=== PATIENT | female | born 1985 | race Caucasian/White ===

== ENCOUNTER 2020-08-05 14:07 | Inpatient (IN) | payer MEDICARE, MEDICAID, SELFPAY ==
[2020-08-25 02:02] VITALS: BMI 31.2
[2020-08-26 07:00] VITALS: BMI 31.8
[2020-08-26 08:00] VITALS: BP 111/52; PULSE 77
[2020-08-26] MEDS: Thiamine HCL 100 MG TABLET PO (10:19)
[2020-08-26] MEDS: haloperidoL 5 MG TABLET PO ×3 (10:19→20:26)
[2020-08-26] MEDS: Folic Acid 1 MG TABLET PO (10:19)
[2020-08-26] MEDS: Benztropine Mesylate 1 MG TABLET PO ×3 (10:20→20:26)
[2020-08-26] MEDS: Topiramate 25 MG TABLET 75 MG PO (10:20)
[2020-08-26 10:21] VITALS: BP 111/52; PULSE 77
[2020-08-26] MEDS: OXcarbazepine 150 MG TABLET 750 MG PO (10:21)
[2020-08-26] MEDS: Propranolol HCL 10 MG TABLET PO ×2 (10:21→20:37)
--- NOTE | 2020-08-26 16:07 | P.PNPSI_ITS ---
Assessment & Plan Assessment & Plan (1) Agitation: Status: Acute Code(s): R45.1 - Restlessness and agitation Assessment and Plan: Continue current medications Responding to Haldol Re-direction (2) Developmental delay, profound: Status: Chronic Code(s): R62.50 - Unspecified lack of expected normal physiological development in childhood Greater than 50% of the session was spent on counseling and/or coordination of care Subjective Subjective Date of Service: 08/26/20 Reason For Visit: Mood Disorder Unspecified Subjective Notes: Conditional Voluntary Interim History: Teresita has been more calm and in behavioral control. She has been accepting her medications and she has been eating better. She has been attending to her ADLs. She continues to be withdrawn and to talk to herself a lot. Legal is working with Tamiko Ding to invoke HCP and the staff is working with the mother in terms of options for Teresita. will invite the mother to come an visit. Medication Compliance: Yes Side effects from medications: No Attending Groups: No Mental Status Exam Mental Status Exam Patient Appearance: Disheveled Patient Orientation: Person and Place Level of Consciousness: Awake Patient Behavior: Guarded, Posturing, Self Manipulative, Hypersexual, Invasion - Personal Space, Pacing and Poor Eye Contact Affect Description: Withdrawn, Anxious and Blunted Ability to Follow Directions: Poor Speech Pattern: Whisper, Rambling, Mumbled (Child like) and Poor Articulation Hallucinations: Auditory Delusions: Paranoid Ideation and Grandiose Thought Process: Racing Thought Content: Incoherent Depressive Symptoms: Increased Anxiety, Insomnia, Increased Irritability and Difficulty Concentrating Abnormal Motor Activity Signs and Symptoms: Aggression and Restlessness Judgement: Poor Diagnostics Vital Signs (24Hr): Vital Signs - 24 hr 08/26/20 08:00 08/26/20 10:21 Pulse Rate 77 77 Blood Pressure 111/52 L 111/52 L Body Mass Index 31.8 Labs Results: 08/24/20 15:20 08/24/20 15:20 Labs: Laboratory Results - last 48 hr 08/24/20 08/24/20 08/24/20 15:20 15:20 15:20 WBC RBC Hgb Hct MCV MCH MCHC RDW Coeff of Bertin Plt Count MPV Immature Gran % (Auto) Neut % (Auto) Lymph % (Auto) [place] % (Auto) Eos % (Auto) Baso % (Auto) Abs Immat Gran (auto) Absolute Lymphs (auto) Absolute Monos (auto) Absolute Eos (auto) Absolute Basos (auto) Absolute Nucleated RBC Nucleated RBC % (auto) Absolute Neutrophils ESR Sodium 143 Potassium 4.0 Chloride 110 H Bicarbonate 25 Anion Gap 12 BUN 23 H Creatinine 0.69 Estimated Creat Clear 102.1 Est GFR (Non-Af Amer) > 60 Random Glucose TNP Fasting Glucose 115 H Calcium 9.2 Total Bilirubin 0.4 AST 19 D ALT 62 H Alkaline Phosphatase 80 D Ammonia 39 Creatine Kinase 69 D Total Protein 6.7 Albumin 4.1 08/24/20 08/24/20 15:20 15:20 WBC 9.1 RBC 4.35 Hgb 12.1 Hct 37.7 MCV 86.7 MCH 27.8 MCHC 32.1 RDW Coeff of Bertin 14.2 Plt Count 313 MPV 10.3 Immature Gran % (Auto) 0.2 Neut % (Auto) 60.9 Lymph % (Auto) 34.1 [place] % (Auto) 3.8 Eos % (Auto) 0.3 Baso % (Auto) 0.7 Abs Immat Gran (auto) 0.02 Absolute Lymphs (auto) 3.1 Absolute Monos (auto) 0.4 Absolute Eos (auto) 0.0 Absolute Basos (auto) 0.1 Absolute Nucleated RBC 0.000 Nucleated RBC % (auto) 0.0 Absolute Neutrophils 5.6 ESR 22 H Sodium Potassium Chloride Bicarbonate Anion Gap BUN Creatinine Estimated Creat Clear Est GFR (Non-Af Amer) Random Glucose Fasting Glucose Calcium Total Bilirubin AST ALT Alkaline Phosphatase Ammonia Creatine Kinase Total Protein Albumin Medications Medications Ambulatory Orders Medication Instructions Recorded aripiprazole 30 mg PO DAILY 08/25/20 clonazepam 0.5 mg PO BID PRN 08/25/20 folic acid 1 mg PO DAILY 08/25/20 gabapentin 300 mg PO BEDTIME 08/25/20 norethindrone (contraceptive) 0.35 mg PO DAILY 08/25/20 [[facility]] propranolol 10 mg PO BID 08/25/20 thiamine mononitrate (vit B1) 100 mg PO DAILY 08/25/20 topiramate 75 mg PO BEDTIME 08/25/20 trazodone 25 - 50 mg PO BEDTIME 08/25/20 Allergies Allergies Allergy/AdvReac Type Severity Reaction Status Date / Time cariprazine [From [facility]] Allergy Unknown UNK Unverified 08/12/20 19:39 divalproex sodium Allergy Unknown UNK Unverified 08/12/20 19:39 [From [facility]] escitalopram [From L[facility]AP[facility]] Allergy Unknown UNK Unverified 08/12/20 19:39 lithium [LITHIUM] Allergy Unknown UNK Unverified 08/12/20 19:39 metformin [METFORMIN] Allergy Unknown UNK Unverified 08/12/20 19:39 oxcarbazepine Allergy Unknown UNK Unverified 08/12/20 19:39 [From TRILEPTAL]
[2020-08-26 18:00] VITALS: BP 96/60; PULSE 82; TEMP 36.2
[2020-08-26 20:37] VITALS: BP 111/52; PULSE 77
[2020-08-27 06:00] VITALS: BP 106/79; PULSE 79; TEMP 35.9; O2SAT 99
[2020-08-27 09:04] VITALS: PULSE 98
[2020-08-27] MEDS: Folic Acid 1 MG TABLET PO (09:04)
[2020-08-27] MEDS: Topiramate 25 MG TABLET 75 MG PO (09:04)
[2020-08-27] MEDS: Thiamine HCL 100 MG TABLET PO (09:04)
[2020-08-27] MEDS: Propranolol HCL 10 MG TABLET PO ×2 (09:04→22:24)
[2020-08-27] MEDS: OXcarbazepine 150 MG TABLET 750 MG PO (09:04)
[2020-08-27] MEDS: haloperidoL 5 MG TABLET PO ×3 (09:06→22:25)
[2020-08-27] MEDS: Benztropine Mesylate 1 MG TABLET PO ×3 (09:06→22:25)
[2020-08-27 18:00] VITALS: BP 115/70; PULSE 87; TEMP 36.8
--- NOTE | 2020-08-27 18:41 | HO.PSYCHPN ---
Assessment & Plan Assessment & Plan (1) Agitation: Status: Acute Code(s): R45.1 - Restlessness and agitation Assessment and Plan: Teresita does seem to be responding to current medication regime and is less agitated as a result (2) Developmental delay, profound: Status: Chronic Code(s): R62.50 - Unspecified lack of expected normal physiological development in childhood Assessment and Plan: HCP to be affirmed. SW working with mother and DDS regarding placement options Greater than 50% of the session was spent on counseling and/or coordination of care Patient educated on: diagnosis and medication risk/benefits Informed Consent: does not understand Reason for contiued inpatient stay Substantial Risk for: harm to self, harm to others and rapid decompensation Subjective Subjective Date of Service: 08/27/20 Reason For Visit: Mood Disorder Unspecified Subjective Notes: Conditional Voluntary Interim History: Teresita has been much more cooperative and calm. She was able to visit with her mother and seemed pleased to see her. She took all of her medication, showered and was pleasant to staff. She remains delusional about having a fiancee. Medication Compliance: Yes Side effects from medications: No Attending Groups: Intermittent Review of Systems Acute medical concerns: No Medical Review of Systems: unchanged Mental Status Exam Mental Status Exam Patient Appearance: Disheveled Patient Orientation: Person Level of Consciousness: Awake Patient Behavior: Dependent, Posturing, Self Manipulative, Hypersexual, Invasion - Personal Space, Avoidant and Distractible Mood Description: Cheerful and Labile Affect Description: Labile Patient Cognition Impaired: No Ability to Follow Directions: Fair Speech Pattern: Slurred, Impoverished and Delayed Hallucinations: Auditory Delusions: Present (Believes she is ) Thought Process: Distracted and Slowed Thinking Thought Content: positive for [place] and positive for [place] of Content Abnormal Motor Activity Signs and Symptoms: Psychomotor Retardation and Tic Judgement: Poor Diagnostics Vital Signs (24Hr): Vital Signs - 24 hr 08/26/20 20:37 08/27/20 06:00 08/27/20 09:04 Temperature 96.7 F L Pulse Rate 77 79 98 Blood Pressure 111/52 L 106/79 Pulse Oximetry 99 Body Mass Index 31.8 Labs Results: 08/24/20 15:20 08/24/20 15:20 Labs: Laboratory Results - last 48 hr 08/24/20 08/24/20 08/24/20 15:20 15:20 15:20 WBC RBC Hgb Hct MCV MCH MCHC RDW Coeff of Bertin Plt Count MPV Immature Gran % (Auto) Neut % (Auto) Lymph % (Auto) [place] % (Auto) Eos % (Auto) Baso % (Auto) Abs Immat Gran (auto) Absolute Lymphs (auto) Absolute Monos (auto) Absolute Eos (auto) Absolute Basos (auto) Absolute Nucleated RBC Nucleated RBC % (auto) Absolute Neutrophils ESR Sodium 143 Potassium 4.0 Chloride 110 H Bicarbonate 25 Anion Gap 12 BUN 23 H Creatinine 0.69 Estimated Creat Clear 102.1 Est GFR (Non-Af Amer) > 60 Random Glucose TNP Fasting Glucose 115 H Calcium 9.2 Total Bilirubin 0.4 AST 19 D ALT 62 H Alkaline Phosphatase 80 D Ammonia 39 Creatine Kinase 69 D Total Protein 6.7 Albumin 4.1 08/24/20 08/24/20 15:20 15:20 WBC 9.1 RBC 4.35 Hgb 12.1 Hct 37.7 MCV 86.7 MCH 27.8 MCHC 32.1 RDW Coeff of Bertin 14.2 Plt Count 313 MPV 10.3 Immature Gran % (Auto) 0.2 Neut % (Auto) 60.9 Lymph % (Auto) 34.1 [place] % (Auto) 3.8 Eos % (Auto) 0.3 Baso % (Auto) 0.7 Abs Immat Gran (auto) 0.02 Absolute Lymphs (auto) 3.1 Absolute Monos (auto) 0.4 Absolute Eos (auto) 0.0 Absolute Basos (auto) 0.1 Absolute Nucleated RBC 0.000 Nucleated RBC % (auto) 0.0 Absolute Neutrophils 5.6 ESR 22 H Sodium Potassium Chloride Bicarbonate Anion Gap BUN Creatinine Estimated Creat Clear Est GFR (Non-Af Amer) Random Glucose Fasting Glucose Calcium Total Bilirubin AST ALT Alkaline Phosphatase Ammonia Creatine Kinase Total Protein Albumin Medications Medications Current Medications Generic Name Dose Route Start Last Admin Trade Name Freq PRN Reason Stop Dose Admin Acetaminophen 650 mg 08/26/20 00:01 Acetaminophen 325 Mg Tablet PO Q6H PRN HEADACHE/PAIN.MILD (SCALE 1-3) Al Hydroxide/Mg Hydroxide 30 ml 08/26/20 00:01 Magnesium Hydrox/Alum Hydrox 30 Ml Oral.Susp PO Q6H PRN HEARTBURN/NAUSEA Benztropine Mesylate 1 mg 08/26/20 08:30 08/27/20 12:52 Benztropine Mesylate 1 Mg Tablet PO 1 mg TID@0830,1330,2100 HERIBERTO Administration Benztropine Mesylate 1 mg 08/26/20 00:01 Benztropine Mesylate 1 Mg Tablet PO Q4H PRN Extrapyramidal Effects Clonazepam 0.25 mg 08/26/20 21:00 Clonazepam 0.5 Mg Tablet PO BEDTIME MRX1 PRN Sleep Clonazepam 0.5 mg 08/26/20 00:01 Clonazepam 0.5 Mg Tablet PO BID PRN anxiety/restlessness Folic Acid 1 mg 08/26/20 09:00 08/27/20 09:04 Folic Acid 1 Mg Tablet PO 1 mg DAILY HERIBERTO Administration Haloperidol 5 mg 08/26/20 08:30 08/27/20 12:52 Haloperidol 5 Mg Tablet PO 5 mg TID@0830,1330,2100 HERIBERTO Administration Haloperidol 5 mg 08/26/20 00:01 Haloperidol 5 Mg Tablet PO Q4H PRN anxiety/restlessness Hydroxyzine HCl 25 mg 08/26/20 21:00 Hydroxyzine Hcl 25 Mg Tablet PO BEDTIME MRX1 PRN NIGHT TIME ANXIETY Loperamide HCl 2 mg 08/26/20 00:01 Loperamide Hcl 2 Mg Capsule PO Q2H PRN Diarrhea Magnesium Hydroxide 30 ml 08/26/20 00:01 Milk Of Magnesia 30 Ml Oral.Susp PO Q24H PRN Constipation Oxcarbazepine 750 mg 08/26/20 09:00 08/27/20 09:04 Oxcarbazepine 150 Mg Tablet PO 750 mg DAILY HERIBERTO Administration Propranolol HCl 10 mg 08/26/20 08:30 08/27/20 09:04 Propranolol Hcl 10 Mg Tablet PO 10 mg BID@0830,2100 HERIBERTO Administration Thiamine HCl 100 mg 08/26/20 09:00 08/27/20 09:04 Thiamine Hcl 100 Mg Tablet PO 100 mg DAILY HERIBERTO Administration Topiramate 75 mg 08/26/20 09:00 08/27/20 09:04 Topiramate 25 Mg Tablet PO 75 mg DAILY HERIBERTO Administration Trazodone HCl 25 mg 08/26/20 21:00 Trazodone Hcl 25 Mg Halftab PO BEDTIME MRX1 PRN Insomnia Allergies Allergies Allergy/AdvReac Type Severity Reaction Status Date / Time cariprazine [From [facility]] Allergy Unknown UNK Unverified 08/12/20 19:39 divalproex sodium Allergy Unknown UNK Unverified 08/12/20 19:39 [From [facility]] escitalopram [From LEXAPRO] Allergy Unknown UNK Unverified 08/12/20 19:39 lithium [LITHIUM] Allergy Unknown UNK Unverified 08/12/20 19:39 metformin [METFORMIN] Allergy Unknown UNK Unverified 08/12/20 19:39 oxcarbazepine Allergy Unknown UNK Unverified 08/12/20 19:39 [From TRILEPTAL]
[2020-08-27 22:24] VITALS: BP 115/70; PULSE 87
[2020-08-28 06:00] VITALS: BP 130/82; PULSE 88; RESP 18
[2020-08-28] MEDS: Topiramate 25 MG TABLET 75 MG PO (10:01)
[2020-08-28] MEDS: OXcarbazepine 150 MG TABLET 750 MG PO (10:02)
[2020-08-28] MEDS: Propranolol HCL 10 MG TABLET PO ×2 (10:02→19:54)
[2020-08-28] MEDS: Thiamine HCL 100 MG TABLET PO (10:02)
[2020-08-28] MEDS: Folic Acid 1 MG TABLET PO (10:02)
[2020-08-28] MEDS: haloperidoL 5 MG TABLET PO ×3 (10:04→19:55)
[2020-08-28] MEDS: Benztropine Mesylate 1 MG TABLET PO ×3 (10:04→19:55)
--- NOTE | 2020-08-28 12:09 | HO.PSYCHPN ---
Assessment & Plan Assessment & Plan (1) Developmental delay, profound: Status: Chronic Code(s): R62.50 - Unspecified lack of expected normal physiological development in childhood Assessment and Plan: limited cognitive ability (2) Mood swings: Status: Acute Code(s): R45.86 - Emotional lability Assessment and Plan: struggles with mood swing appropriate behaviors /aggression seems better today Greater than 50% of the session was spent on counseling and/or coordination of care Guardian/Caregiver educated on: medical condition Informed Consent: further education needed Reason for contiued inpatient stay Substantial Risk for: harm to self, harm to others and inability to function Subjective Subjective Date of Service: 08/28/20 Reason For Visit: Mood Disorder Unspecified Subjective Notes: Conditional Voluntary (5 min checks) Interim History: appropriate today on unit when nurse brought meds pt dropped her clothes mom called mutliple times today concerned about her- different voice she hadn't heard before mom reassured by counselor that she is doing well today possible voice is due to her doing a bit better Medication Compliance: Yes Side effects from medications: No Attending Groups: No Review of Systems Acute medical concerns: No Medical Review of Systems: unchanged Mental Status Exam Mental Status Exam Narrative: leaning over, dressed, some eye contact- Patient Appearance: Bizarre (odd bending over) Patient Orientation: Person and Place Level of Consciousness: Awake and Alert Patient Behavior: Hyperactive, Restless, Wandering, Invasion - Personal Space and Distractible Mood Description: Cheerful Patient Cognition Impaired: Yes Ability to Follow Directions: Fair Speech Pattern: Garbled, Rambling and Poor Articulation Hallucinations: Auditory Thought Process: Illogical Thought Content: positive for [place] and positive for Disorganized Depressive Symptoms: Diff. Making Decisions Abnormal Motor Activity Signs and Symptoms: Hyperactivity and Restlessness Judgement: Poor Diagnostics Vital Signs (24Hr): Vital Signs - 24 hr 08/27/20 18:00 08/27/20 22:24 Temperature 98.2 F Pulse Rate 87 87 Blood Pressure 115/70 115/70 Body Mass Index 31.8 Labs Results: 08/24/20 15:20 08/24/20 15:20 Medications Medications Current Medications Generic Name Dose Route Start Last Admin Trade Name Freq PRN Reason Stop Dose Admin Acetaminophen 650 mg 08/26/20 00:01 Acetaminophen 325 Mg Tablet PO Q6H PRN HEADACHE/PAIN.MILD (SCALE 1-3) Al Hydroxide/Mg Hydroxide 30 ml 08/26/20 00:01 Magnesium Hydrox/Alum Hydrox 30 Ml Oral.Susp PO Q6H PRN HEARTBURN/NAUSEA Benztropine Mesylate 1 mg 08/26/20 08:30 08/28/20 10:04 Benztropine Mesylate 1 Mg Tablet PO 1 mg TID@0830,1330,2100 HERIBERTO Administration Benztropine Mesylate 1 mg 08/26/20 00:01 Benztropine Mesylate 1 Mg Tablet PO Q4H PRN Extrapyramidal Effects Clonazepam 0.25 mg 08/26/20 21:00 Clonazepam 0.5 Mg Tablet PO BEDTIME MRX1 PRN Sleep Clonazepam 0.5 mg 08/26/20 00:01 Clonazepam 0.5 Mg Tablet PO BID PRN anxiety/restlessness Folic Acid 1 mg 08/26/20 09:00 08/28/20 10:02 Folic Acid 1 Mg Tablet PO 1 mg DAILY HERIBERTO Administration Haloperidol 5 mg 08/26/20 08:30 08/28/20 10:04 Haloperidol 5 Mg Tablet PO 5 mg TID@0830,1330,2100 HERIBERTO Administration Haloperidol 5 mg 08/26/20 00:01 Haloperidol 5 Mg Tablet PO Q4H PRN anxiety/restlessness Hydroxyzine HCl 25 mg 08/26/20 21:00 Hydroxyzine Hcl 25 Mg Tablet PO BEDTIME MRX1 PRN NIGHT TIME ANXIETY Loperamide HCl 2 mg 08/26/20 00:01 Loperamide Hcl 2 Mg Capsule PO Q2H PRN Diarrhea Magnesium Hydroxide 30 ml 08/26/20 00:01 Milk Of Magnesia 30 Ml Oral.Susp PO Q24H PRN Constipation Oxcarbazepine 750 mg 08/26/20 09:00 08/28/20 10:02 Oxcarbazepine 150 Mg Tablet PO 750 mg DAILY HERIBERTO Administration Propranolol HCl 10 mg 08/26/20 08:30 08/28/20 10:02 Propranolol Hcl 10 Mg Tablet PO 10 mg BID@0830,2100 HERIBERTO Administration Thiamine HCl 100 mg 08/26/20 09:00 08/28/20 10:02 Thiamine Hcl 100 Mg Tablet PO 100 mg DAILY HERIBERTO Administration Topiramate 75 mg 08/26/20 09:00 08/28/20 10:01 Topiramate 25 Mg Tablet PO 75 mg DAILY HERIBERTO Administration Trazodone HCl 25 mg 08/26/20 21:00 Trazodone Hcl 25 Mg Halftab PO BEDTIME MRX1 PRN Insomnia Allergies Allergies Allergy/AdvReac Type Severity Reaction Status Date / Time cariprazine [From [facility]] Allergy Unknown UNK Unverified 08/12/20 19:39 divalproex sodium Allergy Unknown UNK Unverified 08/12/20 19:39 [From [facility]] escitalopram [From [facility]AP[facility]] Allergy Unknown UNK Unverified 08/12/20 19:39 lithium [LITHIUM] Allergy Unknown UNK Unverified 08/12/20 19:39 metformin [METFORMIN] Allergy Unknown UNK Unverified 08/12/20 19:39 oxcarbazepine Allergy Unknown UNK Unverified 08/12/20 19:39 [From TRILEPTAL]
[2020-08-28 18:00] VITALS: BP 110/55; PULSE 89; TEMP 36.4
[2020-08-28 19:54] VITALS: BP 126/58; PULSE 80
[2020-08-29 06:00] VITALS: BP 131/59; PULSE 70; RESP 18; TEMP 36.2; O2SAT 100
[2020-08-29] MEDS: Topiramate 25 MG TABLET 75 MG PO (09:01)
[2020-08-29] MEDS: Thiamine HCL 100 MG TABLET PO (09:01)
[2020-08-29] MEDS: haloperidoL 5 MG TABLET PO ×3 (09:01→20:11)
[2020-08-29] MEDS: Propranolol HCL 10 MG TABLET PO ×2 (09:01→20:10)
[2020-08-29] MEDS: OXcarbazepine 150 MG TABLET 750 MG PO (09:01)
[2020-08-29] MEDS: Benztropine Mesylate 1 MG TABLET PO ×3 (09:02→20:10)
[2020-08-29] MEDS: Folic Acid 1 MG TABLET PO (09:02)
--- NOTE | 2020-08-29 12:30 | P.PNPSI_ITS ---
Assessment & Plan Assessment & Plan (1) Mood swings: Status: Acute Code(s): R45.86 - Emotional lability Assessment and Plan: seems in better control - (2) Developmental delay, profound: Status: Chronic Code(s): R62.50 - Unspecified lack of expected normal physiological development in childhood Greater than 50% of the session was spent on counseling and/or coordination of care Subjective Subjective Date of Service: 08/29/20 Reason For Visit: Mood Disorder Unspecified Subjective Notes: Conditional Voluntary Interim History: I am ok Medication Compliance: Yes Side effects from medications: No Attending Groups: No Review of Systems Acute medical concerns: No Medical Review of Systems: unchanged Mental Status Exam Mental Status Exam Narrative: leaning over, dressed, some eye contact- Patient Appearance: Bizarre (odd bending over) Patient Orientation: Person and Place Level of Consciousness: Awake and Alert Patient Behavior: Hyperactive, Restless, Wandering, Invasion - Personal Space and Distractible Mood Description: Cheerful Patient Cognition Impaired: Yes Ability to Follow Directions: Fair Speech Pattern: Garbled, Rambling and Poor Articulation Hallucinations: Auditory Thought Process: Illogical Thought Content: positive for [place] and positive for Disorganized Depressive Symptoms: Diff. Making Decisions Abnormal Motor Activity Signs and Symptoms: Hyperactivity and Restlessness Judgement: Poor Diagnostics Vital Signs (24Hr): Vital Signs - 24 hr 08/28/20 18:00 08/28/20 19:54 08/29/20 06:00 Temperature 97.5 F 97.1 F Pulse Rate 89 80 70 Respiratory Rate 18 Blood Pressure 110/55 L 126/58 L 131/59 L Pulse Oximetry 100 Body Mass Index 31.8 Labs Results: 08/24/20 15:20 08/24/20 15:20 Medications Medications Current Medications Generic Name Dose Route Start Last Admin Trade Name Freq PRN Reason Stop Dose Admin Acetaminophen 650 mg 08/26/20 00:01 Acetaminophen 325 Mg Tablet PO Q6H PRN HEADACHE/PAIN.MILD (SCALE 1-3) Al Hydroxide/Mg Hydroxide 30 ml 08/26/20 00:01 Magnesium Hydrox/Alum Hydrox 30 Ml Oral.Susp PO Q6H PRN HEARTBURN/NAUSEA Benztropine Mesylate 1 mg 08/26/20 08:30 08/29/20 09:02 Benztropine Mesylate 1 Mg Tablet PO 1 mg TID@0830,1330,2100 [facility] Administration Benztropine Mesylate 1 mg 08/26/20 00:01 Benztropine Mesylate 1 Mg Tablet PO Q4H PRN Extrapyramidal Effects Clonazepam 0.25 mg 08/26/20 21:00 Clonazepam 0.5 Mg Tablet PO BEDTIME MRX1 PRN Sleep Clonazepam 0.5 mg 08/26/20 00:01 Clonazepam 0.5 Mg Tablet PO BID PRN anxiety/restlessness Folic Acid 1 mg 08/26/20 09:00 08/29/20 09:02 Folic Acid 1 Mg Tablet PO 1 mg DAILY HERIBERTO Administration Haloperidol 5 mg 08/26/20 08:30 08/29/20 09:01 Haloperidol 5 Mg Tablet PO 5 mg TID@0830,1330,2100 HERIBERTO Administration Haloperidol 5 mg 08/26/20 00:01 Haloperidol 5 Mg Tablet PO Q4H PRN anxiety/restlessness Hydroxyzine HCl 25 mg 08/26/20 21:00 Hydroxyzine Hcl 25 Mg Tablet PO BEDTIME MRX1 PRN NIGHT TIME ANXIETY Loperamide HCl 2 mg 08/26/20 00:01 Loperamide Hcl 2 Mg Capsule PO Q2H PRN Diarrhea Magnesium Hydroxide 30 ml 08/26/20 00:01 Milk Of Magnesia 30 Ml Oral.Susp PO Q24H PRN Constipation Oxcarbazepine 750 mg 08/26/20 09:00 08/29/20 09:01 Oxcarbazepine 150 Mg Tablet PO 750 mg DAILY HERIBERTO Administration Propranolol HCl 10 mg 08/26/20 08:30 08/29/20 09:01 Propranolol Hcl 10 Mg Tablet PO 10 mg BID@0830,2100 HERIBERTO Administration Thiamine HCl 100 mg 08/26/20 09:00 08/29/20 09:01 Thiamine Hcl 100 Mg Tablet PO 100 mg DAILY HERIBERTO Administration Topiramate 75 mg 08/26/20 09:00 08/29/20 09:01 Topiramate 25 Mg Tablet PO 75 mg DAILY HERIBERTO Administration Trazodone HCl 25 mg 08/26/20 21:00 Trazodone Hcl 25 Mg Halftab PO BEDTIME MRX1 PRN Insomnia Allergies Allergies Allergy/AdvReac Type Severity Reaction Status Date / Time cariprazine [From [facility]] Allergy Unknown UNK Unverified 08/12/20 19:39 divalproex sodium Allergy Unknown UNK Unverified 08/12/20 19:39 [From [facility]] escitalopram [From LEXAPRO] Allergy Unknown UNK Unverified 08/12/20 19:39 lithium [LITHIUM] Allergy Unknown UNK Unverified 08/12/20 19:39 metformin [METFORMIN] Allergy Unknown UNK Unverified 08/12/20 19:39 oxcarbazepine Allergy Unknown UNK Unverified 08/12/20 19:39 [From TRILEPTAL]
[2020-08-29 20:10] VITALS: BP 113/67; PULSE 71
[2020-08-29 20:14] VITALS: BP 113/67; PULSE 71; TEMP 37.1
[2020-08-30] MEDS: OXcarbazepine 150 MG TABLET 750 MG PO (08:50)
[2020-08-30] MEDS: Thiamine HCL 100 MG TABLET PO (08:50)
[2020-08-30] MEDS: Topiramate 25 MG TABLET 75 MG PO (08:50)
[2020-08-30] MEDS: Folic Acid 1 MG TABLET PO (08:50)
[2020-08-30 08:51] VITALS: PULSE 71
[2020-08-30] MEDS: Propranolol HCL 10 MG TABLET PO (08:51)
[2020-08-30] MEDS: haloperidoL 5 MG TABLET PO ×2 (08:51→13:35)
[2020-08-30] MEDS: Benztropine Mesylate 1 MG TABLET PO ×2 (08:51→13:35)
--- NOTE | 2020-08-30 09:18 | HO.PSYCHPN ---
Assessment & Plan Assessment & Plan (1) Developmental delay, profound: Status: Chronic Code(s): R62.50 - Unspecified lack of expected normal physiological development in childhood Assessment and Plan: Continue medication without change (2) Mood swings: Status: Acute Code(s): R45.86 - Emotional lability Assessment and Plan: CT meds Assess effect Skills (3) Agitation: Status: Acute Code(s): R45.1 - Restlessness and agitation Assessment and Plan: As above Greater than 50% of the session was spent on counseling and/or coordination of care Subjective Subjective Date of Service: 08/30/20 Reason For Visit: Mood Disorder Unspecified Subjective Notes: Conditional Voluntary Interim History: Teresita spent most of the day in her room. She has been in improved behavioral control, and has been attending to her ADLs. She has been taking her medication. She has had no agitation. Medication Compliance: Yes Side effects from medications: No Attending Groups: No Review of Systems Acute medical concerns: No Medical Review of Systems: unchanged Mental Status Exam Mental Status Exam Patient Appearance: Disheveled Patient Orientation: Person Level of Consciousness: Alert Patient Behavior: Posturing, Self Manipulative, Hypersexual and Impulsive Mood Description: Apathetic Affect Description: Apathetic Patient Cognition Impaired: No Ability to Follow Directions: Poor Speech Pattern: Perseverating, Normal for Patient and Poor Articulation Memory Description: Normal for Patient Hallucinations: None Delusions: Paranoid Ideation Thought Process: Distracted Thought Content: positive for Suicidal Ideation (No) and positive for Homicidal Ideation (No) Judgement: Poor Diagnostics Vital Signs (24Hr): Vital Signs - 24 hr 08/29/20 20:10 08/29/20 20:14 08/30/20 08:51 Temperature 98.8 F Pulse Rate 71 71 71 Blood Pressure 113/67 113/67 Body Mass Index 31.8 Labs Results: 08/24/20 15:20 08/24/20 15:20 Medications Medications Current Medications Generic Name Dose Route Start Last Admin Trade Name Freq PRN Reason Stop Dose Admin Acetaminophen 650 mg 08/26/20 00:01 Acetaminophen 325 Mg Tablet PO Q6H PRN HEADACHE/PAIN.MILD (SCALE 1-3) Al Hydroxide/Mg Hydroxide 30 ml 08/26/20 00:01 Magnesium Hydrox/Alum Hydrox 30 Ml Oral.Susp PO Q6H PRN HEARTBURN/NAUSEA Benztropine Mesylate 1 mg 08/26/20 08:30 08/30/20 08:51 Benztropine Mesylate 1 Mg Tablet PO 1 mg TID@0830,1330,2100 HERIBERTO Administration Benztropine Mesylate 1 mg 08/26/20 00:01 Benztropine Mesylate 1 Mg Tablet PO Q4H PRN Extrapyramidal Effects Clonazepam 0.25 mg 08/26/20 21:00 Clonazepam 0.5 Mg Tablet PO BEDTIME MRX1 PRN Sleep Clonazepam 0.5 mg 08/26/20 00:01 Clonazepam 0.5 Mg Tablet PO BID PRN anxiety/restlessness Folic Acid 1 mg 08/26/20 09:00 08/30/20 08:50 Folic Acid 1 Mg Tablet PO 1 mg DAILY HERIBERTO Administration Haloperidol 5 mg 08/26/20 08:30 08/30/20 08:51 Haloperidol 5 Mg Tablet PO 5 mg TID@0830,1330,2100 HERIBERTO Administration Haloperidol 5 mg 08/26/20 00:01 Haloperidol 5 Mg Tablet PO Q4H PRN anxiety/restlessness Hydroxyzine HCl 25 mg 08/26/20 21:00 Hydroxyzine Hcl 25 Mg Tablet PO BEDTIME MRX1 PRN NIGHT TIME ANXIETY Loperamide HCl 2 mg 08/26/20 00:01 Loperamide Hcl 2 Mg Capsule PO Q2H PRN Diarrhea Magnesium Hydroxide 30 ml 08/26/20 00:01 Milk Of Magnesia 30 Ml Oral.Susp PO Q24H PRN Constipation Oxcarbazepine 750 mg 08/26/20 09:00 08/30/20 08:50 Oxcarbazepine 150 Mg Tablet PO 750 mg DAILY HERIBERTO Administration Propranolol HCl 10 mg 08/26/20 08:30 08/30/20 08:51 Propranolol Hcl 10 Mg Tablet PO 10 mg BID@0830,2100 HERIBERTO Administration Thiamine HCl 100 mg 08/26/20 09:00 08/30/20 08:50 Thiamine Hcl 100 Mg Tablet PO 100 mg DAILY HERIBERTO Administration Topiramate 75 mg 08/26/20 09:00 08/30/20 08:50 Topiramate 25 Mg Tablet PO 75 mg DAILY HERIBERTO Administration Trazodone HCl 25 mg 08/26/20 21:00 Trazodone Hcl 25 Mg Halftab PO BEDTIME MRX1 PRN Insomnia Allergies Allergies Allergy/AdvReac Type Severity Reaction Status Date / Time cariprazine [From VRAYLAR] Allergy Unknown UNK Unverified 08/12/20 19:39 divalproex sodium Allergy Unknown UNK Unverified 08/12/20 19:39 [From DEPAKOTE] escitalopram [From LEXAPRO] Allergy Unknown UNK Unverified 08/12/20 19:39 lithium [LITHIUM] Allergy Unknown UNK Unverified 08/12/20 19:39 metformin [METFORMIN] Allergy Unknown UNK Unverified 08/12/20 19:39 oxcarbazepine Allergy Unknown UNK Unverified 08/12/20 19:39 [From TRILEPTAL]
[2020-08-30 09:57] VITALS: PULSE 71; RESP 16; TEMP 36; O2SAT 98
[2020-08-30] MEDS: Haloperidol Lactate 5 MG/ML VIAL IM (20:55)
[2020-08-30] MEDS: Benztropine Mesylate 2 MG/2 ML VIAL 1 MG IM (20:57)
[2020-08-30 21:05] VITALS: BP 118/59; PULSE 76; TEMP 36.6
--- NOTE | 2020-08-30 21:05 | PM.EVENT ---
Event Note Event Note: Patient was evaluated after chemical restrains for agitation were ordered by psych (haldol and ativan). Patient at the bedside, awake, alert, cooperative reporting no complaints. Will continue to monitor.
[2020-08-30 21:25] VITALS: BP 106/56; PULSE 73
[2020-08-30] MEDS: LORazepam 2 MG/ML VIAL IM (21:55)
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
--- NOTE | 2020-08-31 09:31 | P.PNPSI_ITS ---
Assessment & Plan Assessment & Plan (1) Developmental delay, profound: Status: Chronic Code(s): R62.50 - Unspecified lack of expected normal physiological development in childhood Assessment and Plan: Liase with DDS regarding housing and supports (2) Agitation: Status: Acute Code(s): R45.1 - Restlessness and agitation Assessment and Plan: Increase trileptal CT haldol Greater than 50% of the session was spent on counseling and/or coordination of care Subjective Subjective Date of Service: 08/31/20 Reason For Visit: Mood Disorder Unspecified Subjective Notes: Conditional Voluntary Interim History: Teresita has been calmer today. She is eating and attending to her ADLs. She was agitated and required restraints yesterday evening. She had im medications and there is no ill effect. Will increase trileptal today. SW is woking on getting consent for the team to speak with DDS regarding housing options. Medication Compliance: Yes Side effects from medications: No Attending Groups: No Review of Systems Acute medical concerns: No Medical Review of Systems: unchanged Mental Status Exam Mental Status Exam Patient Appearance: Disheveled Patient Orientation: Person Level of Consciousness: Drowsy Patient Behavior: Avoidant, Distractible and Uncooperative Mood Description: Cheerful Affect Description: Cheerful Patient Cognition Impaired: No Ability to Follow Directions: Fair Speech Pattern: Perseverating Delusions: Paranoid Ideation and Present Thought Content: positive for Suicidal Ideation (No) and positive for Homicidal Ideation (No) Abnormal Motor Activity Signs and Symptoms: Aggression Judgement: Poor Diagnostics Vital Signs (24Hr): Vital Signs - 24 hr 08/30/20 09:57 08/30/20 21:05 08/30/20 21:25 Temperature 96.8 F 97.8 F Pulse Rate 71 76 73 Respiratory Rate 16 Blood Pressure 118/59 L 106/56 L Pulse Oximetry 98 Body Mass Index 31.8 Labs Results: 08/24/20 15:20 08/24/20 15:20 Medications Medications Current Medications Generic Name Dose Route Start Last Admin Trade Name Freq PRN Reason Stop Dose Admin Acetaminophen 650 mg 08/26/20 00:01 Acetaminophen 325 Mg Tablet PO Q6H PRN HEADACHE/PAIN.MILD (SCALE 1-3) Al Hydroxide/Mg Hydroxide 30 ml 08/26/20 00:01 Magnesium Hydrox/Alum Hydrox 30 Ml Oral.Susp PO Q6H PRN HEARTBURN/NAUSEA Benztropine Mesylate 1 mg 08/26/20 08:30 08/31/20 00:50 Benztropine Mesylate 1 Mg Tablet PO Not Given TID@0830,1330,2100 [facility] Benztropine Mesylate 1 mg 08/26/20 00:01 Benztropine Mesylate 1 Mg Tablet PO Q4H PRN Extrapyramidal Effects Clonazepam 0.25 mg 08/26/20 21:00 Clonazepam 0.5 Mg Tablet PO BEDTIME MRX1 PRN Sleep Folic Acid 1 mg 08/26/20 09:00 08/30/20 08:50 Folic Acid 1 Mg Tablet PO 1 mg DAILY HERIBERTO Administration Haloperidol 5 mg 08/26/20 08:30 08/31/20 00:50 Haloperidol 5 Mg Tablet PO Not Given TID@0830,1330,2100 [facility] Haloperidol 5 mg 08/26/20 00:01 Haloperidol 5 Mg Tablet PO Q4H PRN anxiety/restlessness Hydroxyzine HCl 25 mg 08/26/20 21:00 Hydroxyzine Hcl 25 Mg Tablet PO BEDTIME MRX1 PRN NIGHT TIME ANXIETY Loperamide HCl 2 mg 08/26/20 00:01 Loperamide Hcl 2 Mg Capsule PO Q2H PRN Diarrhea Magnesium Hydroxide 30 ml 08/26/20 00:01 Milk Of Magnesia 30 Ml Oral.Susp PO Q24H PRN Constipation Oxcarbazepine 750 mg 08/26/20 09:00 08/30/20 08:50 Oxcarbazepine 150 Mg Tablet PO 750 mg DAILY HERIBERTO Administration Propranolol HCl 10 mg 08/26/20 08:30 08/31/20 00:50 Propranolol Hcl 10 Mg Tablet PO Not Given BID@0830,2100 [facility] Thiamine HCl 100 mg 08/26/20 09:00 08/30/20 08:50 Thiamine Hcl 100 Mg Tablet PO 100 mg DAILY HERIBERTO Administration Topiramate 75 mg 08/26/20 09:00 08/30/20 08:50 Topiramate 25 Mg Tablet PO 75 mg DAILY HERIBERTO Administration Trazodone HCl 25 mg 08/26/20 21:00 Trazodone Hcl 25 Mg Halftab PO BEDTIME MRX1 PRN Insomnia Allergies Allergies Allergy/AdvReac Type Severity Reaction Status Date / Time cariprazine [From [facility]] Allergy Unknown UNK Unverified 08/12/20 19:39 divalproex sodium Allergy Unknown UNK Unverified 08/12/20 19:39 [From DEPAKOTE] escitalopram [From LEXAPRO] Allergy Unknown UNK Unverified 08/12/20 19:39 lithium [LITHIUM] Allergy Unknown UNK Unverified 08/12/20 19:39 metformin [METFORMIN] Allergy Unknown UNK Unverified 08/12/20 19:39 oxcarbazepine Allergy Unknown UNK Unverified 08/12/20 19:39 [From TRILEPTAL]
[2020-08-31] MEDS: OXcarbazepine 150 MG TABLET 750 MG PO (09:38)
[2020-08-31] MEDS: Topiramate 25 MG TABLET 75 MG PO (09:39)
[2020-08-31] MEDS: Folic Acid 1 MG TABLET PO (09:40)
[2020-08-31] MEDS: Thiamine HCL 100 MG TABLET PO (09:40)
[2020-08-31] MEDS: haloperidoL 5 MG TABLET PO ×3 (09:45→22:01)
[2020-08-31] MEDS: Benztropine Mesylate 1 MG TABLET PO ×3 (09:45→22:00)
[2020-08-31 09:46] VITALS: BP 126/67; PULSE 94
[2020-08-31] MEDS: Propranolol HCL 10 MG TABLET PO ×2 (09:46→22:00)
[2020-08-31 09:51] VITALS: BP 126/67; PULSE 94; RESP 20; TEMP 36.4
[2020-08-31 18:00] VITALS: BP 109/55; PULSE 94; TEMP 36.7
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
[2020-08-31 22:00] VITALS: BP 109/55; PULSE 94
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
[2020-09-01 06:00] VITALS: BP 126/58; PULSE 79; RESP 16; TEMP 36.4; O2SAT 96
[2020-09-01] MEDS: Topiramate 25 MG TABLET 75 MG PO (08:45)
[2020-09-01] MEDS: Thiamine HCL 100 MG TABLET PO (08:49)
[2020-09-01] MEDS: OXcarbazepine 300 MG TABLET 900 MG PO (08:50)
[2020-09-01] MEDS: Folic Acid 1 MG TABLET PO (08:50)
[2020-09-01 08:54] VITALS: BP 126/58; PULSE 79
[2020-09-01] MEDS: Propranolol HCL 10 MG TABLET PO ×2 (08:54→20:42)
--- NOTE | 2020-09-01 09:14 | HO.PSYCHPN ---
Assessment & Plan Assessment & Plan (1) Agitation: Status: Acute Code(s): R45.1 - Restlessness and agitation Assessment and Plan: CT medication as they are Monitor response and side effects (2) Lack of housing: Status: Acute Code(s): Z59.0 - Homelessness Assessment and Plan: SW is working with DDS Greater than 50% of the session was spent on counseling and/or coordination of care Subjective Subjective Date of Service: 08/31/20 Reason For Visit: Mood Disorder Unspecified Subjective Notes: Conditional Voluntary Interim History: Teresita has been calmer today. She is eating and attending to her ADLs. There have been no further episodes of behavioral dyscontrol. She has tolerated her changes in medications. RAFAEL is woking on getting consent for the team to speak with DDS regarding housing options. Medication Compliance: Yes Side effects from medications: No Attending Groups: No Review of Systems Acute medical concerns: No Medical Review of Systems: unchanged Mental Status Exam Mental Status Exam Patient Appearance: Disheveled Patient Orientation: Person Level of Consciousness: Drowsy Patient Behavior: Avoidant, Distractible and Uncooperative Mood Description: Cheerful Affect Description: Cheerful Patient Cognition Impaired: No Ability to Follow Directions: Fair Speech Pattern: Perseverating Delusions: Paranoid Ideation and Present Thought Content: positive for Suicidal Ideation (No) and positive for Homicidal Ideation (No) Abnormal Motor Activity Signs and Symptoms: Aggression Judgement: Poor Diagnostics Vital Signs (24Hr): Vital Signs - 24 hr 08/31/20 09:46 08/31/20 09:51 08/31/20 18:00 Temperature 97.5 F 98.0 F Pulse Rate 94 94 94 Respiratory Rate 20 Blood Pressure 126/67 126/67 109/55 L Pulse Oximetry 08/31/20 22:00 09/01/20 06:00 09/01/20 08:54 Temperature 97.5 F Pulse Rate 94 79 79 Respiratory Rate 16 Blood Pressure 109/55 L 126/58 L 126/58 L Pulse Oximetry 96 Body Mass Index 31.8 Labs Results: 08/24/20 15:20 08/24/20 15:20 Medications Medications Current Medications Generic Name Dose Route Start Last Admin Trade Name Freq PRN Reason Stop Dose Admin Acetaminophen 650 mg 08/26/20 00:01 Acetaminophen 325 Mg Tablet PO Q6H PRN HEADACHE/PAIN.MILD (SCALE 1-3) Al Hydroxide/Mg Hydroxide 30 ml 08/26/20 00:01 Magnesium Hydrox/Alum Hydrox 30 Ml Oral.Susp PO Q6H PRN HEARTBURN/NAUSEA Benztropine Mesylate 1 mg 08/26/20 08:30 08/31/20 22:00 Benztropine Mesylate 1 Mg Tablet PO 1 mg TID@0830,1330,2100 HERIBERTO Administration Benztropine Mesylate 1 mg 08/26/20 00:01 Benztropine Mesylate 1 Mg Tablet PO Q4H PRN Extrapyramidal Effects Clonazepam 0.25 mg 08/26/20 21:00 Clonazepam 0.5 Mg Tablet PO BEDTIME MRX1 PRN Sleep Folic Acid 1 mg 08/26/20 09:00 09/01/20 08:50 Folic Acid 1 Mg Tablet PO 1 mg DAILY HERIBERTO Administration Haloperidol 5 mg 08/26/20 08:30 08/31/20 22:01 Haloperidol 5 Mg Tablet PO 5 mg TID@0830,1330,2100 HERIBERTO Administration Haloperidol 5 mg 08/26/20 00:01 Haloperidol 5 Mg Tablet PO Q4H PRN anxiety/restlessness Hydroxyzine HCl 25 mg 08/26/20 21:00 Hydroxyzine Hcl 25 Mg Tablet PO BEDTIME MRX1 PRN NIGHT TIME ANXIETY Loperamide HCl 2 mg 08/26/20 00:01 Loperamide Hcl 2 Mg Capsule PO Q2H PRN Diarrhea Magnesium Hydroxide 30 ml 08/26/20 00:01 Milk Of Magnesia 30 Ml Oral.Susp PO Q24H PRN Constipation Oxcarbazepine 900 mg 09/01/20 09:00 09/01/20 08:50 Oxcarbazepine 300 Mg Tablet PO 900 mg DAILY HERIBERTO Administration Propranolol HCl 10 mg 08/26/20 08:30 09/01/20 08:54 Propranolol Hcl 10 Mg Tablet PO 10 mg BID@0830,2100 HERIBERTO Administration Thiamine HCl 100 mg 08/26/20 09:00 09/01/20 08:49 Thiamine Hcl 100 Mg Tablet PO 100 mg DAILY HERIBERTO Administration Topiramate 75 mg 08/26/20 09:00 09/01/20 08:45 Topiramate 25 Mg Tablet PO 75 mg DAILY HERIBERTO Administration Trazodone HCl 25 mg 08/26/20 21:00 Trazodone Hcl 25 Mg Halftab PO BEDTIME MRX1 PRN Insomnia Allergies Allergies Allergy/AdvReac Type Severity Reaction Status Date / Time cariprazine [From V[facility]] Allergy Unknown UNK Unverified 08/12/20 19:39 divalproex sodium Allergy Unknown UNK Unverified 08/12/20 19:39 [From DEPAKOTE] escitalopram [From LEXAPRO] Allergy Unknown UNK Unverified 08/12/20 19:39 lithium [LITHIUM] Allergy Unknown UNK Unverified 08/12/20 19:39 metformin [METFORMIN] Allergy Unknown UNK Unverified 08/12/20 19:39 oxcarbazepine Allergy Unknown UNK Unverified 08/12/20 19:39 [From TRILEPTAL]
[2020-09-01] MEDS: haloperidoL 5 MG TABLET PO ×3 (09:44→20:41)
[2020-09-01] MEDS: Benztropine Mesylate 1 MG TABLET PO ×3 (09:44→20:43)
[2020-09-01] MEDS: Acetaminophen 325 MG TABLET 650 MG PO (12:45)
[2020-09-01] MEDS: Ibuprofen 600 MG TABLET PO (17:45)
[2020-09-01 20:15] VITALS: BP 99/53; PULSE 97; TEMP 37.2
[2020-09-01 20:42] VITALS: BP 99/53; PULSE 97
[2020-09-02 07:00] VITALS: BMI 33.0
--- NOTE | 2020-09-02 09:12 | HO.PSYCHPN ---
Subjective Subjective Date of Service: 09/02/20 Reason For Visit: Mood Disorder Unspecified Subjective Notes: Conditional Voluntary Interim History: Teresita has remained in behavioral control. She is pleasant. She does get agitated and volatile when she is not being given what she wants. Medication Compliance: Yes Side effects from medications: No Attending Groups: No Review of Systems Acute medical concerns: No Medical Review of Systems: unchanged Mental Status Exam Mental Status Exam Patient Appearance: Disheveled Patient Orientation: Person Level of Consciousness: Awake and Appropriate Patient Behavior: Avoidant, Distractible and Uncooperative Mood Description: Cheerful Affect Description: Cheerful Patient Cognition Impaired: No Ability to Follow Directions: Fair Speech Pattern: Perseverating, Impoverished and Mumbled Delusions: Paranoid Ideation and Present (Of her fiancee coming to visit) Thought Content: negative for Suicidal Ideation and negative for Homicidal Ideation Abnormal Motor Activity Signs and Symptoms: Aggression Judgement: Poor Diagnostics Vital Signs (24Hr): Vital Signs - 24 hr 09/01/20 20:15 09/01/20 20:42 Temperature 98.9 F Pulse Rate 97 97 Blood Pressure 99/53 L 99/53 L Body Mass Index 31.8 Labs Results: 08/24/20 15:20 08/24/20 15:20 Medications Medications Current Medications Generic Name Dose Route Start Last Admin Trade Name Corinne PRN Reason Stop Dose Admin Acetaminophen 650 mg 08/26/20 00:01 09/01/20 12:45 Acetaminophen 325 Mg Tablet PO 650 mg Q6H PRN Administration HEADACHE/PAIN.MILD (SCALE 1-3) Al Hydroxide/Mg Hydroxide 30 ml 08/26/20 00:01 Magnesium Hydrox/Alum Hydrox 30 Ml Oral.Susp PO Q6H PRN HEARTBURN/NAUSEA Benztropine Mesylate 1 mg 08/26/20 08:30 09/01/20 20:43 Benztropine Mesylate 1 Mg Tablet PO 1 mg TID@0830,1330,2100 HERIBERTO Administration Benztropine Mesylate 1 mg 08/26/20 00:01 Benztropine Mesylate 1 Mg Tablet PO Q4H PRN Extrapyramidal Effects Clonazepam 0.25 mg 08/26/20 21:00 Clonazepam 0.5 Mg Tablet PO BEDTIME MRX1 PRN Sleep Folic Acid 1 mg 08/26/20 09:00 09/01/20 08:50 Folic Acid 1 Mg Tablet PO 1 mg DAILY HERIBERTO Administration Haloperidol 5 mg 08/26/20 08:30 09/01/20 20:41 Haloperidol 5 Mg Tablet PO 5 mg TID@0830,1330,2100 HERIBERTO Administration Haloperidol 5 mg 08/26/20 00:01 Haloperidol 5 Mg Tablet PO Q4H PRN anxiety/restlessness Hydroxyzine HCl 25 mg 08/26/20 21:00 Hydroxyzine Hcl 25 Mg Tablet PO BEDTIME MRX1 PRN NIGHT TIME ANXIETY Ibuprofen 600 mg 09/01/20 16:46 09/01/20 17:45 Ibuprofen 600 Mg Tablet PO 600 mg Q6H PRN Administration Pain, Moderate (Pain Scale 4-6 Loperamide HCl 2 mg 08/26/20 00:01 Loperamide Hcl 2 Mg Capsule PO Q2H PRN Diarrhea Magnesium Hydroxide 30 ml 08/26/20 00:01 Milk Of Magnesia 30 Ml Oral.Susp PO Q24H PRN Constipation Oxcarbazepine 900 mg 09/01/20 09:00 09/01/20 08:50 Oxcarbazepine 300 Mg Tablet PO 900 mg DAILY HERIBERTO Administration Propranolol HCl 10 mg 08/26/20 08:30 09/01/20 20:42 Propranolol Hcl 10 Mg Tablet PO 10 mg BID@0830,2100 HERIBERTO Administration Thiamine HCl 100 mg 08/26/20 09:00 09/01/20 08:49 Thiamine Hcl 100 Mg Tablet PO 100 mg DAILY HERIBERTO Administration Topiramate 75 mg 08/26/20 09:00 09/01/20 08:45 Topiramate 25 Mg Tablet PO 75 mg DAILY HERIBERTO Administration Trazodone HCl 25 mg 08/26/20 21:00 Trazodone Hcl 25 Mg Halftab PO BEDTIME MRX1 PRN Insomnia Allergies Allergies Allergy/AdvReac Type Severity Reaction Status Date / Time cariprazine [From VRAYLAR] Allergy Unknown UNK Unverified 08/12/20 19:39 divalproex sodium Allergy Unknown UNK Unverified 08/12/20 19:39 [From DEPAKOTE] escitalopram [From LEXAPRO] Allergy Unknown UNK Unverified 08/12/20 19:39 lithium [LITHIUM] Allergy Unknown UNK Unverified 08/12/20 19:39 metformin [METFORMIN] Allergy Unknown UNK Unverified 08/12/20 19:39 oxcarbazepine Allergy Unknown UNK Unverified 08/12/20 19:39 [From TRILEPTAL] Assessment & Plan Assessment & Plan (1) Developmental delay, profound: Status: Chronic Code(s): R62.50 - Unspecified lack of expected normal physiological development in childhood (2) Lack of housing: Status: Acute Code(s): Z59.0 - Homelessness Assessment and Plan: SW working with DDS (3) Mood swings: Status: Acute Code(s): R45.86 - Emotional lability Assessment and Plan: CT medications without change Greater than 50% of the session was spent on counseling and/or coordination of care Patient educated on: diagnosis Informed Consent: does not understand Reason for contiued inpatient stay Substantial Risk for: rapid decompensation and med/psych decompensation
[2020-09-02] MEDS: Folic Acid 1 MG TABLET PO (09:22)
[2020-09-02] MEDS: Topiramate 25 MG TABLET 75 MG PO (09:23)
[2020-09-02] MEDS: OXcarbazepine 300 MG TABLET 900 MG PO (09:24)
[2020-09-02 11:11] VITALS: BP 129/71; PULSE 71
[2020-09-02] MEDS: Propranolol HCL 10 MG TABLET PO ×2 (11:11→21:13)
[2020-09-02] MEDS: Benztropine Mesylate 1 MG TABLET PO ×3 (11:15→21:13)
[2020-09-02] MEDS: haloperidoL 5 MG TABLET PO ×3 (11:15→21:13)
[2020-09-02] MEDS: Thiamine HCL 100 MG TABLET PO (11:15)
[2020-09-02 21:00] VITALS: BP 101/59; PULSE 99; TEMP 36.9
[2020-09-02 21:13] VITALS: BP 101/59; PULSE 99
[2020-09-03] MEDS: Ibuprofen 600 MG TABLET PO (00:59)
[2020-09-03] MEDS: Topiramate 25 MG TABLET 75 MG PO (09:50)
[2020-09-03] MEDS: Thiamine HCL 100 MG TABLET PO (09:52)
[2020-09-03] MEDS: OXcarbazepine 300 MG TABLET 900 MG PO (09:52)
[2020-09-03 09:53] VITALS: BP 108/70; PULSE 80
[2020-09-03] MEDS: Folic Acid 1 MG TABLET PO (09:53)
[2020-09-03] MEDS: Propranolol HCL 10 MG TABLET PO (09:53)
[2020-09-03] MEDS: Benztropine Mesylate 1 MG TABLET PO ×2 (09:57→21:34)
[2020-09-03] MEDS: haloperidoL 5 MG TABLET PO (10:28)
--- NOTE | 2020-09-03 10:29 | P.PNPSI_ITS ---
Subjective Subjective Date of Service: 09/03/20 Reason For Visit: Mood Disorder Unspecified Subjective Notes: Conditional Voluntary Interim History: Teresita has remained in behavioral control. She is pleasant. She does get agitated and volatile when she is not being given what she wants. DDS is aware that she is in need of a detention. She is needing assistance with her ADLs. Medication Compliance: Yes Side effects from medications: No Attending Groups: No Review of Systems Acute medical concerns: No Medical Review of Systems: unchanged Mental Status Exam Mental Status Exam Patient Appearance: Disheveled Patient Orientation: Person Level of Consciousness: Awake and Appropriate Patient Behavior: Avoidant, Distractible and Uncooperative Mood Description: Cheerful Affect Description: Cheerful Patient Cognition Impaired: No Ability to Follow Directions: Fair Speech Pattern: Perseverating, Impoverished and Mumbled Delusions: Paranoid Ideation and Present (Of her fiancee coming to visit) Thought Content: negative for Suicidal Ideation and negative for Homicidal Ideation Abnormal Motor Activity Signs and Symptoms: Aggression Judgement: Poor Diagnostics Vital Signs (24Hr): Vital Signs - 24 hr 09/02/20 11:11 09/02/20 21:00 09/02/20 21:13 Temperature 98.4 F Pulse Rate 71 99 99 Blood Pressure 129/71 101/59 L 101/59 L 09/03/20 09:53 Temperature Pulse Rate 80 Blood Pressure 108/70 Body Mass Index 33.0 Labs Results: 08/24/20 15:20 08/24/20 15:20 Medications Medications Current Medications Generic Name Dose Route Start Last Admin Trade Name Freq PRN Reason Stop Dose Admin Acetaminophen 650 mg 08/26/20 00:01 09/01/20 12:45 Acetaminophen 325 Mg Tablet PO 650 mg Q6H PRN Administration HEADACHE/PAIN.MILD (SCALE 1-3) Al Hydroxide/Mg Hydroxide 30 ml 08/26/20 00:01 Magnesium Hydrox/Alum Hydrox 30 Ml Oral.Susp PO Q6H PRN HEARTBURN/NAUSEA Benztropine Mesylate 1 mg 08/26/20 08:30 09/03/20 09:57 Benztropine Mesylate 1 Mg Tablet PO 1 mg TID@0830,1330,2100 HERIBERTO Administration Benztropine Mesylate 1 mg 08/26/20 00:01 Benztropine Mesylate 1 Mg Tablet PO Q4H PRN Extrapyramidal Effects Clonazepam 0.25 mg 08/26/20 21:00 Clonazepam 0.5 Mg Tablet PO BEDTIME MRX1 PRN Sleep Folic Acid 1 mg 08/26/20 09:00 09/03/20 09:53 Folic Acid 1 Mg Tablet PO 1 mg DAILY HERIBERTO Administration Haloperidol 5 mg 08/26/20 08:30 09/03/20 10:28 Haloperidol 5 Mg Tablet PO 5 mg TID@0830,1330,2100 HERIBERTO Administration Haloperidol 5 mg 08/26/20 00:01 Haloperidol 5 Mg Tablet PO Q4H PRN anxiety/restlessness Hydroxyzine HCl 25 mg 08/26/20 21:00 Hydroxyzine Hcl 25 Mg Tablet PO BEDTIME MRX1 PRN NIGHT TIME ANXIETY Ibuprofen 600 mg 09/01/20 16:46 09/03/20 00:59 Ibuprofen 600 Mg Tablet PO 600 mg Q6H PRN Administration Pain, Moderate (Pain Scale 4-6 Loperamide HCl 2 mg 08/26/20 00:01 Loperamide Hcl 2 Mg Capsule PO Q2H PRN Diarrhea Magnesium Hydroxide 30 ml 08/26/20 00:01 Milk Of Magnesia 30 Ml Oral.Susp PO Q24H PRN Constipation Oxcarbazepine 900 mg 09/01/20 09:00 09/03/20 09:52 Oxcarbazepine 300 Mg Tablet PO 900 mg DAILY HERIBERTO Administration Propranolol HCl 10 mg 08/26/20 08:30 09/03/20 09:53 Propranolol Hcl 10 Mg Tablet PO 10 mg BID@0830,2100 HERIBERTO Administration Thiamine HCl 100 mg 08/26/20 09:00 09/03/20 09:52 Thiamine Hcl 100 Mg Tablet PO 100 mg DAILY HERIBERTO Administration Topiramate 75 mg 08/26/20 09:00 09/03/20 09:50 Topiramate 25 Mg Tablet PO 75 mg DAILY HERIBERTO Administration Trazodone HCl 25 mg 08/26/20 21:00 Trazodone Hcl 25 Mg Halftab PO BEDTIME MRX1 PRN Insomnia Allergies Allergies Allergy/AdvReac Type Severity Reaction Status Date / Time cariprazine [From VRAYLAR] Allergy Unknown UNK Unverified 08/12/20 19:39 divalproex sodium Allergy Unknown UNK Unverified 08/12/20 19:39 [From DEPAKOTE] escitalopram [From LEXAPRO] Allergy Unknown UNK Unverified 08/12/20 19:39 lithium [LITHIUM] Allergy Unknown UNK Unverified 08/12/20 19:39 metformin [METFORMIN] Allergy Unknown UNK Unverified 08/12/20 19:39 oxcarbazepine Allergy Unknown UNK Unverified 08/12/20 19:39 [From TRILEPTAL] Assessment & Plan Assessment & Plan (1) Lack of housing: Status: Acute Code(s): Z59.0 - Homelessness Assessment and Plan: SW is working with DDS (2) Developmental delay, profound: Status: Chronic Code(s): R62.50 - Unspecified lack of expected normal physiological development in childhood Assessment and Plan: No change to medication Liase with community services Greater than 50% of the session was spent on counseling and/or coordination of care
[2020-09-04 08:15] LABS: MANUAL DIFF FLAG NO
[2020-09-04 08:19] LABS: Basophils Absolute Auto 0.1 X10*3/uL (0.0-0.2); Eosinophils Absolute Auto 0.1 X10*3/uL (0.0-0.4); Eosinophils Percent Auto 1.5 % (0-4); Hematocrit 38.9 % (37-47); Hemoglobin 12.7 g/dl (12.0-16.0); Imm Gran Abs Auto 0.02 X10*3/uL (0.00-0.03); Imm Gran Pct Auto 0.2 % (0.0-0.4); Lymphocytes Absolute Auto 3.5 X10*3/uL (1.2-4.9); Lymphocytes Percent Auto 42.3 % (20-40); Mean Corpuscular HGB Conc 32.6 g/dl (31.0-35.0); Mean Corpuscular Hemoglobin 28.3 pg (27.0-33.0); Mean Corpuscular Volume 86.8 fL (80-98); Mean Platelet Volume 10.1 fL (9.4-12.3); Monocytes Absolute Auto 0.4 X10*3/uL (0.1-1.2); Monocytes Percent Auto 5.2 % (2-11); Neutrophils Absolute Auto 4.1 X10*3/uL (2.0-8.3); Neutrophils Percent Auto 49.8 % (45-73); Platelet Count 311 X10*3/uL (160-400); Red Blood Count 4.48 X10*6/uL (4.20-5.50); Red Cell Distribution Width 14.7 % (11.0-16.0); White Blood Count 8.3 X10*3/uL (4.8-10.8)
[2020-09-04] MEDS: Topiramate 25 MG TABLET 75 MG PO (09:42)
[2020-09-04] MEDS: OXcarbazepine 300 MG TABLET 900 MG PO (09:42)
[2020-09-04] MEDS: Benztropine Mesylate 1 MG TABLET PO ×3 (09:42→21:40)
[2020-09-04] MEDS: haloperidoL 5 MG TABLET PO ×3 (09:42→21:39)
[2020-09-04] MEDS: Thiamine HCL 100 MG TABLET PO (09:42)
[2020-09-04 09:49] VITALS: BP 87/59; PULSE 84
[2020-09-04] MEDS: Folic Acid 1 MG TABLET PO (09:49)
[2020-09-04 11:45] LABS: Anion Gap 11 (12-20); Carbon Dioxide 25 mmol/L (22-29); Chloride 108 mmol/L (96-108); Sodium 139 mmol/L (135-145)
[2020-09-04 18:00] VITALS: BP 90/65; PULSE 88; TEMP 36.8; O2SAT 95
--- NOTE | 2020-09-04 18:21 | HO.PSYCHPN ---
Subjective Subjective Date of Service: 09/03/20 Reason For Visit: Mood Disorder Unspecified Subjective Notes: Conditional Voluntary Interim History: Teresita has remained in behavioral control. She is pleasant. She does get agitated and volatile when she is not being given what she wants. She showered today and was interacting with her peers DDS is aware that she is in need of a halfway. She is needing assistance with her ADLs. Medication Compliance: Yes Side effects from medications: No Attending Groups: No Review of Systems Acute medical concerns: No Medical Review of Systems: unchanged Review of Systems Review of Systems Yes all other systems are reviewed and are negative Mental Status Exam Mental Status Exam Patient Appearance: Disheveled Patient Orientation: Person Level of Consciousness: Awake and Appropriate Patient Behavior: Avoidant, Distractible and Uncooperative Mood Description: Cheerful Affect Description: Cheerful Patient Cognition Impaired: No Ability to Follow Directions: Fair Speech Pattern: Perseverating, Impoverished and Mumbled Delusions: Paranoid Ideation and Present (Of her fiancee coming to visit) Thought Content: negative for Suicidal Ideation and negative for Homicidal Ideation Abnormal Motor Activity Signs and Symptoms: Aggression Judgement: Poor Diagnostics Vital Signs (24Hr): Vital Signs - 24 hr 09/04/20 09:49 Pulse Rate 84 Blood Pressure 87/59 L Body Mass Index 33.0 Labs Results: 09/04/20 08:01 09/04/20 08:01 Labs: Laboratory Results - last 48 hr 09/04/20 09/04/20 09/04/20 08:01 08:01 08:01 WBC 8.3 RBC 4.48 Hgb 12.7 Hct 38.9 MCV 86.8 MCH 28.3 MCHC 32.6 RDW 14.7 Plt Count 311 MPV 10.1 Immature Gran % (Auto) 0.2 Neut % (Auto) 49.8 Lymph % (Auto) 42.3 H [place] % (Auto) 5.2 Eos % (Auto) 1.5 Baso % (Auto) 1.0 Lymph # (Auto) 3.5 [place] # (Auto) 0.4 Eos # (Auto) 0.1 Baso # (Auto) 0.1 Abs Immat Gran (auto) 0.02 Absolute Neuts (auto) 4.1 Absolute Nucleated RBC 0.000 Nucleated RBC % (auto) 0.0 Sodium Cancelled 139 Potassium Cancelled 5.0 Chloride Cancelled 108 Carbon Dioxide Cancelled 25 Anion Gap Cancelled 11 L BUN Cancelled Creatinine Cancelled Estim Creat Clear Calc Cancelled Estimated GFR Cancelled Random Glucose Cancelled Uric Acid Cancelled Calcium Cancelled Phosphorus Cancelled Total Bilirubin Cancelled GGT Cancelled AST Cancelled ALT Cancelled Alkaline Phosphatase Cancelled Lactate Dehydrogenase Cancelled Total Protein Cancelled Albumin Cancelled Triglycerides Cancelled Cholesterol Cancelled Medications Medications Current Medications Generic Name Dose Route Start Last Admin Trade Name Freq PRN Reason Stop Dose Admin Acetaminophen 650 mg 08/26/20 00:01 09/01/20 12:45 Acetaminophen 325 Mg Tablet PO 650 mg Q6H PRN Administration HEADACHE/PAIN.MILD (SCALE 1-3) Al Hydroxide/Mg Hydroxide 30 ml 08/26/20 00:01 Magnesium Hydrox/Alum Hydrox 30 Ml Oral.Susp PO Q6H PRN HEARTBURN/NAUSEA Benztropine Mesylate 1 mg 08/26/20 08:30 09/04/20 13:59 Benztropine Mesylate 1 Mg Tablet PO 1 mg TID@0830,1330,2100 HERIBERTO Administration Benztropine Mesylate 1 mg 08/26/20 00:01 Benztropine Mesylate 1 Mg Tablet PO Q4H PRN Extrapyramidal Effects Clonazepam 0.25 mg 08/26/20 21:00 Clonazepam 0.5 Mg Tablet PO BEDTIME MRX1 PRN Sleep Folic Acid 1 mg 08/26/20 09:00 09/04/20 09:49 Folic Acid 1 Mg Tablet PO 1 mg DAILY HERIBERTO Administration Haloperidol 5 mg 08/26/20 08:30 09/04/20 13:59 Haloperidol 5 Mg Tablet PO 5 mg TID@0830,1330,2100 HERIBERTO Administration Haloperidol 5 mg 08/26/20 00:01 Haloperidol 5 Mg Tablet PO Q4H PRN anxiety/restlessness Hydroxyzine HCl 25 mg 08/26/20 21:00 Hydroxyzine Hcl 25 Mg Tablet PO BEDTIME MRX1 PRN NIGHT TIME ANXIETY Ibuprofen 600 mg 09/01/20 16:46 09/03/20 00:59 Ibuprofen 600 Mg Tablet PO 600 mg Q6H PRN Administration Pain, Moderate (Pain Scale 4-6 Loperamide HCl 2 mg 08/26/20 00:01 Loperamide Hcl 2 Mg Capsule PO Q2H PRN Diarrhea Magnesium Hydroxide 30 ml 08/26/20 00:01 Milk Of Magnesia 30 Ml Oral.Susp PO Q24H PRN Constipation Oxcarbazepine 900 mg 09/01/20 09:00 09/04/20 09:42 Oxcarbazepine 300 Mg Tablet PO 900 mg DAILY HERIBERTO Administration Propranolol HCl 10 mg 08/26/20 08:30 09/04/20 09:49 Propranolol Hcl 10 Mg Tablet PO Not Given BID@0830,2100 HERIBERTO Thiamine HCl 100 mg 08/26/20 09:00 09/04/20 09:42 Thiamine Hcl 100 Mg Tablet PO 100 mg DAILY HERIBERTO Administration Topiramate 75 mg 08/26/20 09:00 09/04/20 09:42 Topiramate 25 Mg Tablet PO 75 mg DAILY HERIBERTO Administration Trazodone HCl 25 mg 08/26/20 21:00 Trazodone Hcl 25 Mg Halftab PO BEDTIME MRX1 PRN Insomnia Allergies Allergies Allergy/AdvReac Type Severity Reaction Status Date / Time cariprazine [From VRAYLAR] Allergy Unknown UNK Unverified 08/12/20 19:39 divalproex sodium Allergy Unknown UNK Unverified 08/12/20 19:39 [From DEPAKOTE] escitalopram [From LEXAPRO] Allergy Unknown UNK Unverified 08/12/20 19:39 lithium [LITHIUM] Allergy Unknown UNK Unverified 08/12/20 19:39 metformin [METFORMIN] Allergy Unknown UNK Unverified 08/12/20 19:39 oxcarbazepine Allergy Unknown UNK Unverified 08/12/20 19:39 [From TRILEPTAL] Assessment & Plan Assessment & Plan (1) Lack of housing: Status: Acute Code(s): Z59.0 - Homelessness Assessment and Plan: Liase with DDS (2) Developmental delay, profound: Status: Chronic Code(s): R62.50 - Unspecified lack of expected normal physiological development in childhood Assessment and Plan: No medication changes Greater than 50% of the session was spent on counseling and/or coordination of care Patient educated on: diagnosis and medication risk/benefits Informed Consent: does not understand Reason for contiued inpatient stay Substantial Risk for: rapid decompensation
[2020-09-04 21:39] VITALS: BP 142/70; PULSE 89
[2020-09-04] MEDS: Propranolol HCL 10 MG TABLET PO (21:39)
--- NOTE | 2020-09-04 21:44 | PC.NURSE ---
patient is actively engaged/talking with self.
[2020-09-05] MEDS: OXcarbazepine 300 MG TABLET 900 MG PO (09:26)
[2020-09-05] MEDS: Topiramate 25 MG TABLET 75 MG PO (09:26)
[2020-09-05] MEDS: Benztropine Mesylate 1 MG TABLET PO ×3 (09:27→22:24)
[2020-09-05] MEDS: haloperidoL 5 MG TABLET PO ×3 (09:28→22:24)
[2020-09-05] MEDS: Thiamine HCL 100 MG TABLET PO (09:28)
[2020-09-05] MEDS: Folic Acid 1 MG TABLET PO (09:28)
[2020-09-05 09:34] VITALS: BP 122/59; PULSE 84
[2020-09-05] MEDS: Propranolol HCL 10 MG TABLET PO ×2 (09:34→22:25)
--- NOTE | 2020-09-05 18:29 | P.PNPSI_ITS ---
Subjective Subjective Date of Service: 09/03/20 Reason For Visit: Mood Disorder Unspecified Subjective Notes: Conditional Voluntary Interim History: Teresita has remained in behavioral control. She is pleasant. She showered today and was interacting with her peers. She is managing her menses DDS is aware that she is in need of a long-term. She is needing assistance with her ADLs. Medication Compliance: Yes Side effects from medications: No Attending Groups: No Review of Systems Acute medical concerns: No Medical Review of Systems: unchanged Review of Systems Review of Systems Yes all other systems are reviewed and are negative Mental Status Exam Mental Status Exam Patient Appearance: Disheveled Patient Orientation: Person Level of Consciousness: Awake and Appropriate Patient Behavior: Avoidant and Distractible Mood Description: Cheerful Affect Description: Cheerful Patient Cognition Impaired: No Ability to Follow Directions: Fair Speech Pattern: Perseverating, Impoverished and Mumbled Delusions: Paranoid Ideation and Present (Of her fiancee coming to visit) Thought Content: negative for Suicidal Ideation and negative for Homicidal Ideation Abnormal Motor Activity Signs and Symptoms: Aggression Judgement: Poor Diagnostics Vital Signs (24Hr): Vital Signs - 24 hr 09/04/20 21:39 09/05/20 09:34 Pulse Rate 89 84 Blood Pressure 142/70 H 122/59 L Body Mass Index 33.0 Labs Results: 09/04/20 08:01 09/04/20 08:01 Labs: Laboratory Results - last 48 hr 09/04/20 09/04/20 09/04/20 08:01 08:01 08:01 WBC 8.3 RBC 4.48 Hgb 12.7 Hct 38.9 MCV 86.8 MCH 28.3 MCHC 32.6 RDW 14.7 Plt Count 311 MPV 10.1 Immature Gran % (Auto) 0.2 Neut % (Auto) 49.8 Lymph % (Auto) 42.[address] [place] % (Auto) 5.2 Eos % (Auto) 1.5 Baso % (Auto) 1.0 Lymph # (Auto) 3.5 [place] # (Auto) 0.4 Eos # (Auto) 0.1 Baso # (Auto) 0.1 Abs Immat Gran (auto) 0.02 Absolute Neuts (auto) 4.1 Absolute Nucleated RBC 0.000 Nucleated RBC % (auto) 0.0 Sodium Cancelled 139 Potassium Cancelled 5.0 Chloride Cancelled 108 Carbon Dioxide Cancelled 25 Anion Gap Cancelled 11 L BUN Cancelled Creatinine Cancelled Estim Creat Clear Calc Cancelled Estimated GFR Cancelled Random Glucose Cancelled Uric Acid Cancelled Calcium Cancelled Phosphorus Cancelled Total Bilirubin Cancelled GGT Cancelled AST Cancelled ALT Cancelled Alkaline Phosphatase Cancelled Lactate Dehydrogenase Cancelled Total Protein Cancelled Albumin Cancelled Triglycerides Cancelled Cholesterol Cancelled Medications Medications Current Medications Generic Name Dose Route Start Last Admin Trade Name Freq PRN Reason Stop Dose Admin Acetaminophen 650 mg 08/26/20 00:01 09/01/20 12:45 Acetaminophen 325 Mg Tablet PO 650 mg Q6H PRN Administration HEADACHE/PAIN.MILD (SCALE 1-3) Al Hydroxide/Mg Hydroxide 30 ml 08/26/20 00:01 Magnesium Hydrox/Alum Hydrox 30 Ml Oral.Susp PO Q6H PRN HEARTBURN/NAUSEA Benztropine Mesylate 1 mg 08/26/20 08:30 09/05/20 13:51 Benztropine Mesylate 1 Mg Tablet PO 1 mg TID@0830,1330,2100 HERIBERTO Administration Benztropine Mesylate 1 mg 08/26/20 00:01 Benztropine Mesylate 1 Mg Tablet PO Q4H PRN Extrapyramidal Effects Folic Acid 1 mg 08/26/20 09:00 09/05/20 09:28 Folic Acid 1 Mg Tablet PO 1 mg DAILY HERIBERTO Administration Haloperidol 5 mg 08/26/20 08:30 09/05/20 13:51 Haloperidol 5 Mg Tablet PO 5 mg TID@0830,1330,2100 HERIBERTO Administration Haloperidol 5 mg 08/26/20 00:01 Haloperidol 5 Mg Tablet PO Q4H PRN anxiety/restlessness Hydroxyzine HCl 25 mg 08/26/20 21:00 Hydroxyzine Hcl 25 Mg Tablet PO BEDTIME MRX1 PRN NIGHT TIME ANXIETY Ibuprofen 600 mg 09/01/20 16:46 09/03/20 00:59 Ibuprofen 600 Mg Tablet PO 600 mg Q6H PRN Administration Pain, Moderate (Pain Scale 4-6 Loperamide HCl 2 mg 08/26/20 00:01 Loperamide Hcl 2 Mg Capsule PO Q2H PRN Diarrhea Magnesium Hydroxide 30 ml 08/26/20 00:01 Milk Of Magnesia 30 Ml Oral.Susp PO Q24H PRN Constipation Oxcarbazepine 900 mg 09/01/20 09:00 09/05/20 09:26 Oxcarbazepine 300 Mg Tablet PO 900 mg DAILY HERIBERTO Administration Propranolol HCl 10 mg 08/26/20 08:30 09/05/20 09:34 Propranolol Hcl 10 Mg Tablet PO 10 mg BID@0830,2100 HERIBERTO Administration Thiamine HCl 100 mg 08/26/20 09:00 09/05/20 09:28 Thiamine Hcl 100 Mg Tablet PO 100 mg DAILY HERIBERTO Administration Topiramate 75 mg 08/26/20 09:00 09/05/20 09:26 Topiramate 25 Mg Tablet PO 75 mg DAILY HERIBERTO Administration Trazodone HCl 25 mg 08/26/20 21:00 Trazodone Hcl 25 Mg Halftab PO BEDTIME MRX1 PRN Insomnia Allergies Allergies Allergy/AdvReac Type Severity Reaction Status Date / Time cariprazine [From VRAYLAR] Allergy Unknown UNK Unverified 08/12/20 19:39 divalproex sodium Allergy Unknown UNK Unverified 08/12/20 19:39 [From DEPAKOTE] escitalopram [From LEXAPRO] Allergy Unknown UNK Unverified 08/12/20 19:39 lithium [LITHIUM] Allergy Unknown UNK Unverified 08/12/20 19:39 metformin [METFORMIN] Allergy Unknown UNK Unverified 08/12/20 19:39 oxcarbazepine Allergy Unknown UNK Unverified 08/12/20 19:39 [From TRILEPTAL] Assessment & Plan Assessment & Plan (1) Developmental delay, profound: Status: Chronic Code(s): R62.50 - Unspecified lack of expected normal physiological development in childhood Assessment and Plan: CT current medications (2) Lack of housing: Status: Acute Code(s): Z59.0 - Homelessness Assessment and Plan: Liase with DDS Greater than 50% of the session was spent on counseling and/or coordination of care
[2020-09-05 22:25] VITALS: BP 122/60; PULSE 85
[2020-09-05 22:43] VITALS: BP 122/60; PULSE 85; TEMP 37; O2SAT 94
[2020-09-06] MEDS: Folic Acid 1 MG TABLET PO (09:42)
[2020-09-06] MEDS: OXcarbazepine 300 MG TABLET 900 MG PO (09:42)
[2020-09-06] MEDS: haloperidoL 5 MG TABLET PO ×3 (09:43→21:34)
[2020-09-06] MEDS: Benztropine Mesylate 1 MG TABLET PO ×3 (09:43→21:34)
[2020-09-06] MEDS: Thiamine HCL 100 MG TABLET PO (09:43)
[2020-09-06] MEDS: Topiramate 25 MG TABLET 75 MG PO (09:43)
[2020-09-06 09:49] VITALS: BP 95/60; PULSE 66
[2020-09-06 21:30] VITALS: BP 112/71; PULSE 61; TEMP 36.9
[2020-09-06 21:33] VITALS: BP 112/71; PULSE 65
[2020-09-06] MEDS: Propranolol HCL 10 MG TABLET PO (21:33)
--- NOTE | 2020-09-06 21:46 | P.PNPSI_ITS ---
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 She is needing assistance with her ADLs. Mental Status Exam Mental Status Exam Narrative: leaning over, dressed, some eye contact- Patient Appearance: Disheveled Patient Orientation: Person Level of Consciousness: Lethargic and Inappropriate Patient Behavior: Avoidant and Distractible Mood Description: Withdrawn and Labile Affect Description: Cheerful Patient Cognition Impaired: No Ability to Follow Directions: Fair Speech Pattern: Perseverating, Impoverished and Mumbled Memory Description: Normal for Patient Diagnostics Vital Signs (24Hr): Vital Signs - 24 hr 09/05/20 22:25 09/05/20 22:43 09/06/20 09:49 Temperature 98.6 F Pulse Rate 85 85 66 Blood Pressure 122/60 122/60 95/60 Pulse Oximetry 94 09/06/20 21:33 Temperature Pulse Rate 65 Blood Pressure 112/71 Pulse Oximetry Body Mass Index 33.0 Labs Results: 09/04/20 08:01 09/04/20 08:01 Medications Medications Current Medications Generic Name Dose Route Start Last Admin Trade Name Freq PRN Reason Stop Dose Admin Acetaminophen 650 mg 08/26/20 00:01 09/01/20 12:45 Acetaminophen 325 Mg Tablet PO 650 mg Q6H PRN Administration HEADACHE/PAIN.MILD (SCALE 1-3) Al Hydroxide/Mg Hydroxide 30 ml 08/26/20 00:01 Magnesium Hydrox/Alum Hydrox 30 Ml Oral.Susp PO Q6H PRN HEARTBURN/NAUSEA Benztropine Mesylate 1 mg 08/26/20 08:30 09/06/20 21:34 Benztropine Mesylate 1 Mg Tablet PO 1 mg TID@0830,1330,2100 HERIBERTO Administration Benztropine Mesylate 1 mg 08/26/20 00:01 Benztropine Mesylate 1 Mg Tablet PO Q4H PRN Extrapyramidal Effects Folic Acid 1 mg 08/26/20 09:00 09/06/20 09:42 Folic Acid 1 Mg Tablet PO 1 mg DAILY HERIBERTO Administration Haloperidol 5 mg 08/26/20 08:30 09/06/20 21:34 Haloperidol 5 Mg Tablet PO 5 mg TID@0830,1330,2100 HERIBERTO Administration Haloperidol 5 mg 08/26/20 00:01 Haloperidol 5 Mg Tablet PO Q4H PRN anxiety/restlessness Hydroxyzine HCl 25 mg 08/26/20 21:00 Hydroxyzine Hcl 25 Mg Tablet PO BEDTIME MRX1 PRN NIGHT TIME ANXIETY Ibuprofen 600 mg 09/01/20 16:46 09/03/20 00:59 Ibuprofen 600 Mg Tablet PO 600 mg Q6H PRN Administration Pain, Moderate (Pain Scale 4-6 Loperamide HCl 2 mg 08/26/20 00:01 Loperamide Hcl 2 Mg Capsule PO Q2H PRN Diarrhea Magnesium Hydroxide 30 ml 08/26/20 00:01 Milk Of Magnesia 30 Ml Oral.Susp PO Q24H PRN Constipation Oxcarbazepine 900 mg 09/01/20 09:00 09/06/20 09:42 Oxcarbazepine 300 Mg Tablet PO 900 mg DAILY HERIBERTO Administration Propranolol HCl 10 mg 08/26/20 08:30 09/06/20 21:33 Propranolol Hcl 10 Mg Tablet PO 10 mg BID@0830,2100 HERIBERTO Administration Thiamine HCl 100 mg 08/26/20 09:00 09/06/20 09:43 Thiamine Hcl 100 Mg Tablet PO 100 mg DAILY HERIBERTO Administration Topiramate 75 mg 08/26/20 09:00 09/06/20 09:43 Topiramate 25 Mg Tablet PO 75 mg DAILY HERIBERTO Administration Trazodone HCl 25 mg 08/26/20 21:00 Trazodone Hcl 25 Mg Halftab PO BEDTIME MRX1 PRN Insomnia Allergies Allergies Allergy/AdvReac Type Severity Reaction Status Date / Time cariprazine [From VRAYLAR] Allergy Unknown UNK Unverified 08/12/20 19:39 divalproex sodium Allergy Unknown UNK Unverified 08/12/20 19:39 [From DEPAKOTE] escitalopram [From LEXAPRO] Allergy Unknown UNK Unverified 08/12/20 19:39 lithium [LITHIUM] Allergy Unknown UNK Unverified 08/12/20 19:39 metformin [METFORMIN] Allergy Unknown UNK Unverified 08/12/20 19:39 oxcarbazepine Allergy Unknown UNK Unverified 08/12/20 19:39 [From TRILEPTAL] Assessment & Plan Assessment & Plan (1) Developmental delay, profound: Status: Chronic Code(s): R62.50 - Unspecified lack of expected normal physiological development in childhood Assessment and Plan: CT current medications and behavioral care plan (2) Lack of housing: Status: Acute Code(s): Z59.0 - Homelessness Assessment and Plan: Liase with DDS Greater than 50% of the session was spent on counseling and/or coordination of care
[2020-09-07 06:00] VITALS: RESP 16; TEMP 36.9; O2SAT 98
--- NOTE | 2020-09-07 09:22 | HO.PSYCHPN ---
Subjective Subjective Date of Service: 09/07/20 Reason For Visit: Mood Disorder Unspecified Subjective Notes: Conditional Voluntary Interim History: Teresita was sleeping for much of the day. She continues to allow staff to help her with ADLs and with keeping her room in order. She has been taking medication. There has been no behavioral dyscontrol. Medication Compliance: Yes Side effects from medications: No Attending Groups: No Mental Status Exam Mental Status Exam Narrative: leaning over, dressed, some eye contact- Patient Appearance: Disheveled Patient Orientation: Person Level of Consciousness: Lethargic and Inappropriate Patient Behavior: Self Manipulative, Hypersexual, Avoidant and Distractible Mood Description: Withdrawn and Labile Affect Description: Cheerful Patient Cognition Impaired: No Ability to Follow Directions: Fair Speech Pattern: Perseverating, Impoverished and Mumbled Hallucinations: None Delusions: Paranoid Ideation and Present Thought Process: Rumination and Slowed Thinking Thought Content: positive for Circumstantial and positive for Loose Associations Abnormal Motor Activity Signs and Symptoms: Restlessness Diagnostics Vital Signs (24Hr): Vital Signs - 24 hr 09/06/20 09:49 09/06/20 21:30 09/06/20 21:33 Temperature 98.4 F Pulse Rate 66 61 65 Blood Pressure 95/60 112/71 112/71 Body Mass Index 33.0 Labs Results: 09/04/20 08:01 09/04/20 08:01 Medications Medications Current Medications Generic Name Dose Route Start Last Admin Trade Name Pkq PRN Reason Stop Dose Admin Acetaminophen 650 mg 08/26/20 00:01 09/01/20 12:45 Acetaminophen 325 Mg Tablet PO 650 mg Q6H PRN Administration HEADACHE/PAIN.MILD (SCALE 1-3) Al Hydroxide/Mg Hydroxide 30 ml 08/26/20 00:01 Magnesium Hydrox/Alum Hydrox 30 Ml Oral.Susp PO Q6H PRN HEARTBURN/NAUSEA Benztropine Mesylate 1 mg 08/26/20 08:30 09/06/20 21:34 Benztropine Mesylate 1 Mg Tablet PO 1 mg TID@0830,1330,2100 HERIBERTO Administration Benztropine Mesylate 1 mg 08/26/20 00:01 Benztropine Mesylate 1 Mg Tablet PO Q4H PRN Extrapyramidal Effects Folic Acid 1 mg 08/26/20 09:00 09/06/20 09:42 Folic Acid 1 Mg Tablet PO 1 mg DAILY HERIBERTO Administration Haloperidol 5 mg 08/26/20 08:30 09/06/20 21:34 Haloperidol 5 Mg Tablet PO 5 mg TID@0830,1330,2100 HERIBEROT Administration Haloperidol 5 mg 08/26/20 00:01 Haloperidol 5 Mg Tablet PO Q4H PRN anxiety/restlessness Hydroxyzine HCl 25 mg 08/26/20 21:00 Hydroxyzine Hcl 25 Mg Tablet PO BEDTIME MRX1 PRN NIGHT TIME ANXIETY Ibuprofen 600 mg 09/01/20 16:46 09/03/20 00:59 Ibuprofen 600 Mg Tablet PO 600 mg Q6H PRN Administration Pain, Moderate (Pain Scale 4-6 Loperamide HCl 2 mg 08/26/20 00:01 Loperamide Hcl 2 Mg Capsule PO Q2H PRN Diarrhea Magnesium Hydroxide 30 ml 08/26/20 00:01 Milk Of Magnesia 30 Ml Oral.Susp PO Q24H PRN Constipation Oxcarbazepine 900 mg 09/01/20 09:00 09/06/20 09:42 Oxcarbazepine 300 Mg Tablet PO 900 mg DAILY HERIBERTO Administration Propranolol HCl 10 mg 08/26/20 08:30 09/06/20 21:33 Propranolol Hcl 10 Mg Tablet PO 10 mg BID@0830,2100 HERIBERTO Administration Thiamine HCl 100 mg 08/26/20 09:00 09/06/20 09:43 Thiamine Hcl 100 Mg Tablet PO 100 mg DAILY HERIBERTO Administration Topiramate 75 mg 08/26/20 09:00 09/06/20 09:43 Topiramate 25 Mg Tablet PO 75 mg DAILY HERIBERTO Administration Trazodone HCl 25 mg 08/26/20 21:00 Trazodone Hcl 25 Mg Halftab PO BEDTIME MRX1 PRN Insomnia Allergies Allergies Allergy/AdvReac Type Severity Reaction Status Date / Time cariprazine [From VRAYLAR] Allergy Unknown UNK Unverified 08/12/20 19:39 divalproex sodium Allergy Unknown UNK Unverified 08/12/20 19:39 [From DEPAKOTE] escitalopram [From LEXAPRO] Allergy Unknown UNK Unverified 08/12/20 19:39 lithium [LITHIUM] Allergy Unknown UNK Unverified 08/12/20 19:39 metformin [METFORMIN] Allergy Unknown UNK Unverified 08/12/20 19:39 oxcarbazepine Allergy Unknown UNK Unverified 08/12/20 19:39 [From TRILEPTAL] Assessment & Plan Assessment & Plan (1) Developmental delay, profound: Status: Chronic Code(s): R62.50 - Unspecified lack of expected normal physiological development in childhood (2) Lack of housing: Status: Acute Code(s): Z59.0 - Homelessness Assessment and Plan: Continue medications without change. CT to liaise with DDS regarding placement options Greater than 50% of the session was spent on counseling and/or coordination of care
[2020-09-07] MEDS: Thiamine HCL 100 MG TABLET PO (09:41)
[2020-09-07] MEDS: OXcarbazepine 300 MG TABLET 900 MG PO (09:41)
[2020-09-07] MEDS: Benztropine Mesylate 1 MG TABLET PO ×3 (09:41→21:38)
[2020-09-07] MEDS: Topiramate 25 MG TABLET 75 MG PO (09:41)
[2020-09-07 09:42] VITALS: BP 110/63; PULSE 97
[2020-09-07] MEDS: haloperidoL 5 MG TABLET PO ×3 (09:42→21:38)
[2020-09-07] MEDS: Folic Acid 1 MG TABLET PO (09:42)
[2020-09-07] MEDS: Propranolol HCL 10 MG TABLET PO ×2 (09:42→21:38)
[2020-09-07 21:30] VITALS: BP 107/66; PULSE 64; TEMP 36.9
[2020-09-07 21:38] VITALS: BP 107/66; PULSE 64
[2020-09-08 06:00] VITALS: RESP 16; TEMP 36.3; O2SAT 98
[2020-09-08] MEDS: Topiramate 25 MG TABLET 75 MG PO (08:57)
[2020-09-08 08:58] VITALS: BP 105/61; PULSE 83
[2020-09-08] MEDS: Folic Acid 1 MG TABLET PO (08:58)
[2020-09-08] MEDS: haloperidoL 5 MG TABLET PO ×3 (08:58→21:33)
[2020-09-08] MEDS: Benztropine Mesylate 1 MG TABLET PO ×3 (08:58→21:31)
[2020-09-08] MEDS: Propranolol HCL 10 MG TABLET PO ×2 (08:58→21:32)
[2020-09-08] MEDS: Thiamine HCL 100 MG TABLET PO (08:58)
[2020-09-08] MEDS: OXcarbazepine 300 MG TABLET 900 MG PO (08:58)
--- NOTE | 2020-09-08 09:21 | P.PNPSI_ITS ---
Subjective Subjective Date of Service: 09/08/20 Reason For Visit: Mood Disorder Unspecified Subjective Notes: Conditional Voluntary Interim History: Teresita was sleeping for much of the day. She continues to allow staff to help her with ADLs and with keeping her room in order. She is in her room masturbating much of the time. She has been taking medication. There has been no behavioral dyscontrol. SW continues to work with DDS regarding placement Medication Compliance: Yes Side effects from medications: No Attending Groups: No Review of Systems Acute medical concerns: No Medical Review of Systems: unchanged Mental Status Exam Mental Status Exam Narrative: leaning over, dressed, some eye contact- Patient Appearance: Disheveled Patient Orientation: Person Level of Consciousness: Lethargic and Inappropriate Patient Behavior: Self Manipulative, Hypersexual, Avoidant and Distractible Mood Description: Withdrawn and Labile Affect Description: Cheerful Patient Cognition Impaired: No Ability to Follow Directions: Fair Speech Pattern: Perseverating, Impoverished and Mumbled Hallucinations: None Delusions: Paranoid Ideation and Present Thought Process: Rumination and Slowed Thinking Thought Content: positive for Circumstantial and positive for Loose Associations Abnormal Motor Activity Signs and Symptoms: Restlessness Diagnostics Vital Signs (24Hr): Vital Signs - 24 hr 09/07/20 09:42 09/07/20 21:30 09/07/20 21:38 Temperature 98.5 F Pulse Rate 97 64 64 Respiratory Rate Blood Pressure 110/63 107/66 107/66 Pulse Oximetry 09/08/20 06:00 09/08/20 08:58 Temperature 97.4 F Pulse Rate 83 Respiratory Rate 16 Blood Pressure 105/61 Pulse Oximetry 98 Body Mass Index 33.0 Labs Results: 09/04/20 08:01 09/04/20 08:01 Medications Medications Current Medications Generic Name Dose Route Start Last Admin Trade Name Freq PRN Reason Stop Dose Admin Acetaminophen 650 mg 08/26/20 00:01 09/01/20 12:45 Acetaminophen 325 Mg Tablet PO 650 mg Q6H PRN Administration HEADACHE/PAIN.MILD (SCALE 1-3) Al Hydroxide/Mg Hydroxide 30 ml 08/26/20 00:01 Magnesium Hydrox/Alum Hydrox 30 Ml Oral.Susp PO Q6H PRN HEARTBURN/NAUSEA Benztropine Mesylate 1 mg 08/26/20 08:30 09/08/20 08:58 Benztropine Mesylate 1 Mg Tablet PO 1 mg TID@0830,1330,2100 HERIBERTO Administration Benztropine Mesylate 1 mg 08/26/20 00:01 Benztropine Mesylate 1 Mg Tablet PO Q4H PRN Extrapyramidal Effects Folic Acid 1 mg 08/26/20 09:00 09/08/20 08:58 Folic Acid 1 Mg Tablet PO 1 mg DAILY HERIBERTO Administration Haloperidol 5 mg 08/26/20 08:30 09/08/20 08:58 Haloperidol 5 Mg Tablet PO 5 mg TID@0830,1330,2100 HERIBERTO Administration Haloperidol 5 mg 08/26/20 00:01 Haloperidol 5 Mg Tablet PO Q4H PRN anxiety/restlessness Hydroxyzine HCl 25 mg 08/26/20 21:00 Hydroxyzine Hcl 25 Mg Tablet PO BEDTIME MRX1 PRN NIGHT TIME ANXIETY Ibuprofen 600 mg 09/01/20 16:46 09/03/20 00:59 Ibuprofen 600 Mg Tablet PO 600 mg Q6H PRN Administration Pain, Moderate (Pain Scale 4-6 Loperamide HCl 2 mg 08/26/20 00:01 Loperamide Hcl 2 Mg Capsule PO Q2H PRN Diarrhea Magnesium Hydroxide 30 ml 08/26/20 00:01 Milk Of Magnesia 30 Ml Oral.Susp PO Q24H PRN Constipation Oxcarbazepine 900 mg 09/01/20 09:00 09/08/20 08:58 Oxcarbazepine 300 Mg Tablet PO 900 mg DAILY HERIBERTO Administration Propranolol HCl 10 mg 08/26/20 08:30 09/08/20 08:58 Propranolol Hcl 10 Mg Tablet PO 10 mg BID@0830,2100 HERIBERTO Administration Thiamine HCl 100 mg 08/26/20 09:00 09/08/20 08:58 Thiamine Hcl 100 Mg Tablet PO 100 mg DAILY HERIBERTO Administration Topiramate 75 mg 08/26/20 09:00 09/08/20 08:57 Topiramate 25 Mg Tablet PO 75 mg DAILY HERIBERTO Administration Trazodone HCl 25 mg 08/26/20 21:00 Trazodone Hcl 25 Mg Halftab PO BEDTIME MRX1 PRN Insomnia Allergies Allergies Allergy/AdvReac Type Severity Reaction Status Date / Time cariprazine [From [facility]] Allergy Unknown UNK Unverified 08/12/20 19:39 divalproex sodium Allergy Unknown UNK Unverified 08/12/20 19:39 [From [facility]] escitalopram [From L[facility]AP[facility]] Allergy Unknown UNK Unverified 08/12/20 19:39 lithium [LITHIUM] Allergy Unknown UNK Unverified 08/12/20 19:39 metformin [METFORMIN] Allergy Unknown UNK Unverified 08/12/20 19:39 oxcarbazepine Allergy Unknown UNK Unverified 08/12/20 19:39 [From TRILEPTAL] Assessment & Plan Assessment & Plan (1) Developmental delay, profound: Status: Chronic Code(s): R62.50 - Unspecified lack of expected normal physiological development in childhood (2) Lack of housing: Status: Acute Code(s): Z59.0 - Homelessness Assessment and Plan: CT medications withut change Liase with DDS regarging placement Greater than 50% of the session was spent on counseling and/or coordination of care Patient educated on: diagnosis and medication risk/benefits Informed Consent: does not understand Reason for contiued inpatient stay Substantial Risk for: med/psych decompensation
[2020-09-08 21:32] VITALS: BP 105/60; PULSE 75
[2020-09-09 06:00] VITALS: TEMP 36.2
[2020-09-09 07:00] VITALS: BMI 32.7
[2020-09-09] MEDS: Topiramate 25 MG TABLET 75 MG PO (08:50)
[2020-09-09 08:51] VITALS: BP 110/65; PULSE 79
[2020-09-09] MEDS: OXcarbazepine 300 MG TABLET 900 MG PO (08:51)
[2020-09-09] MEDS: Benztropine Mesylate 1 MG TABLET PO ×3 (08:51→21:33)
[2020-09-09] MEDS: Thiamine HCL 100 MG TABLET PO (08:51)
[2020-09-09] MEDS: Propranolol HCL 10 MG TABLET PO ×2 (08:51→21:33)
[2020-09-09] MEDS: haloperidoL 5 MG TABLET PO ×3 (08:51→21:33)
[2020-09-09] MEDS: Folic Acid 1 MG TABLET PO (08:51)
--- NOTE | 2020-09-09 09:16 | HO.PSYCHPN ---
Subjective Subjective Date of Service: 09/09/20 Reason For Visit: Mood Disorder Unspecified Subjective Notes: Conditional Voluntary Interim History: Teresita has been much more engaged and out and about on the unit. She continues to allow staff to help her with ADLs and with keeping her room in order. She has been taking medication. There has been no behavioral dyscontrol. SW continues to work with DDS regarding placement Medication Compliance: Yes Side effects from medications: No Attending Groups: No Review of Systems Acute medical concerns: No Medical Review of Systems: unchanged Mental Status Exam Mental Status Exam Narrative: leaning over, dressed, some eye contact- Patient Appearance: Disheveled Patient Orientation: Person Level of Consciousness: Lethargic and Inappropriate Patient Behavior: Self Manipulative, Hypersexual, Avoidant and Distractible Mood Description: Withdrawn and Labile Affect Description: Cheerful Patient Cognition Impaired: No Ability to Follow Directions: Fair Speech Pattern: Perseverating, Impoverished and Mumbled Hallucinations: None Delusions: Paranoid Ideation and Present Thought Process: Rumination and Slowed Thinking Thought Content: positive for Circumstantial, positive for Loose Associations, negative for Suicidal Ideation and negative for Homicidal Ideation Abnormal Motor Activity Signs and Symptoms: Restlessness Diagnostics Vital Signs (24Hr): Vital Signs - 24 hr 09/08/20 21:32 09/09/20 06:00 09/09/20 08:51 Temperature 97.2 F Pulse Rate 75 79 Blood Pressure 105/60 110/65 Body Mass Index 32.7 Labs Results: 09/04/20 08:01 09/04/20 08:01 Medications Medications Current Medications Generic Name Dose Route Start Last Admin Trade Name Corinne PRN Reason Stop Dose Admin Acetaminophen 650 mg 08/26/20 00:01 09/01/20 12:45 Acetaminophen 325 Mg Tablet PO 650 mg Q6H PRN Administration HEADACHE/PAIN.MILD (SCALE 1-3) Al Hydroxide/Mg Hydroxide 30 ml 08/26/20 00:01 Magnesium Hydrox/Alum Hydrox 30 Ml Oral.Susp PO Q6H PRN HEARTBURN/NAUSEA Benztropine Mesylate 1 mg 08/26/20 08:30 09/09/20 08:51 Benztropine Mesylate 1 Mg Tablet PO 1 mg TID@0830,1330,2100 HERIBERTO Administration Benztropine Mesylate 1 mg 08/26/20 00:01 Benztropine Mesylate 1 Mg Tablet PO Q4H PRN Extrapyramidal Effects Folic Acid 1 mg 08/26/20 09:00 09/09/20 08:51 Folic Acid 1 Mg Tablet PO 1 mg DAILY HERIBERTO Administration Haloperidol 5 mg 08/26/20 08:30 09/09/20 08:51 Haloperidol 5 Mg Tablet PO 5 mg TID@0830,1330,2100 HERIBERTO Administration Haloperidol 5 mg 08/26/20 00:01 Haloperidol 5 Mg Tablet PO Q4H PRN anxiety/restlessness Hydroxyzine HCl 25 mg 08/26/20 21:00 Hydroxyzine Hcl 25 Mg Tablet PO BEDTIME MRX1 PRN NIGHT TIME ANXIETY Ibuprofen 600 mg 09/01/20 16:46 09/03/20 00:59 Ibuprofen 600 Mg Tablet PO 600 mg Q6H PRN Administration Pain, Moderate (Pain Scale 4-6 Loperamide HCl 2 mg 08/26/20 00:01 Loperamide Hcl 2 Mg Capsule PO Q2H PRN Diarrhea Magnesium Hydroxide 30 ml 08/26/20 00:01 Milk Of Magnesia 30 Ml Oral.Susp PO Q24H PRN Constipation Oxcarbazepine 900 mg 09/01/20 09:00 09/09/20 08:51 Oxcarbazepine 300 Mg Tablet PO 900 mg DAILY HERIBERTO Administration Propranolol HCl 10 mg 08/26/20 08:30 09/09/20 08:51 Propranolol Hcl 10 Mg Tablet PO 10 mg BID@0830,2100 HERIBERTO Administration Thiamine HCl 100 mg 08/26/20 09:00 09/09/20 08:51 Thiamine Hcl 100 Mg Tablet PO 100 mg DAILY HERIBERTO Administration Topiramate 75 mg 08/26/20 09:00 09/09/20 08:50 Topiramate 25 Mg Tablet PO 75 mg DAILY HERIBERTO Administration Trazodone HCl 25 mg 08/26/20 21:00 Trazodone Hcl 25 Mg Halftab PO BEDTIME MRX1 PRN Insomnia Allergies Allergies Allergy/AdvReac Type Severity Reaction Status Date / Time cariprazine [From [facility]] Allergy Unknown UNK Unverified 08/12/20 19:39 divalproex sodium Allergy Unknown UNK Unverified 08/12/20 19:39 [From [facility]] escitalopram [From LEXAPRO] Allergy Unknown UNK Unverified 08/12/20 19:39 lithium [LITHIUM] Allergy Unknown UNK Unverified 08/12/20 19:39 metformin [METFORMIN] Allergy Unknown UNK Unverified 08/12/20 19:39 oxcarbazepine Allergy Unknown UNK Unverified 08/12/20 19:39 [From [facility]] Assessment & Plan Assessment & Plan (1) Developmental delay, profound: Status: Chronic Code(s): R62.50 - Unspecified lack of expected normal physiological development in childhood (2) Lack of housing: Status: Acute Code(s): Z59.0 - Homelessness Assessment and Plan: CT medication without change. Labs WNL SW to work with DDS Greater than 50% of the session was spent on counseling and/or coordination of care Patient educated on: diagnosis and medication risk/benefits Informed Consent: does not understand Reason for contiued inpatient stay Substantial Risk for: rapid decompensation
[2020-09-09 21:25] VITALS: BP 110/73; PULSE 62; TEMP 36.8
[2020-09-09 21:33] VITALS: BP 110/73; PULSE 62
[2020-09-10 06:00] VITALS: RESP 16; TEMP 36.7; O2SAT 98
[2020-09-10] MEDS: haloperidoL 5 MG TABLET PO ×3 (08:40→20:49)
[2020-09-10] MEDS: Thiamine HCL 100 MG TABLET PO (08:40)
[2020-09-10] MEDS: Folic Acid 1 MG TABLET PO (08:40)
[2020-09-10] MEDS: Topiramate 25 MG TABLET 75 MG PO (08:40)
[2020-09-10] MEDS: Benztropine Mesylate 1 MG TABLET PO ×3 (08:42→20:50)
[2020-09-10 08:43] VITALS: BP 127/75; PULSE 93
[2020-09-10] MEDS: Propranolol HCL 10 MG TABLET PO ×2 (08:43→20:49)
[2020-09-10] MEDS: OXcarbazepine 300 MG TABLET 900 MG PO (09:12)
--- NOTE | 2020-09-10 09:15 | P.PNPSI_ITS ---
Subjective Subjective Date of Service: 09/10/20 Reason For Visit: Mood Disorder Unspecified Subjective Notes: Conditional Voluntary Interim History: Teresita has been much more engaged and out and about on the unit. She continues to allow staff to help her with ADLs and with keeping her room in order. OT will work with her to see if she can expand her activities. She has been taking medication. There has been no behavioral dyscontrol. SW continues to work with DDS regarding placement Medication Compliance: Yes Side effects from medications: No Attending Groups: No Review of Systems Acute medical concerns: No Medical Review of Systems: unchanged Mental Status Exam Mental Status Exam Narrative: leaning over, dressed, some eye contact- Patient Appearance: Disheveled Patient Orientation: Person Level of Consciousness: Lethargic and Inappropriate Patient Behavior: Self Manipulative, Hypersexual, Avoidant and Distractible Mood Description: Withdrawn and Labile Affect Description: Cheerful Patient Cognition Impaired: No Ability to Follow Directions: Fair Speech Pattern: Perseverating, Impoverished and Mumbled Hallucinations: None Delusions: Paranoid Ideation and Present Thought Process: Rumination and Slowed Thinking Thought Content: positive for Circumstantial, positive for Loose Associations, negative for Suicidal Ideation and negative for Homicidal Ideation Abnormal Motor Activity Signs and Symptoms: Restlessness Judgement: Poor Diagnostics Vital Signs (24Hr): Vital Signs - 24 hr 09/09/20 21:25 09/09/20 21:33 09/10/20 08:43 Temperature 98.2 F Pulse Rate 62 62 93 Blood Pressure 110/73 110/73 127/75 Body Mass Index 32.7 Labs Results: 09/04/20 08:01 09/04/20 08:01 Medications Medications Current Medications Generic Name Dose Route Start Last Admin Trade Name Freq PRN Reason Stop Dose Admin Acetaminophen 650 mg 08/26/20 00:01 09/01/20 12:45 Acetaminophen 325 Mg Tablet PO 650 mg Q6H PRN Administration HEADACHE/PAIN.MILD (SCALE 1-3) Al Hydroxide/Mg Hydroxide 30 ml 08/26/20 00:01 Magnesium Hydrox/Alum Hydrox 30 Ml Oral.Susp PO Q6H PRN HEARTBURN/NAUSEA Benztropine Mesylate 1 mg 08/26/20 08:30 09/10/20 08:42 Benztropine Mesylate 1 Mg Tablet PO 1 mg TID@0830,1330,2100 HERIBERTO Administration Benztropine Mesylate 1 mg 08/26/20 00:01 Benztropine Mesylate 1 Mg Tablet PO Q4H PRN Extrapyramidal Effects Folic Acid 1 mg 08/26/20 09:00 09/10/20 08:40 Folic Acid 1 Mg Tablet PO 1 mg DAILY HERIBERTO Administration Haloperidol 5 mg 08/26/20 08:30 09/10/20 08:40 Haloperidol 5 Mg Tablet PO 5 mg TID@0830,1330,2100 HERIBERTO Administration Haloperidol 5 mg 08/26/20 00:01 Haloperidol 5 Mg Tablet PO Q4H PRN anxiety/restlessness Hydroxyzine HCl 25 mg 08/26/20 21:00 Hydroxyzine Hcl 25 Mg Tablet PO BEDTIME MRX1 PRN NIGHT TIME ANXIETY Ibuprofen 600 mg 09/01/20 16:46 09/03/20 00:59 Ibuprofen 600 Mg Tablet PO 600 mg Q6H PRN Administration Pain, Moderate (Pain Scale 4-6 Loperamide HCl 2 mg 08/26/20 00:01 Loperamide Hcl 2 Mg Capsule PO Q2H PRN Diarrhea Magnesium Hydroxide 30 ml 08/26/20 00:01 Milk Of Magnesia 30 Ml Oral.Susp PO Q24H PRN Constipation Oxcarbazepine 900 mg 09/01/20 09:00 09/10/20 09:12 Oxcarbazepine 300 Mg Tablet PO 900 mg DAILY HERIBERTO Administration Propranolol HCl 10 mg 08/26/20 08:30 09/10/20 08:43 Propranolol Hcl 10 Mg Tablet PO 10 mg BID@0830,2100 HERIBERTO Administration Thiamine HCl 100 mg 08/26/20 09:00 09/10/20 08:40 Thiamine Hcl 100 Mg Tablet PO 100 mg DAILY HERIBERTO Administration Topiramate 75 mg 08/26/20 09:00 09/10/20 08:40 Topiramate 25 Mg Tablet PO 75 mg DAILY HERIBERTO Administration Trazodone HCl 25 mg 08/26/20 21:00 Trazodone Hcl 25 Mg Halftab PO BEDTIME MRX1 PRN Insomnia Allergies Allergies Allergy/AdvReac Type Severity Reaction Status Date / Time cariprazine [From [facility]] Allergy Unknown UNK Verified 09/09/20 21:32 divalproex sodium Allergy Unknown UNK Verified 09/09/20 21:32 [From [facility]] escitalopram [From LEXAPRO] Allergy Unknown UNK Verified 09/09/20 21:32 lithium [LITHIUM] Allergy Unknown UNK Verified 09/09/20 21:32 metformin [METFORMIN] Allergy Unknown UNK Verified 09/09/20 21:32 Assessment & Plan Assessment & Plan (1) Developmental delay, profound: Status: Chronic Code(s): R62.50 - Unspecified lack of expected normal physiological development in childhood (2) Lack of housing: Status: Acute Code(s): Z59.0 - Homelessness Assessment and Plan: CT medication unchanged. Liase with DDS Greater than 50% of the session was spent on counseling and/or coordination of c are Patient educated on: diagnosis and medication risk/benefits Informed Consent: further education needed Reason for contiued inpatient stay Substantial Risk for: rapid decompensation
[2020-09-10 20:45] VITALS: BP 109/59; PULSE 78; TEMP 36.4
[2020-09-10 20:49] VITALS: BP 109/59; PULSE 78
[2020-09-11 06:40] VITALS: BP 99/58; PULSE 82; RESP 18; TEMP 35.9
[2020-09-11 08:43] VITALS: BP 99/58; PULSE 82
[2020-09-11] MEDS: Propranolol HCL 10 MG TABLET PO ×2 (08:43→21:14)
[2020-09-11] MEDS: Topiramate 25 MG TABLET 75 MG PO (08:44)
[2020-09-11] MEDS: haloperidoL 5 MG TABLET PO ×3 (08:44→21:14)
[2020-09-11] MEDS: OXcarbazepine 300 MG TABLET 900 MG PO (08:44)
[2020-09-11] MEDS: Folic Acid 1 MG TABLET PO (08:44)
[2020-09-11] MEDS: Benztropine Mesylate 1 MG TABLET PO ×3 (08:44→21:15)
[2020-09-11] MEDS: Thiamine HCL 100 MG TABLET PO (08:44)
[2020-09-11 21:14] VITALS: BP 130/66; PULSE 66
[2020-09-11 21:22] VITALS: BP 130/66; PULSE 66; TEMP 36.8
--- NOTE | 2020-09-11 23:13 | P.PNPSI_ITS ---
Subjective Subjective Reason For Visit: Mood Disorder Unspecified Interim History: She has been taking medication. There has been no behavioral dyscontrol. SW continues to work with DDS regarding placement above continues to be true patient in behavioral control mostly isolative Mental Status Exam Mental Status Exam Narrative: leaning over, dressed, some eye contact- Patient Appearance: Disheveled Patient Orientation: Person Level of Consciousness: Lethargic and Inappropriate Patient Behavior: Self Manipulative, Hypersexual, Avoidant and Distractible Mood Description: Withdrawn and Labile Affect Description: Cheerful Patient Cognition Impaired: No Ability to Follow Directions: Fair Speech Pattern: Perseverating, Impoverished and Mumbled Memory Description: Normal for Patient Thought Content: positive for [place] and positive for Poverty of Content Judgement: Poor Diagnostics Vital Signs (24Hr): Vital Signs - 24 hr 09/11/20 06:40 09/11/20 08:43 09/11/20 21:14 Temperature 96.6 F L Pulse Rate 82 82 66 Respiratory Rate 18 Blood Pressure 99/58 L 99/58 L 130/66 09/11/20 21:22 Temperature 98.3 F Pulse Rate 66 Respiratory Rate Blood Pressure 130/66 Body Mass Index 32.7 Labs Results: 09/04/20 08:01 09/04/20 08:01 Medications Medications Current Medications Generic Name Dose Route Start Last Admin Trade Name Corinne PRN Reason Stop Dose Admin Acetaminophen 650 mg 08/26/20 00:01 09/01/20 12:45 Acetaminophen 325 Mg Tablet PO 650 mg Q6H PRN Administration HEADACHE/PAIN.MILD (SCALE 1-3) Al Hydroxide/Mg Hydroxide 30 ml 08/26/20 00:01 Magnesium Hydrox/Alum Hydrox 30 Ml Oral.Susp PO Q6H PRN HEARTBURN/NAUSEA Benztropine Mesylate 1 mg 08/26/20 08:30 09/11/20 21:15 Benztropine Mesylate 1 Mg Tablet PO 1 mg TID@0830,1330,2100 HERIBERTO Administration Benztropine Mesylate 1 mg 08/26/20 00:01 Benztropine Mesylate 1 Mg Tablet PO Q4H PRN Extrapyramidal Effects Folic Acid 1 mg 08/26/20 09:00 09/11/20 08:44 Folic Acid 1 Mg Tablet PO 1 mg DAILY HERIBERTO Administration Haloperidol 5 mg 08/26/20 08:30 09/11/20 21:14 Haloperidol 5 Mg Tablet PO 5 mg TID@0830,1330,2100 HERIBERTO Administration Haloperidol 5 mg 08/26/20 00:01 Haloperidol 5 Mg Tablet PO Q4H PRN anxiety/restlessness Hydroxyzine HCl 25 mg 08/26/20 21:00 Hydroxyzine Hcl 25 Mg Tablet PO BEDTIME MRX1 PRN NIGHT TIME ANXIETY Ibuprofen 600 mg 09/01/20 16:46 09/03/20 00:59 Ibuprofen 600 Mg Tablet PO 600 mg Q6H PRN Administration Pain, Moderate (Pain Scale 4-6 Loperamide HCl 2 mg 08/26/20 00:01 Loperamide Hcl 2 Mg Capsule PO Q2H PRN Diarrhea Magnesium Hydroxide 30 ml 08/26/20 00:01 Milk Of Magnesia 30 Ml Oral.Susp PO Q24H PRN Constipation Oxcarbazepine 900 mg 09/01/20 09:00 09/11/20 08:44 Oxcarbazepine 300 Mg Tablet PO 900 mg DAILY HERIBERTO Administration Propranolol HCl 10 mg 08/26/20 08:30 09/11/20 21:14 Propranolol Hcl 10 Mg Tablet PO 10 mg BID@0830,2100 HERIBERTO Administration Thiamine HCl 100 mg 08/26/20 09:00 09/11/20 08:44 Thiamine Hcl 100 Mg Tablet PO 100 mg DAILY HERIBERTO Administration Topiramate 75 mg 08/26/20 09:00 09/11/20 08:44 Topiramate 25 Mg Tablet PO 75 mg DAILY HERIBERTO Administration Trazodone HCl 25 mg 08/26/20 21:00 Trazodone Hcl 25 Mg Halftab PO BEDTIME MRX1 PRN Insomnia Allergies Allergies Allergy/AdvReac Type Severity Reaction Status Date / Time cariprazine [From [facility]] Allergy Unknown UNK Verified 09/09/20 21:32 divalproex sodium Allergy Unknown UNK Verified 09/09/20 21:32 [From [facility]] escitalopram [From LEXAPRO] Allergy Unknown UNK Verified 09/09/20 21:32 lithium [LITHIUM] Allergy Unknown UNK Verified 09/09/20 21:32 metformin [METFORMIN] Allergy Unknown UNK Verified 09/09/20 21:32 Assessment & Plan Assessment & Plan (1) Developmental delay, profound: Status: Chronic Code(s): R62.50 - Unspecified lack of expected normal physiological development in childhood (2) Lack of housing: Status: Acute Code(s): Z59.0 - Homelessness Assessment and Plan: CT medication unchanged. Liase with DDS for placement Greater than 50% of the session was spent on counseling and/or coordination of care
[2020-09-12 06:25] VITALS: BP 102/58; PULSE 80; RESP 20; TEMP 36.6
[2020-09-12] MEDS: Thiamine HCL 100 MG TABLET PO (09:15)
[2020-09-12] MEDS: Folic Acid 1 MG TABLET PO (09:15)
[2020-09-12] MEDS: OXcarbazepine 300 MG TABLET 900 MG PO (09:16)
[2020-09-12 09:17] VITALS: BP 102/58; PULSE 80
[2020-09-12] MEDS: haloperidoL 5 MG TABLET PO ×3 (09:17→21:44)
[2020-09-12] MEDS: Propranolol HCL 10 MG TABLET PO ×2 (09:17→21:42)
[2020-09-12] MEDS: Benztropine Mesylate 1 MG TABLET PO ×3 (09:17→21:44)
[2020-09-12] MEDS: Topiramate 25 MG TABLET 75 MG PO (09:17)
[2020-09-12 20:30] VITALS: BP 100/65; PULSE 69; TEMP 36.9
[2020-09-12 21:42] VITALS: BP 100/65; PULSE 69
--- NOTE | 2020-09-12 23:11 | HO.PSYCHPN ---
Subjective Subjective Reason For Visit: Mood Disorder Unspecified Interim History: Teresita has been more engaged and spends more time out of her room.Periods of mild agitation generally cooperative Mental Status Exam Mental Status Exam Narrative: leaning over, dressed, some eye contact- Patient Appearance: Disheveled Patient Orientation: Person Level of Consciousness: Lethargic and Inappropriate Patient Behavior: Self Manipulative, Hypersexual, Avoidant and Distractible Mood Description: Withdrawn and Labile Affect Description: Cheerful Patient Cognition Impaired: No Ability to Follow Directions: Fair Speech Pattern: Perseverating, Impoverished and Mumbled Memory Description: Normal for Patient Diagnostics Vital Signs (24Hr): Vital Signs - 24 hr 09/12/20 06:25 09/12/20 09:17 09/12/20 21:42 Temperature 97.8 F Pulse Rate 80 80 69 Respiratory Rate 20 Blood Pressure 102/58 L 102/58 L 100/65 Body Mass Index 32.7 Labs Results: 09/04/20 08:01 09/04/20 08:01 Medications Medications Current Medications Generic Name Dose Route Start Last Admin Trade Name Pkq PRN Reason Stop Dose Admin Acetaminophen 650 mg 08/26/20 00:01 09/01/20 12:45 Acetaminophen 325 Mg Tablet PO 650 mg Q6H PRN Administration HEADACHE/PAIN.MILD (SCALE 1-3) Al Hydroxide/Mg Hydroxide 30 ml 08/26/20 00:01 Magnesium Hydrox/Alum Hydrox 30 Ml Oral.Susp PO Q6H PRN HEARTBURN/NAUSEA Benztropine Mesylate 1 mg 08/26/20 08:30 09/12/20 21:44 Benztropine Mesylate 1 Mg Tablet PO 1 mg TID@0830,1330,2100 HERIBERTO Administration Benztropine Mesylate 1 mg 08/26/20 00:01 Benztropine Mesylate 1 Mg Tablet PO Q4H PRN Extrapyramidal Effects Folic Acid 1 mg 08/26/20 09:00 09/12/20 09:15 Folic Acid 1 Mg Tablet PO 1 mg DAILY HERIBERTO Administration Haloperidol 5 mg 08/26/20 08:30 09/12/20 21:44 Haloperidol 5 Mg Tablet PO 5 mg TID@0830,1330,2100 HERIBERTO Administration Haloperidol 5 mg 08/26/20 00:01 Haloperidol 5 Mg Tablet PO Q4H PRN anxiety/restlessness Hydroxyzine HCl 25 mg 08/26/20 21:00 Hydroxyzine Hcl 25 Mg Tablet PO BEDTIME MRX1 PRN NIGHT TIME ANXIETY Ibuprofen 600 mg 09/01/20 16:46 09/03/20 00:59 Ibuprofen 600 Mg Tablet PO 600 mg Q6H PRN Administration Pain, Moderate (Pain Scale 4-6 Loperamide HCl 2 mg 08/26/20 00:01 Loperamide Hcl 2 Mg Capsule PO Q2H PRN Diarrhea Magnesium Hydroxide 30 ml 08/26/20 00:01 Milk Of Magnesia 30 Ml Oral.Susp PO Q24H PRN Constipation Oxcarbazepine 900 mg 09/01/20 09:00 09/12/20 09:16 Oxcarbazepine 300 Mg Tablet PO 900 mg DAILY HERIBERTO Administration Propranolol HCl 10 mg 08/26/20 08:30 09/12/20 21:42 Propranolol Hcl 10 Mg Tablet PO 10 mg BID@0830,2100 HERIBERTO Administration Thiamine HCl 100 mg 08/26/20 09:00 09/12/20 09:15 Thiamine Hcl 100 Mg Tablet PO 100 mg DAILY HERIBERTO Administration Topiramate 75 mg 08/26/20 09:00 09/12/20 09:17 Topiramate 25 Mg Tablet PO 75 mg DAILY HERIBERTO Administration Trazodone HCl 25 mg 08/26/20 21:00 Trazodone Hcl 25 Mg Halftab PO BEDTIME MRX1 PRN Insomnia Allergies Allergies Allergy/AdvReac Type Severity Reaction Status Date / Time cariprazine [From [facility]] Allergy Unknown UNK Verified 09/09/20 21:32 divalproex sodium Allergy Unknown UNK Verified 09/09/20 21:32 [From [facility]] escitalopram [From LEXAPRO] Allergy Unknown UNK Verified 09/09/20 21:32 lithium [LITHIUM] Allergy Unknown UNK Verified 09/09/20 21:32 metformin [METFORMIN] Allergy Unknown UNK Verified 09/09/20 21:32 Assessment & Plan Assessment & Plan (1) Developmental delay, profound: Status: Chronic Code(s): R62.50 - Unspecified lack of expected normal physiological development in childhood (2) Lack of housing: Status: Acute Code(s): Z59.0 - Homelessness Assessment and Plan: CT current medications Liase with DDS ct inpt tx plan Greater than 50% of the session was spent on counseling and/or coordination of care
[2020-09-13] MEDS: OXcarbazepine 300 MG TABLET 900 MG PO (09:20)
[2020-09-13] MEDS: Topiramate 25 MG TABLET 75 MG PO (09:21)
[2020-09-13] MEDS: Folic Acid 1 MG TABLET PO (09:22)
[2020-09-13] MEDS: Benztropine Mesylate 1 MG TABLET PO ×2 (09:22→21:52)
[2020-09-13] MEDS: Thiamine HCL 100 MG TABLET PO (09:22)
[2020-09-13 09:23] VITALS: BP 113/72; PULSE 92
[2020-09-13] MEDS: haloperidoL 5 MG TABLET PO ×2 (09:23→21:52)
[2020-09-13] MEDS: Propranolol HCL 10 MG TABLET PO ×2 (09:23→21:52)
--- NOTE | 2020-09-13 09:24 | P.PNPSI_ITS ---
Subjective Subjective Date of Service: 09/13/20 Reason For Visit: Mood Disorder Unspecified Subjective Notes: Conditional Voluntary Interim History: Teresita has been more engaged and spends more time out of her room. She has been taking medication. There has been no behavioral dyscontrol. SW continues to work with DDS regarding placement Medication Compliance: Yes Side effects from medications: No Attending Groups: No Review of Systems Acute medical concerns: No Medical Review of Systems: unchanged Mental Status Exam Mental Status Exam Narrative: leaning over, dressed, some eye contact- Patient Appearance: Disheveled Patient Orientation: Person Level of Consciousness: Lethargic and Inappropriate Patient Behavior: Self Manipulative, Hypersexual, Avoidant and Distractible Mood Description: Withdrawn and Labile Affect Description: Cheerful Patient Cognition Impaired: No Ability to Follow Directions: Fair Speech Pattern: Perseverating, Impoverished and Mumbled Memory Description: Normal for Patient Delusions: Present (Of boyfriend/fiance) Thought Process: Disoriented and Slowed Thinking Thought Content: positive for [place], positive for Poverty of Content, negative for Suicidal Ideation and negative for Homicidal Ideation Judgement: Poor Diagnostics Vital Signs (24Hr): Vital Signs - 24 hr 09/12/20 20:30 09/12/20 21:42 Temperature 98.4 F Pulse Rate 69 69 Blood Pressure 100/65 100/65 Body Mass Index 32.7 Labs Results: 09/04/20 08:01 09/04/20 08:01 Medications Medications Current Medications Generic Name Dose Route Start Last Admin Trade Name Pkq PRN Reason Stop Dose Admin Acetaminophen 650 mg 08/26/20 00:01 09/01/20 12:45 Acetaminophen 325 Mg Tablet PO 650 mg Q6H PRN Administration HEADACHE/PAIN.MILD (SCALE 1-3) Al Hydroxide/Mg Hydroxide 30 ml 08/26/20 00:01 Magnesium Hydrox/Alum Hydrox 30 Ml Oral.Susp PO Q6H PRN HEARTBURN/NAUSEA Benztropine Mesylate 1 mg 08/26/20 08:30 09/12/20 21:44 Benztropine Mesylate 1 Mg Tablet PO 1 mg TID@0830,1330,2100 HERIBERTO Administration Benztropine Mesylate 1 mg 08/26/20 00:01 Benztropine Mesylate 1 Mg Tablet PO Q4H PRN Extrapyramidal Effects Folic Acid 1 mg 08/26/20 09:00 09/12/20 09:15 Folic Acid 1 Mg Tablet PO 1 mg DAILY HERIBERTO Administration Haloperidol 5 mg 08/26/20 08:30 09/12/20 21:44 Haloperidol 5 Mg Tablet PO 5 mg TID@0830,1330,2100 HERIBERTO Administration Haloperidol 5 mg 08/26/20 00:01 Haloperidol 5 Mg Tablet PO Q4H PRN anxiety/restlessness Hydroxyzine HCl 25 mg 08/26/20 21:00 Hydroxyzine Hcl 25 Mg Tablet PO BEDTIME MRX1 PRN NIGHT TIME ANXIETY Ibuprofen 600 mg 09/01/20 16:46 09/03/20 00:59 Ibuprofen 600 Mg Tablet PO 600 mg Q6H PRN Administration Pain, Moderate (Pain Scale 4-6 Loperamide HCl 2 mg 08/26/20 00:01 Loperamide Hcl 2 Mg Capsule PO Q2H PRN Diarrhea Magnesium Hydroxide 30 ml 08/26/20 00:01 Milk Of Magnesia 30 Ml Oral.Susp PO Q24H PRN Constipation Oxcarbazepine 900 mg 09/01/20 09:00 09/12/20 09:16 Oxcarbazepine 300 Mg Tablet PO 900 mg DAILY HERIBERTO Administration Propranolol HCl 10 mg 08/26/20 08:30 09/12/20 21:42 Propranolol Hcl 10 Mg Tablet PO 10 mg BID@0830,2100 HERIBERTO Administration Thiamine HCl 100 mg 08/26/20 09:00 09/12/20 09:15 Thiamine Hcl 100 Mg Tablet PO 100 mg DAILY HERIBERTO Administration Topiramate 75 mg 08/26/20 09:00 09/12/20 09:17 Topiramate 25 Mg Tablet PO 75 mg DAILY HERIBERTO Administration Trazodone HCl 25 mg 08/26/20 21:00 Trazodone Hcl 25 Mg Halftab PO BEDTIME MRX1 PRN Insomnia Allergies Allergies Allergy/AdvReac Type Severity Reaction Status Date / Time cariprazine [From [facility]] Allergy Unknown UNK Verified 09/09/20 21:32 divalproex sodium Allergy Unknown UNK Verified 09/09/20 21:32 [From DEPAKOTE] escitalopram [From LEXAPRO] Allergy Unknown UNK Verified 09/09/20 21:32 lithium [LITHIUM] Allergy Unknown UNK Verified 09/09/20 21:32 metformin [METFORMIN] Allergy Unknown UNK Verified 10/15/20 21:32 Assessment & Plan Assessment & Plan (1) Developmental delay, profound: Status: Chronic Code(s): R62.50 - Unspecified lack of expected normal physiological development in childhood (2) Lack of housing: Status: Acute Code(s): Z59.0 - Homelessness Assessment and Plan: CT current medications Liase with DDS Greater than 50% of the session was spent on counseling and/or coordination of care Patient educated on: diagnosis and medication risk/benefits Informed Consent: does not understand Reason for contiued inpatient stay Substantial Risk for: inability to function and rapid decompensation
[2020-09-13 09:33] VITALS: BP 113/72; PULSE 92; TEMP 36.5; O2SAT 97
[2020-09-13 18:00] VITALS: BP 119/70; PULSE 78; TEMP 37.1
[2020-09-13 21:52] VITALS: BP 119/70; PULSE 78
[2020-09-14 06:00] VITALS: RESP 16; TEMP 36.4
[2020-09-14] MEDS: Topiramate 25 MG TABLET 75 MG PO (09:27)
[2020-09-14] MEDS: Folic Acid 1 MG TABLET PO (09:28)
[2020-09-14] MEDS: Benztropine Mesylate 1 MG TABLET PO ×3 (09:28→21:44)
[2020-09-14] MEDS: Thiamine HCL 100 MG TABLET PO (09:28)
[2020-09-14] MEDS: OXcarbazepine 300 MG TABLET 900 MG PO (09:29)
[2020-09-14] MEDS: haloperidoL 5 MG TABLET PO ×3 (09:29→21:44)
[2020-09-14 09:30] VITALS: BP 117/60; PULSE 77
[2020-09-14] MEDS: Propranolol HCL 10 MG TABLET PO ×2 (09:30→21:44)
[2020-09-14 09:36] VITALS: BP 117/60; PULSE 77
--- NOTE | 2020-09-14 09:43 | HO.PSYCHPN ---
Subjective Subjective Date of Service: 09/14/20 Reason For Visit: Mood Disorder Unspecified Subjective Notes: Conditional Voluntary Interim History: Teresita has been more engaged and spends more time out of her room. She has been much more pleasant when interacting with staff and peers. She did have an episode of going into other people's rooms this morning but has not had any further difficulty today. She has been taking medication. SW continues to work with DDS regarding placement Medication Compliance: Yes Side effects from medications: No Attending Groups: No Review of Systems Acute medical concerns: No Medical Review of Systems: unchanged Mental Status Exam Mental Status Exam Narrative: leaning over, dressed, some eye contact- Patient Appearance: Disheveled Patient Orientation: Person Level of Consciousness: Lethargic and Inappropriate Patient Behavior: Self Manipulative, Hypersexual, Avoidant and Distractible Mood Description: Withdrawn and Labile Affect Description: Cheerful Patient Cognition Impaired: No Ability to Follow Directions: Fair Speech Pattern: Perseverating, Impoverished and Mumbled Memory Description: Normal for Patient Delusions: Present (Of boyfriend/fiance) Thought Process: Disoriented and Slowed Thinking Thought Content: positive for [place], positive for Poverty of Content, negative for Suicidal Ideation and negative for Homicidal Ideation Judgement: Poor Diagnostics Vital Signs (24Hr): Vital Signs - 24 hr 09/13/20 18:00 09/13/20 21:52 09/14/20 06:00 Temperature 98.7 F 97.5 F Pulse Rate 78 78 Respiratory Rate 16 Blood Pressure 119/70 119/70 09/14/20 09:30 09/14/20 09:36 Temperature Pulse Rate 77 77 Respiratory Rate Blood Pressure 117/60 117/60 Body Mass Index 32.7 Labs Results: 09/04/20 08:01 09/04/20 08:01 Medications Medications Current Medications Generic Name Dose Route Start Last Admin Trade Name Freq PRN Reason Stop Dose Admin Acetaminophen 650 mg 08/26/20 00:01 09/01/20 12:45 Acetaminophen 325 Mg Tablet PO 650 mg Q6H PRN Administration HEADACHE/PAIN.MILD (SCALE 1-3) Al Hydroxide/Mg Hydroxide 30 ml 08/26/20 00:01 Magnesium Hydrox/Alum Hydrox 30 Ml Oral.Susp PO Q6H PRN HEARTBURN/NAUSEA Benztropine Mesylate 1 mg 08/26/20 08:30 09/14/20 09:28 Benztropine Mesylate 1 Mg Tablet PO 1 mg TID@0830,1330,2100 HERIBERTO Administration Benztropine Mesylate 1 mg 08/26/20 00:01 Benztropine Mesylate 1 Mg Tablet PO Q4H PRN Extrapyramidal Effects Folic Acid 1 mg 08/26/20 09:00 09/14/20 09:28 Folic Acid 1 Mg Tablet PO 1 mg DAILY HERIBERTO Administration Haloperidol 5 mg 08/26/20 08:30 09/14/20 09:29 Haloperidol 5 Mg Tablet PO 5 mg TID@0830,1330,2100 HERIBERTO Administration Haloperidol 5 mg 08/26/20 00:01 Haloperidol 5 Mg Tablet PO Q4H PRN anxiety/restlessness Hydroxyzine HCl 25 mg 08/26/20 21:00 Hydroxyzine Hcl 25 Mg Tablet PO BEDTIME MRX1 PRN NIGHT TIME ANXIETY Ibuprofen 600 mg 09/01/20 16:46 09/03/20 00:59 Ibuprofen 600 Mg Tablet PO 600 mg Q6H PRN Administration Pain, Moderate (Pain Scale 4-6 Loperamide HCl 2 mg 08/26/20 00:01 Loperamide Hcl 2 Mg Capsule PO Q2H PRN Diarrhea Magnesium Hydroxide 30 ml 08/26/20 00:01 Milk Of Magnesia 30 Ml Oral.Susp PO Q24H PRN Constipation Oxcarbazepine 900 mg 09/01/20 09:00 09/14/20 09:29 Oxcarbazepine 300 Mg Tablet PO 900 mg DAILY HERIBERTO Administration Propranolol HCl 10 mg 08/26/20 08:30 09/14/20 09:30 Propranolol Hcl 10 Mg Tablet PO 10 mg BID@0830,2100 HERIBERTO Administration Thiamine HCl 100 mg 08/26/20 09:00 09/14/20 09:28 Thiamine Hcl 100 Mg Tablet PO 100 mg DAILY HERIBERTO Administration Topiramate 75 mg 08/26/20 09:00 09/14/20 09:27 Topiramate 25 Mg Tablet PO 75 mg DAILY HERIBERTO Administration Trazodone HCl 25 mg 08/26/20 21:00 Trazodone Hcl 25 Mg Halftab PO BEDTIME MRX1 PRN Insomnia Allergies Allergies Allergy/AdvReac Type Severity Reaction Status Date / Time cariprazine [From [facility]] Allergy Unknown UNK Verified 09/09/20 21:32 divalproex sodium Allergy Unknown UNK Verified 09/09/20 21:32 [From DEPAKOTE] escitalopram [From LEXAPRO] Allergy Unknown UNK Verified 09/09/20 21:32 lithium [LITHIUM] Allergy Unknown UNK Verified 09/09/20 21:32 metformin [METFORMIN] Allergy Unknown UNK Verified 09/09/20 21:32 Assessment & Plan Assessment & Plan (1) Developmental delay, profound: Status: Chronic Code(s): R62.50 - Unspecified lack of expected normal physiological development in childhood (2) Lack of housing: Status: Acute Code(s): Z59.0 - Homelessness Assessment and Plan: CT medication without change Work with DDS for placement Greater than 50% of the session was spent on counseling and/or coordination of care Patient educated on: diagnosis and medication risk/benefits Informed Consent: does not understand Reason for contiued inpatient stay Substantial Risk for: inability to function and rapid decompensation
[2020-09-14 18:04] VITALS: BP 108/58; PULSE 88; TEMP 36.2
[2020-09-14 21:44] VITALS: BP 108/58; PULSE 88
[2020-09-15] MEDS: Benztropine Mesylate 2 MG/2 ML VIAL 1 MG IM (09:10)
[2020-09-15] MEDS: Haloperidol Lactate 5 MG/ML VIAL IM (09:10)
[2020-09-15] MEDS: LORazepam 2 MG/ML VIAL IM (09:10)
[2020-09-15] MEDS: Sertraline HCL 25 MG TABLET PO ×2 (09:44→21:16)
[2020-09-15 09:55] VITALS: BP 120/78; PULSE 86; RESP 20; TEMP 36.4; O2SAT 99
--- NOTE | 2020-09-15 12:52 | P.PNPSI_ITS ---
Subjective Subjective Date of Service: 09/15/20 Reason For Visit: Mood Disorder Unspecified Subjective Notes: Conditional Voluntary Interim History: Teresita had a difficult morning and was agitated and combative with staff. She refused to get off the floor and she was asking for her medication to be given as a shot . Haldol, ativan and cogentin were given to her and she did not resist. She was seen about half an hour later and was much improved with no ill effects from the im. Later she expressed that she does not like taking her medication in the morning. The dosing schedule was changed accordingly. RAFAEL continues to work with DDS regarding placement Medication Compliance: Intermittent Side effects from medications: No Attending Groups: No Review of Systems Acute medical concerns: No Medical Review of Systems: unchanged Mental Status Exam Mental Status Exam Narrative: leaning over, dressed, some eye contact- Patient Appearance: Disheveled Patient Orientation: Person Level of Consciousness: Inappropriate and Combative Patient Behavior: Self Manipulative, Hypersexual, Avoidant and Distractible Mood Description: Withdrawn, Hostile and Labile Affect Description: Cheerful Patient Cognition Impaired: No Ability to Follow Directions: Fair Speech Pattern: Perseverating, Impoverished and Mumbled Memory Description: Normal for Patient Delusions: Present (Of boyfriend/fiance) Thought Process: Disoriented and Slowed Thinking Thought Content: positive for [place], positive for Poverty of Content, positive for Disorganized, negative for Suicidal Ideation and negative for Homicidal Ideation Judgement: Poor Diagnostics Vital Signs (24Hr): Vital Signs - 24 hr 09/14/20 18:04 09/14/20 21:44 09/15/20 09:55 Temperature 97.2 F 97.5 F Pulse Rate 88 88 86 Respiratory Rate 20 Blood Pressure 108/58 L 108/58 L 120/78 Pulse Oximetry 99 Body Mass Index 32.7 Labs Results: 09/04/20 08:01 09/04/20 08:01 Medications Medications Current Medications Generic Name Dose Route Start Last Admin Trade Name Freq PRN Reason Stop Dose Admin Acetaminophen 650 mg 08/26/20 00:01 09/01/20 12:45 Acetaminophen 325 Mg Tablet PO 650 mg Q6H PRN Administration HEADACHE/PAIN.MILD (SCALE 1-3) Al Hydroxide/Mg Hydroxide 30 ml 08/26/20 00:01 Magnesium Hydrox/Alum Hydrox 30 Ml Oral.Susp PO Q6H PRN HEARTBURN/NAUSEA Benztropine Mesylate 1 mg 08/26/20 00:01 Benztropine Mesylate 1 Mg Tablet PO Q4H PRN Extrapyramidal Effects Benztropine Mesylate 1 mg 09/15/20 21:00 Benztropine Mesylate 1 Mg Tablet PO BEDTIME HERIBERTO Folic Acid 1 mg 08/26/20 09:00 09/15/20 09:24 Folic Acid 1 Mg Tablet PO Not Given DAILY HERIBERTO Haloperidol 5 mg 08/26/20 00:01 Haloperidol 5 Mg Tablet PO Q4H PRN anxiety/restlessness Haloperidol 15 mg 09/15/20 21:00 Haloperidol 5 Mg Tablet PO BEDTIME HERIBERTO Hydroxyzine HCl 25 mg 08/26/20 21:00 Hydroxyzine Hcl 25 Mg Tablet PO BEDTIME MRX1 PRN NIGHT TIME ANXIETY Ibuprofen 600 mg 09/01/20 16:46 10 00:59 Ibuprofen 600 Mg Tablet PO 600 mg Q6H PRN Administration Pain, Moderate (Pain Scale 4-6 Loperamide HCl 2 mg 08/26/20 00:01 Loperamide Hcl 2 Mg Capsule PO Q2H PRN Diarrhea Magnesium Hydroxide 30 ml 08/26/20 00:01 Milk Of Magnesia 30 Ml Oral.Susp PO Q24H PRN Constipation Oxcarbazepine 900 mg 09/15/20 21:00 Oxcarbazepine 300 Mg Tablet PO BEDTIME HERIBERTO Sertraline HCl 25 mg 09/15/20 21:00 Sertraline Hcl 25 Mg Tablet PO BEDTIME [facility] Thiamine HCl 100 mg 08/26/20 09:00 09/15/20 09:24 Thiamine Hcl 100 Mg Tablet PO Not Given DAILY [facility] Topiramate 75 mg 09/15/20 21:00 Topiramate 25 Mg Tablet PO BEDTIME HERIBERTO Trazodone HCl 25 mg 08/26/20 21:00 Trazodone Hcl 25 Mg Halftab PO BEDTIME MRX1 PRN Insomnia Allergies Allergies Allergy/AdvReac Type Severity Reaction Status Date / Time cariprazine [From [facility]] Allergy Unknown UNK Verified 09/09/20 21:32 divalproex sodium Allergy Unknown UNK Verified 09/09/20 21:32 [From DEPAKOTE] escitalopram [From LEXAPRO] Allergy Unknown UNK Verified 09/09/20 21:32 lithium [LITHIUM] Allergy Unknown UNK Verified 09/09/20 21:32 metformin [METFORMIN] Allergy Unknown UNK Verified 09/09/20 21:32 Assessment & Plan Assessment & Plan (1) Lack of housing: Status: Acute Code(s): Z59.0 - Homelessness (2) Developmental delay, profound: Status: Chronic Code(s): R62.50 - Unspecified lack of expected normal physiological development in childhood Assessment and Plan: Change medication to at bedtime as far as possible. Monitor response Liase with DDS Greater than 50% of the session was spent on counseling and/or coordination of care Patient educated on: diagnosis and medication risk/benefits Informed Consent: does not understand Reason for contiued inpatient stay Substantial Risk for: inability to function and rapid decompensation
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
[2020-09-15 18:00] VITALS: BP 101/59; PULSE 68; TEMP 36.8
[2020-09-15] MEDS: HaloperidoL 5 MG TABLET 15 MG PO (21:17)
[2020-09-15] MEDS: Topiramate 25 MG TABLET 75 MG PO (21:17)
[2020-09-15] MEDS: OXcarbazepine 300 MG TABLET 900 MG PO (21:18)
[2020-09-15] MEDS: Benztropine Mesylate 1 MG TABLET PO (21:18)
--- NOTE | 2020-09-16 09:32 | HO.PSYCHPN ---
Subjective Subjective Date of Service: 09/15/20 Reason For Visit: Mood Disorder Unspecified Subjective Notes: Conditional Voluntary Interim History: Teresita has continued to be more internally preoccupied and with more agitation. She has been masturbating in her room frequently and this is quite disruptive. She did take sertraline which has been added to see if this lessens her libido. She does not sleep well. Because of ongoing labilty and agitation will add zyprexa. SW continues to work with DDS regarding placement Treatment and progress was reviewed with her mother. Medication Compliance: Intermittent Side effects from medications: No Attending Groups: No Review of Systems Acute medical concerns: No Medical Review of Systems: unchanged Mental Status Exam Mental Status Exam Narrative: leaning over, dressed, some eye contact- Patient Appearance: Disheveled Patient Orientation: Person Level of Consciousness: Inappropriate and Combative Patient Behavior: Self Manipulative, Hypersexual, Avoidant and Distractible Mood Description: Withdrawn, Hostile and Labile Affect Description: Cheerful Patient Cognition Impaired: No Ability to Follow Directions: Fair Speech Pattern: Perseverating, Impoverished and Mumbled Memory Description: Normal for Patient Delusions: Present (Of boyfriend/fiance) Thought Process: Disoriented and Slowed Thinking Thought Content: positive for [place], positive for Poverty of Content, positive for Disorganized, negative for Suicidal Ideation and negative for Homicidal Ideation Judgement: Poor Diagnostics Vital Signs (24Hr): Vital Signs - 24 hr 09/15/20 09:55 09/15/20 18:00 Temperature 97.5 F 98.2 F Pulse Rate 86 68 Respiratory Rate 20 Blood Pressure 120/78 101/59 L Pulse Oximetry 99 Body Mass Index 32.7 Labs Results: 09/04/20 08:01 09/04/20 08:01 Medications Medications Current Medications Generic Name Dose Route Start Last Admin Trade Name Freq PRN Reason Stop Dose Admin Acetaminophen 650 mg 08/26/20 00:01 09/01/20 12:45 Acetaminophen 325 Mg Tablet PO 650 mg Q6H PRN Administration HEADACHE/PAIN.MILD (SCALE 1-3) Al Hydroxide/Mg Hydroxide 30 ml 08/26/20 00:01 Magnesium Hydrox/Alum Hydrox 30 Ml Oral.Susp PO Q6H PRN HEARTBURN/NAUSEA Benztropine Mesylate 1 mg 08/26/20 00:01 Benztropine Mesylate 1 Mg Tablet PO Q4H PRN Extrapyramidal Effects Benztropine Mesylate 1 mg 09/15/20 21:00 09/15/20 21:18 Benztropine Mesylate 1 Mg Tablet PO 1 mg BEDTIME HERIBERTO Administration Folic Acid 1 mg 08/26/20 09:00 09/15/20 09:24 Folic Acid 1 Mg Tablet PO Not Given DAILY HERIBERTO Haloperidol 5 mg 08/26/20 00:01 Haloperidol 5 Mg Tablet PO Q4H PRN anxiety/restlessness Haloperidol 15 mg 09/15/20 21:00 09/15/20 21:17 Haloperidol 5 Mg Tablet PO 15 mg BEDTIME HERIBERTO Administration Hydroxyzine HCl 25 mg 08/26/20 21:00 Hydroxyzine Hcl 25 Mg Tablet PO BEDTIME MRX1 PRN NIGHT TIME ANXIETY Ibuprofen 600 mg 09/01/20 16:46 09/03/20 00:59 Ibuprofen 600 Mg Tablet PO 600 mg Q6H PRN Administration Pain, Moderate (Pain Scale 4-6 Loperamide HCl 2 mg 08/26/20 00:01 Loperamide Hcl 2 Mg Capsule PO Q2H PRN Diarrhea Magnesium Hydroxide 30 ml 08/26/20 00:01 Milk Of Magnesia 30 Ml Oral.Susp PO Q24H PRN Constipation Oxcarbazepine 900 mg 09/15/20 21:00 09/15/20 21:18 Oxcarbazepine 300 Mg Tablet PO 900 mg BEDTIME HERIBERTO Administration Sertraline HCl 25 mg 09/15/20 21:00 09/15/20 21:16 Sertraline Hcl 25 Mg Tablet PO 25 mg BEDTIME HERIBERTO Administration Thiamine HCl 100 mg 08/26/20 09:00 09/15/20 09:24 Thiamine Hcl 100 Mg Tablet PO Not Given DAILY HERIBERTO Topiramate 75 mg 09/15/20 21:00 09/15/20 21:17 Topiramate 25 Mg Tablet PO 75 mg BEDTIME HERIBERTO Administration Trazodone HCl 25 mg 08/26/20 21:00 Trazodone Hcl 25 Mg Halftab PO BEDTIME MRX1 PRN Insomnia Allergies Allergies Allergy/AdvReac Type Severity Reaction Status Date / Time cariprazine [From [facility]] Allergy Unknown UNK Verified 09/09/20 21:32 divalproex sodium Allergy Unknown UNK Verified 09/09/20 21:32 [From DEPAKOTE] escitalopram [From LEXAPRO] Allergy Unknown UNK Verified 09/09/20 21:32 lithium [LITHIUM] Allergy Unknown UNK Verified 09/09/20 21:32 metformin [METFORMIN] Allergy Unknown UNK Verified 09/09/20 21:32 Assessment & Plan Assessment & Plan (1) Developmental delay, profound: Status: Chronic Code(s): R62.50 - Unspecified lack of expected normal physiological development in childhood (2) Lack of housing: Status: Acute Code(s): Z59.0 - Homelessness Assessment and Plan: Add zyprexa CT to monitor Kristina solano DDS Greater than 50% of the session was spent on counseling and/or coordination of care Patient educated on: diagnosis and medication risk/benefits Guardian/Caregiver educated on: diagnosis and medication risk/benefits Informed Consent: does not understand Reason for contiued inpatient stay Substantial Risk for: inability to function and rapid decompensation
[2020-09-16] MEDS: Thiamine HCL 100 MG TABLET PO (09:43)
[2020-09-16] MEDS: Folic Acid 1 MG TABLET PO (09:43)
[2020-09-16 21:30] VITALS: BP 106/66; PULSE 73; TEMP 36.9
[2020-09-16] MEDS: HaloperidoL 5 MG TABLET 15 MG PO (21:32)
[2020-09-16] MEDS: OXcarbazepine 300 MG TABLET 900 MG PO (21:33)
[2020-09-16] MEDS: Topiramate 25 MG TABLET 100 MG PO (21:33)
[2020-09-16] MEDS: Sertraline HCL 25 MG TABLET PO (21:33)
[2020-09-16] MEDS: Benztropine Mesylate 1 MG TABLET PO (21:34)
[2020-09-16] MEDS: OLANZapine 10 MG TABLET PO (21:34)
[2020-09-17] MEDS: Thiamine HCL 100 MG TABLET PO (08:59)
[2020-09-17] MEDS: Folic Acid 1 MG TABLET PO (08:59)
--- NOTE | 2020-09-17 09:16 | HO.PSYCHPN ---
Subjective Subjective Date of Service: 09/17/20 Reason For Visit: Mood Disorder Unspecified Subjective Notes: Conditional Voluntary Interim History: Teresita slept better last night and she seems in a better mood today. RAFAEL continues to work with DDS regarding placement Medication Compliance: Intermittent Side effects from medications: No Attending Groups: No Review of Systems Acute medical concerns: No Medical Review of Systems: unchanged Mental Status Exam Mental Status Exam Narrative: leaning over, dressed, some eye contact- Patient Appearance: Disheveled Patient Orientation: Person Level of Consciousness: Inappropriate and Combative Patient Behavior: Self Manipulative, Hypersexual, Avoidant and Distractible Mood Description: Withdrawn, Hostile and Labile Affect Description: Cheerful Patient Cognition Impaired: No Ability to Follow Directions: Fair Speech Pattern: Perseverating, Impoverished and Mumbled Memory Description: Normal for Patient Delusions: Present (Of boyfriend/fiance) Thought Process: Disoriented and Slowed Thinking Thought Content: positive for [place], positive for Poverty of Content, positive for Disorganized, negative for Suicidal Ideation and negative for Homicidal Ideation Judgement: Poor Diagnostics Vital Signs (24Hr): Vital Signs - 24 hr 09/16/20 21:30 Temperature 98.5 F Pulse Rate 73 Blood Pressure 106/66 Body Mass Index 32.7 Labs Results: 09/04/20 08:01 09/04/20 08:01 Medications Medications Current Medications Generic Name Dose Route Start Last Admin Trade Name Pkq PRN Reason Stop Dose Admin Acetaminophen 650 mg 08/26/20 00:01 09/01/20 12:45 Acetaminophen 325 Mg Tablet PO 650 mg Q6H PRN Administration HEADACHE/PAIN.MILD (SCALE 1-3) Al Hydroxide/Mg Hydroxide 30 ml 08/26/20 00:01 Magnesium Hydrox/Alum Hydrox 30 Ml Oral.Susp PO Q6H PRN HEARTBURN/NAUSEA Benztropine Mesylate 1 mg 08/26/20 00:01 Benztropine Mesylate 1 Mg Tablet PO Q4H PRN Extrapyramidal Effects Benztropine Mesylate 1 mg 09/15/20 21:00 09/16/20 21:34 Benztropine Mesylate 1 Mg Tablet PO 1 mg BEDTIME HERIBERTO Administration Folic Acid 1 mg 08/26/20 09:00 09/17/20 08:59 Folic Acid 1 Mg Tablet PO 1 mg DAILY HERIBERTO Administration Haloperidol 5 mg 08/26/20 00:01 Haloperidol 5 Mg Tablet PO Q4H PRN anxiety/restlessness Haloperidol 15 mg 09/15/20 21:00 09/16/20 21:32 Haloperidol 5 Mg Tablet PO 15 mg BEDTIME HERIBERTO Administration Hydroxyzine HCl 25 mg 08/26/20 21:00 Hydroxyzine Hcl 25 Mg Tablet PO BEDTIME MRX1 PRN NIGHT TIME ANXIETY Ibuprofen 600 mg 09/01/20 16:46 09/03/20 00:59 Ibuprofen 600 Mg Tablet PO 600 mg Q6H PRN Administration Pain, Moderate (Pain Scale 4-6 Loperamide HCl 2 mg 08/26/20 00:01 Loperamide Hcl 2 Mg Capsule PO Q2H PRN Diarrhea Magnesium Hydroxide 30 ml 08/26/20 00:01 Milk Of Magnesia 30 Ml Oral.Susp PO Q24H PRN Constipation Olanzapine 10 mg 09/16/20 21:00 09/16/20 21:34 Olanzapine 10 Mg Tablet PO 10 mg BEDTIME HERIBERTO Administration Oxcarbazepine 900 mg 09/15/20 21:00 09/16/20 21:33 Oxcarbazepine 300 Mg Tablet PO 900 mg BEDTIME HERIBERTO Administration Sertraline HCl 25 mg 09/15/20 21:00 09/16/20 21:33 Sertraline Hcl 25 Mg Tablet PO 25 mg BEDTIME HERIBERTO Administration Thiamine HCl 100 mg 08/26/20 09:00 09/17/20 08:59 Thiamine Hcl 100 Mg Tablet PO 100 mg DAILY HERIBERTO Administration Topiramate 100 mg 09/16/20 21:00 09/16/20 21:33 Topiramate 25 Mg Tablet PO 100 mg BEDTIME HERIBERTO Administration Trazodone HCl 25 mg 08/26/20 21:00 Trazodone Hcl 25 Mg Halftab PO BEDTIME MRX1 PRN Insomnia Allergies Allergies Allergy/AdvReac Type Severity Reaction Status Date / Time cariprazine [From VRAYLAR] Allergy Unknown UNK Verified 09/09/20 21:32 divalproex sodium Allergy Unknown UNK Verified 09/09/20 21:32 [From DEPAKOTE] escitalopram [From LEXAPRO] Allergy Unknown UNK Verified 09/09/20 21:32 lithium [LITHIUM] Allergy Unknown UNK Verified 09/09/20 21:32 metformin [METFORMIN] Allergy Unknown UNK Verified 09/09/20 21:32 Assessment & Plan Assessment & Plan (1) Developmental delay, profound: Status: Chronic Code(s): R62.50 - Unspecified lack of expected normal physiological development in childhood (2) Lack of housing: Status: Acute Code(s): Z59.0 - Homelessness Assessment and Plan: No further medicaion changes CT to liase with DDS Greater than 50% of the session was spent on counseling and/or coordination of care Patient educated on: diagnosis and medication risk/benefits Informed Consent: does not understand Reason for contiued inpatient stay Substantial Risk for: inability to function and med/psych decompensation
[2020-09-17 11:36] VITALS: BP 101/53; PULSE 81; TEMP 36.2; O2SAT 97
[2020-09-17 21:45] VITALS: BP 108/59; PULSE 84; TEMP 36.6
[2020-09-18] MEDS: Folic Acid 1 MG TABLET PO (09:16)
[2020-09-18] MEDS: Thiamine HCL 100 MG TABLET PO (09:16)
[2020-09-18 09:28] VITALS: BP 91/58; PULSE 67; TEMP 36.5; O2SAT 97
[2020-09-18] MEDS: haloperidoL 5 MG TABLET PO (10:11)
[2020-09-18] MEDS: Loperamide HCl 2 MG CAPSULE PO (11:36)
[2020-09-18] MEDS: OXcarbazepine 300 MG TABLET PO (13:22)
[2020-09-18 18:00] VITALS: BP 102/60; PULSE 68; TEMP 36.4; O2SAT 96
--- NOTE | 2020-09-18 21:15 | HO.PSYCHPN ---
Subjective Subjective Date of Service: 09/17/20 Reason For Visit: Mood Disorder Unspecified Subjective Notes: Conditional Voluntary Interim History: pt yelling frequently today, laughing loudly, appears to be responding to internal stimuli, disrobing, screaming frequently Medication Compliance: Intermittent Side effects from medications: No Attending Groups: No Review of Systems Acute medical concerns: No Medical Review of Systems: unchanged Review of Systems Review of Systems Yes all other systems are reviewed and are negative Mental Status Exam Mental Status Exam Narrative: brief appropraite interactions with staff such as asking to shower, otherwise spent many hours yelling, screaming, laughing and appearing to be responding to internal stimuli, suspicious Patient Appearance: Disheveled Patient Orientation: Person Level of Consciousness: Inappropriate and Combative Patient Behavior: Self Manipulative, Hypersexual, Avoidant and Distractible Mood Description: Withdrawn, Hostile and Labile Affect Description: Cheerful Patient Cognition Impaired: No Ability to Follow Directions: Fair Speech Pattern: Perseverating, Impoverished and Mumbled Memory Description: Normal for Patient Delusions: Present (Of boyfriend/fiance) Thought Process: Disoriented and Slowed Thinking Thought Content: positive for [place], positive for Poverty of Content, positive for Disorganized, negative for Suicidal Ideation and negative for Homicidal Ideation Judgement: Poor Diagnostics Vital Signs (24Hr): Vital Signs - 24 hr 09/17/20 21:45 09/18/20 09:28 09/18/20 18:00 Temperature 97.9 F 97.7 F 97.6 F Pulse Rate 84 67 68 Blood Pressure 108/59 L 91/58 L 102/60 Pulse Oximetry 97 96 Body Mass Index 32.7 Labs Results: 09/04/20 08:01 09/04/20 08:01 Medications Medications Current Medications Generic Name Dose Route Start Last Admin Trade Name Freq PRN Reason Stop Dose Admin Acetaminophen 650 mg 08/26/20 00:01 09/01/20 12:45 Acetaminophen 325 Mg Tablet PO 650 mg Q6H PRN Administration HEADACHE/PAIN.MILD (SCALE 1-3) Al Hydroxide/Mg Hydroxide 30 ml 08/26/20 00:01 Magnesium Hydrox/Alum Hydrox 30 Ml Oral.Susp PO Q6H PRN HEARTBURN/NAUSEA Benztropine Mesylate 1 mg 08/26/20 00:01 Benztropine Mesylate 1 Mg Tablet PO Q4H PRN Extrapyramidal Effects Benztropine Mesylate 1 mg 09/15/20 21:00 09/17/20 21:52 Benztropine Mesylate 1 Mg Tablet PO Not Given BEDTIME HERIBERTO Folic Acid 1 mg 08/26/20 09:00 09/18/20 09:16 Folic Acid 1 Mg Tablet PO 1 mg DAILY HERIBERTO Administration Haloperidol 5 mg 08/26/20 00:01 09/18/20 10:11 Haloperidol 5 Mg Tablet PO 5 mg Q4H PRN Administration anxiety/restlessness Haloperidol 15 mg 09/15/20 21:00 09/17/20 21:53 Haloperidol 5 Mg Tablet PO Not Given BEDTIME HERIBERTO Hydroxyzine HCl 25 mg 08/26/20 21:00 Hydroxyzine Hcl 25 Mg Tablet PO BEDTIME MRX1 PRN NIGHT TIME ANXIETY Ibuprofen 600 mg 09/01/20 16:46 09/03/20 00:59 Ibuprofen 600 Mg Tablet PO 600 mg Q6H PRN Administration Pain, Moderate (Pain Scale 4-6 Loperamide HCl 2 mg 08/26/20 00:01 09/18/20 11:36 Loperamide Hcl 2 Mg Capsule PO 2 mg Q2H PRN Administration Diarrhea Magnesium Hydroxide 30 ml 08/26/20 00:01 Milk Of Magnesia 30 Ml Oral.Susp PO Q24H PRN Constipation Olanzapine 10 mg 09/16/20 21:00 09/17/20 21:53 Olanzapine 10 Mg Tablet PO Not Given BEDTIME HERIBERTO Oxcarbazepine 900 mg 09/15/20 21:00 09/17/20 21:52 Oxcarbazepine 300 Mg Tablet PO Not Given BEDTIME HERIBERTO Oxcarbazepine 300 mg 09/18/20 12:15 09/18/20 13:22 Oxcarbazepine 300 Mg Tablet PO 300 mg DAILY HERIBERTO Administration Sertraline HCl 25 mg 09/15/20 21:00 09/17/20 21:52 Sertraline Hcl 25 Mg Tablet PO Not Given BEDTIME HERIBERTO Thiamine HCl 100 mg 08/26/20 09:00 09/18/20 09:16 Thiamine Hcl 100 Mg Tablet PO 100 mg DAILY HERIBERTO Administration Topiramate 100 mg 09/16/20 21:00 09/17/20 21:52 Topiramate 25 Mg Tablet PO Not Given BEDTIME HERIBERTO Trazodone HCl 25 mg 08/26/20 21:00 Trazodone Hcl 25 Mg Halftab PO BEDTIME MRX1 PRN Insomnia Allergies Allergies Allergy/AdvReac Type Severity Reaction Status Date / Time cariprazine [From VRAYLAR] Allergy Unknown UNK Verified 09/09/20 21:32 divalproex sodium Allergy Unknown UNK Verified 09/09/20 21:32 [From DEPAKOTE] escitalopram [From LEXAPRO] Allergy Unknown UNK Verified 09/09/20 21:32 lithium [LITHIUM] Allergy Unknown UNK Verified 09/09/20 21:32 metformin [METFORMIN] Allergy Unknown UNK Verified 09/09/20 21:32 Assessment & Plan Assessment & Plan (1) Developmental delay, profound: Status: Chronic Code(s): R62.50 - Unspecified lack of expected normal physiological development in childhood (2) Lack of housing: Status: Acute Code(s): Z59.0 - Homelessness (3) Mood swings: Status: Acute Code(s): R45.86 - Emotional lability (4) Agitation: Status: Acute Code(s): R45.1 - Restlessness and agitation Assessment and Plan: continue treatment plan zydis 5 mg PO one time dose for psychosis increase trileptal by adding trileptal 300mg in am and continue trileptal 600 mg at Hs Greater than 50% of the session was spent on counseling and/or coordination of care Patient educated on: diagnosis and medication risk/benefits Informed Consent: does not understand Reason for contiued inpatient stay Substantial Risk for: inability to function and med/psych decompensation Greater than 50% of the session was spent on counseling and/or coordination of care
[2020-09-18] MEDS: OLANZapine 10 MG TABLET PO (21:25)
[2020-09-18] MEDS: HaloperidoL 5 MG TABLET 15 MG PO (21:26)
[2020-09-18] MEDS: Benztropine Mesylate 1 MG TABLET PO (21:26)
[2020-09-18] MEDS: Topiramate 25 MG TABLET 100 MG PO (21:26)
[2020-09-18] MEDS: OXcarbazepine 300 MG TABLET 900 MG PO (21:26)
[2020-09-18] MEDS: Sertraline HCL 25 MG TABLET PO (21:27)
[2020-09-18] MEDS: Acetaminophen 325 MG TABLET 650 MG PO (21:28)
[2020-09-18 21:41] VITALS: BP 134/89; PULSE 92; TEMP 36.2; O2SAT 98
[2020-09-19 06:00] VITALS: BP 93/56; PULSE 69; TEMP 35.9; O2SAT 99
[2020-09-19] MEDS: Thiamine HCL 100 MG TABLET PO (08:59)
[2020-09-19] MEDS: OXcarbazepine 300 MG TABLET PO (08:59)
[2020-09-19] MEDS: Folic Acid 1 MG TABLET PO (08:59)
--- NOTE | 2020-09-19 10:48 | HO.PSYCHPN ---
Subjective Subjective Date of Service: 09/17/20 Reason For Visit: Mood Disorder Unspecified Subjective Notes: Conditional Voluntary Interim History: pt tolerating increase in trileptal and is calmer today; less frequent yelling, more appropriate Medication Compliance: Intermittent Side effects from medications: No Attending Groups: No Review of Systems Acute medical concerns: No Medical Review of Systems: unchanged Review of Systems Review of Systems Yes all other systems are reviewed and are negative Mental Status Exam Mental Status Exam Narrative: more appropriate interactions with staff such as asking to shower Patient Appearance: Disheveled Patient Orientation: Person Level of Consciousness: Inappropriate and Combative Patient Behavior: Self Manipulative, Hypersexual, Avoidant and Distractible Mood Description: Withdrawn and Labile Affect Description: Cheerful Patient Cognition Impaired: No Ability to Follow Directions: Fair Speech Pattern: Perseverating, Impoverished and Mumbled Memory Description: Normal for Patient Delusions: Present (Of boyfriend/fiance) Thought Process: Disoriented and Slowed Thinking Thought Content: positive for [place], positive for Poverty of Content, positive for Disorganized, negative for Suicidal Ideation and negative for Homicidal Ideation Judgement: Poor Diagnostics Vital Signs (24Hr): Vital Signs - 24 hr 09/18/20 18:00 09/18/20 21:41 09/19/20 06:00 Temperature 97.6 F 97.2 F 96.7 F L Pulse Rate 68 92 69 Blood Pressure 102/60 134/89 93/56 L Pulse Oximetry 96 98 99 Body Mass Index 32.7 Labs Results: 09/04/20 08:01 09/04/20 08:01 Medications Medications Current Medications Generic Name Dose Route Start Last Admin Trade Name Freq PRN Reason Stop Dose Admin Acetaminophen 650 mg 08/26/20 00:01 09/18/20 21:28 Acetaminophen 325 Mg Tablet PO 650 mg Q6H PRN Administration HEADACHE/PAIN.MILD (SCALE 1-3) Al Hydroxide/Mg Hydroxide 30 ml 08/26/20 00:01 Magnesium Hydrox/Alum Hydrox 30 Ml Oral.Susp PO Q6H PRN HEARTBURN/NAUSEA Benztropine Mesylate 1 mg 08/26/20 00:01 Benztropine Mesylate 1 Mg Tablet PO Q4H PRN Extrapyramidal Effects Benztropine Mesylate 1 mg 09/15/20 21:00 09/18/20 21:26 Benztropine Mesylate 1 Mg Tablet PO 1 mg BEDTIME HERIBERTO Administration Folic Acid 1 mg 08/26/20 09:00 09/19/20 08:59 Folic Acid 1 Mg Tablet PO 1 mg DAILY HERIBERTO Administration Haloperidol 5 mg 08/26/20 00:01 09/18/20 10:11 Haloperidol 5 Mg Tablet PO 5 mg Q4H PRN Administration anxiety/restlessness Haloperidol 15 mg 09/15/20 21:00 09/18/20 21:26 Haloperidol 5 Mg Tablet PO 15 mg BEDTIME HERIBERTO Administration Hydroxyzine HCl 25 mg 08/26/20 21:00 Hydroxyzine Hcl 25 Mg Tablet PO BEDTIME MRX1 PRN NIGHT TIME ANXIETY Ibuprofen 600 mg 09/01/20 16:46 09/03/20 00:59 Ibuprofen 600 Mg Tablet PO 600 mg Q6H PRN Administration Pain, Moderate (Pain Scale 4-6 Loperamide HCl 2 mg 08/26/20 00:01 09/18/20 11:36 Loperamide Hcl 2 Mg Capsule PO 2 mg Q2H PRN Administration Diarrhea Magnesium Hydroxide 30 ml 08/26/20 00:01 Milk Of Magnesia 30 Ml Oral.Susp PO Q24H PRN Constipation Olanzapine 10 mg 09/16/20 21:00 09/18/20 21:25 Olanzapine 10 Mg Tablet PO 10 mg BEDTIME HERIBERTO Administration Oxcarbazepine 900 mg 09/15/20 21:00 09/18/20 21:26 Oxcarbazepine 300 Mg Tablet PO 900 mg BEDTIME HERIBERTO Administration Oxcarbazepine 300 mg 09/18/20 12:15 09/19/20 08:59 Oxcarbazepine 300 Mg Tablet PO 300 mg DAILY HERIBERTO Administration Sertraline HCl 25 mg 09/15/20 21:00 09/18/20 21:27 Sertraline Hcl 25 Mg Tablet PO 25 mg BEDTIME HERIBERTO Administration Thiamine HCl 100 mg 08/26/20 09:00 09/19/20 08:59 Thiamine Hcl 100 Mg Tablet PO 100 mg DAILY HERIBERTO Administration Topiramate 100 mg 09/16/20 21:00 09/18/20 21:26 Topiramate 25 Mg Tablet PO 100 mg BEDTIME HERIBERTO Administration Trazodone HCl 25 mg 08/26/20 21:00 Trazodone Hcl 25 Mg Halftab PO BEDTIME MRX1 PRN Insomnia Allergies Allergies Allergy/AdvReac Type Severity Reaction Status Date / Time cariprazine [From VRAYLAR] Allergy Unknown UNK Verified 09/09/20 21:32 divalproex sodium Allergy Unknown UNK Verified 09/09/20 21:32 [From DEPAKOTE] escitalopram [From LEXAPRO] Allergy Unknown UNK Verified 09/09/20 21:32 lithium [LITHIUM] Allergy Unknown UNK Verified 09/09/20 21:32 metformin [METFORMIN] Allergy Unknown UNK Verified 09/09/20 21:32 Assessment & Plan Assessment & Plan (1) Developmental delay, profound: Status: Chronic Code(s): R62.50 - Unspecified lack of expected normal physiological development in childhood (2) Lack of housing: Status: Acute Code(s): Z59.0 - Homelessness (3) Mood swings: Status: Acute Code(s): R45.86 - Emotional lability (4) Agitation: Status: Acute Code(s): R45.1 - Restlessness and agitation Assessment and Plan: responding to treatment Continue current treatment plan. Greater than 50% of the session was spent on counseling and/or coordination of care Patient educated on: diagnosis, medication risk/benefits, substance abuse and medical condition Informed Consent: further education needed Reason for contiued inpatient stay Substantial Risk for: inability to function and rapid decompensation Greater than 50% of the session was spent on counseling and/or coordination of care
[2020-09-19 16:08] VITALS: BP 115/75; PULSE 66; TEMP 36.5; O2SAT 97
[2020-09-19] MEDS: OLANZapine 10 MG TABLET PO (21:29)
[2020-09-19] MEDS: OXcarbazepine 300 MG TABLET 900 MG PO (21:29)
[2020-09-19] MEDS: Sertraline HCL 25 MG TABLET PO (21:29)
[2020-09-19] MEDS: HaloperidoL 5 MG TABLET 15 MG PO (21:30)
[2020-09-19] MEDS: Topiramate 25 MG TABLET 100 MG PO (21:30)
[2020-09-19 21:39] VITALS: BP 159/64; PULSE 78; O2SAT 99
[2020-09-19] MEDS: Benztropine Mesylate 1 MG TABLET PO (21:49)
[2020-09-20 02:56] VITALS: BP 110/71; PULSE 66; RESP 16; TEMP 35.6; O2SAT 100
[2020-09-20 09:00] VITALS: BP 117/93; PULSE 127; TEMP 36.8
--- NOTE | 2020-09-20 09:43 | P.PNPSI_ITS ---
Subjective Subjective Date of Service: 09/20/20 Reason For Visit: Mood Disorder Unspecified Subjective Notes: Conditional Voluntary Interim History: Teresita has been noted to be more unsteady and to be making odd movements. There is a history of movement issues that were thought to be related to trileptal. Will DC and monitor. Teresita has been calmer and less loud today. Medication Compliance: Intermittent Side effects from medications: No Attending Groups: No Review of Systems Acute medical concerns: No Medical Review of Systems: unchanged Mental Status Exam Mental Status Exam Narrative: more appropriate interactions with staff such as asking to shower Patient Appearance: Disheveled Patient Orientation: Person Level of Consciousness: Inappropriate and Combative Patient Behavior: Self Manipulative, Hypersexual, Avoidant and Distractible Mood Description: Withdrawn and Labile Affect Description: Cheerful Patient Cognition Impaired: No Ability to Follow Directions: Fair Speech Pattern: Perseverating, Impoverished and Mumbled Memory Description: Normal for Patient Delusions: Present (Of boyfriend/fiance) Thought Process: Disoriented and Slowed Thinking Thought Content: positive for [place], positive for Poverty of Content, p ositive for Disorganized, negative for Suicidal Ideation and negative for Homicidal Ideation Judgement: Poor Diagnostics Vital Signs (24Hr): Vital Signs - 24 hr 09/19/20 16:08 09/19/20 21:39 09/20/20 02:56 Temperature 97.7 F 96.1 F L Pulse Rate 66 78 66 Respiratory Rate 16 Blood Pressure 115/75 159/64 H 110/71 Pulse Oximetry 97 99 100 Body Mass Index 32.7 Labs Results: 09/04/20 08:01 09/04/20 08:01 Medications Medications Current Medications Generic Name Dose Route Start Last Admin Trade Name Pkq PRN Reason Stop Dose Admin Acetaminophen 650 mg 08/26/20 00:01 09/18/20 21:28 Acetaminophen 325 Mg Tablet PO 650 mg Q6H PRN Administration HEADACHE/PAIN.MILD (SCALE 1-3) Al Hydroxide/Mg Hydroxide 30 ml 08/26/20 00:01 Magnesium Hydrox/Alum Hydrox 30 Ml Oral.Susp PO Q6H PRN HEARTBURN/NAUSEA Benztropine Mesylate 1 mg 08/26/20 00:01 Benztropine Mesylate 1 Mg Tablet PO Q4H PRN Extrapyramidal Effects Benztropine Mesylate 1 mg 09/15/20 21:00 09/19/20 21:49 Benztropine Mesylate 1 Mg Tablet PO 1 mg BEDTIME HERIBERTO Administration Folic Acid 1 mg 08/26/20 09:00 09/19/20 08:59 Folic Acid 1 Mg Tablet PO 1 mg DAILY HERIBERTO Administration Haloperidol 5 mg 08/26/20 00:01 09/18/20 10:11 Haloperidol 5 Mg Tablet PO 5 mg Q4H PRN Administration anxiety/restlessness Haloperidol 15 mg 09/15/20 21:00 09/19/20 21:30 Haloperidol 5 Mg Tablet PO 15 mg BEDTIME HERIBERTO Administration Hydroxyzine HCl 25 mg 08/26/20 21:00 Hydroxyzine Hcl 25 Mg Tablet PO BEDTIME MRX1 PRN NIGHT TIME ANXIETY Ibuprofen 600 mg 09/01/20 16:46 09/03/20 00:59 Ibuprofen 600 Mg Tablet PO 600 mg Q6H PRN Administration Pain, Moderate (Pain Scale 4-6 Loperamide HCl 2 mg 08/26/20 00:01 09/18/20 11:36 Loperamide Hcl 2 Mg Capsule PO 2 mg Q2H PRN Administration Diarrhea Magnesium Hydroxide 30 ml 08/26/20 00:01 Milk Of Magnesia 30 Ml Oral.Susp PO Q24H PRN Constipation Olanzapine 10 mg 09/16/20 21:00 09/19/20 21:29 Olanzapine 10 Mg Tablet PO 10 mg BEDTIME HERIBERTO Administration Sertraline HCl 25 mg 09/15/20 21:00 09/19/20 21:29 Sertraline Hcl 25 Mg Tablet PO 25 mg BEDTIME HERIBERTO Administration Thiamine HCl 100 mg 08/26/20 09:00 09/19/20 08:59 Thiamine Hcl 100 Mg Tablet PO 100 mg DAILY HERIBERTO Administration Topiramate 100 mg 09/16/20 21:00 09/19/20 21:30 Topiramate 25 Mg Tablet PO 100 mg BEDTIME HERIBERTO Administration Trazodone HCl 25 mg 08/26/20 21:00 Trazodone Hcl 25 Mg Halftab PO BEDTIME MRX1 PRN Insomnia Allergies Allergies Allergy/AdvReac Type Severity Reaction Status Date / Time cariprazine [From VRAYLAR] Allergy Unknown UNK Verified 09/09/20 21:32 divalproex sodium Allergy Unknown UNK Verified 09/09/20 21:32 [From DEPAKOTE] escitalopram [From LEXAPRO] Allergy Unknown UNK Verified 09/09/20 21:32 lithium [LITHIUM] Allergy Unknown UNK Verified 09/09/20 21:32 metformin [METFORMIN] Allergy Unknown UNK Verified 09/09/20 21:32 Assessment & Plan Assessment & Plan (1) Developmental delay, profound: Status: Chronic Code(s): R62.50 - Unspecified lack of expected normal physiological development in childhood (2) Lack of housing: Status: Acute Code(s): Z59.0 - Homelessness Assessment and Plan: ZARA mccabe Monitor response Work with DDS Greater than 50% of the session was spent on counseling and/or coordination of care Patient educated on: diagnosis and medication risk/benefits Informed Consent: does not understand Reason for contiued inpatient stay Substantial Risk for: inability to function and rapid decompensation
[2020-09-20] MEDS: Thiamine HCL 100 MG TABLET PO (10:05)
[2020-09-20] MEDS: Folic Acid 1 MG TABLET PO (10:05)
[2020-09-20 17:50] VITALS: BP 113/69; PULSE 82; TEMP 36.4
[2020-09-20] MEDS: Topiramate 25 MG TABLET 100 MG PO (21:47)
[2020-09-20] MEDS: Sertraline HCL 25 MG TABLET PO (21:47)
[2020-09-20] MEDS: HaloperidoL 5 MG TABLET 15 MG PO (21:47)
[2020-09-20] MEDS: OLANZapine 10 MG TABLET PO (21:47)
[2020-09-20] MEDS: Benztropine Mesylate 1 MG TABLET PO (21:47)
[2020-09-21] MEDS: Thiamine HCL 100 MG TABLET PO (09:01)
[2020-09-21] MEDS: Folic Acid 1 MG TABLET PO (09:01)
--- NOTE | 2020-09-21 10:54 | HO.PSYCHPN ---
Subjective Subjective Reason For Visit: Mood Disorder Unspecified Interim History: patient withdrawn isolated pleasant affect some balance problems less agitated remains disheveled poor hygiene Trileptal recently discontinued Mental Status Exam Mental Status Exam Patient Appearance: Disheveled Patient Orientation: Person Level of Consciousness: Inappropriate Patient Behavior: Self Manipulative, Hypersexual, Avoidant and Distractible Mood Description: Withdrawn and Labile Affect Description: Euphoric, Cheerful and Labile Patient Cognition Impaired: No Ability to Follow Directions: Fair Speech Pattern: Perseverating, Impoverished and Mumbled Memory Description: Normal for Patient Hallucinations: Auditory Thought Process: Distracted Diagnostics Vital Signs (24Hr): Vital Signs - 24 hr 09/20/20 17:50 Temperature 97.6 F Pulse Rate 82 Blood Pressure 113/69 Body Mass Index 32.7 Labs Results: 09/04/20 08:01 09/04/20 08:01 Medications Medications Current Medications Generic Name Dose Route Start Last Admin Trade Name Freq PRN Reason Stop Dose Admin Acetaminophen 650 mg 08/26/20 00:01 09/18/20 21:28 Acetaminophen 325 Mg Tablet PO 650 mg Q6H PRN Administration HEADACHE/PAIN.MILD (SCALE 1-3) Al Hydroxide/Mg Hydroxide 30 ml 08/26/20 00:01 Magnesium Hydrox/Alum Hydrox 30 Ml Oral.Susp PO Q6H PRN HEARTBURN/NAUSEA Benztropine Mesylate 1 mg 08/26/20 00:01 Benztropine Mesylate 1 Mg Tablet PO Q4H PRN Extrapyramidal Effects Benztropine Mesylate 1 mg 09/15/20 21:00 09/20/20 21:47 Benztropine Mesylate 1 Mg Tablet PO 1 mg BEDTIME HERIBERTO Administration Folic Acid 1 mg 08/26/20 09:00 09/21/20 09:01 Folic Acid 1 Mg Tablet PO 1 mg DAILY HERIBERTO Administration Haloperidol 5 mg 08/26/20 00:01 09/18/20 10:11 Haloperidol 5 Mg Tablet PO 5 mg Q4H PRN Administration anxiety/restlessness Haloperidol 15 mg 09/15/20 21:00 09/20/20 21:47 Haloperidol 5 Mg Tablet PO 15 mg BEDTIME HERIBERTO Administration Hydroxyzine HCl 25 mg 08/26/20 21:00 Hydroxyzine Hcl 25 Mg Tablet PO BEDTIME MRX1 PRN NIGHT TIME ANXIETY Ibuprofen 600 mg 09/01/20 16:46 09/03/20 00:59 Ibuprofen 600 Mg Tablet PO 600 mg Q6H PRN Administration Pain, Moderate (Pain Scale 4-6 Loperamide HCl 2 mg 08/26/20 00:01 09/18/20 11:36 Loperamide Hcl 2 Mg Capsule PO 2 mg Q2H PRN Administration Diarrhea Magnesium Hydroxide 30 ml 08/26/20 00:01 Milk Of Magnesia 30 Ml Oral.Susp PO Q24H PRN Constipation Olanzapine 10 mg 09/16/20 21:00 09/20/20 21:47 Olanzapine 10 Mg Tablet PO 10 mg BEDTIME HERIBERTO Administration Sertraline HCl 25 mg 09/15/20 21:00 09/20/20 21:47 Sertraline Hcl 25 Mg Tablet PO 25 mg BEDTIME HERIBERTO Administration Thiamine HCl 100 mg 08/26/20 09:00 09/21/20 09:01 Thiamine Hcl 100 Mg Tablet PO 100 mg DAILY HERIBERTO Administration Topiramate 100 mg 09/16/20 21:00 09/20/20 21:47 Topiramate 25 Mg Tablet PO 100 mg BEDTIME HERIBERTO Administration Trazodone HCl 25 mg 08/26/20 21:00 Trazodone Hcl 25 Mg Halftab PO BEDTIME MRX1 PRN Insomnia Allergies Allergies Allergy/AdvReac Type Severity Reaction Status Date / Time cariprazine [From VRAYLAR] Allergy Unknown UNK Verified 09/09/20 21:32 divalproex sodium Allergy Unknown UNK Verified 09/09/20 21:32 [From DEPAKOTE] escitalopram [From LEXAPRO] Allergy Unknown UNK Verified 09/09/20 21:32 lithium [LITHIUM] Allergy Unknown UNK Verified 09/09/20 21:32 metformin [METFORMIN] Allergy Unknown UNK Verified 09/09/20 21:32 Assessment & Plan Assessment & Plan (1) Developmental delay, profound: Status: Chronic Code(s): R62.50 - Unspecified lack of expected normal physiological development in childhood (2) Lack of housing: Status: Acute Code(s): Z59.0 - Homelessness (3) Hallucinations: Status: Acute Code(s): R44.3 - Hallucinations, unspecified Assessment and Plan: Trileptal discontinued patient with some gait disturbance question Trileptal related question Haldol 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
[2020-09-21 18:32] VITALS: BP 116/66; PULSE 79; TEMP 36.8
[2020-09-21] MEDS: Sertraline HCL 25 MG TABLET PO (21:27)
[2020-09-21] MEDS: Topiramate 25 MG TABLET 100 MG PO (21:27)
[2020-09-21] MEDS: OLANZapine 10 MG TABLET PO (21:27)
[2020-09-21] MEDS: HaloperidoL 5 MG TABLET 15 MG PO (21:27)
[2020-09-21] MEDS: Benztropine Mesylate 1 MG TABLET PO (21:28)
[2020-09-22] MEDS: Thiamine HCL 100 MG TABLET PO (08:24)
[2020-09-22] MEDS: Folic Acid 1 MG TABLET PO (08:24)
[2020-09-22 09:05] LABS: Alanine Aminotransferase 23 U/L (0-31); Albumin Level 3.8 g/dL (3.5-5.0); Alkaline Phosphatase 94 U/L (39-117); Anion Gap 10 (12-20); Aspartate Amino Transferase 10 U/L (5-31); Bilirubin Total 0.2 mg/dL (0.0-1.0); Blood Urea Nitrogen 27 mg/dL (9-16); Calcium 8.7 mg/dL (8.4-10.2); Carbon Dioxide 23 mmol/L (22-29); Chloride 110 mmol/L (96-108); Creatinine Clr Calc Pharmacy 97.4; Estimated Glomerular Filt Rate > 60; Glucose Fasting 81 mg/dL (60-99); Potassium 4.3 mmol/l (3.3-5.1); Sodium 139 mmol/L (135-145); Total Protein 6.7 g/dL (6.5-8.0)
[2020-09-22 09:33] VITALS: BP 90/54; PULSE 63; TEMP 36.3; O2SAT 99
[2020-09-22 09:40] LABS: Syphilis Screen Nonreactive (Nonreactive)
[2020-09-22 09:49] LABS: Folate 18.6 ng/mL (> or = 4.0); Vitamin B12 688 pg/mL (200-900)
--- NOTE | 2020-09-22 14:18 | HO.PSYCHPN ---
Subjective Subjective Date of Service: 09/22/20 Reason For Visit: Mood Disorder Unspecified Subjective Notes: Conditional Voluntary Interim History: Teresita has been more labile and staff feel that he is more unsteady on her feet. This has no improved without the trileptal. Teresita remains quite far from her previous baseline. 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 Medication Compliance: Yes Side effects from medications: No Attending Groups: Yes Mental Status Exam Mental Status Exam Patient Appearance: Disheveled Patient Orientation: Person Level of Consciousness: Inappropriate Patient Behavior: Self Manipulative, Hypersexual, Avoidant and Distractible Mood Description: Withdrawn and Labile Affect Description: Euphoric, Cheerful and Labile Patient Cognition Impaired: No Ability to Follow Directions: Fair Speech Pattern: Perseverating, Impoverished and Mumbled Memory Description: Normal for Patient Hallucinations: Auditory Thought Process: Distracted Thought Content: positive for Disoriented, negative for Suicidal Ideation and negative for Homicidal Ideation Depressive Symptoms: Increased Anxiety Abnormal Motor Activity Signs and Symptoms: Aggression and Agitation Judgement: Fair Diagnostics Vital Signs (24Hr): Vital Signs - 24 hr 09/21/20 18:32 09/22/20 09:33 Temperature 98.2 F 97.3 F Pulse Rate 79 63 Blood Pressure 116/66 90/54 L Pulse Oximetry 99 Body Mass Index 32.7 Labs Results: 09/04/20 08:01 09/22/20 08:32 Labs: Laboratory Results - last 48 hr 09/22/20 09/22/20 09/22/20 08:31 08:32 08:32 Sodium 139 Potassium 4.3 Chloride 110 H Carbon Dioxide 23 Anion Gap 10 L BUN 27 H Creatinine 0.71 Estim Creat Clear Calc 97.4 Estimated GFR > 60 Fasting Glucose 81 Calcium 8.7 Total Bilirubin 0.2 AST 10 ALT 23 Alkaline Phosphatase 94 Total Protein 6.7 Albumin 3.8 Vitamin B12 688 Folate 18.6 T.pallidum Ab (EIA) Nonreactive Medications Medications Current Medications Generic Name Dose Route Start Last Admin Trade Name Freq PRN Reason Stop Dose Admin Acetaminophen 650 mg 08/26/20 00:01 09/18/20 21:28 Acetaminophen 325 Mg Tablet PO 650 mg Q6H PRN Administration HEADACHE/PAIN.MILD (SCALE 1-3) Al Hydroxide/Mg Hydroxide 30 ml 08/26/20 00:01 Magnesium Hydrox/Alum Hydrox 30 Ml Oral.Susp PO Q6H PRN HEARTBURN/NAUSEA Benztropine Mesylate 1 mg 08/26/20 00:01 Benztropine Mesylate 1 Mg Tablet PO Q4H PRN Extrapyramidal Effects Benztropine Mesylate 1 mg 09/22/20 21:00 Benztropine Mesylate 1 Mg Tablet PO BID HERIBERTO Folic Acid 1 mg 08/26/20 09:00 09/22/20 08:24 Folic Acid 1 Mg Tablet PO 1 mg DAILY HERIBERTO Administration Haloperidol 5 mg 08/26/20 00:01 09/18/20 10:11 Haloperidol 5 Mg Tablet PO 5 mg Q4H PRN Administration anxiety/restlessness Haloperidol 15 mg 09/15/20 21:00 09/21/20 21:27 Haloperidol 5 Mg Tablet PO 15 mg BEDTIME HERIBERTO Administration Hydroxyzine HCl 25 mg 08/26/20 21:00 Hydroxyzine Hcl 25 Mg Tablet PO BEDTIME MRX1 PRN NIGHT TIME ANXIETY Ibuprofen 600 mg 09/01/20 16:46 09/03/20 00:59 Ibuprofen 600 Mg Tablet PO 600 mg Q6H PRN Administration Pain, Moderate (Pain Scale 4-6 Loperamide HCl 2 mg 08/26/20 00:01 09/18/20 11:36 Loperamide Hcl 2 Mg Capsule PO 2 mg Q2H PRN Administration Diarrhea Magnesium Hydroxide 30 ml 08/26/20 00:01 Milk Of Magnesia 30 Ml Oral.Susp PO Q24H PRN Constipation Olanzapine 10 mg 09/16/20 21:00 09/21/20 21:27 Olanzapine 10 Mg Tablet PO 10 mg BEDTIME HERIBERTO Administration Thiamine HCl 100 mg 08/26/20 09:00 09/22/20 08:24 Thiamine Hcl 100 Mg Tablet PO 100 mg DAILY HERIBERTO Administration Topiramate 100 mg 09/16/20 21:00 09/21/20 21:27 Topiramate 25 Mg Tablet PO 100 mg BEDTIME HERIBERTO Administration Trazodone HCl 25 mg 08/26/20 21:00 Trazodone Hcl 25 Mg Halftab PO BEDTIME MRX1 PRN Insomnia Allergies Allergies Allergy/AdvReac Type Severity Reaction Status Date / Time cariprazine [From [facility]] Allergy Unknown UNK Verified 09/09/20 21:32 divalproex sodium Allergy Unknown UNK Verified 09/09/20 21:32 [From DEPAKOTE] escitalopram [From LEXAPRO] Allergy Unknown UNK Verified 09/09/20 21:32 lithium [LITHIUM] Allergy Unknown UNK Verified 09/09/20 21:32 metformin [METFORMIN] Allergy Unknown UNK Verified 09/09/20 21:32 Assessment & Plan Assessment & Plan (1) Developmental delay, profound: Status: Chronic Code(s): R62.50 - Unspecified lack of expected normal physiological development in childhood (2) Lack of housing: Status: Acute Code(s): Z59.0 - Homelessness Assessment and Plan: DC sertraline Neurology consult Liase with DDS Greater than 50% of the session was spent on counseling and/or coordination of care Patient educated on: diagnosis and medication risk/benefits Informed Consent: does not understand Reason for contiued inpatient stay Substantial Risk for: harm to others, inability to function and rapid decompensation
[2020-09-22 18:00] VITALS: BP 112/59; PULSE 89; TEMP 36.6
[2020-09-22] MEDS: HaloperidoL 5 MG TABLET 15 MG PO (20:25)
[2020-09-22] MEDS: Benztropine Mesylate 1 MG TABLET PO (20:25)
[2020-09-22] MEDS: OLANZapine 10 MG TABLET PO (20:25)
[2020-09-22] MEDS: Topiramate 25 MG TABLET 100 MG PO (20:26)
[2020-09-23 07:00] VITALS: BMI 33.3
[2020-09-23] MEDS: Folic Acid 1 MG TABLET PO (09:14)
[2020-09-23] MEDS: Benztropine Mesylate 1 MG TABLET PO ×2 (09:14→22:38)
[2020-09-23] MEDS: Thiamine HCL 100 MG TABLET PO (09:14)
--- NOTE | 2020-09-23 09:25 | HO.PSYCHPN ---
Subjective Subjective Date of Service: 09/23/20 Reason For Visit: Mood Disorder Unspecified Subjective Notes: Conditional Voluntary Interim History: Teresita has been somewhat more engaged and visible today. She has been having some appropriate conversations. She called her mother. She does get agitated toward the end of the day. Will increase the zyprexa. Teresita remains quite far from her previous baseline. 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 Medication Compliance: Yes Side effects from medications: No Attending Groups: Yes Review of Systems Acute medical concerns: No Medical Review of Systems: unchanged Mental Status Exam Mental Status Exam Patient Appearance: Disheveled Patient Orientation: Person Level of Consciousness: Inappropriate Patient Behavior: Self Manipulative, Hypersexual, Avoidant and Distractible Mood Description: Withdrawn and Labile Affect Description: Euphoric, Cheerful and Labile Patient Cognition Impaired: No Ability to Follow Directions: Fair Speech Pattern: Perseverating, Impoverished and Mumbled Memory Description: Normal for Patient Hallucinations: Auditory Thought Process: Distracted Thought Content: positive for Disoriented, negative for Suicidal Ideation and negative for Homicidal Ideation Depressive Symptoms: Increased Anxiety Abnormal Motor Activity Signs and Symptoms: Aggression and Agitation Judgement: Fair Diagnostics Vital Signs (24Hr): Vital Signs - 24 hr 09/22/20 09:33 09/22/20 18:00 Temperature 97.3 F 97.9 F Pulse Rate 63 89 Blood Pressure 90/54 L 112/59 L Pulse Oximetry 99 Body Mass Index 32.7 Labs Results: 09/04/20 08:01 09/22/20 08:32 Labs: Laboratory Results - last 48 hr 09/22/20 09/22/20 09/22/20 08:31 08:32 08:32 Sodium 139 Potassium 4.3 Chloride 110 H Carbon Dioxide 23 Anion Gap 10 L BUN 27 H Creatinine 0.71 Estim Creat Clear Calc 97.4 Estimated GFR > 60 Fasting Glucose 81 Calcium 8.7 Total Bilirubin 0.2 AST 10 ALT 23 Alkaline Phosphatase 94 Total Protein 6.7 Albumin 3.8 Vitamin B12 688 Folate 18.6 T.pallidum Ab (EIA) Nonreactive Medications Medications Current Medications Generic Name Dose Route Start Last Admin Trade Name Freq PRN Reason Stop Dose Admin Acetaminophen 650 mg 08/26/20 00:01 09/18/20 21:28 Acetaminophen 325 Mg Tablet PO 650 mg Q6H PRN Administration HEADACHE/PAIN.MILD (SCALE 1-3) Al Hydroxide/Mg Hydroxide 30 ml 08/26/20 00:01 Magnesium Hydrox/Alum Hydrox 30 Ml Oral.Susp PO Q6H PRN HEARTBURN/NAUSEA Benztropine Mesylate 1 mg 08/26/20 00:01 Benztropine Mesylate 1 Mg Tablet PO Q4H PRN Extrapyramidal Effects Benztropine Mesylate 1 mg 09/22/20 21:00 09/23/20 09:14 Benztropine Mesylate 1 Mg Tablet PO 1 mg BID HERIBERTO Administration Folic Acid 1 mg 08/26/20 09:00 09/23/20 09:14 Folic Acid 1 Mg Tablet PO 1 mg DAILY HERIBERTO Administration Haloperidol 5 mg 08/26/20 00:01 09/18/20 10:11 Haloperidol 5 Mg Tablet PO 5 mg Q4H PRN Administration anxiety/restlessness Haloperidol 15 mg 09/15/20 21:00 09/22/20 20:25 Haloperidol 5 Mg Tablet PO 15 mg BEDTIME HERIBERTO Administration Hydroxyzine HCl 25 mg 08/26/20 21:00 Hydroxyzine Hcl 25 Mg Tablet PO BEDTIME MRX1 PRN NIGHT TIME ANXIETY Ibuprofen 600 mg 09/01/20 16:46 09/03/20 00:59 Ibuprofen 600 Mg Tablet PO 600 mg Q6H PRN Administration Pain, Moderate (Pain Scale 4-6 Loperamide HCl 2 mg 08/26/20 00:01 09/18/20 11:36 Loperamide Hcl 2 Mg Capsule PO 2 mg Q2H PRN Administration Diarrhea Magnesium Hydroxide 30 ml 08/26/20 00:01 Milk Of Magnesia 30 Ml Oral.Susp PO Q24H PRN Constipation Olanzapine 10 mg 09/16/20 21:00 09/22/20 20:25 Olanzapine 10 Mg Tablet PO 10 mg BEDTIME HERIBERTO Administration Thiamine HCl 100 mg 08/26/20 09:00 09/23/20 09:14 Thiamine Hcl 100 Mg Tablet PO 100 mg DAILY HERIBERTO Administration Topiramate 100 mg 09/16/20 21:00 09/22/20 20:26 Topiramate 25 Mg Tablet PO 100 mg BEDTIME HERIBERTO Administration Trazodone HCl 25 mg 08/26/20 21:00 Trazodone Hcl 25 Mg Halftab PO BEDTIME MRX1 PRN Insomnia Allergies Allergies Allergy/AdvReac Type Severity Reaction Status Date / Time cariprazine [From [facility]] Allergy Unknown UNK Verified 09/09/20 21:32 divalproex sodium Allergy Unknown UNK Verified 09/09/20 21:32 [From DEPAKOTE] escitalopram [From LEXAPRO] Allergy Unknown UNK Verified 09/09/20 21:32 lithium [LITHIUM] Allergy Unknown UNK Verified 09/09/20 21:32 metformin [METFORMIN] Allergy Unknown UNK Verified 09/09/20 21:32 Assessment & Plan Assessment & Plan (1) Developmental delay, profound: Status: Chronic Code(s): R62.50 - Unspecified lack of expected normal physiological development in childhood (2) Lack of housing: Status: Acute Code(s): Z59.0 - Homelessness Assessment and Plan: Increase zyprexa Work with DDS Await neurology consult Greater than 50% of the session was spent on counseling and/or coordination of care Patient educated on: diagnosis and medication risk/benefits Informed Consent: does not understand Reason for contiued inpatient stay Substantial Risk for: inability to function and rapid decompensation
[2020-09-23] MEDS: OLANZapine 10 MG TABLET PO ×2 (10:14→22:38)
--- NOTE | 2020-09-23 13:33 | P.CNNE_ITS ---
History of Present Illness Data of Consult Primary Care Provider: Unknown Physician 35 years old woman whose history was mainly obtained from previous records as she was quite uncooperative to interview and examination. I went to see her couple of times on different days since she refused to be seen or interviewed. On her mom was there and she was walking around and was somewhat more cooperative. This consultation was requested because of mom's complaints that she was not speaking and her walking was not right. Mom also stated that she was seeing a neurologist Dr. Johnson in [place] and had multiple investigations including brain imaging and EEGs. [facility] Social History Social History Currently Displaying Signs/Symptoms of Drug Intoxication Withdrawal: No Advance Directives: No Advance Directives Information Provided: No Do you have thoughts of harming others: None Do you have a plan to hurt others: No Plan Meds Allergies Allergy/AdvReac Type Severity Reaction Status Date / Time cariprazine [From [facility]AR] Allergy Unknown UNK Verified 09/09/20 21:32 divalproex sodium Allergy Unknown UNK Verified 09/09/20 21:32 [From DEPAKOTE] escitalopram [From LEXAPRO] Allergy Unknown UNK Verified 09/09/20 21:32 lithium [LITHIUM] Allergy Unknown UNK Verified 09/09/20 21:32 metformin [METFORMIN] Allergy Unknown UNK Verified 09/09/20 21:32 Home Medications Medication Instructions Recorded Confirmed Type aripiprazole 30 mg PO DAILY 08/25/20 08/25/20 History clonazepam 0.5 mg PO BID PRN 08/25/20 08/25/20 History folic acid 1 mg PO DAILY 08/25/20 08/25/20 History gabapentin 300 mg PO BEDTIME 08/25/20 08/25/20 History norethindrone (contraceptive) 0.35 mg PO DAILY 08/25/20 08/25/20 History [[facility]] propranolol 10 mg PO BID 08/25/20 08/25/20 History thiamine mononitrate (vit B1) 100 mg PO DAILY 08/25/20 08/25/20 History topiramate 75 mg PO BEDTIME 08/25/20 08/25/20 History trazodone 25 - 50 mg PO BEDTIME 08/25/20 08/25/20 History Physical Exam Vital Signs: Vital Signs: Vital Signs Temp Pulse BP 09/22/20 18:00 97.9 F 89 112/59 L Body Mass Index 33.3 Her spontaneity and fluency of speech was normal when I went to sit see her twice but she refused to be seen. She was comprehending and an understanding but not following commands and refused to be interviewed or seen. Today her mom was there and her speech was somewhat dysphasic. At 1 point she was standing and had no obvious abnormal movement or unsteadiness. She was able to walk few steps and when mom stated that there was something wrong with her walking her walking became wide based and slightly slow. Otherwise she was resistant to examination and walked away. Results Labs CBC & Chem 7: 09/04/20 08:01 09/22/20 08:32 Labs: Her noncontrast head CT recently had revealed mild cortical cerebral and cerebellar atrophy. 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 She has been seeing a neurologist in [place] had multiple investigations. At this time her problem with speech and walking was suggestive more of a psychosomatic illness then a drug related problem or structural cerebral issue. I would recommend ca ution and avoid over medication. Reassurance counseling and therapy of the patient and family good health.
[2020-09-23] MEDS: HaloperidoL 5 MG TABLET 15 MG PO (22:38)
[2020-09-23] MEDS: Topiramate 25 MG TABLET 100 MG PO (22:38)
[2020-09-23 23:26] VITALS: BP 120/86; PULSE 83; TEMP 37.3
[2020-09-24 04:45] VITALS: BP 123/58; PULSE 80; RESP 18; TEMP 36.2; O2SAT 97
[2020-09-24] MEDS: Thiamine HCL 100 MG TABLET PO (08:49)
[2020-09-24] MEDS: Benztropine Mesylate 1 MG TABLET PO ×2 (08:49→21:40)
[2020-09-24] MEDS: OLANZapine 10 MG TABLET PO ×2 (08:49→21:41)
[2020-09-24] MEDS: Folic Acid 1 MG TABLET PO (08:49)
--- NOTE | 2020-09-24 17:58 | P.PNPSI_ITS ---
Subjective Subjective Date of Service: 09/24/20 Reason For Visit: Mood Disorder Unspecified Subjective Notes: Conditional Voluntary Interim History: Teresita has been somewhat more engaged and visible today. She has been having some appropriate conversations. She called her mother. She seems to have benefited from the increase in zyprexa. Teresita remains quite far from her previous baseline. 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 Medication Compliance: Yes Side effects from medications: No Attending Groups: Yes Review of Systems Acute medical concerns: No Medical Review of Systems: unchanged Mental Status Exam Mental Status Exam Patient Appearance: Disheveled Patient Orientation: Person Level of Consciousness: Inappropriate Patient Behavior: Self Manipulative, Hypersexual, Avoidant and Distractible Mood Description: Withdrawn and Labile Affect Description: Euphoric, Cheerful and Labile Patient Cognition Impaired: No Ability to Follow Directions: Fair Speech Pattern: Perseverating, Impoverished and Mumbled Memory Description: Normal for Patient Hallucinations: Auditory Thought Process: Distracted Thought Content: positive for Disoriented, negative for Suicidal Ideation and negative for Homicidal Ideation Depressive Symptoms: Increased Anxiety Abnormal Motor Activity Signs and Symptoms: Aggression and Agitation Judgement: Fair Diagnostics Vital Signs (24Hr): Vital Signs - 24 hr 09/23/20 23:26 09/24/20 04:45 Temperature 99.2 F 97.2 F Pulse Rate 83 80 Respiratory Rate 18 Blood Pressure 120/86 123/58 L Pulse Oximetry 97 Body Mass Index 33.3 Labs Results: 09/04/20 08:01 09/22/20 08:32 Medications Medications Current Medications Generic Name Dose Route Start Last Admin Trade Name Freq PRN Reason Stop Dose Admin Acetaminophen 650 mg 08/26/20 00:01 09/18/20 21:28 Acetaminophen 325 Mg Tablet PO 650 mg Q6H PRN Administration HEADACHE/PAIN.MILD (SCALE 1-3) Al Hydroxide/Mg Hydroxide 30 ml 08/26/20 00:01 Magnesium Hydrox/Alum Hydrox 30 Ml Oral.Susp PO Q6H PRN HEARTBURN/NAUSEA Benztropine Mesylate 1 mg 08/26/20 00:01 Benztropine Mesylate 1 Mg Tablet PO Q4H PRN Extrapyramidal Effects Benztropine Mesylate 1 mg 09/22/20 21:00 09/24/20 08:49 Benztropine Mesylate 1 Mg Tablet PO 1 mg BID HERIBERTO Administration Folic Acid 1 mg 10/01/20 09:00 09/24/20 08:49 Folic Acid 1 Mg Tablet PO 1 mg DAILY HERIBERTO Administration Haloperidol 5 mg 08/26/20 00:01 09/18/20 10:11 Haloperidol 5 Mg Tablet PO 5 mg Q4H PRN Administration anxiety/restlessness Haloperidol 15 mg 09/15/20 21:00 09/23/20 22:38 Haloperidol 5 Mg Tablet PO 15 mg BEDTIME HERIBERTO Administration Hydroxyzine HCl 25 mg 08/26/20 21:00 Hydroxyzine Hcl 25 Mg Tablet PO BEDTIME MRX1 PRN NIGHT TIME ANXIETY Ibuprofen 600 mg 09/01/20 16:46 09/03/20 00:59 Ibuprofen 600 Mg Tablet PO 600 mg Q6H PRN Administration Pain, Moderate (Pain Scale 4-6 Loperamide HCl 2 mg 08/26/20 00:01 09/18/20 11:36 Loperamide Hcl 2 Mg Capsule PO 2 mg Q2H PRN Administration Diarrhea Magnesium Hydroxide 30 ml 08/26/20 00:01 Milk Of Magnesia 30 Ml Oral.Susp PO Q24H PRN Constipation Olanzapine 10 mg 09/23/20 09:30 09/24/20 08:49 Olanzapine 10 Mg Tablet PO 10 mg BID HERIBERTO Administration Thiamine HCl 100 mg 08/26/20 09:00 09/24/20 08:49 Thiamine Hcl 100 Mg Tablet PO 100 mg DAILY HERIBERTO Administration Topiramate 100 mg 09/16/20 21:00 09/23/20 22:38 Topiramate 25 Mg Tablet PO 100 mg BEDTIME HERIBERTO Administration Trazodone HCl 25 mg 08/26/20 21:00 Trazodone Hcl 25 Mg Halftab PO BEDTIME MRX1 PRN Insomnia Allergies Allergies Allergy/AdvReac Type Severity Reaction Status Date / Time cariprazine [From [facility]] Allergy Unknown UNK Verified 09/09/20 21:32 divalproex sodium Allergy Unknown UNK Verified 09/09/20 21:32 [From DEPAKOTE] escitalopram [From LEXAPRO] Allergy Unknown UNK Verified 09/09/20 21:32 lithium [LITHIUM] Allergy Unknown UNK Verified 09/09/20 21:32 metformin [METFORMIN] Allergy Unknown UNK Verified 09/09/20 21:32 Assessment & Plan Assessment & Plan (1) Developmental delay, profound: Status: Chronic Code(s): R62.50 - Unspecified lack of expected normal physiological development in [place] (2) Lack of housing: Status: Acute Code(s): Z59.0 - Homelessness Assessment and Plan: Continue current treatment options. Liase with DDS Greater than 50% of the session was spent on counseling and/or coordination of care Patient educated on: diagnosis and medication risk/benefits Informed Consent: further education needed Reason for contiued inpatient stay Substantial Risk for: inability to function and rapid decompensation
[2020-09-24 18:00] VITALS: BP 108/61; PULSE 87; TEMP 37.2
[2020-09-24] MEDS: Topiramate 25 MG TABLET 100 MG PO (21:38)
[2020-09-24] MEDS: HaloperidoL 5 MG TABLET 15 MG PO (21:40)
[2020-09-25] MEDS: OLANZapine 10 MG TABLET PO ×2 (09:10→21:41)
[2020-09-25] MEDS: Benztropine Mesylate 1 MG TABLET PO ×2 (09:10→21:41)
[2020-09-25] MEDS: Folic Acid 1 MG TABLET PO (09:10)
[2020-09-25] MEDS: Thiamine HCL 100 MG TABLET PO (09:11)
--- NOTE | 2020-09-25 10:52 | P.PNPSI_ITS ---
Subjective Subjective Date of Service: 09/25/20 Reason For Visit: Mood Disorder Unspecified Subjective Notes: Conditional Voluntary Interim History: Excited about Halloween, was screaming in her room Medication Compliance: Yes Side effects from medications: No Attending Groups: No Review of Systems Review of Systems Yes all other systems are reviewed and are negative Mental Status Exam Mental Status Exam Narrative: restless, moving legs back and forth , gets too close but answers all my questions today which she has not been able to do in prior Patient Appearance: Well Grooomed Patient Orientation: Person, Place, Time and Situation Level of Consciousness: Awake Patient Behavior: Talkative, Cooperative, Restless, Wandering and Impulsive Mood Description: Happy and Labile Affect Description: Happy and Labile Patient Cognition Impaired: Yes Ability to Follow Directions: Poor Speech Pattern: Slurred and Inappropriate Hallucinations: Auditory Thought Process: Illogical and Distracted Thought Content: positive for [place], positive for Poverty of Content and positive for Disorganized Abnormal Motor Activity Signs and Symptoms: Restlessness Judgement: Poor Judgement and Insight: no insight/understanding Diagnostics Vital Signs (24Hr): Vital Signs - 24 hr 09/24/20 18:00 Temperature 98.9 F Pulse Rate 87 Blood Pressure 108/61 Body Mass Index 33.3 Labs Results: 09/04/20 08:01 09/22/20 08:32 Medications Medications Current Medications Generic Name Dose Route Start Last Admin Trade Name Corinne PRN Reason Stop Dose Admin Acetaminophen 650 mg 08/26/20 00:01 09/18/20 21:28 Acetaminophen 325 Mg Tablet PO 650 mg Q6H PRN Administration HEADACHE/PAIN.MILD (SCALE 1-3) Al Hydroxide/Mg Hydroxide 30 ml 08/26/20 00:01 Magnesium Hydrox/Alum Hydrox 30 Ml Oral.Susp PO Q6H PRN HEARTBURN/NAUSEA Benztropine Mesylate 1 mg 08/26/20 00:01 Benztropine Mesylate 1 Mg Tablet PO Q4H PRN Extrapyramidal Effects Benztropine Mesylate 1 mg 09/22/20 21:00 09/25/20 09:10 Benztropine Mesylate 1 Mg Tablet PO 1 mg BID HERIBERTO Administration Folic Acid 1 mg 08/26/20 09:00 09/25/20 09:10 Folic Acid 1 Mg Tablet PO 1 mg DAILY HERIBERTO Administration Haloperidol 5 mg 08/26/20 00:01 09/18/20 10:11 Haloperidol 5 Mg Tablet PO 5 mg Q4H PRN Administration anxiety/restlessness Haloperidol 15 mg 09/15/20 21:00 09/24/20 21:40 Haloperidol 5 Mg Tablet PO 15 mg BEDTIME HERIBERTO Administration Hydroxyzine HCl 25 mg 08/26/20 21:00 Hydroxyzine Hcl 25 Mg Tablet PO BEDTIME MRX1 PRN NIGHT TIME ANXIETY Ibuprofen 600 mg 09/01/20 16:46 09/03/20 00:59 Ibuprofen 600 Mg Tablet PO 600 mg Q6H PRN Administration Pain, Moderate (Pain Scale 4-6 Loperamide HCl 2 mg 08/26/20 00:01 09/18/20 11:36 Loperamide Hcl 2 Mg Capsule PO 2 mg Q2H PRN Administration Diarrhea Magnesium Hydroxide 30 ml 08/26/20 00:01 Milk Of Magnesia 30 Ml Oral.Susp PO Q24H PRN Constipation Olanzapine 10 mg 09/23/20 09:30 09/25/20 09:10 Olanzapine 10 Mg Tablet PO 10 mg BID HERIBERTO Administration Thiamine HCl 100 mg 08/26/20 09:00 09/25/20 09:11 Thiamine Hcl 100 Mg Tablet PO 100 mg DAILY HERIBERTO Administration Topiramate 100 mg 09/16/20 21:00 09/24/20 21:38 Topiramate 25 Mg Tablet PO 100 mg BEDTIME HERIBERTO Administration Trazodone HCl 25 mg 08/26/20 21:00 Trazodone Hcl 25 Mg Halftab PO BEDTIME MRX1 PRN Insomnia Allergies Allergies Allergy/AdvReac Type Severity Reaction Status Date / Time cariprazine [From [facility]LAR] Allergy Unknown UNK Verified 09/09/20 21:32 divalproex sodium Allergy Unknown UNK Verified 09/09/20 21:32 [From DEPAKOTE] escitalopram [From LEXAPRO] Allergy Unknown UNK Verified 09/09/20 21:32 lithium [LITHIUM] Allergy Unknown UNK Verified 09/09/20 21:32 metformin [METFORMIN] Allergy Unknown UNK Verified 09/09/20 21:32 Assessment & Plan Assessment & Plan (1) Developmental delay, profound: Status: Chronic Code(s): R62.50 - Unspecified lack of expected normal physiological development in childhood Assessment and Plan: static (2) Hallucinations: Status: Acute Code(s): R44.3 - Hallucinations, unspecified Assessment and Plan: reports having but not telling her anything bad (3) Mood swings: Status: Acute Code(s): R45.86 - Emotional lability Assessment and Plan: continues- but taking meds and more redirectable even able to have short meaningful interaction Greater than 50% of the session was spent on counseling and/or coordination of care
[2020-09-25 18:00] VITALS: BP 136/81; PULSE 81; TEMP 36.6
[2020-09-25] MEDS: HaloperidoL 5 MG TABLET 15 MG PO (21:40)
[2020-09-25] MEDS: Topiramate 25 MG TABLET 100 MG PO (21:41)
[2020-09-26] MEDS: Folic Acid 1 MG TABLET PO (09:03)
[2020-09-26] MEDS: Thiamine HCL 100 MG TABLET PO (09:03)
[2020-09-26] MEDS: Benztropine Mesylate 1 MG TABLET PO ×2 (09:03→21:31)
[2020-09-26] MEDS: OLANZapine 10 MG TABLET PO ×2 (09:03→21:31)
--- NOTE | 2020-09-26 15:00 | HO.PSYCHPN ---
Subjective Subjective Date of Service: 09/26/20 Reason For Visit: Mood Disorder Unspecified Subjective Notes: Conditional Voluntary Interim History: keeps repeating words I couldn't get- I just came out to find out what time it is says she is doing ok - didn't want to engage today otherwise Medication Compliance: Yes Side effects from medications: No Attending Groups: No Review of Systems Acute medical concerns: No Medical Review of Systems: unchanged Mental Status Exam Mental Status Exam Narrative: drooling Patient Appearance: Disheveled (though dressed in pjs) Patient Orientation: Person and Place Level of Consciousness: Awake Patient Behavior: Cooperative, Invasion - Personal Space and Distractible Mood Description: Calm Affect Description: Anxious Patient Cognition Impaired: Yes Ability to Follow Directions: Fair Speech Pattern: Slurred and Mumbled Thought Process: Incoherent Thought Content: positive for [place] and positive for Poverty of Content Judgement: Poor Diagnostics Vital Signs (24Hr): Vital Signs - 24 hr 09/25/20 18:00 Temperature 97.8 F Pulse Rate 81 Blood Pressure 136/81 Body Mass Index 33.3 Labs Results: 09/04/20 08:01 09/22/20 08:32 Medications Medications Current Medications Generic Name Dose Route Start Last Admin Trade Name Freq PRN Reason Stop Dose Admin Acetaminophen 650 mg 08/26/20 00:01 09/18/20 21:28 Acetaminophen 325 Mg Tablet PO 650 mg Q6H PRN Administration HEADACHE/PAIN.MILD (SCALE 1-3) Al Hydroxide/Mg Hydroxide 30 ml 08/26/20 00:01 Magnesium Hydrox/Alum Hydrox 30 Ml Oral.Susp PO Q6H PRN HEARTBURN/NAUSEA Benztropine Mesylate 1 mg 08/26/20 00:01 Benztropine Mesylate 1 Mg Tablet PO Q4H PRN Extrapyramidal Effects Benztropine Mesylate 1 mg 09/22/20 21:00 09/26/20 09:03 Benztropine Mesylate 1 Mg Tablet PO 1 mg BID HERIBERTO Administration Folic Acid 1 mg 08/26/20 09:00 09/26/20 09:03 Folic Acid 1 Mg Tablet PO 1 mg DAILY HERIBERTO Administration Haloperidol 5 mg 08/26/20 00:01 09/18/20 10:11 Haloperidol 5 Mg Tablet PO 5 mg Q4H PRN Administration anxiety/restlessness Haloperidol 15 mg 09/15/20 21:00 09/25/20 21:40 Haloperidol 5 Mg Tablet PO 15 mg BEDTIME HERIBERTO Administration Hydroxyzine HCl 25 mg 08/26/20 21:00 Hydroxyzine Hcl 25 Mg Tablet PO BEDTIME MRX1 PRN NIGHT TIME ANXIETY Ibuprofen 600 mg 09/01/20 16:46 09/03/20 00:59 Ibuprofen 600 Mg Tablet PO 600 mg Q6H PRN Administration Pain, Moderate (Pain Scale 4-6 Loperamide HCl 2 mg 08/26/20 00:01 09/18/20 11:36 Loperamide Hcl 2 Mg Capsule PO 2 mg Q2H PRN Administration Diarrhea Magnesium Hydroxide 30 ml 08/26/20 00:01 Milk Of Magnesia 30 Ml Oral.Susp PO Q24H PRN Constipation Olanzapine 10 mg 09/23/20 09:30 09/26/20 09:03 Olanzapine 10 Mg Tablet PO 10 mg BID HERIBERTO Administration Thiamine HCl 100 mg 08/26/20 09:00 09/26/20 09:03 Thiamine Hcl 100 Mg Tablet PO 100 mg DAILY HERIBERTO Administration Topiramate 100 mg 09/16/20 21:00 09/25/20 21:41 Topiramate 25 Mg Tablet PO 100 mg BEDTIME HERIBERTO Administration Trazodone HCl 25 mg 08/26/20 21:00 Trazodone Hcl 25 Mg Halftab PO BEDTIME MRX1 PRN Insomnia Allergies Allergies Allergy/AdvReac Type Severity Reaction Status Date / Time cariprazine [From VRAYLAR] Allergy Unknown UNK Verified 09/09/20 21:32 divalproex sodium Allergy Unknown UNK Verified 09/09/20 21:32 [From DEPAKOTE] escitalopram [From LEXAPRO] Allergy Unknown UNK Verified 09/09/20 21:32 lithium [LITHIUM] Allergy Unknown UNK Verified 09/09/20 21:32 metformin [METFORMIN] Allergy Unknown UNK Verified 09/09/20 21:32 Assessment & Plan Assessment & Plan (1) Developmental delay, profound: Status: Chronic Code(s): R62.50 - Unspecified lack of expected normal physiological development in childhood Assessment and Plan: maybe at baseline (2) Mood swings: Status: Acute Code(s): R45.86 - Emotional lability Assessment and Plan: maybe at baseline- taking meds, some better control overall Greater than 50% of the session was spent on counseling and/or coordination of care
[2020-09-26 16:30] VITALS: BP 117/82; PULSE 98; TEMP 37
[2020-09-26] MEDS: HaloperidoL 5 MG TABLET 15 MG PO (21:31)
[2020-09-26] MEDS: Topiramate 25 MG TABLET 100 MG PO (21:31)
--- NOTE | 2020-09-27 07:44 | HO.PSYCHPN ---
Subjective Subjective Date of Service: 09/27/20 Reason For Visit: Mood Disorder Unspecified Subjective Notes: Conditional Voluntary Interim History: Teresita is wearing her own clothing and is up and visible. She spoke to her mother on the phone and she appears calmer. She was excited about Halloween and her behavior was appropriate. She does appear overall improved. Medication Compliance: Yes Side effects from medications: No Attending Groups: No Review of Systems Acute medical concerns: No Medical Review of Systems: unchanged Mental Status Exam Mental Status Exam Narrative: drooling Patient Appearance: Disheveled (though dressed in pjs) Patient Orientation: Person and Place Level of Consciousness: Awake Patient Behavior: Cooperative, Invasion - Personal Space and Distractible Mood Description: Calm Affect Description: Cheerful and Anxious Patient Cognition Impaired: Yes Ability to Follow Directions: Fair Speech Pattern: Slurred, Mumbled and Excited Hallucinations: Auditory Delusions: Not Present Thought Process: Incoherent Thought Content: positive for [place], positive for Poverty of Content, negative for Suicidal Ideation and negative for Homicidal Ideation Judgement: Poor Diagnostics Vital Signs (24Hr): Vital Signs - 24 hr 09/26/20 16:30 Temperature 98.6 F Pulse Rate 98 Blood Pressure 117/82 Body Mass Index 33.3 Labs Results: 09/04/20 08:01 09/22/20 08:32 Medications Medications Current Medications Generic Name Dose Route Start Last Admin Trade Name Corinne PRN Reason Stop Dose Admin Acetaminophen 650 mg 08/26/20 00:01 09/18/20 21:28 Acetaminophen 325 Mg Tablet PO 650 mg Q6H PRN Administration HEADACHE/PAIN.MILD (SCALE 1-3) Al Hydroxide/Mg Hydroxide 30 ml 08/26/20 00:01 Magnesium Hydrox/Alum Hydrox 30 Ml Oral.Susp PO Q6H PRN HEARTBURN/NAUSEA Benztropine Mesylate 1 mg 08/26/20 00:01 Benztropine Mesylate 1 Mg Tablet PO Q4H PRN Extrapyramidal Effects Benztropine Mesylate 1 mg 09/22/20 21:00 09/26/20 21:31 Benztropine Mesylate 1 Mg Tablet PO 1 mg BID HERIBERTO Administration Folic Acid 1 mg 08/26/20 09:00 09/26/20 09:03 Folic Acid 1 Mg Tablet PO 1 mg DAILY HERIBERTO Administration Haloperidol 5 mg 08/26/20 00:01 09/18/20 10:11 Haloperidol 5 Mg Tablet PO 5 mg Q4H PRN Administration anxiety/restlessness Haloperidol 15 mg 09/15/20 21:00 09/26/20 21:31 Haloperidol 5 Mg Tablet PO 15 mg BEDTIME HERIBERTO Administration Hydroxyzine HCl 25 mg 08/26/20 21:00 Hydroxyzine Hcl 25 Mg Tablet PO BEDTIME MRX1 PRN NIGHT TIME ANXIETY Ibuprofen 600 mg 09/01/20 16:46 09/03/20 00:59 Ibuprofen 600 Mg Tablet PO 600 mg Q6H PRN Administration Pain, Moderate (Pain Scale 4-6 Loperamide HCl 2 mg 08/26/20 00:01 09/18/20 11:36 Loperamide Hcl 2 Mg Capsule PO 2 mg Q2H PRN Administration Diarrhea Magnesium Hydroxide 30 ml 08/26/20 00:01 Milk Of Magnesia 30 Ml Oral.Susp PO Q24H PRN Constipation Olanzapine 10 mg 09/23/20 09:30 09/26/20 21:31 Olanzapine 10 Mg Tablet PO 10 mg BID HERIBERTO Administration Thiamine HCl 100 mg 08/26/20 09:00 09/26/20 09:03 Thiamine Hcl 100 Mg Tablet PO 100 mg DAILY HERIBERTO Administration Topiramate 100 mg 09/16/20 21:00 09/26/20 21:31 Topiramate 25 Mg Tablet PO 100 mg BEDTIME HERIBERTO Administration Trazodone HCl 25 mg 08/26/20 21:00 Trazodone Hcl 25 Mg Halftab PO BEDTIME MRX1 PRN Insomnia Allergies Allergies Allergy/AdvReac Type Severity Reaction Status Date / Time cariprazine [From VRAYLAR] Allergy Unknown UNK Verified 09/09/20 21:32 divalproex sodium Allergy Unknown UNK Verified 09/09/20 21:32 [From DEPAKOTE] escitalopram [From LEXAPRO] Allergy Unknown UNK Verified 09/09/20 21:32 lithium [LITHIUM] Allergy Unknown UNK Verified 09/09/20 21:32 metformin [METFORMIN] Allergy Unknown UNK Verified 09/09/20 21:32 Assessment & Plan Assessment & Plan (1) Developmental delay, profound: Status: Chronic Code(s): R62.50 - Unspecified lack of expected normal physiological development in childhood (2) Lack of housing: Status: Acute Code(s): Z59.0 - Homelessness Assessment and Plan: CT medications without change Liase with DDS Greater than 50% of the session was spent on counseling and/or coordination of care Patient educated on: diagnosis and medication risk/benefits Informed Consent: does not understand Reason for contiued inpatient stay Substantial Risk for: inability to function and rapid decompensation
[2020-09-27] MEDS: Benztropine Mesylate 1 MG TABLET PO ×2 (08:37→21:26)
[2020-09-27] MEDS: Folic Acid 1 MG TABLET PO (08:37)
[2020-09-27] MEDS: OLANZapine 10 MG TABLET PO ×2 (08:37→21:26)
[2020-09-27] MEDS: Thiamine HCL 100 MG TABLET PO (08:37)
[2020-09-27 09:10] VITALS: BP 99/52; PULSE 93; TEMP 36.5; O2SAT 98
[2020-09-27 16:50] VITALS: BP 116/63; PULSE 101; TEMP 36.7
[2020-09-27] MEDS: Topiramate 25 MG TABLET 100 MG PO (21:25)
[2020-09-27] MEDS: HaloperidoL 5 MG TABLET 15 MG PO (21:26)
--- NOTE | 2020-09-28 09:17 | HO.PSYCHPN ---
Subjective Subjective Date of Service: 09/28/20 Reason For Visit: Mood Disorder Unspecified Subjective Notes: Conditional Voluntary Interim History: Teresita is wearing her own clothing and is up and visible. She spoke to her mother on the phone and she appears calmer. She has been speaking with the staff, and a little bit more interactive with her peers. Medication Compliance: Yes Side effects from medications: No Attending Groups: No Review of Systems Acute medical concerns: No Medical Review of Systems: unchanged Mental Status Exam Mental Status Exam Narrative: drooling Patient Appearance: Disheveled (though dressed in pjs) Patient Orientation: Person and Place Level of Consciousness: Awake Patient Behavior: Cooperative, Invasion - Personal Space, Distractible and Poor Eye Contact Mood Description: Calm Affect Description: Cheerful and Anxious Patient Cognition Impaired: Yes Ability to Follow Directions: Fair Speech Pattern: Slurred, Mumbled and Excited Memory Description: Normal for Patient Hallucinations: None Delusions: Not Present Thought Process: Rumination and Confusion Thought Content: positive for Persever[place], positive for Poverty of Content, negative for Suicidal Ideation and negative for Homicidal Ideation Abnormal Motor Activity Signs and Symptoms: Restlessness Judgement: Poor Diagnostics Vital Signs (24Hr): Vital Signs - 24 hr 09/27/20 16:50 Temperature 98.0 F Pulse Rate 101 H Blood Pressure 116/63 Body Mass Index 33.3 Labs Results: 09/04/20 08:01 09/22/20 08:32 Medications Medications Current Medications Generic Name Dose Route Start Last Admin Trade Name Pkq PRN Reason Stop Dose Admin Acetaminophen 650 mg 08/26/20 00:01 09/18/20 21:28 Acetaminophen 325 Mg Tablet PO 650 mg Q6H PRN Administration HEADACHE/PAIN.MILD (SCALE 1-3) Al Hydroxide/Mg Hydroxide 30 ml 08/26/20 00:01 Magnesium Hydrox/Alum Hydrox 30 Ml Oral.Susp PO Q6H PRN HEARTBURN/NAUSEA Benztropine Mesylate 1 mg 08/26/20 00:01 Benztropine Mesylate 1 Mg Tablet PO Q4H PRN Extrapyramidal Effects Benztropine Mesylate 1 mg 09/22/20 21:00 09/27/20 21:26 Benztropine Mesylate 1 Mg Tablet PO 1 mg BID HERIBERTO Administration Folic Acid 1 mg 08/26/20 09:00 09/27/20 08:37 Folic Acid 1 Mg Tablet PO 1 mg DAILY HERIBERTO Administration Haloperidol 5 mg 08/26/20 00:01 09/18/20 10:11 Haloperidol 5 Mg Tablet PO 5 mg Q4H PRN Administration anxiety/restlessness Haloperidol 15 mg 09/15/20 21:00 09/27/20 21:26 Haloperidol 5 Mg Tablet PO 15 mg BEDTIME HERIBERTO Administration Hydroxyzine HCl 25 mg 08/26/20 21:00 Hydroxyzine Hcl 25 Mg Tablet PO BEDTIME MRX1 PRN NIGHT TIME ANXIETY Ibuprofen 600 mg 09/01/20 16:46 09/03/20 00:59 Ibuprofen 600 Mg Tablet PO 600 mg Q6H PRN Administration Pain, Moderate (Pain Scale 4-6 Loperamide HCl 2 mg 08/26/20 00:01 09/18/20 11:36 Loperamide Hcl 2 Mg Capsule PO 2 mg Q2H PRN Administration Diarrhea Magnesium Hydroxide 30 ml 08/26/20 00:01 Milk Of Magnesia 30 Ml Oral.Susp PO Q24H PRN Constipation Olanzapine 10 mg 09/23/20 09:30 09/27/20 21:26 Olanzapine 10 Mg Tablet PO 10 mg BID HERIBERTO Administration Thiamine HCl 100 mg 08/26/20 09:00 09/27/20 08:37 Thiamine Hcl 100 Mg Tablet PO 100 mg DAILY HERIBERTO Administration Topiramate 100 mg 09/16/20 21:00 09/27/20 21:25 Topiramate 25 Mg Tablet PO 100 mg BEDTIME HERIBERTO Administration Trazodone HCl 25 mg 08/26/20 21:00 Trazodone Hcl 25 Mg Halftab PO BEDTIME MRX1 PRN Insomnia Allergies Allergies Allergy/AdvReac Type Severity Reaction Status Date / Time cariprazine [From VRAYLAR] Allergy Unknown UNK Verified 09/09/20 21:32 divalproex sodium Allergy Unknown UNK Verified 09/09/20 21:32 [From DEPAKOTE] escitalopram [From LEXAPRO] Allergy Unknown UNK Verified 09/09/20 21:32 lithium [LITHIUM] Allergy Unknown UNK Verified 09/09/20 21:32 metformin [METFORMIN] Allergy Unknown UNK Verified 09/09/20 21:32 Assessment & Plan Assessment & Plan (1) Developmental delay, profound: Status: Chronic Code(s): R62.50 - Unspecified lack of expected normal physiological development in childhood (2) Lack of housing: Status: Acute Code(s): Z59.0 - Homelessness Assessment and Plan: CT medications without change Liase with DDS Greater than 50% of the session was spent on counseling and/or coordination of care Patient educated on: diagnosis and medication risk/benefits Informed Consent: further education needed Reason for contiued inpatient stay Substantial Risk for: rapid decompensation
[2020-09-28] MEDS: OLANZapine 10 MG TABLET PO ×2 (10:19→21:19)
[2020-09-28] MEDS: Thiamine HCL 100 MG TABLET PO (10:19)
[2020-09-28] MEDS: Folic Acid 1 MG TABLET PO (10:21)
[2020-09-28] MEDS: Benztropine Mesylate 1 MG TABLET PO ×2 (10:21→21:20)
[2020-09-28 11:00] VITALS: BP 126/58; PULSE 99
[2020-09-28 18:00] VITALS: BP 112/66; PULSE 92; TEMP 36.6
[2020-09-28] MEDS: Topiramate 25 MG TABLET 100 MG PO (21:19)
[2020-09-28] MEDS: HaloperidoL 5 MG TABLET 15 MG PO (21:19)
[2020-09-28] MEDS: Acetaminophen 325 MG TABLET 650 MG PO (22:57)
[2020-09-29] MEDS: Thiamine HCL 100 MG TABLET PO (09:04)
[2020-09-29] MEDS: Folic Acid 1 MG TABLET PO (09:04)
[2020-09-29] MEDS: OLANZapine 10 MG TABLET PO ×2 (09:04→21:49)
[2020-09-29] MEDS: Benztropine Mesylate 1 MG TABLET PO ×2 (09:04→21:48)
--- NOTE | 2020-09-29 09:20 | HO.PSYCHPN ---
Subjective Subjective Date of Service: 09/29/20 Reason For Visit: Mood Disorder Unspecified Subjective Notes: Conditional Voluntary Interim History: Teresita is wearing her own clothing and is up and visible. She spoke to her mother on the phone and she appears calmer. She has been speaking with the staff, and a little bit more interactive with her peers. She had a more difficult evening last evening but is calmer this morning. She is approaching her baseline, per her mother. SW continues to liased with DDS Medication Compliance: Yes Side effects from medications: No Attending Groups: Yes Review of Systems Acute medical concerns: No Medical Review of Systems: unchanged Mental Status Exam Mental Status Exam Patient Appearance: Disheveled (though dressed in pjs) Patient Orientation: Person and Place Level of Consciousness: Awake Patient Behavior: Cooperative, Invasion - Personal Space, Distractible and Poor Eye Contact Mood Description: Calm Affect Description: Cheerful and Anxious Patient Cognition Impaired: Yes Ability to Follow Directions: Fair Speech Pattern: Slurred, Mumbled and Excited Memory Description: Normal for Patient Hallucinations: None Delusions: Not Present Thought Process: Intact Thought Content: positive for [place], positive for Thought Blocking, negative for Suicidal Ideation and negative for Homicidal Ideation Diagnostics Vital Signs (24Hr): Vital Signs - 24 hr 09/28/20 11:00 09/28/20 18:00 Temperature 97.8 F Pulse Rate 99 92 Blood Pressure 126/58 L 112/66 Body Mass Index 33.3 Labs Results: 09/04/20 08:01 09/22/20 08:32 Medications Medications Current Medications Generic Name Dose Route Start Last Admin Trade Name Pkq PRN Reason Stop Dose Admin Acetaminophen 650 mg 08/26/20 00:01 09/28/20 22:57 Acetaminophen 325 Mg Tablet PO 650 mg Q6H PRN Administration HEADACHE/PAIN.MILD (SCALE 1-3) Al Hydroxide/Mg Hydroxide 30 ml 08/26/20 00:01 Magnesium Hydrox/Alum Hydrox 30 Ml Oral.Susp PO Q6H PRN HEARTBURN/NAUSEA Benztropine Mesylate 1 mg 08/26/20 00:01 Benztropine Mesylate 1 Mg Tablet PO Q4H PRN Extrapyramidal Effects Benztropine Mesylate 1 mg 09/22/20 21:00 09/29/20 09:04 Benztropine Mesylate 1 Mg Tablet PO 1 mg BID HERIBERTO Administration Folic Acid 1 mg 08/26/20 09:00 09/29/20 09:04 Folic Acid 1 Mg Tablet PO 1 mg DAILY HERIBERTO Administration Haloperidol 5 mg 08/26/20 00:01 09/18/20 10:11 Haloperidol 5 Mg Tablet PO 5 mg Q4H PRN Administration anxiety/restlessness Haloperidol 15 mg 09/15/20 21:00 09/28/20 21:19 Haloperidol 5 Mg Tablet PO 15 mg BEDTIME HERIBERTO Administration Hydroxyzine HCl 25 mg 08/26/20 21:00 Hydroxyzine Hcl 25 Mg Tablet PO BEDTIME MRX1 PRN NIGHT TIME ANXIETY Ibuprofen 600 mg 09/01/20 16:46 09/03/20 00:59 Ibuprofen 600 Mg Tablet PO 600 mg Q6H PRN Administration Pain, Moderate (Pain Scale 4-6 Loperamide HCl 2 mg 08/26/20 00:01 09/18/20 11:36 Loperamide Hcl 2 Mg Capsule PO 2 mg Q2H PRN Administration Diarrhea Magnesium Hydroxide 30 ml 08/26/20 00:01 Milk Of Magnesia 30 Ml Oral.Susp PO Q24H PRN Constipation Olanzapine 10 mg 09/23/20 09:30 09/29/20 09:04 Olanzapine 10 Mg Tablet PO 10 mg BID HERIBERTO Administration Thiamine HCl 100 mg 08/26/20 09:00 09/29/20 09:04 Thiamine Hcl 100 Mg Tablet PO 100 mg DAILY HERIBERTO Administration Topiramate 100 mg 09/16/20 21:00 09/28/20 21:19 Topiramate 25 Mg Tablet PO 100 mg BEDTIME HERIBERTO Administration Trazodone HCl 25 mg 08/26/20 21:00 Trazodone Hcl 25 Mg Halftab PO BEDTIME MRX1 PRN Insomnia Allergies Allergies Allergy/AdvReac Type Severity Reaction Status Date / Time cariprazine [From VRAYLAR] Allergy Unknown UNK Verified 09/09/20 21:32 divalproex sodium Allergy Unknown UNK Verified 09/09/20 21:32 [From DEPAKOTE] escitalopram [From LEXAPRO] Allergy Unknown UNK Verified 09/09/20 21:32 lithium [LITHIUM] Allergy Unknown UNK Verified 09/09/20 21:32 metformin [METFORMIN] Allergy Unknown UNK Verified 09/09/20 21:32 Assessment & Plan Assessment & Plan (1) Developmental delay, profound: Status: Chronic Code(s): R62.50 - Unspecified lack of expected normal physiological development in childhood (2) Lack of housing: Status: Acute Code(s): Z59.0 - Homelessness Assessment and Plan: CT medications without change Liase with DDS Greater than 50% of the session was spent on counseling and/or coordination of care Patient educated on: diagnosis and medication risk/benefits Informed Consent: does not understand Reason for contiued inpatient stay Substantial Risk for: rapid decompensation
[2020-09-29 11:41] VITALS: BP 105/59; PULSE 80; TEMP 36.5; O2SAT 97
[2020-09-29 19:30] VITALS: BP 126/75; PULSE 104; TEMP 36.3
[2020-09-29] MEDS: Topiramate 25 MG TABLET 100 MG PO (21:47)
[2020-09-29] MEDS: HaloperidoL 5 MG TABLET 15 MG PO (21:48)
[2020-09-30 07:00] VITALS: BMI 35.3
--- NOTE | 2020-09-30 09:14 | HO.PSYCHPN ---
Subjective Subjective Date of Service: 09/30/20 Reason For Visit: Mood Disorder Unspecified Subjective Notes: Conditional Voluntary Interim History: Teresita is wearing her own clothing and is up and visible. She has been speaking with the staff, and a little bit more interactive with her peers. She had no episodes of masturbating yesterday. She is approaching her baseline, per her mother. SW continues to liased with DDS Medication Compliance: Yes Side effects from medications: No Attending Groups: No Mental Status Exam Mental Status Exam Narrative: drooling Patient Appearance: Disheveled (though dressed in pjs) Patient Orientation: Person and Place Level of Consciousness: Awake Patient Behavior: Cooperative, Invasion - Personal Space, Distractible and Poor Eye Contact Mood Description: Calm Affect Description: Cheerful and Anxious Patient Cognition Impaired: Yes Ability to Follow Directions: Fair Speech Pattern: Slurred, Mumbled and Excited Memory Description: Normal for Patient Delusions: Not Present Thought Process: Intact Thought Content: positive for Perseveration, positive for Thought Blocking, positive for Slowed Thinking, negative for Suicidal Ideation and negative for Homicidal Ideation Judgement: Poor Diagnostics Vital Signs (24Hr): Vital Signs - 24 hr 09/29/20 11:41 09/29/20 19:30 Temperature 97.7 F 97.4 F Pulse Rate 80 104 H Blood Pressure 105/59 L 126/75 Pulse Oximetry 97 Body Mass Index 33.3 Labs Results: 09/04/20 08:01 09/22/20 08:32 Medications Medications Current Medications Generic Name Dose Route Start Last Admin Trade Name Freq PRN Reason Stop Dose Admin Acetaminophen 650 mg 08/26/20 00:01 09/28/20 22:57 Acetaminophen 325 Mg Tablet PO 650 mg Q6H PRN Administration HEADACHE/PAIN.MILD (SCALE 1-3) Al Hydroxide/Mg Hydroxide 30 ml 08/26/20 00:01 Magnesium Hydrox/Alum Hydrox 30 Ml Oral.Susp PO Q6H PRN HEARTBURN/NAUSEA Benztropine Mesylate 1 mg 08/26/20 00:01 Benztropine Mesylate 1 Mg Tablet PO Q4H PRN Extrapyramidal Effects Benztropine Mesylate 1 mg 09/22/20 21:00 09/29/20 21:48 Benztropine Mesylate 1 Mg Tablet PO 1 mg BID HERIBERTO Administration Folic Acid 1 mg 08/26/20 09:00 09/29/20 09:04 Folic Acid 1 Mg Tablet PO 1 mg DAILY HERIBERTO Administration Haloperidol 5 mg 08/26/20 00:01 09/18/20 10:11 Haloperidol 5 Mg Tablet PO 5 mg Q4H PRN Administration anxiety/restlessness Haloperidol 15 mg 09/15/20 21:00 09/29/20 21:48 Haloperidol 5 Mg Tablet PO 15 mg BEDTIME HERIBERTO Administration Hydroxyzine HCl 25 mg 08/26/20 21:00 Hydroxyzine Hcl 25 Mg Tablet PO BEDTIME MRX1 PRN NIGHT TIME ANXIETY Ibuprofen 600 mg 09/01/20 16:46 09/03/20 00:59 Ibuprofen 600 Mg Tablet PO 600 mg Q6H PRN Administration Pain, Moderate (Pain Scale 4-6 Loperamide HCl 2 mg 08/26/20 00:01 09/18/20 11:36 Loperamide Hcl 2 Mg Capsule PO 2 mg Q2H PRN Administration Diarrhea Magnesium Hydroxide 30 ml 08/26/20 00:01 Milk Of Magnesia 30 Ml Oral.Susp PO Q24H PRN Constipation Olanzapine 10 mg 09/23/20 09:30 09/29/20 21:49 Olanzapine 10 Mg Tablet PO 10 mg BID HERIBERTO Administration Thiamine HCl 100 mg 08/26/20 09:00 09/29/20 09:04 Thiamine Hcl 100 Mg Tablet PO 100 mg DAILY HERIBERTO Administration Topiramate 100 mg 09/16/20 21:00 09/29/20 21:47 Topiramate 25 Mg Tablet PO 100 mg BEDTIME HERIBERTO Administration Trazodone HCl 25 mg 08/26/20 21:00 Trazodone Hcl 25 Mg Halftab PO BEDTIME MRX1 PRN Insomnia Allergies Allergies Allergy/AdvReac Type Severity Reaction Status Date / Time cariprazine [From VRAYLAR] Allergy Unknown UNK Verified 09/09/20 21:32 divalproex sodium Allergy Unknown UNK Verified 09/09/20 21:32 [From DEPAKOTE] escitalopram [From LEXAPRO] Allergy Unknown UNK Verified 09/09/20 21:32 lithium [LITHIUM] Allergy Unknown UNK Verified 09/09/20 21:32 metformin [METFORMIN] Allergy Unknown UNK Verified 09/09/20 21:32 Assessment & Plan Assessment & Plan (1) Developmental delay, profound: Status: Chronic Code(s): R62.50 - Unspecified lack of expected normal physiological development in childhood (2) Lack of housing: Status: Acute Code(s): Z59.0 - Homelessness Assessment and Plan: CT medications without change Liase with DDS Greater than 50% of the session was spent on counseling and/or coordination of care Patient educated on: diagnosis and medication risk/benefits Informed Consent: does not understand Reason for contiued inpatient stay Substantial Risk for: inability to function and rapid decompensation
[2020-09-30] MEDS: OLANZapine 10 MG TABLET PO ×2 (11:08→21:11)
[2020-09-30] MEDS: Thiamine HCL 100 MG TABLET PO (11:08)
[2020-09-30] MEDS: Benztropine Mesylate 1 MG TABLET PO ×2 (11:09→21:11)
[2020-09-30] MEDS: Folic Acid 1 MG TABLET PO (11:09)
[2020-09-30 13:54] VITALS: BP 118/59; PULSE 98; O2SAT 98
[2020-09-30 18:00] VITALS: BP 115/55; PULSE 91; TEMP 36.8
[2020-09-30] MEDS: HaloperidoL 5 MG TABLET 15 MG PO (21:10)
[2020-09-30] MEDS: Topiramate 25 MG TABLET 100 MG PO (21:12)
[2020-10-01 06:00] VITALS: BP 106/59; PULSE 78; TEMP 36.2; O2SAT 99
[2020-10-01] MEDS: Thiamine HCL 100 MG TABLET PO (09:04)
[2020-10-01] MEDS: OLANZapine 10 MG TABLET PO ×2 (09:04→21:34)
[2020-10-01] MEDS: Folic Acid 1 MG TABLET PO (09:04)
[2020-10-01] MEDS: Benztropine Mesylate 1 MG TABLET PO ×2 (09:05→21:34)
--- NOTE | 2020-10-01 09:14 | P.PNPSI_ITS ---
Subjective Subjective Date of Service: 09/30/20 Reason For Visit: Mood Disorder Unspecified Subjective Notes: Conditional Voluntary Interim History: Teresita is wearing her own clothing and is up and visible. She has been speaking with the staff, and a little bit more interactive with her peers. She had no episodes of masturbating yesterday. She is excited about seeing her mother later today. She is approaching her baseline, per her mother. SW continues to liased with [facility]. Gene from [facility] is coming today. Medication Compliance: Yes Side effects from medications: No Attending Groups: No Review of Systems Acute medical concerns: No Medical Review of Systems: unchanged Mental Status Exam Mental Status Exam Narrative: drooling Patient Appearance: Well Grooomed Patient Orientation: Person and Place Level of Consciousness: Awake Patient Behavior: Cooperative, Invasion - Personal Space, Distractible and Poor Eye Contact Mood Description: Calm Affect Description: Cheerful and Anxious Patient Cognition Impaired: Yes Ability to Follow Directions: Fair Speech Pattern: Slurred, Mumbled and Excited Memory Description: Normal for Patient Delusions: Not Present Thought Process: Intact Thought Content: positive for Perseveration, positive for Thought Blocking, positive for Slowed Thinking, negative for Suicidal Ideation and negative for Homicidal Ideation Judgement: Poor Diagnostics Vital Signs (24Hr): Vital Signs - 24 hr 09/30/20 13:54 09/30/20 18:00 Temperature 98.2 F Pulse Rate 98 91 Blood Pressure 118/59 L 115/55 L Pulse Oximetry 98 Body Mass Index 35.3 Labs Results: 09/04/20 08:01 09/22/20 08:32 Medications Medications Current Medications Generic Name Dose Route Start Last Admin Trade Name Corinne PRN Reason Stop Dose Admin Acetaminophen 650 mg 08/26/20 00:01 09/28/20 22:57 Acetaminophen 325 Mg Tablet PO 650 mg Q6H PRN Administration HEADACHE/PAIN.MILD (SCALE 1-3) Al Hydroxide/Mg Hydroxide 30 ml 08/26/20 00:01 Magnesium Hydrox/Alum Hydrox 30 Ml Oral.Susp PO Q6H PRN HEARTBURN/NAUSEA Benztropine Mesylate 1 mg 08/26/20 00:01 Benztropine Mesylate 1 Mg Tablet PO Q4H PRN Extrapyramidal Effects Benztropine Mesylate 1 mg 09/22/20 21:00 10/01/20 09:05 Benztropine Mesylate 1 Mg Tablet PO 1 mg BID HERIBERTO Administration Folic Acid 1 mg 08/26/20 09:00 10/01/20 09:04 Folic Acid 1 Mg Tablet PO 1 mg DAILY HERIBERTO Administration Haloperidol 5 mg 08/26/20 00:01 09/18/20 10:11 Haloperidol 5 Mg Tablet PO 5 mg Q4H PRN Administration anxiety/restlessness Haloperidol 15 mg 09/15/20 21:00 09/30/20 21:10 Haloperidol 5 Mg Tablet PO 15 mg BEDTIME HERIBERTO Administration Hydroxyzine HCl 25 mg 08/26/20 21:00 Hydroxyzine Hcl 25 Mg Tablet PO BEDTIME MRX1 PRN NIGHT TIME ANXIETY Ibuprofen 600 mg 09/01/20 16:46 09/03/20 00:59 Ibuprofen 600 Mg Tablet PO 600 mg Q6H PRN Administration Pain, Moderate (Pain Scale 4-6 Loperamide HCl 2 mg 08/26/20 00:01 09/18/20 11:36 Loperamide Hcl 2 Mg Capsule PO 2 mg Q2H PRN Administration Diarrhea Magnesium Hydroxide 30 ml 08/26/20 00:01 Milk Of Magnesia 30 Ml Oral.Susp PO Q24H PRN Constipation Olanzapine 10 mg 09/23/20 09:30 10/01/20 09:04 Olanzapine 10 Mg Tablet PO 10 mg BID HERIBERTO Administration Thiamine HCl 100 mg 08/26/20 09:00 10/01/20 09:04 Thiamine Hcl 100 Mg Tablet PO 100 mg DAILY HERIBERTO Administration Topiramate 100 mg 09/16/20 21:00 09/30/20 21:12 Topiramate 25 Mg Tablet PO 100 mg BEDTIME HERIBERTO Administration Trazodone HCl 25 mg 08/26/20 21:00 Trazodone Hcl 25 Mg Halftab PO BEDTIME MRX1 PRN Insomnia Allergies Allergies Allergy/AdvReac Type Severity Reaction Status Date / Time cariprazine [From VRAYLAR] Allergy Unknown UNK Verified 09/09/20 21:32 divalproex sodium Allergy Unknown UNK Verified 09/09/20 21:32 [From DEPAKOTE] escitalopram [From LEXAPRO] Allergy Unknown UNK Verified 09/09/20 21:32 lithium [LITHIUM] Allergy Unknown UNK Verified 09/09/20 21:32 metformin [METFORMIN] Allergy Unknown UNK Verified 09/09/20 21:32 Assessment & Plan Assessment & Plan (1) Lack of housing: Status: Acute Code(s): Z59.0 - Homelessness (2) Developmental delay, moderate: Status: Acute Code(s): R62.50 - Unspecified lack of expected normal physiological development in child kaur Assessment and Plan: No changes to medication CT to liase with DDS Greater than 50% of the session was spent on counseling and/or coordination of care Patient educated on: diagnosis and medication risk/benefits Informed Consent: does not understand Reason for contiued inpatient stay Substantial Risk for: rapid decompensation
[2020-10-01 18:00] VITALS: BP 110/68; PULSE 86; TEMP 36.7
[2020-10-01] MEDS: Topiramate 25 MG TABLET 100 MG PO (21:33)
[2020-10-01] MEDS: HaloperidoL 5 MG TABLET 15 MG PO (21:33)
[2020-10-02] MEDS: Folic Acid 1 MG TABLET PO (09:20)
[2020-10-02] MEDS: Benztropine Mesylate 1 MG TABLET PO ×2 (09:20→21:29)
[2020-10-02] MEDS: OLANZapine 10 MG TABLET PO ×2 (09:20→21:28)
[2020-10-02] MEDS: Thiamine HCL 100 MG TABLET PO (09:20)
[2020-10-02 18:00] VITALS: BP 141/88; PULSE 122; TEMP 35.7
--- NOTE | 2020-10-02 20:36 | HO.PSYCHPN ---
Subjective Subjective Date of Service: 10/02/20 Reason For Visit: Mood Disorder Unspecified Subjective Notes: Conditional Voluntary Interim History: Teresita is wearing her own clothing and is up and visible. She has been speaking with the staff, and a little bit more interactive with her peers. She had no episodes of masturbating She is excited about seeing her mother later today. She is approaching her baseline, per her mother. She met with DDS and apparently said she does not want to go to a assisted and that she can manage independently! She has been in good behavioral control. Medication Compliance: Yes Side effects from medications: No Attending Groups: No Review of Systems Acute medical concerns: No Medical Review of Systems: unchanged Mental Status Exam Mental Status Exam Narrative: drooling Patient Appearance: Well Grooomed Patient Orientation: Person and Place Level of Consciousness: Awake Patient Behavior: Cooperative, Invasion - Personal Space, Distractible and Poor Eye Contact Mood Description: Calm Affect Description: Cheerful and Anxious Patient Cognition Impaired: Yes Ability to Follow Directions: Fair Speech Pattern: Slurred, Mumbled and Excited Memory Description: Normal for Patient Delusions: Not Present Thought Process: Intact Thought Content: positive for Perseveration, positive for Thought Blocking, positive for Slowed Thinking, negative for Suicidal Ideation and negative for Homicidal Ideation Judgement: Poor Diagnostics Vital Signs (24Hr): Body Mass Index 35.3 Labs Results: 09/04/20 08:01 09/22/20 08:32 Medications Medications Current Medications Generic Name Dose Route Start Last Admin Trade Name Pkq PRN Reason Stop Dose Admin Acetaminophen 650 mg 08/26/20 00:01 09/28/20 22:57 Acetaminophen 325 Mg Tablet PO 650 mg Q6H PRN Administration HEADACHE/PAIN.MILD (SCALE 1-3) Al Hydroxide/Mg Hydroxide 30 ml 08/26/20 00:01 Magnesium Hydrox/Alum Hydrox 30 Ml Oral.Susp PO Q6H PRN HEARTBURN/NAUSEA Benztropine Mesylate 1 mg 08/26/20 00:01 Benztropine Mesylate 1 Mg Tablet PO Q4H PRN Extrapyramidal Effects Benztropine Mesylate 1 mg 09/22/20 21:00 10/02/20 09:20 Benztropine Mesylate 1 Mg Tablet PO 1 mg BID HERIBERTO Administration Folic Acid 1 mg 08/26/20 09:00 10/02/20 09:20 Folic Acid 1 Mg Tablet PO 1 mg DAILY HERIBERTO Administration Haloperidol 5 mg 08/26/20 00:01 09/18/20 10:11 Haloperidol 5 Mg Tablet PO 5 mg Q4H PRN Administration anxiety/restlessness Haloperidol 15 mg 09/15/20 21:00 10/01/20 21:33 Haloperidol 5 Mg Tablet PO 15 mg BEDTIME HERIBERTO Administration Hydroxyzine HCl 25 mg 08/26/20 21:00 Hydroxyzine Hcl 25 Mg Tablet PO BEDTIME MRX1 PRN NIGHT TIME ANXIETY Ibuprofen 600 mg 09/01/20 16:46 09/03/20 00:59 Ibuprofen 600 Mg Tablet PO 600 mg Q6H PRN Administration Pain, Moderate (Pain Scale 4-6 Loperamide HCl 2 mg 08/26/20 00:01 09/18/20 11:36 Loperamide Hcl 2 Mg Capsule PO 2 mg Q2H PRN Administration Diarrhea Magnesium Hydroxide 30 ml 08/26/20 00:01 Milk Of Magnesia 30 Ml Oral.Susp PO Q24H PRN Constipation Olanzapine 10 mg 09/23/20 09:30 10/02/20 09:20 Olanzapine 10 Mg Tablet PO 10 mg BID HERIBERTO Administration Thiamine HCl 100 mg 08/26/20 09:00 10/02/20 09:20 Thiamine Hcl 100 Mg Tablet PO 100 mg DAILY HERIBERTO Administration Topiramate 100 mg 09/16/20 21:00 10/01/20 21:33 Topiramate 25 Mg Tablet PO 100 mg BEDTIME HERIBERTO Administration Trazodone HCl 25 mg 08/26/20 21:00 Trazodone Hcl 25 Mg Halftab PO BEDTIME MRX1 PRN Insomnia Allergies Allergies Allergy/AdvReac Type Severity Reaction Status Date / Time cariprazine [From VRAYLAR] Allergy Unknown UNK Verified 09/09/20 21:32 divalproex sodium Allergy Unknown UNK Verified 09/09/20 21:32 [From DEPAKOTE] escitalopram [From LEXAPRO] Allergy Unknown UNK Verified 09/09/20 21:32 lithium [LITHIUM] Allergy Unknown UNK Verified 09/09/20 21:32 metformin [METFORMIN] Allergy Unknown UNK Verified 09/09/20 21:32 Assessment & Plan Assessment & Plan (1) Developmental delay, moderate: Status: Acute Code(s): R62.50 - Unspecified lack of expected normal physiological development in childhood Assessment and Plan: CT current treatment plan Greater than 50% of the session was spent on counseling and/or coordination of care Patient educated on: diagnosis and medication risk/benefits Informed Consent: does not understand Reason for contiued inpatient stay Substantial Risk for: rapid decompensation
[2020-10-02] MEDS: Topiramate 25 MG TABLET 100 MG PO (21:28)
[2020-10-02] MEDS: HaloperidoL 5 MG TABLET 15 MG PO (21:29)
[2020-10-03] MEDS: OLANZapine 10 MG TABLET PO ×2 (08:31→21:40)
[2020-10-03] MEDS: Folic Acid 1 MG TABLET PO (08:31)
[2020-10-03] MEDS: Thiamine HCL 100 MG TABLET PO (08:31)
[2020-10-03] MEDS: Benztropine Mesylate 1 MG TABLET PO ×2 (08:31→21:41)
[2020-10-03 08:54] VITALS: BP 94/70; PULSE 78; TEMP 36.1; O2SAT 98
--- NOTE | 2020-10-03 12:10 | HO.PSYCHPN ---
Subjective Subjective Date of Service: 10/03/20 Reason For Visit: Mood Disorder Unspecified Subjective Notes: Conditional Voluntary Interim History: Teresita is wearing her own clothing and is up and visible. She is approaching her baseline She has been in good behavioral control. Medication Compliance: Yes Side effects from medications: No Attending Groups: Intermittent Review of Systems Acute medical concerns: No Medical Review of Systems: unchanged Mental Status Exam Mental Status Exam Narrative: drooling Patient Appearance: Well Grooomed Patient Orientation: Person and Place Level of Consciousness: Awake Patient Behavior: Cooperative, Invasion - Personal Space, Distractible and Poor Eye Contact Mood Description: Calm Affect Description: Cheerful and Anxious Patient Cognition Impaired: Yes Ability to Follow Directions: Fair Speech Pattern: Slurred, Mumbled and Excited Memory Description: Normal for Patient Hallucinations: None Delusions: Not Present Thought Process: Rumination Thought Content: positive for Circumstantial, negative for Suicidal Ideation and negative for Homicidal Ideation Judgement: Poor Diagnostics Vital Signs (24Hr): Vital Signs - 24 hr 10/02/20 18:00 10/03/20 08:54 Temperature 96.3 F L 97 F Pulse Rate 122 H 78 Blood Pressure 141/88 H 94/70 Pulse Oximetry 98 Body Mass Index 35.3 Labs Results: 09/04/20 08:01 09/22/20 08:32 Medications Medications Current Medications Generic Name Dose Route Start Last Admin Trade Name Corinne PRN Reason Stop Dose Admin Acetaminophen 650 mg 08/26/20 00:01 09/28/20 22:57 Acetaminophen 325 Mg Tablet PO 650 mg Q6H PRN Administration HEADACHE/PAIN.MILD (SCALE 1-3) Al Hydroxide/Mg Hydroxide 30 ml 08/26/20 00:01 Magnesium Hydrox/Alum Hydrox 30 Ml Oral.Susp PO Q6H PRN HEARTBURN/NAUSEA Benztropine Mesylate 1 mg 08/26/20 00:01 Benztropine Mesylate 1 Mg Tablet PO Q4H PRN Extrapyramidal Effects Benztropine Mesylate 1 mg 09/22/20 21:00 10/03/20 08:31 Benztropine Mesylate 1 Mg Tablet PO 1 mg BID HERIBERTO Administration Folic Acid 1 mg 08/26/20 09:00 10/03/20 08:31 Folic Acid 1 Mg Tablet PO 1 mg DAILY HERIBERTO Administration Haloperidol 5 mg 08/26/20 00:01 09/18/20 10:11 Haloperidol 5 Mg Tablet PO 5 mg Q4H PRN Administration anxiety/restlessness Haloperidol 15 mg 09/15/20 21:00 10/02/20 21:29 Haloperidol 5 Mg Tablet PO 15 mg BEDTIME HERIBERTO Administration Hydroxyzine HCl 25 mg 08/26/20 21:00 Hydroxyzine Hcl 25 Mg Tablet PO BEDTIME MRX1 PRN NIGHT TIME ANXIETY Ibuprofen 600 mg 09/01/20 16:46 09/03/20 00:59 Ibuprofen 600 Mg Tablet PO 600 mg Q6H PRN Administration Pain, Moderate (Pain Scale 4-6 Loperamide HCl 2 mg 08/26/20 00:01 09/18/20 11:36 Loperamide Hcl 2 Mg Capsule PO 2 mg Q2H PRN Administration Diarrhea Magnesium Hydroxide 30 ml 08/26/20 00:01 Milk Of Magnesia 30 Ml Oral.Susp PO Q24H PRN Constipation Olanzapine 10 mg 09/23/20 09:30 10/03/20 08:31 Olanzapine 10 Mg Tablet PO 10 mg BID HERIBERTO Administration Thiamine HCl 100 mg 08/26/20 09:00 10/03/20 08:31 Thiamine Hcl 100 Mg Tablet PO 100 mg DAILY HERIBERTO Administration Topiramate 100 mg 09/16/20 21:00 10/02/20 21:28 Topiramate 25 Mg Tablet PO 100 mg BEDTIME HERIBERTO Administration Trazodone HCl 25 mg 08/26/20 21:00 Trazodone Hcl 25 Mg Halftab PO BEDTIME MRX1 PRN Insomnia Allergies Allergies Allergy/AdvReac Type Severity Reaction Status Date / Time cariprazine [From VRAYLAR] Allergy Unknown UNK Verified 09/09/20 21:32 divalproex sodium Allergy Unknown UNK Verified 09/09/20 21:32 [From DEPAKOTE] escitalopram [From LEXAPRO] Allergy Unknown UNK Verified 09/09/20 21:32 lithium [LITHIUM] Allergy Unknown UNK Verified 09/09/20 21:32 metformin [METFORMIN] Allergy Unknown UNK Verified 09/09/20 21:32 Assessment & Plan Assessment & Plan (1) Developmental delay, moderate: Status: Acute Code(s): R62.50 - Unspecified lack of expected normal physiological development in childhood Assessment and Plan: CT current treatment plan Greater than 50% of the session was spent on counseling and/or coordination of care Patient educated on: diagnosis and medication risk/benefits Informed Consent: does not understand and further education needed Reason for contiued inpatient stay Substantial Risk for: rapid decompensation
[2020-10-03 18:00] VITALS: BP 111/82; PULSE 92; TEMP 35.8
[2020-10-03] MEDS: HaloperidoL 5 MG TABLET 15 MG PO (21:40)
[2020-10-03] MEDS: Topiramate 25 MG TABLET 100 MG PO (21:41)
[2020-10-04] MEDS: Folic Acid 1 MG TABLET PO (09:40)
[2020-10-04] MEDS: Benztropine Mesylate 1 MG TABLET PO ×2 (09:40→21:35)
[2020-10-04] MEDS: OLANZapine 10 MG TABLET PO ×2 (09:40→21:36)
[2020-10-04] MEDS: Thiamine HCL 100 MG TABLET PO (09:41)
[2020-10-04 12:32] VITALS: BP 108/68; PULSE 68; TEMP 36.9
--- NOTE | 2020-10-04 14:09 | HO.PSYCHPN ---
Subjective Subjective Date of Service: 10/04/20 Reason For Visit: Mood Disorder Unspecified Subjective Notes: Conditional Voluntary Interim History: Teresita is wearing her own clothing and is up and visible. She was singing happily at the desk. She called her mother and was heard to have had a nice conversation with her. She is approaching her baseline She has been in good behavioral control. Medication Compliance: Yes Side effects from medications: No Attending Groups: Intermittent Review of Systems Acute medical concerns: No Medical Review of Systems: unchanged Mental Status Exam Mental Status Exam Narrative: drooling Patient Appearance: Well Grooomed Patient Orientation: Person and Place Level of Consciousness: Awake Patient Behavior: Cooperative, Invasion - Personal Space and Distractible Mood Description: Calm Affect Description: Cheerful and Anxious Patient Cognition Impaired: Yes Ability to Follow Directions: Fair Speech Pattern: Slurred, Mumbled and Excited Memory Description: Normal for Patient Hallucinations: None Delusions: Not Present Thought Process: Rumination Thought Content: positive for Circumstantial, negative for Suicidal Ideation and negative for Homicidal Ideation Judgement: Poor Diagnostics Vital Signs (24Hr): Vital Signs - 24 hr 10/03/20 18:00 10/04/20 12:32 Temperature 96.4 F L 98.4 F Pulse Rate 92 68 Blood Pressure 111/82 108/68 Body Mass Index 35.3 Labs Results: 09/04/20 08:01 09/22/20 08:32 Medications Medications Current Medications Generic Name Dose Route Start Last Admin Trade Name Pkq PRN Reason Stop Dose Admin Acetaminophen 650 mg 08/26/20 00:01 09/28/20 22:57 Acetaminophen 325 Mg Tablet PO 650 mg Q6H PRN Administration HEADACHE/PAIN.MILD (SCALE 1-3) Al Hydroxide/Mg Hydroxide 30 ml 08/26/20 00:01 Magnesium Hydrox/Alum Hydrox 30 Ml Oral.Susp PO Q6H PRN HEARTBURN/NAUSEA Benztropine Mesylate 1 mg 08/26/20 00:01 Benztropine Mesylate 1 Mg Tablet PO Q4H PRN Extrapyramidal Effects Benztropine Mesylate 1 mg 09/22/20 21:00 10/04/20 09:40 Benztropine Mesylate 1 Mg Tablet PO 1 mg BID HERIBERTO Administration Folic Acid 1 mg 08/26/20 09:00 10/04/20 09:40 Folic Acid 1 Mg Tablet PO 1 mg DAILY HERIBERTO Administration Haloperidol 5 mg 10/01/20 00:01 09/18/20 10:11 Haloperidol 5 Mg Tablet PO 5 mg Q4H PRN Administration anxiety/restlessness Haloperidol 15 mg 09/15/20 21:00 10/03/20 21:40 Haloperidol 5 Mg Tablet PO 15 mg BEDTIME HERIBERTO Administration Hydroxyzine HCl 25 mg 08/26/20 21:00 Hydroxyzine Hcl 25 Mg Tablet PO BEDTIME MRX1 PRN NIGHT TIME ANXIETY Ibuprofen 600 mg 09/01/20 16:46 09/03/20 00:59 Ibuprofen 600 Mg Tablet PO 600 mg Q6H PRN Administration Pain, Moderate (Pain Scale 4-6 Loperamide HCl 2 mg 08/26/20 00:01 09/18/20 11:36 Loperamide Hcl 2 Mg Capsule PO 2 mg Q2H PRN Administration Diarrhea Magnesium Hydroxide 30 ml 08/26/20 00:01 Milk Of Magnesia 30 Ml Oral.Susp PO Q24H PRN Constipation Olanzapine 10 mg 09/23/20 09:30 10/04/20 09:40 Olanzapine 10 Mg Tablet PO 10 mg BID HERIBERTO Administration Thiamine HCl 100 mg 08/26/20 09:00 10/04/20 09:41 Thiamine Hcl 100 Mg Tablet PO 100 mg DAILY HERIBERTO Administration Topiramate 100 mg 09/16/20 21:00 10/03/20 21:41 Topiramate 25 Mg Tablet PO 100 mg BEDTIME HERIBERTO Administration Trazodone HCl 25 mg 08/26/20 21:00 Trazodone Hcl 25 Mg Halftab PO BEDTIME MRX1 PRN Insomnia Allergies Allergies Allergy/AdvReac Type Severity Reaction Status Date / Time cariprazine [From VRAYLAR] Allergy Unknown UNK Verified 09/09/20 21:32 divalproex sodium Allergy Unknown UNK Verified 09/09/20 21:32 [From DEPAKOTE] escitalopram [From LEXAPRO] Allergy Unknown UNK Verified 09/09/20 21:32 lithium [LITHIUM] Allergy Unknown UNK Verified 09/09/20 21:32 metformin [METFORMIN] Allergy Unknown UNK Verified 09/09/20 21:32 Assessment & Plan Assessment & Plan (1) Developmental delay, moderate: Status: Acute Code(s): R62.50 - Unspecified lack of expected normal physiological development in childhood Assessment and Plan: CT current treatment plan Greater than 50% of the session was spent on counseling and/or coordination of care Patient educated on: diagnosis and medication risk/benefits Informed Consent: does not understand Reason for contiued inpatient stay Substantial Risk for: rapid decompensation
[2020-10-04 18:06] VITALS: BP 104/62; PULSE 105; TEMP 36.4
[2020-10-04] MEDS: Topiramate 25 MG TABLET 100 MG PO (21:35)
[2020-10-04] MEDS: HaloperidoL 5 MG TABLET 15 MG PO (21:35)
[2020-10-05 06:35] VITALS: BP 98/65; PULSE 74; RESP 18; TEMP 35.9; O2SAT 96
--- NOTE | 2020-10-05 09:21 | HO.PSYCHPN ---
Subjective Subjective Date of Service: 10/05/20 Reason For Visit: Mood Disorder Unspecified Subjective Notes: Conditional Voluntary Interim History: Teresita is wearing her own clothing and is up and visible. She is approaching her baseline She has been in good behavioral control. DDS continues to explore housing options Medication Compliance: Yes Side effects from medications: No Attending Groups: Intermittent Review of Systems Acute medical concerns: No Medical Review of Systems: unchanged Mental Status Exam Mental Status Exam Narrative: drooling Patient Appearance: Well Grooomed Patient Orientation: Person and Place Level of Consciousness: Awake Patient Behavior: Cooperative, Invasion - Personal Space and Distractible Mood Description: Calm Affect Description: Cheerful and Anxious Patient Cognition Impaired: Yes Ability to Follow Directions: Fair Speech Pattern: Slurred, Mumbled and Excited Memory Description: Normal for Patient Hallucinations: None Delusions: Not Present Thought Process: Rumination Thought Content: positive for Circumstantial, negative for Suicidal Ideation and negative for Homicidal Ideation Judgement: Poor Diagnostics Vital Signs (24Hr): Vital Signs - 24 hr 10/04/20 12:32 10/04/20 18:06 10/05/20 06:35 Temperature 98.4 F 97.5 F 96.7 F L Pulse Rate 68 105 H 74 Respiratory Rate 18 Blood Pressure 108/68 104/62 98/65 Pulse Oximetry 96 Body Mass Index 35.3 Labs Results: 09/04/20 08:01 09/22/20 08:32 Medications Medications Current Medications Generic Name Dose Route Start Last Admin Trade Name Pkq PRN Reason Stop Dose Admin Acetaminophen 650 mg 08/26/20 00:01 09/28/20 22:57 Acetaminophen 325 Mg Tablet PO 650 mg Q6H PRN Administration HEADACHE/PAIN.MILD (SCALE 1-3) Al Hydroxide/Mg Hydroxide 30 ml 08/26/20 00:01 Magnesium Hydrox/Alum Hydrox 30 Ml Oral.Susp PO Q6H PRN HEARTBURN/NAUSEA Benztropine Mesylate 1 mg 08/26/20 00:01 Benztropine Mesylate 1 Mg Tablet PO Q4H PRN Extrapyramidal Effects Benztropine Mesylate 1 mg 09/22/20 21:00 10/04/20 21:35 Benztropine Mesylate 1 Mg Tablet PO 1 mg BID HERIBERTO Administration Folic Acid 1 mg 08/26/20 09:00 10/04/20 09:40 Folic Acid 1 Mg Tablet PO 1 mg DAILY HERIBERTO Administration Haloperidol 5 mg 08/26/20 00:01 09/18/20 10:11 Haloperidol 5 Mg Tablet PO 5 mg Q4H PRN Administration anxiety/restlessness Haloperidol 15 mg 09/15/20 21:00 10/04/20 21:35 Haloperidol 5 Mg Tablet PO 15 mg BEDTIME HERIBERTO Administration Hydroxyzine HCl 25 mg 08/26/20 21:00 Hydroxyzine Hcl 25 Mg Tablet PO BEDTIME MRX1 PRN NIGHT TIME ANXIETY Ibuprofen 600 mg 09/01/20 16:46 09/03/20 00:59 Ibuprofen 600 Mg Tablet PO 600 mg Q6H PRN Administration Pain, Moderate (Pain Scale 4-6 Loperamide HCl 2 mg 08/26/20 00:01 09/18/20 11:36 Loperamide Hcl 2 Mg Capsule PO 2 mg Q2H PRN Administration Diarrhea Magnesium Hydroxide 30 ml 08/26/20 00:01 Milk Of Magnesia 30 Ml Oral.Susp PO Q24H PRN Constipation Olanzapine 10 mg 09/23/20 09:30 10/04/20 21:36 Olanzapine 10 Mg Tablet PO 10 mg BID HERIBERTO Administration Thiamine HCl 100 mg 08/26/20 09:00 10/04/20 09:41 Thiamine Hcl 100 Mg Tablet PO 100 mg DAILY HERIBERTO Administration Topiramate 100 mg 09/16/20 21:00 10/04/20 21:35 Topiramate 25 Mg Tablet PO 100 mg BEDTIME HERIBERTO Administration Trazodone HCl 25 mg 08/26/20 21:00 Trazodone Hcl 25 Mg Halftab PO BEDTIME MRX1 PRN Insomnia Allergies Allergies Allergy/AdvReac Type Severity Reaction Status Date / Time cariprazine [From VRAYLAR] Allergy Unknown UNK Verified 09/09/20 21:32 divalproex sodium Allergy Unknown UNK Verified 09/09/20 21:32 [From DEPAKOTE] escitalopram [From LEXAPRO] Allergy Unknown UNK Verified 09/09/20 21:32 lithium [LITHIUM] Allergy Unknown UNK Verified 09/09/20 21:32 metformin [METFORMIN] Allergy Unknown UNK Verified 09/09/20 21:32 Assessment & Plan Greater than 50% of the session was spent on counseling and/or coordination of care
[2020-10-05] MEDS: Benztropine Mesylate 1 MG TABLET PO ×2 (10:02→21:46)
[2020-10-05] MEDS: OLANZapine 10 MG TABLET PO ×2 (10:02→21:47)
[2020-10-05] MEDS: Folic Acid 1 MG TABLET PO (10:02)
[2020-10-05] MEDS: Thiamine HCL 100 MG TABLET PO (10:03)
[2020-10-05] MEDS: Topiramate 25 MG TABLET 100 MG PO (21:45)
[2020-10-05] MEDS: HaloperidoL 5 MG TABLET 15 MG PO (21:46)
[2020-10-05 22:46] VITALS: BP 113/67; PULSE 87; TEMP 36.4
[2020-10-06 06:00] VITALS: BP 105/62; PULSE 93; TEMP 36.3; O2SAT 95
--- NOTE | 2020-10-06 09:07 | HO.PSYCHPN ---
Subjective Subjective Date of Service: 10/06/20 Reason For Visit: Mood Disorder Unspecified Subjective Notes: Conditional Voluntary Interim History: Teresita is wearing her own clothing and is up and visible. She is approaching her baseline She has been in good behavioral control. DDS continues to explore housing options, and coordinate with SW Medication Compliance: Yes Side effects from medications: No Attending Groups: Intermittent Review of Systems Acute medical concerns: No Medical Review of Systems: unchanged Mental Status Exam Mental Status Exam Narrative: drooling Patient Appearance: Well Grooomed Patient Orientation: Person and Place Level of Consciousness: Awake Patient Behavior: Cooperative, Invasion - Personal Space and Distractible Mood Description: Calm Affect Description: Cheerful and Anxious Patient Cognition Impaired: Yes Ability to Follow Directions: Fair Speech Pattern: Slurred, Mumbled and Excited Memory Description: Normal for Patient Hallucinations: None Delusions: Not Present Thought Process: Rumination Thought Content: positive for Circumstantial, negative for Suicidal Ideation and negative for Homicidal Ideation Judgement: Poor Diagnostics Vital Signs (24Hr): Vital Signs - 24 hr 10/05/20 22:46 Temperature 97.5 F Pulse Rate 87 Blood Pressure 113/67 Body Mass Index 35.3 Labs Results: 09/04/20 08:01 09/22/20 08:32 Medications Medications Current Medications Generic Name Dose Route Start Last Admin Trade Name Freq PRN Reason Stop Dose Admin Acetaminophen 650 mg 08/26/20 00:01 09/28/20 22:57 Acetaminophen 325 Mg Tablet PO 650 mg Q6H PRN Administration HEADACHE/PAIN.MILD (SCALE 1-3) Al Hydroxide/Mg Hydroxide 30 ml 08/26/20 00:01 Magnesium Hydrox/Alum Hydrox 30 Ml Oral.Susp PO Q6H PRN HEARTBURN/NAUSEA Benztropine Mesylate 1 mg 08/26/20 00:01 Benztropine Mesylate 1 Mg Tablet PO Q4H PRN Extrapyramidal Effects Benztropine Mesylate 1 mg 09/22/20 21:00 10/05/20 21:46 Benztropine Mesylate 1 Mg Tablet PO 1 mg BID HERIBERTO Administration Folic Acid 1 mg 08/26/20 09:00 10/05/20 10:02 Folic Acid 1 Mg Tablet PO 1 mg DAILY HERIBERTO Administration Haloperidol 5 mg 08/26/20 00:01 09/18/20 10:11 Haloperidol 5 Mg Tablet PO 5 mg Q4H PRN Administration anxiety/restlessness Haloperidol 15 mg 09/15/20 21:00 10/05/20 21:46 Haloperidol 5 Mg Tablet PO 15 mg BEDTIME HERIBERTO Administration Hydroxyzine HCl 25 mg 08/26/20 21:00 Hydroxyzine Hcl 25 Mg Tablet PO BEDTIME MRX1 PRN NIGHT TIME ANXIETY Ibuprofen 600 mg 09/01/20 16:46 09/03/20 00:59 Ibuprofen 600 Mg Tablet PO 600 mg Q6H PRN Administration Pain, Moderate (Pain Scale 4-6 Loperamide HCl 2 mg 08/26/20 00:01 09/18/20 11:36 Loperamide Hcl 2 Mg Capsule PO 2 mg Q2H PRN Administration Diarrhea Magnesium Hydroxide 30 ml 08/26/20 00:01 Milk Of Magnesia 30 Ml Oral.Susp PO Q24H PRN Constipation Olanzapine 10 mg 09/23/20 09:30 10/05/20 21:47 Olanzapine 10 Mg Tablet PO 10 mg BID HERIBERTO Administration Thiamine HCl 100 mg 08/26/20 09:00 10/05/20 10:03 Thiamine Hcl 100 Mg Tablet PO 100 mg DAILY HERIBERTO Administration Topiramate 100 mg 09/16/20 21:00 10/05/20 21:45 Topiramate 25 Mg Tablet PO 100 mg BEDTIME HERIBERTO Administration Trazodone HCl 25 mg 08/26/20 21:00 Trazodone Hcl 25 Mg Halftab PO BEDTIME MRX1 PRN Insomnia Allergies Allergies Allergy/AdvReac Type Severity Reaction Status Date / Time cariprazine [From VRAYLAR] Allergy Unknown UNK Verified 09/09/20 21:32 divalproex sodium Allergy Unknown UNK Verified 09/09/20 21:32 [From DEPAKOTE] escitalopram [From LEXAPRO] Allergy Unknown UNK Verified 09/09/20 21:32 lithium [LITHIUM] Allergy Unknown UNK Verified 09/09/20 21:32 metformin [METFORMIN] Allergy Unknown UNK Verified 09/09/20 21:32 Assessment & Plan Assessment & Plan (1) Developmental delay, moderate: Status: Acute Code(s): R62.50 - Unspecified lack of expected normal physiological development in childhood Assessment and Plan: CT current treatment Greater than 50% of the session was spent on counseling and/or coordination of care Patient educated on: diagnosis and medication risk/benefits Informed Consent: does not understand Reason for contiued inpatient stay Substantial Risk for: rapid decompensation
[2020-10-06] MEDS: OLANZapine 10 MG TABLET PO ×2 (09:37→20:28)
[2020-10-06] MEDS: Benztropine Mesylate 1 MG TABLET PO ×2 (09:37→20:28)
[2020-10-06] MEDS: Folic Acid 1 MG TABLET PO (09:37)
[2020-10-06] MEDS: Thiamine HCL 100 MG TABLET PO (09:37)
[2020-10-06 18:00] VITALS: BP 132/84; PULSE 91; TEMP 36.5
[2020-10-06] MEDS: HaloperidoL 5 MG TABLET 15 MG PO (20:27)
[2020-10-06] MEDS: Topiramate 25 MG TABLET 100 MG PO (20:28)
[2020-10-07 06:35] VITALS: BP 91/55; PULSE 63; RESP 16; TEMP 36.1; O2SAT 99
[2020-10-07] MEDS: Folic Acid 1 MG TABLET PO (08:52)
[2020-10-07] MEDS: OLANZapine 10 MG TABLET PO ×2 (08:52→21:33)
[2020-10-07] MEDS: Benztropine Mesylate 1 MG TABLET PO ×2 (08:52→21:33)
[2020-10-07] MEDS: Thiamine HCL 100 MG TABLET PO (08:52)
[2020-10-07 11:32] VITALS: BMI 34.1
--- NOTE | 2020-10-07 15:44 | HO.PSYCHPN ---
Subjective Subjective Date of Service: 10/07/20 Reason For Visit: Mood Disorder Unspecified Subjective Notes: Conditional Voluntary Interim History: Teresita is wearing her own clothing and is up and visible. She is approaching her baseline She has been in good behavioral control. She interacts appropriately with staff. DDS continues to explore housing options, and coordinate with SW Medication Compliance: Yes Side effects from medications: No Attending Groups: Intermittent Review of Systems Acute medical concerns: No Medical Review of Systems: unchanged Mental Status Exam Mental Status Exam Narrative: drooling Patient Appearance: Well Grooomed Patient Orientation: Person and Place Level of Consciousness: Awake Patient Behavior: Cooperative, Invasion - Personal Space and Distractible Mood Description: Calm Affect Description: Cheerful and Anxious Patient Cognition Impaired: Yes Ability to Follow Directions: Fair Speech Pattern: Slurred, Mumbled and Excited Memory Description: Normal for Patient Hallucinations: None Delusions: Not Present Thought Process: Rumination Thought Content: positive for Circumstantial, negative for Suicidal Ideation and negative for Homicidal Ideation Judgement: Poor Diagnostics Vital Signs (24Hr): Vital Signs - 24 hr 10/06/20 18:00 10/07/20 06:35 Temperature 97.7 F 97 F Pulse Rate 91 63 Respiratory Rate 16 Blood Pressure 132/84 91/55 L Pulse Oximetry 99 Body Mass Index 34.1 Labs Results: 09/04/20 08:01 09/22/20 08:32 Medications Medications Current Medications Generic Name Dose Route Start Last Admin Trade Name Pkq PRN Reason Stop Dose Admin Acetaminophen 650 mg 08/26/20 00:01 09/28/20 22:57 Acetaminophen 325 Mg Tablet PO 650 mg Q6H PRN Administration HEADACHE/PAIN.MILD (SCALE 1-3) Al Hydroxide/Mg Hydroxide 30 ml 08/26/20 00:01 Magnesium Hydrox/Alum Hydrox 30 Ml Oral.Susp PO Q6H PRN HEARTBURN/NAUSEA Benztropine Mesylate 1 mg 08/26/20 00:01 Benztropine Mesylate 1 Mg Tablet PO Q4H PRN Extrapyramidal Effects Benztropine Mesylate 1 mg 09/22/20 21:00 10/07/20 08:52 Benztropine Mesylate 1 Mg Tablet PO 1 mg BID HERIBERTO Administration Folic Acid 1 mg 08/26/20 09:00 10/07/20 08:52 Folic Acid 1 Mg Tablet PO 1 mg DAILY HERIBERTO Administration Haloperidol 5 mg 08/26/20 00:01 09/18/20 10:11 Haloperidol 5 Mg Tablet PO 5 mg Q4H PRN Administration anxiety/restlessness Haloperidol 15 mg 09/15/20 21:00 10/06/20 20:27 Haloperidol 5 Mg Tablet PO 15 mg BEDTIME HERIBERTO Administration Hydroxyzine HCl 25 mg 08/26/20 21:00 Hydroxyzine Hcl 25 Mg Tablet PO BEDTIME MRX1 PRN NIGHT TIME ANXIETY Ibuprofen 600 mg 09/01/20 16:46 09/03/20 00:59 Ibuprofen 600 Mg Tablet PO 600 mg Q6H PRN Administration Pain, Moderate (Pain Scale 4-6 Loperamide HCl 2 mg 08/26/20 00:01 09/18/20 11:36 Loperamide Hcl 2 Mg Capsule PO 2 mg Q2H PRN Administration Diarrhea Magnesium Hydroxide 30 ml 08/26/20 00:01 Milk Of Magnesia 30 Ml Oral.Susp PO Q24H PRN Constipation Olanzapine 10 mg 09/23/20 09:30 10/07/20 08:52 Olanzapine 10 Mg Tablet PO 10 mg BID HERIBERTO Administration Thiamine HCl 100 mg 08/26/20 09:00 10/07/20 08:52 Thiamine Hcl 100 Mg Tablet PO 100 mg DAILY HERIBERTO Administration Topiramate 100 mg 09/16/20 21:00 10/06/20 20:28 Topiramate 25 Mg Tablet PO 100 mg BEDTIME HERIBERTO Administration Trazodone HCl 25 mg 08/26/20 21:00 Trazodone Hcl 25 Mg Halftab PO BEDTIME MRX1 PRN Insomnia Allergies Allergies Allergy/AdvReac Type Severity Reaction Status Date / Time cariprazine [From VRAYLAR] Allergy Unknown UNK Verified 09/09/20 21:32 divalproex sodium Allergy Unknown UNK Verified 09/09/20 21:32 [From DEPAKOTE] escitalopram [From LEXAPRO] Allergy Unknown UNK Verified 09/09/20 21:32 lithium [LITHIUM] Allergy Unknown UNK Verified 09/09/20 21:32 metformin [METFORMIN] Allergy Unknown UNK Verified 09/09/20 21:32 Assessment & Plan Assessment & Plan (1) Developmental delay, moderate: Status: Acute Code(s): R62.50 - Unspecified lack of expected normal physiological development in childhood Assessment and Plan: CT current treatment Greater than 50% of the session was spent on counseling and/or coordination of care Patient educated on: diagnosis and medication risk/benefits Informed Consent: does not understand Reason for contiued inpatient stay Substantial Risk for: inability to function
[2020-10-07 17:45] VITALS: BP 133/59; PULSE 92; TEMP 36.7
[2020-10-07] MEDS: Topiramate 25 MG TABLET 100 MG PO (21:34)
[2020-10-07] MEDS: HaloperidoL 5 MG TABLET 15 MG PO (21:34)
[2020-10-08 06:00] VITALS: BP 138/67; PULSE 85; TEMP 36.8
--- NOTE | 2020-10-08 09:18 | HO.PSYCHPN ---
Subjective Subjective Date of Service: 10/08/20 Reason For Visit: Mood Disorder Unspecified Subjective Notes: Conditional Voluntary Interim History: Teresita has remained with substantial improvement. She has been in good behavioral control. She interacts appropriately with staff. DDS continues to explore housing options, and coordinate with SW Aim to DC mid-next week. Medication Compliance: Yes Side effects from medications: No Attending Groups: Intermittent Review of Systems Acute medical concerns: No Medical Review of Systems: unchanged Mental Status Exam Mental Status Exam Narrative: drooling Patient Appearance: Well Grooomed Patient Orientation: Person and Place Level of Consciousness: Awake Patient Behavior: Cooperative, Invasion - Personal Space and Distractible Mood Description: Calm Affect Description: Cheerful and Anxious Patient Cognition Impaired: Yes Ability to Follow Directions: Fair Speech Pattern: Slurred, Mumbled and Excited Memory Description: Normal for Patient Hallucinations: None Delusions: Not Present Thought Process: Rumination Thought Content: positive for Circumstantial, negative for Suicidal Ideation and negative for Homicidal Ideation Judgement: Poor Diagnostics Vital Signs (24Hr): Vital Signs - 24 hr 10/07/20 17:45 Temperature 98.0 F Pulse Rate 92 Blood Pressure 133/59 L Body Mass Index 34.1 Labs Results: 09/04/20 08:01 09/22/20 08:32 Medications Medications Current Medications Generic Name Dose Route Start Last Admin Trade Name Corinne PRN Reason Stop Dose Admin Acetaminophen 650 mg 08/26/20 00:01 09/28/20 22:57 Acetaminophen 325 Mg Tablet PO 650 mg Q6H PRN Administration HEADACHE/PAIN.MILD (SCALE 1-3) Al Hydroxide/Mg Hydroxide 30 ml 08/26/20 00:01 Magnesium Hydrox/Alum Hydrox 30 Ml Oral.Susp PO Q6H PRN HEARTBURN/NAUSEA Benztropine Mesylate 1 mg 08/26/20 00:01 Benztropine Mesylate 1 Mg Tablet PO Q4H PRN Extrapyramidal Effects Benztropine Mesylate 1 mg 09/22/20 21:00 10/07/20 21:33 Benztropine Mesylate 1 Mg Tablet PO 1 mg BID HERIBERTO Administration Folic Acid 1 mg 08/26/20 09:00 10/07/20 08:52 Folic Acid 1 Mg Tablet PO 1 mg DAILY HERIBERTO Administration Haloperidol 5 mg 08/26/20 00:01 09/18/20 10:11 Haloperidol 5 Mg Tablet PO 5 mg Q4H PRN Administration anxiety/restlessness Haloperidol 15 mg 09/15/20 21:00 10/07/20 21:34 Haloperidol 5 Mg Tablet PO 15 mg BEDTIME HERIBERTO Administration Hydroxyzine HCl 25 mg 08/26/20 21:00 Hydroxyzine Hcl 25 Mg Tablet PO BEDTIME MRX1 PRN NIGHT TIME ANXIETY Ibuprofen 600 mg 09/01/20 16:46 09/03/20 00:59 Ibuprofen 600 Mg Tablet PO 600 mg Q6H PRN Administration Pain, Moderate (Pain Scale 4-6 Loperamide HCl 2 mg 08/26/20 00:01 09/18/20 11:36 Loperamide Hcl 2 Mg Capsule PO 2 mg Q2H PRN Administration Diarrhea Magnesium Hydroxide 30 ml 08/26/20 00:01 Milk Of Magnesia 30 Ml Oral.Susp PO Q24H PRN Constipation Olanzapine 10 mg 09/23/20 09:30 10/07/20 21:33 Olanzapine 10 Mg Tablet PO 10 mg BID HERIBERTO Administration Thiamine HCl 100 mg 08/26/20 09:00 10/07/20 08:52 Thiamine Hcl 100 Mg Tablet PO 100 mg DAILY HERIBERTO Administration Topiramate 100 mg 09/16/20 21:00 10/07/20 21:34 Topiramate 25 Mg Tablet PO 100 mg BEDTIME HERIBERTO Administration Trazodone HCl 25 mg 08/26/20 21:00 Trazodone Hcl 25 Mg Halftab PO BEDTIME MRX1 PRN Insomnia Allergies Allergies Allergy/AdvReac Type Severity Reaction Status Date / Time cariprazine [From VRAYLAR] Allergy Unknown UNK Verified 09/09/20 21:32 divalproex sodium Allergy Unknown UNK Verified 09/09/20 21:32 [From DEPAKOTE] escitalopram [From LEXAPRO] Allergy Unknown UNK Verified 09/09/20 21:32 lithium [LITHIUM] Allergy Unknown UNK Verified 09/09/20 21:32 metformin [METFORMIN] Allergy Unknown UNK Verified 09/09/20 21:32 Assessment & Plan Assessment & Plan (1) Developmental delay, moderate: Status: Acute Code(s): R62.50 - Unspecified lack of expected normal physiological development in childhood Assessment and Plan: CT current treatment plan. CT to explore disposition options Greater than 50% of the session was spent on counseling and/or coordination of care Patient educated on: diagnosis and medication risk/benefits Informed Consent: does not understand Reason for contiued inpatient stay Substantial Risk for: rapid decompensation
[2020-10-08] MEDS: OLANZapine 10 MG TABLET PO ×2 (09:46→20:33)
[2020-10-08] MEDS: Thiamine HCL 100 MG TABLET PO (09:46)
[2020-10-08] MEDS: Folic Acid 1 MG TABLET PO (09:46)
[2020-10-08] MEDS: Benztropine Mesylate 1 MG TABLET PO ×2 (09:46→20:34)
[2020-10-08 18:00] VITALS: BP 119/69; PULSE 86; TEMP 36.6
[2020-10-08] MEDS: HaloperidoL 5 MG TABLET 15 MG PO (20:33)
[2020-10-08] MEDS: Topiramate 25 MG TABLET 100 MG PO (20:34)
[2020-10-09] MEDS: Thiamine HCL 100 MG TABLET PO (09:30)
[2020-10-09] MEDS: Benztropine Mesylate 1 MG TABLET PO ×2 (09:30→21:44)
[2020-10-09] MEDS: OLANZapine 10 MG TABLET PO ×2 (09:30→21:44)
[2020-10-09] MEDS: Folic Acid 1 MG TABLET PO (09:30)
--- NOTE | 2020-10-09 11:41 | HO.PSYCHPN ---
Subjective Subjective Reason For Visit: Mood Disorder Unspecified Interim History: Teresita has remained with substantial improvement. She has been in good behavioral control overall; some intermittent yelling. She interacts appropriately with staff. DDS continues to explore housing options, and coordinate with SW Aim to DC mid-next week. Review of Systems Review of Systems no change Mental Status Exam Mental Status Exam Narrative: drooling Patient Appearance: Well Grooomed Patient Orientation: Person and Place Level of Consciousness: Awake Patient Behavior: Cooperative, Invasion - Personal Space and Distractible Mood Description: Calm Affect Description: Cheerful and Anxious Patient Cognition Impaired: Yes Ability to Follow Directions: Fair Speech Pattern: Slurred, Mumbled and Excited Memory Description: Normal for Patient Diagnostics Vital Signs (24Hr): Vital Signs - 24 hr 10/08/20 18:00 Temperature 97.9 F Pulse Rate 86 Blood Pressure 119/69 Body Mass Index 34.1 Labs Results: 09/04/20 08:01 09/22/20 08:32 Medications Medications Current Medications Generic Name Dose Route Start Last Admin Trade Name Freq PRN Reason Stop Dose Admin Acetaminophen 650 mg 08/26/20 00:01 09/28/20 22:57 Acetaminophen 325 Mg Tablet PO 650 mg Q6H PRN Administration HEADACHE/PAIN.MILD (SCALE 1-3) Al Hydroxide/Mg Hydroxide 30 ml 08/26/20 00:01 Magnesium Hydrox/Alum Hydrox 30 Ml Oral.Susp PO Q6H PRN HEARTBURN/NAUSEA Benztropine Mesylate 1 mg 08/26/20 00:01 Benztropine Mesylate 1 Mg Tablet PO Q4H PRN Extrapyramidal Effects Benztropine Mesylate 1 mg 09/22/20 21:00 10/09/20 09:30 Benztropine Mesylate 1 Mg Tablet PO 1 mg BID HERIBERTO Administration Folic Acid 1 mg 08/26/20 09:00 10/09/20 09:30 Folic Acid 1 Mg Tablet PO 1 mg DAILY HERIBERTO Administration Haloperidol 5 mg 08/26/20 00:01 09/18/20 10:11 Haloperidol 5 Mg Tablet PO 5 mg Q4H PRN Administration anxiety/restlessness Haloperidol 15 mg 09/15/20 21:00 10/08/20 20:33 Haloperidol 5 Mg Tablet PO 15 mg BEDTIME HERIBERTO Administration Hydroxyzine HCl 25 mg 08/26/20 21:00 Hydroxyzine Hcl 25 Mg Tablet PO BEDTIME MRX1 PRN NIGHT TIME ANXIETY Ibuprofen 600 mg 09/01/20 16:46 09/03/20 00:59 Ibuprofen 600 Mg Tablet PO 600 mg Q6H PRN Administration Pain, Moderate (Pain Scale 4-6 Loperamide HCl 2 mg 08/26/20 00:01 09/18/20 11:36 Loperamide Hcl 2 Mg Capsule PO 2 mg Q2H PRN Administration Diarrhea Magnesium Hydroxide 30 ml 08/26/20 00:01 Milk Of Magnesia 30 Ml Oral.Susp PO Q24H PRN Constipation Olanzapine 10 mg 09/23/20 09:30 10/09/20 09:30 Olanzapine 10 Mg Tablet PO 10 mg BID HERIBERTO Administration Thiamine HCl 100 mg 08/26/20 09:00 10/09/20 09:30 Thiamine Hcl 100 Mg Tablet PO 100 mg DAILY HERIBERTO Administration Topiramate 100 mg 09/16/20 21:00 10/08/20 20:34 Topiramate 25 Mg Tablet PO 100 mg BEDTIME HERIBERTO Administration Trazodone HCl 25 mg 08/26/20 21:00 Trazodone Hcl 25 Mg Halftab PO BEDTIME MRX1 PRN Insomnia Allergies Allergies Allergy/AdvReac Type Severity Reaction Status Date / Time cariprazine [From VRAYLAR] Allergy Unknown UNK Verified 09/09/20 21:32 divalproex sodium Allergy Unknown UNK Verified 09/09/20 21:32 [From DEPAKOTE] escitalopram [From LEXAPRO] Allergy Unknown UNK Verified 09/09/20 21:32 lithium [LITHIUM] Allergy Unknown UNK Verified 09/09/20 21:32 metformin [METFORMIN] Allergy Unknown UNK Verified 09/09/20 21:32 Assessment & Plan Assessment & Plan (1) Developmental delay, moderate: Status: Acute Code(s): R62.50 - Unspecified lack of expected normal physiological development in childhood Assessment and Plan: CT current treatment plan. CT to explore disposition options Greater than 50% of the session was spent on counseling and/or coordination of care
[2020-10-09 17:08] VITALS: BP 106/63; PULSE 81; TEMP 36.6
[2020-10-09] MEDS: HaloperidoL 5 MG TABLET 15 MG PO (21:44)
[2020-10-09] MEDS: Topiramate 25 MG TABLET 100 MG PO (21:44)
[2020-10-10 06:35] VITALS: BP 92/55; PULSE 72; RESP 16; TEMP 36.3; O2SAT 100
[2020-10-10] MEDS: Thiamine HCL 100 MG TABLET PO (09:04)
[2020-10-10] MEDS: OLANZapine 10 MG TABLET PO ×2 (09:04→20:26)
[2020-10-10] MEDS: Folic Acid 1 MG TABLET PO (09:04)
[2020-10-10] MEDS: Benztropine Mesylate 1 MG TABLET PO ×2 (09:04→20:26)
--- NOTE | 2020-10-10 12:04 | HO.PSYCHPN ---
Subjective Subjective Date of Service: 10/10/20 Reason For Visit: Mood Disorder Unspecified Interim History: pt much clearer and appropriate; intermittent vocal outbursts; periods of being in community space quietly resting observing Medication Compliance: Yes Side effects from medications: No Review of Systems Review of Systems no changes Mental Status Exam Mental Status Exam Narrative: drooling Patient Appearance: Well Grooomed Patient Orientation: Person and Place Level of Consciousness: Awake Patient Behavior: Cooperative and Distractible Mood Description: Calm Affect Description: Cheerful and Anxious Patient Cognition Impaired: Yes Ability to Follow Directions: Fair Speech Pattern: Slurred, Mumbled and Excited Memory Description: Normal for Patient Judgement: Fair Diagnostics Vital Signs (24Hr): Vital Signs - 24 hr 10/09/20 17:08 10/10/20 06:35 Temperature 97.9 F 97.4 F Pulse Rate 81 72 Respiratory Rate 16 Blood Pressure 106/63 92/55 L Pulse Oximetry 100 Body Mass Index 34.1 Labs Results: 09/04/20 08:01 09/22/20 08:32 Medications Medications Current Medications Generic Name Dose Route Start Last Admin Trade Name Freq PRN Reason Stop Dose Admin Acetaminophen 650 mg 08/26/20 00:01 09/28/20 22:57 Acetaminophen 325 Mg Tablet PO 650 mg Q6H PRN Administration HEADACHE/PAIN.MILD (SCALE 1-3) Al Hydroxide/Mg Hydroxide 30 ml 08/26/20 00:01 Magnesium Hydrox/Alum Hydrox 30 Ml Oral.Susp PO Q6H PRN HEARTBURN/NAUSEA Benztropine Mesylate 1 mg 08/26/20 00:01 Benztropine Mesylate 1 Mg Tablet PO Q4H PRN Extrapyramidal Effects Benztropine Mesylate 1 mg 09/22/20 21:00 10/10/20 09:04 Benztropine Mesylate 1 Mg Tablet PO 1 mg BID HERIBERTO Administration Folic Acid 1 mg 08/26/20 09:00 10/10/20 09:04 Folic Acid 1 Mg Tablet PO 1 mg DAILY HERIBERTO Administration Haloperidol 5 mg 08/26/20 00:01 09/18/20 10:11 Haloperidol 5 Mg Tablet PO 5 mg Q4H PRN Administration anxiety/restlessness Haloperidol 15 mg 09/15/20 21:00 10/09/20 21:44 Haloperidol 5 Mg Tablet PO 15 mg BEDTIME HERIBERTO Administration Hydroxyzine HCl 25 mg 08/26/20 21:00 Hydroxyzine Hcl 25 Mg Tablet PO BEDTIME MRX1 PRN NIGHT TIME ANXIETY Ibuprofen 600 mg 09/01/20 16:46 09/03/20 00:59 Ibuprofen 600 Mg Tablet PO 600 mg Q6H PRN Administration Pain, Moderate (Pain Scale 4-6 Loperamide HCl 2 mg 08/26/20 00:01 09/18/20 11:36 Loperamide Hcl 2 Mg Capsule PO 2 mg Q2H PRN Administration Diarrhea Magnesium Hydroxide 30 ml 08/26/20 00:01 Milk Of Magnesia 30 Ml Oral.Susp PO Q24H PRN Constipation Olanzapine 10 mg 09/23/20 09:30 10/10/20 09:04 Olanzapine 10 Mg Tablet PO 10 mg BID HERIBERTO Administration Thiamine HCl 100 mg 08/26/20 09:00 10/10/20 09:04 Thiamine Hcl 100 Mg Tablet PO 100 mg DAILY HERIBERTO Administration Topiramate 100 mg 09/16/20 21:00 10/09/20 21:44 Topiramate 25 Mg Tablet PO 100 mg BEDTIME HERIBERTO Administration Trazodone HCl 25 mg 08/26/20 21:00 Trazodone Hcl 25 Mg Halftab PO BEDTIME MRX1 PRN Insomnia Allergies Allergies Allergy/AdvReac Type Severity Reaction Status Date / Time cariprazine [From VRAYLAR] Allergy Unknown UNK Verified 09/09/20 21:32 divalproex sodium Allergy Unknown UNK Verified 09/09/20 21:32 [From DEPAKOTE] escitalopram [From LEXAPRO] Allergy Unknown UNK Verified 09/09/20 21:32 lithium [LITHIUM] Allergy Unknown UNK Verified 09/09/20 21:32 metformin [METFORMIN] Allergy Unknown UNK Verified 09/09/20 21:32 Assessment & Plan Assessment & Plan (1) Developmental delay, moderate: Status: Acute Code(s): R62.50 - Unspecified lack of expected normal physiological development in childhood Assessment and Plan: CT current treatment plan. CT to explore disposition options Greater than 50% of the session was spent on counseling and/or coordination of care Reason for contiued inpatient stay Substantial Risk for: harm to self and med/psych decompensation
[2020-10-10 16:23] VITALS: BP 115/66; PULSE 88; TEMP 36.6
[2020-10-10] MEDS: Topiramate 25 MG TABLET 100 MG PO (20:26)
[2020-10-10] MEDS: HaloperidoL 5 MG TABLET 15 MG PO (20:26)
[2020-10-11 06:00] VITALS: BP 121/61; PULSE 96; TEMP 36.5
[2020-10-11] MEDS: Thiamine HCL 100 MG TABLET PO (08:55)
[2020-10-11] MEDS: Benztropine Mesylate 1 MG TABLET PO ×2 (08:55→20:18)
[2020-10-11] MEDS: Folic Acid 1 MG TABLET PO (08:55)
[2020-10-11] MEDS: OLANZapine 10 MG TABLET PO ×2 (08:55→20:18)
--- NOTE | 2020-10-11 09:17 | HO.PSYCHPN ---
Subjective Subjective Date of Service: 10/11/20 Reason For Visit: Mood Disorder Unspecified Subjective Notes: Conditional Voluntary Interim History: Individual is much clearer and appropriate with only intermittent vocal outbursts. She is no longer masturbating in her room. She has periods of being in community space quietly resting observing Medication Compliance: Yes Side effects from medications: No Attending Groups: Intermittent Review of Systems Acute medical concerns: No Medical Review of Systems: unchanged Mental Status Exam Mental Status Exam Narrative: drooling Patient Appearance: Well Grooomed Patient Orientation: Person and Place Level of Consciousness: Awake Patient Behavior: Cooperative and Distractible Mood Description: Calm Affect Description: Cheerful and Anxious Patient Cognition Impaired: Yes Ability to Follow Directions: Fair Speech Pattern: Slurred, Mumbled and Excited Memory Description: Normal for Patient Hallucinations: None Delusions: Not Present Thought Process: Intact Thought Content: positive for Intact, negative for Suicidal Ideation and negative for Homicidal Ideation Judgement: Fair Diagnostics Vital Signs (24Hr): Vital Signs - 24 hr 10/10/20 16:23 Temperature 97.8 F Pulse Rate 88 Blood Pressure 115/66 Body Mass Index 34.1 Labs Results: 09/04/20 08:01 09/22/20 08:32 Medications Medications Current Medications Generic Name Dose Route Start Last Admin Trade Name Freq PRN Reason Stop Dose Admin Acetaminophen 650 mg 08/26/20 00:01 09/28/20 22:57 Acetaminophen 325 Mg Tablet PO 650 mg Q6H PRN Administration HEADACHE/PAIN.MILD (SCALE 1-3) Al Hydroxide/Mg Hydroxide 30 ml 08/26/20 00:01 Magnesium Hydrox/Alum Hydrox 30 Ml Oral.Susp PO Q6H PRN HEARTBURN/NAUSEA Benztropine Mesylate 1 mg 08/26/20 00:01 Benztropine Mesylate 1 Mg Tablet PO Q4H PRN Extrapyramidal Effects Benztropine Mesylate 1 mg 09/22/20 21:00 10/11/20 08:55 Benztropine Mesylate 1 Mg Tablet PO 1 mg BID HERIBERTO Administration Folic Acid 1 mg 08/26/20 09:00 10/11/20 08:55 Folic Acid 1 Mg Tablet PO 1 mg DAILY HERIBERTO Administration Haloperidol 5 mg 08/26/20 00:01 09/18/20 10:11 Haloperidol 5 Mg Tablet PO 5 mg Q4H PRN Administration anxiety/restlessness Haloperidol 15 mg 09/15/20 21:00 10/10/20 20:26 Haloperidol 5 Mg Tablet PO 15 mg BEDTIME HERIBERTO Administration Hydroxyzine HCl 25 mg 08/26/20 21:00 Hydroxyzine Hcl 25 Mg Tablet PO BEDTIME MRX1 PRN NIGHT TIME ANXIETY Ibuprofen 600 mg 09/01/20 16:46 09/03/20 00:59 Ibuprofen 600 Mg Tablet PO 600 mg Q6H PRN Administration Pain, Moderate (Pain Scale 4-6 Loperamide HCl 2 mg 08/26/20 00:01 09/18/20 11:36 Loperamide Hcl 2 Mg Capsule PO 2 mg Q2H PRN Administration Diarrhea Magnesium Hydroxide 30 ml 08/26/20 00:01 Milk Of Magnesia 30 Ml Oral.Susp PO Q24H PRN Constipation Olanzapine 10 mg 09/23/20 09:30 10/11/20 08:55 Olanzapine 10 Mg Tablet PO 10 mg BID HERIBERTO Administration Thiamine HCl 100 mg 08/26/20 09:00 10/11/20 08:55 Thiamine Hcl 100 Mg Tablet PO 100 mg DAILY HERIBERTO Administration Topiramate 100 mg 09/16/20 21:00 10/10/20 20:26 Topiramate 25 Mg Tablet PO 100 mg BEDTIME HERIBERTO Administration Trazodone HCl 25 mg 08/26/20 21:00 Trazodone Hcl 25 Mg Halftab PO BEDTIME MRX1 PRN Insomnia Allergies Allergies Allergy/AdvReac Type Severity Reaction Status Date / Time cariprazine [From VRAYLAR] Allergy Unknown UNK Verified 09/09/20 21:32 divalproex sodium Allergy Unknown UNK Verified 09/09/20 21:32 [From DEPAKOTE] escitalopram [From LEXAPRO] Allergy Unknown UNK Verified 09/09/20 21:32 lithium [LITHIUM] Allergy Unknown UNK Verified 09/09/20 21:32 metformin [METFORMIN] Allergy Unknown UNK Verified 09/09/20 21:32 Assessment & Plan Assessment & Plan (1) Developmental delay, moderate: Status: Acute Code(s): R62.50 - Unspecified lack of expected normal physiological development in childhood Assessment and Plan: CT current treatment plan DC mid-week Greater than 50% of the session was spent on counseling and/or coordination of care Patient educated on: diagnosis and medication risk/benefits Informed Consent: does not understand Reason for contiued inpatient stay Substantial Risk for: rapid decompensation
[2020-10-11 18:00] VITALS: BP 141/58; PULSE 129; TEMP 36.8
[2020-10-11] MEDS: Topiramate 25 MG TABLET 100 MG PO (20:18)
[2020-10-11] MEDS: Magnesium Hydrox/Alum Hydrox 30 ML ORAL.SUSP PO (20:18)
[2020-10-11] MEDS: HaloperidoL 5 MG TABLET 15 MG PO (20:18)
[2020-10-12] MEDS: Thiamine HCL 100 MG TABLET PO (08:46)
[2020-10-12] MEDS: Benztropine Mesylate 1 MG TABLET PO ×2 (08:46→21:33)
[2020-10-12] MEDS: Folic Acid 1 MG TABLET PO (08:46)
[2020-10-12] MEDS: OLANZapine 10 MG TABLET PO ×2 (08:47→21:32)
--- NOTE | 2020-10-12 09:26 | HO.PSYCHPN ---
Subjective Subjective Date of Service: 10/11/20 Reason For Visit: Mood Disorder Unspecified Subjective Notes: Conditional Voluntary Interim History: Individual is much clearer and appropriate with only intermittent vocal outbursts. She is no longer masturbating in her room. She has periods of being in community space quietly resting observing She is aware of the plan for her to go to assisted. Medication Compliance: Yes Side effects from medications: No Attending Groups: Intermittent Review of Systems Acute medical concerns: No Medical Review of Systems: unchanged Mental Status Exam Mental Status Exam Patient Appearance: Well Grooomed Patient Orientation: Person and Place Level of Consciousness: Awake Patient Behavior: Cooperative and Distractible Mood Description: Calm Affect Description: Cheerful and Anxious Patient Cognition Impaired: Yes Ability to Follow Directions: Fair Speech Pattern: Slurred, Mumbled and Excited Memory Description: Normal for Patient Hallucinations: None Delusions: Not Present Thought Process: Intact Thought Content: positive for Intact, negative for Suicidal Ideation and negative for Homicidal Ideation Judgement: Fair Diagnostics Vital Signs (24Hr): Vital Signs - 24 hr 10/11/20 18:00 Temperature 98.2 F Pulse Rate 129 H Blood Pressure 141/58 H Body Mass Index 34.1 Labs Results: 09/04/20 08:01 09/22/20 08:32 Medications Medications Current Medications Generic Name Dose Route Start Last Admin Trade Name Corinne PRN Reason Stop Dose Admin Acetaminophen 650 mg 08/26/20 00:01 09/28/20 22:57 Acetaminophen 325 Mg Tablet PO 650 mg Q6H PRN Administration HEADACHE/PAIN.MILD (SCALE 1-3) Al Hydroxide/Mg Hydroxide 30 ml 08/26/20 00:01 10/11/20 20:18 Magnesium Hydrox/Alum Hydrox 30 Ml Oral.Susp PO 30 ml Q6H PRN Administration HEARTBURN/NAUSEA Benztropine Mesylate 1 mg 08/26/20 00:01 Benztropine Mesylate 1 Mg Tablet PO Q4H PRN Extrapyramidal Effects Benztropine Mesylate 1 mg 09/22/20 21:00 10/12/20 08:46 Benztropine Mesylate 1 Mg Tablet PO 1 mg BID HERIBERTO Administration Folic Acid 1 mg 08/26/20 09:00 10/12/20 08:46 Folic Acid 1 Mg Tablet PO 1 mg DAILY HERIBERTO Administration Haloperidol 5 mg 08/26/20 00:01 09/18/20 10:11 Haloperidol 5 Mg Tablet PO 5 mg Q4H PRN Administration anxiety/restlessness Haloperidol 15 mg 09/15/20 21:00 10/11/20 20:18 Haloperidol 5 Mg Tablet PO 15 mg BEDTIME HERIBERTO Administration Hydroxyzine HCl 25 mg 08/26/20 21:00 Hydroxyzine Hcl 25 Mg Tablet PO BEDTIME MRX1 PRN NIGHT TIME ANXIETY Ibuprofen 600 mg 09/01/20 16:46 09/03/20 00:59 Ibuprofen 600 Mg Tablet PO 600 mg Q6H PRN Administration Pain, Moderate (Pain Scale 4-6 Loperamide HCl 2 mg 08/26/20 00:01 09/18/20 11:36 Loperamide Hcl 2 Mg Capsule PO 2 mg Q2H PRN Administration Diarrhea Magnesium Hydroxide 30 ml 08/26/20 00:01 Milk Of Magnesia 30 Ml Oral.Susp PO Q24H PRN Constipation Olanzapine 10 mg 09/23/20 09:30 10/12/20 08:47 Olanzapine 10 Mg Tablet PO 10 mg BID HERIBERTO Administration Thiamine HCl 100 mg 08/26/20 09:00 10/12/20 08:46 Thiamine Hcl 100 Mg Tablet PO 100 mg DAILY HERIBERTO Administration Topiramate 100 mg 09/16/20 21:00 10/11/20 20:18 Topiramate 25 Mg Tablet PO 100 mg BEDTIME HERIBERTO Administration Trazodone HCl 25 mg 08/26/20 21:00 Trazodone Hcl 25 Mg Halftab PO BEDTIME MRX1 PRN Insomnia Allergies Allergies Allergy/AdvReac Type Severity Reaction Status Date / Time cariprazine [From VRAYLAR] Allergy Unknown UNK Verified 09/09/20 21:32 divalproex sodium Allergy Unknown UNK Verified 09/09/20 21:32 [From DEPAKOTE] escitalopram [From LEXAPRO] Allergy Unknown UNK Verified 09/09/20 21:32 lithium [LITHIUM] Allergy Unknown UNK Verified 09/09/20 21:32 metformin [METFORMIN] Allergy Unknown UNK Verified 09/09/20 21:32 Assessment & Plan Assessment & Plan (1) Developmental delay, moderate: Status: Acute Code(s): R62.50 - Unspecified lack of expected normal physiological development in childhood Assessment and Plan: CT current treatment Greater than 50% of the session was spent on counseling and/or coordination of care Patient educated on: diagnosis and medication risk/benefits Informed Consent: does not understand Reason for contiued inpatient stay Substantial Risk for: rapid decompensation
[2020-10-12 17:02] VITALS: BP 104/59; PULSE 85; TEMP 36.6
[2020-10-12] MEDS: Topiramate 25 MG TABLET 100 MG PO (21:33)
[2020-10-12] MEDS: HaloperidoL 5 MG TABLET 15 MG PO (21:33)
[2020-10-13] MEDS: Folic Acid 1 MG TABLET PO (08:40)
[2020-10-13] MEDS: OLANZapine 10 MG TABLET PO ×2 (08:40→21:57)
[2020-10-13] MEDS: Benztropine Mesylate 1 MG TABLET PO ×2 (08:40→21:57)
[2020-10-13] MEDS: Thiamine HCL 100 MG TABLET PO (08:40)
--- NOTE | 2020-10-13 09:22 | P.PNPSI_ITS ---
Subjective Subjective Date of Service: 10/13/20 Reason For Visit: Mood Disorder Unspecified Subjective Notes: Conditional Voluntary Interim History: Individual is much clearer and appropriate with only intermittent vocal outbursts. She is no longer masturbating in her room. She has periods of being in community space quietly resting observing She is aware of the plan for her to go to assisted. She has a meeting with [facility] today. Medication Compliance: Yes Side effects from medications: No Attending Groups: Intermittent Review of Systems Acute medical concerns: No Medical Review of Systems: unchanged Mental Status Exam Mental Status Exam Patient Appearance: Well Grooomed Patient Orientation: Person and Place Level of Consciousness: Awake Patient Behavior: Cooperative and Distractible Mood Description: Calm Affect Description: Cheerful and Anxious Patient Cognition Impaired: Yes Ability to Follow Directions: Fair Speech Pattern: Slurred, Mumbled and Excited Memory Description: Normal for Patient Hallucinations: None Delusions: Not Present Thought Process: Intact Thought Content: positive for Intact, negative for Suicidal Ideation and negativ e for Homicidal Ideation Judgement: Fair Diagnostics Vital Signs (24Hr): Vital Signs - 24 hr 10/12/20 17:02 Temperature 97.9 F Pulse Rate 85 Blood Pressure 104/59 L Body Mass Index 34.1 Labs Results: 09/04/20 08:01 09/22/20 08:32 Medications Medications Current Medications Generic Name Dose Route Start Last Admin Trade Name Freq PRN Reason Stop Dose Admin Acetaminophen 650 mg 08/26/20 00:01 09/28/20 22:57 Acetaminophen 325 Mg Tablet PO 650 mg Q6H PRN Administration HEADACHE/PAIN.MILD (SCALE 1-3) Al Hydroxide/Mg Hydroxide 30 ml 08/26/20 00:01 10/11/20 20:18 Magnesium Hydrox/Alum Hydrox 30 Ml Oral.Susp PO 30 ml Q6H PRN Administration HEARTBURN/NAUSEA Benztropine Mesylate 1 mg 08/26/20 00:01 Benztropine Mesylate 1 Mg Tablet PO Q4H PRN Extrapyramidal Effects Benztropine Mesylate 1 mg 09/22/20 21:00 10/13/20 08:40 Benztropine Mesylate 1 Mg Tablet PO 1 mg BID HERIBERTO Administration Folic Acid 1 mg 08/26/20 09:00 10/13/20 08:40 Folic Acid 1 Mg Tablet PO 1 mg DAILY HERIBERTO Administration Haloperidol 5 mg 08/26/20 00:01 09/18/20 10:11 Haloperidol 5 Mg Tablet PO 5 mg Q4H PRN Administration anxiety/restlessness Haloperidol 15 mg 09/15/20 21:00 10/12/20 21:33 Haloperidol 5 Mg Tablet PO 15 mg BEDTIME HERIBERTO Administration Hydroxyzine HCl 25 mg 08/26/20 21:00 Hydroxyzine Hcl 25 Mg Tablet PO BEDTIME MRX1 PRN NIGHT TIME ANXIETY Ibuprofen 600 mg 09/01/20 16:46 09/03/20 00:59 Ibuprofen 600 Mg Tablet PO 600 mg Q6H PRN Administration Pain, Moderate (Pain Scale 4-6 Loperamide HCl 2 mg 08/26/20 00:01 09/18/20 11:36 Loperamide Hcl 2 Mg Capsule PO 2 mg Q2H PRN Administration Diarrhea Magnesium Hydroxide 30 ml 08/26/20 00:01 Milk Of Magnesia 30 Ml Oral.Susp PO Q24H PRN Constipation Olanzapine 10 mg 09/23/20 09:30 10/13/20 08:40 Olanzapine 10 Mg Tablet PO 10 mg BID HERIBERTO Administration Thiamine HCl 100 mg 08/26/20 09:00 10/13/20 08:40 Thiamine Hcl 100 Mg Tablet PO 100 mg DAILY HERIBERTO Administration Topiramate 100 mg 09/16/20 21:00 10/12/20 21:33 Topiramate 25 Mg Tablet PO 100 mg BEDTIME HERIBERTO Administration Trazodone HCl 25 mg 08/26/20 21:00 Trazodone Hcl 25 Mg Halftab PO BEDTIME MRX1 PRN Insomnia Allergies Allergies Allergy/AdvReac Type Severity Reaction Status Date / Time cariprazine [From VRAYLAR] Allergy Unknown UNK Verified 09/09/20 21:32 divalproex sodium Allergy Unknown UNK Verified 09/09/20 21:32 [From DEPAKOTE] escitalopram [From LEXAPRO] Allergy Unknown UNK Verified 09/09/20 21:32 lithium [LITHIUM] Allergy Unknown UNK Verified 09/09/20 21:32 metformin [METFORMIN] Allergy Unknown UNK Verified 09/09/20 21:32 Assessment & Plan Assessment & Plan (1) Developmental delay, moderate: Status: Acute Code(s): R62.50 - Unspecified lack of expected normal physiological development in childhood Assessment and Plan: CT current treatment plan Greater than 50% of the session was spent on counseling and/or coordination of care Patient educated on: diagnosis and medication risk/benefits Informed Consent: does not understand Reason for contiued inpatient stay Substantial Risk for: rapid decompensation
[2020-10-13 11:43] VITALS: BP 104/66; PULSE 62; TEMP 36.2
[2020-10-13 16:57] VITALS: BP 125/83; PULSE 94; TEMP 36.9
[2020-10-13] MEDS: HaloperidoL 5 MG TABLET 15 MG PO (21:57)
[2020-10-13] MEDS: Topiramate 25 MG TABLET 100 MG PO (21:57)
[2020-10-14 06:25] VITALS: BP 95/57; PULSE 77; RESP 16; TEMP 36.7; O2SAT 97
[2020-10-14 07:00] VITALS: BMI 33.8
[2020-10-14] MEDS: Thiamine HCL 100 MG TABLET PO (09:19)
[2020-10-14] MEDS: Folic Acid 1 MG TABLET PO (09:19)
[2020-10-14] MEDS: OLANZapine 10 MG TABLET PO ×2 (09:19→21:22)
[2020-10-14] MEDS: Benztropine Mesylate 1 MG TABLET PO ×2 (09:19→21:23)
--- NOTE | 2020-10-14 09:30 | HO.PSYCHPN ---
Subjective Subjective Date of Service: 10/14/20 Reason For Visit: Mood Disorder Unspecified Subjective Notes: Conditional Voluntary Interim History: Individual is much clearer and appropriate with only intermittent vocal outbursts. She has periods of being in community space quietly resting observing She is aware of the plan for her to go to longterm. She was seen annel Ornelas and the intake process continues. Medication Compliance: Yes Side effects from medications: No Attending Groups: Intermittent Review of Systems Acute medical concerns: No Medical Review of Systems: unchanged Mental Status Exam Mental Status Exam Patient Appearance: Well Grooomed Patient Orientation: Person and Place Level of Consciousness: Awake Patient Behavior: Cooperative and Distractible Mood Description: Calm Affect Description: Cheerful and Anxious Patient Cognition Impaired: Yes Ability to Follow Directions: Fair Speech Pattern: Slurred, Mumbled and Excited Memory Description: Normal for Patient Hallucinations: None Delusions: Not Present Thought Process: Intact Thought Content: positive for Intact, negative for Suicidal Ideation and negative for Homicidal Ideation Judgement: Fair Diagnostics Vital Signs (24Hr): Vital Signs - 24 hr 10/13/20 11:43 10/13/20 16:57 10/14/20 06:25 Temperature 97.2 F 98.5 F 98.1 F Pulse Rate 62 94 77 Respiratory Rate 16 Blood Pressure 104/66 125/83 95/57 L Pulse Oximetry 97 Body Mass Index 34.1 Labs Results: 09/04/20 08:01 09/22/20 08:32 Medications Medications Current Medications Generic Name Dose Route Start Last Admin Trade Name Freq PRN Reason Stop Dose Admin Acetaminophen 650 mg 08/26/20 00:01 09/28/20 22:57 Acetaminophen 325 Mg Tablet PO 650 mg Q6H PRN Administration HEADACHE/PAIN.MILD (SCALE 1-3) Al Hydroxide/Mg Hydroxide 30 ml 08/26/20 00:01 10/11/20 20:18 Magnesium Hydrox/Alum Hydrox 30 Ml Oral.Susp PO 30 ml Q6H PRN Administration HEARTBURN/NAUSEA Benztropine Mesylate 1 mg 08/26/20 00:01 Benztropine Mesylate 1 Mg Tablet PO Q4H PRN Extrapyramidal Effects Benztropine Mesylate 1 mg 09/22/20 21:00 10/14/20 09:19 Benztropine Mesylate 1 Mg Tablet PO 1 mg BID HERIBERTO Administration Folic Acid 1 mg 08/26/20 09:00 10/14/20 09:19 Folic Acid 1 Mg Tablet PO 1 mg DAILY HERIBERTO Administration Haloperidol 5 mg 08/26/20 00:01 09/18/20 10:11 Haloperidol 5 Mg Tablet PO 5 mg Q4H PRN Administration anxiety/restlessness Haloperidol 15 mg 09/15/20 21:00 10/13/20 21:57 Haloperidol 5 Mg Tablet PO 15 mg BEDTIME HERIBERTO Administration Hydroxyzine HCl 25 mg 08/26/20 21:00 Hydroxyzine Hcl 25 Mg Tablet PO BEDTIME MRX1 PRN NIGHT TIME ANXIETY Ibuprofen 600 mg 09/01/20 16:46 09/03/20 00:59 Ibuprofen 600 Mg Tablet PO 600 mg Q6H PRN Administration Pain, Moderate (Pain Scale 4-6 Loperamide HCl 2 mg 08/26/20 00:01 09/18/20 11:36 Loperamide Hcl 2 Mg Capsule PO 2 mg Q2H PRN Administration Diarrhea Magnesium Hydroxide 30 ml 08/26/20 00:01 Milk Of Magnesia 30 Ml Oral.Susp PO Q24H PRN Constipation Olanzapine 10 mg 09/23/20 09:30 10/14/20 09:19 Olanzapine 10 Mg Tablet PO 10 mg BID HERIBERTO Administration Thiamine HCl 100 mg 08/26/20 09:00 10/14/20 09:19 Thiamine Hcl 100 Mg Tablet PO 100 mg DAILY HERIBERTO Administration Topiramate 100 mg 09/16/20 21:00 10/13/20 21:57 Topiramate 25 Mg Tablet PO 100 mg BEDTIME HERIBERTO Administration Trazodone HCl 25 mg 08/26/20 21:00 Trazodone Hcl 25 Mg Halftab PO BEDTIME MRX1 PRN Insomnia Allergies Allergies Allergy/AdvReac Type Severity Reaction Status Date / Time cariprazine [From VRAYLAR] Allergy Unknown UNK Verified 09/09/20 21:32 divalproex sodium Allergy Unknown UNK Verified 09/09/20 21:32 [From DEPAKOTE] escitalopram [From LEXAPRO] Allergy Unknown UNK Verified 09/09/20 21:32 lithium [LITHIUM] Allergy Unknown UNK Verified 09/09/20 21:32 metformin [METFORMIN] Allergy Unknown UNK Verified 09/09/20 21:32 Assessment & Plan Assessment & Plan (1) Developmental delay, moderate: Status: Acute Code(s): R62.50 - Unspecified lack of expected normal physiological development in childhood Assessment and Plan: No change to treatment plan Greater than 50% of the session was spent on counseling and/or coordination of care Patient educated on: diagnosis and medication risk/benefits Informed Consent: does not understand Reason for contiued inpatient stay Substantial Risk for: rapid decompensation
[2020-10-14 16:25] VITALS: BP 108/66; PULSE 87; TEMP 36.8
[2020-10-14] MEDS: HaloperidoL 5 MG TABLET 15 MG PO (21:22)
[2020-10-14] MEDS: Topiramate 25 MG TABLET 100 MG PO (21:22)
[2020-10-15 06:28] VITALS: BP 94/44; PULSE 62; RESP 16; TEMP 36; O2SAT 99
[2020-10-15] MEDS: Folic Acid 1 MG TABLET PO (08:30)
[2020-10-15] MEDS: Thiamine HCL 100 MG TABLET PO (08:30)
[2020-10-15] MEDS: OLANZapine 10 MG TABLET PO ×2 (08:30→21:38)
[2020-10-15] MEDS: Benztropine Mesylate 1 MG TABLET PO ×2 (08:30→21:39)
--- NOTE | 2020-10-15 09:25 | HO.PSYCHPN ---
Subjective Subjective Date of Service: 10/15/20 Reason For Visit: Mood Disorder Unspecified Subjective Notes: Conditional Voluntary Interim History: Individual is much clearer and appropriate with only intermittent vocal outbursts. She has periods of being in community space quietly resting observing She is aware of the plan for her to go [facility]. She was seen by [facility] and the intake process continues. She has been interacting more with her peers. Medication Compliance: Yes Side effects from medications: No Attending Groups: Intermittent Review of Systems Acute medical concerns: No Medical Review of Systems: unchanged Mental Status Exam Mental Status Exam Patient Appearance: Well Grooomed Patient Orientation: Person and Place Level of Consciousness: Awake Patient Behavior: Cooperative and Distractible Mood Description: Calm Affect Description: Cheerful and Anxious Patient Cognition Impaired: Yes Ability to Follow Directions: Fair Speech Pattern: Slurred, Mumbled and Excited Memory Description: Normal for Patient Hallucinations: None Delusions: Not Present Thought Process: Intact Thought Content: positive for Intact, negative for Suicidal Ideation and negative for Homicidal Ideation Judgement: Fair Diagnostics Vital Signs (24Hr): Vital Signs - 24 hr 10/14/20 16:25 10/15/20 06:28 Temperature 98.2 F 96.8 F Pulse Rate 87 62 Respiratory Rate 16 Blood Pressure 108/66 94/44 L Pulse Oximetry 99 Body Mass Index 33.8 Labs Results: 09/04/20 08:01 09/22/20 08:32 Medications Medications Current Medications Generic Name Dose Route Start Last Admin Trade Name Freq PRN Reason Stop Dose Admin Acetaminophen 650 mg 08/26/20 00:01 09/28/20 22:57 Acetaminophen 325 Mg Tablet PO 650 mg Q6H PRN Administration HEADACHE/PAIN.MILD (SCALE 1-3) Al Hydroxide/Mg Hydroxide 30 ml 08/26/20 00:01 10/11/20 20:18 Magnesium Hydrox/Alum Hydrox 30 Ml Oral.Susp PO 30 ml Q6H PRN Administration HEARTBURN/NAUSEA Benztropine Mesylate 1 mg 08/26/20 00:01 Benztropine Mesylate 1 Mg Tablet PO Q4H PRN Extrapyramidal Effects Benztropine Mesylate 1 mg 09/22/20 21:00 10/15/20 08:30 Benztropine Mesylate 1 Mg Tablet PO 1 mg BID HERIBERTO Administration Folic Acid 1 mg 08/26/20 09:00 10/15/20 08:30 Folic Acid 1 Mg Tablet PO 1 mg DAILY HERIBERTO Administration Haloperidol 5 mg 08/26/20 00:01 09/18/20 10:11 Haloperidol 5 Mg Tablet PO 5 mg Q4H PRN Administration anxiety/restlessness Haloperidol 15 mg 09/15/20 21:00 10/14/20 21:22 Haloperidol 5 Mg Tablet PO 15 mg BEDTIME HERIBERTO Administration Hydroxyzine HCl 25 mg 08/26/20 21:00 Hydroxyzine Hcl 25 Mg Tablet PO BEDTIME MRX1 PRN NIGHT TIME ANXIETY Ibuprofen 600 mg 09/01/20 16:46 09/03/20 00:59 Ibuprofen 600 Mg Tablet PO 600 mg Q6H PRN Administration Pain, Moderate (Pain Scale 4-6 Loperamide HCl 2 mg 08/26/20 00:01 09/18/20 11:36 Loperamide Hcl 2 Mg Capsule PO 2 mg Q2H PRN Administration Diarrhea Magnesium Hydroxide 30 ml 08/26/20 00:01 Milk Of Magnesia 30 Ml Oral.Susp PO Q24H PRN Constipation Olanzapine 10 mg 09/23/20 09:30 10/15/20 08:30 Olanzapine 10 Mg Tablet PO 10 mg BID HERIBERTO Administration Thiamine HCl 100 mg 08/26/20 09:00 10/15/20 08:30 Thiamine Hcl 100 Mg Tablet PO 100 mg DAILY HERIBERTO Administration Topiramate 100 mg 09/16/20 21:00 10/14/20 21:22 Topiramate 25 Mg Tablet PO 100 mg BEDTIME HERIBERTO Administration Trazodone HCl 25 mg 08/26/20 21:00 Trazodone Hcl 25 Mg Halftab PO BEDTIME MRX1 PRN Insomnia Allergies Allergies Allergy/AdvReac Type Severity Reaction Status Date / Time cariprazine [From VRAYLAR] Allergy Unknown UNK Verified 09/09/20 21:32 divalproex sodium Allergy Unknown UNK Verified 09/09/20 21:32 [From DEPAKOTE] escitalopram [From LEXAPRO] Allergy Unknown UNK Verified 09/09/20 21:32 lithium [LITHIUM] Allergy Unknown UNK Verified 09/09/20 21:32 metformin [METFORMIN] Allergy Unknown UNK Verified 09/09/20 21:32 Assessment & Plan Assessment & Plan (1) Developmental delay, moderate: Status: Acute Code(s): R62.50 - Unspecified lack of expected normal physiological development in childhood Assessment and Plan: CT current treatment plan Greater than 50% of the session was spent on counseling and/or coordination of care Patient educated on: diagnosis and medication risk/benefits Informed Consent: further education needed Reason for contiued inpatient stay Substantial Risk for: inability to function and rapid decompensation
[2020-10-15 16:59] VITALS: BP 105/67; PULSE 77; TEMP 36.4
[2020-10-15] MEDS: HaloperidoL 5 MG TABLET 15 MG PO (21:38)
[2020-10-15] MEDS: Topiramate 25 MG TABLET 100 MG PO (21:39)
[2020-10-16] MEDS: Folic Acid 1 MG TABLET PO (09:14)
[2020-10-16] MEDS: Thiamine HCL 100 MG TABLET PO (09:14)
[2020-10-16] MEDS: OLANZapine 10 MG TABLET PO ×2 (09:14→21:30)
[2020-10-16] MEDS: Benztropine Mesylate 1 MG TABLET PO ×2 (09:22→21:31)
[2020-10-16 10:36] VITALS: BP 118/57; PULSE 96; TEMP 36.6
[2020-10-16 16:55] VITALS: BP 100/70; PULSE 84; TEMP 36.3
[2020-10-16] MEDS: Topiramate 25 MG TABLET 100 MG PO (21:30)
[2020-10-16] MEDS: HaloperidoL 5 MG TABLET 15 MG PO (21:30)
--- NOTE | 2020-10-17 00:40 | HO.PSYCHPN ---
Subjective Subjective Date of Service: 10/16/20 Reason For Visit: Mood Disorder Unspecified Interim History: Vitals reviewed Labs reviewed Pt seen, chart reviewed and case discussed with nursing staff Pt is pleasant and calm on approach, laughing and smiling inappropriately. Pt's cloths are stained with food. She says she's good and how are you. Then immediately starts having an internal dialogue. She denies any complaints. Staff reports pt is med adherent and though mildly intrusive, behaviors are improved and she's been without incident. Medication Compliance: Yes Mental Status Exam Mental Status Exam Patient Appearance: Disheveled and Unkempt Patient Orientation: Person Level of Consciousness: Awake and Alert Patient Behavior: Hyperactive, Cooperative, Distractible and Poor Eye Contact (staring ) Mood Description: Cheerful Affect Description: Cheerful Ability to Follow Directions: Fair Speech Pattern: Animated and Loud Delusions: Present Thought Process: Goal Oriented Thought Content: positive for Poverty of Content Judgement: Poor Judgement and Insight: impaired Diagnostics Vital Signs (24Hr): Vital Signs - 24 hr 10/16/20 10:36 10/16/20 16:55 Temperature 97.9 F 97.4 F Pulse Rate 96 84 Blood Pressure 118/57 L 100/70 Body Mass Index 33.8 Labs Results: 09/04/20 08:01 09/22/20 08:32 Medications Medications Current Medications Generic Name Dose Route Start Last Admin Trade Name Freq PRN Reason Stop Dose Admin Acetaminophen 650 mg 08/26/20 00:01 09/28/20 22:57 Acetaminophen 325 Mg Tablet PO 650 mg Q6H PRN Administration HEADACHE/PAIN.MILD (SCALE 1-3) Al Hydroxide/Mg Hydroxide 30 ml 08/26/20 00:01 10/11/20 20:18 Magnesium Hydrox/Alum Hydrox 30 Ml Oral.Susp PO 30 ml Q6H PRN Administration HEARTBURN/NAUSEA Benztropine Mesylate 1 mg 08/26/20 00:01 Benztropine Mesylate 1 Mg Tablet PO Q4H PRN Extrapyramidal Effects Benztropine Mesylate 1 mg 09/22/20 21:00 10/16/20 21:31 Benztropine Mesylate 1 Mg Tablet PO 1 mg BID HERIBERTO Administration Folic Acid 1 mg 08/26/20 09:00 10/16/20 09:14 Folic Acid 1 Mg Tablet PO 1 mg DAILY HERIBERTO Administration Haloperidol 5 mg 08/26/20 00:01 09/18/20 10:11 Haloperidol 5 Mg Tablet PO 5 mg Q4H PRN Administration anxiety/restlessness Haloperidol 15 mg 09/15/20 21:00 10/16/20 21:30 Haloperidol 5 Mg Tablet PO 15 mg BEDTIME HERIBERTO Administration Hydroxyzine HCl 25 mg 08/26/20 21:00 Hydroxyzine Hcl 25 Mg Tablet PO BEDTIME MRX1 PRN NIGHT TIME ANXIETY Ibuprofen 600 mg 09/01/20 16:46 09/03/20 00:59 Ibuprofen 600 Mg Tablet PO 600 mg Q6H PRN Administration Pain, Moderate (Pain Scale 4-6 Loperamide HCl 2 mg 08/26/20 00:01 09/18/20 11:36 Loperamide Hcl 2 Mg Capsule PO 2 mg Q2H PRN Administration Diarrhea Magnesium Hydroxide 30 ml 08/26/20 00:01 Milk Of Magnesia 30 Ml Oral.Susp PO Q24H PRN Constipation Olanzapine 10 mg 09/23/20 09:30 10/16/20 21:30 Olanzapine 10 Mg Tablet PO 10 mg BID HERIBERTO Administration Thiamine HCl 100 mg 08/26/20 09:00 10/16/20 09:14 Thiamine Hcl 100 Mg Tablet PO 100 mg DAILY HERIBERTO Administration Topiramate 100 mg 09/16/20 21:00 10/16/20 21:30 Topiramate 25 Mg Tablet PO 100 mg BEDTIME HERIBERTO Administration Trazodone HCl 25 mg 08/26/20 21:00 Trazodone Hcl 25 Mg Halftab PO BEDTIME MRX1 PRN Insomnia Allergies Allergies Allergy/AdvReac Type Severity Reaction Status Date / Time cariprazine [From VRAYLAR] Allergy Unknown UNK Verified 09/09/20 21:32 divalproex sodium Allergy Unknown UNK Verified 09/09/20 21:32 [From DEPAKOTE] escitalopram [From LEXAPRO] Allergy Unknown UNK Verified 09/09/20 21:32 lithium [LITHIUM] Allergy Unknown UNK Verified 09/09/20 21:32 metformin [METFORMIN] Allergy Unknown UNK Verified 09/09/20 21:32 Assessment & Plan Pt with psychotic disorder and developmental delay Pt is stable, with staff reporting improved behaviors Continue primary teams treatment plan; no changes
[2020-10-17 06:00] VITALS: BP 97/60; PULSE 66; TEMP 36.3
[2020-10-17] MEDS: Thiamine HCL 100 MG TABLET PO (09:22)
[2020-10-17] MEDS: OLANZapine 10 MG TABLET PO ×2 (09:23→21:32)
[2020-10-17] MEDS: Benztropine Mesylate 1 MG TABLET PO ×2 (09:23→21:32)
[2020-10-17] MEDS: Folic Acid 1 MG TABLET PO (09:23)
[2020-10-17 18:00] VITALS: BP 110/68; PULSE 88
[2020-10-17] MEDS: Topiramate 25 MG TABLET 100 MG PO (21:31)
[2020-10-17] MEDS: HaloperidoL 5 MG TABLET 15 MG PO (21:32)
[2020-10-17 22:23] VITALS: TEMP 36.6
--- NOTE | 2020-10-17 23:56 | HO.PSYCHPN ---
Subjective Subjective Date of Service: 10/17/20 Reason For Visit: Mood Disorder Unspecified Interim History: Vitals reviewed Labs reviewed Pt seen, chart reviewed and case discussed with nursing staff Pt says hi to web content writer on approach but then starts walking toward web content writer in an odd and intrusive way, forcing web content writer to back away a bit and shift. Pt does this a few more times. She says she's good and denies any complaints. Staff reports she remains stable and is taking her medications; still mildly intrusive and with odd behaviors, but overall improved and without incident. Medication Compliance: Yes Mental Status Exam Mental Status Exam Patient Appearance: Unkempt Patient Orientation: Person Level of Consciousness: Awake Patient Behavior: Hyperactive, Impulsive and Poor Eye Contact Mood Description: Cheerful Affect Description: Cheerful Ability to Follow Directions: Fair Speech Pattern: Excessive, Loud and Poor Articulation Delusions: Present Thought Process: Goal Oriented Thought Content: positive for Poverty of Content Judgement: Poor Judgement and Insight: impaired Diagnostics Vital Signs (24Hr): Vital Signs - 24 hr 10/17/20 06:00 10/17/20 18:00 10/17/20 22:23 Temperature 97.4 F 98 F Pulse Rate 66 88 Blood Pressure 97/60 110/68 Body Mass Index 33.8 Labs Results: 09/04/20 08:01 09/22/20 08:32 Medications Medications Current Medications Generic Name Dose Route Start Last Admin Trade Name Freq PRN Reason Stop Dose Admin Acetaminophen 650 mg 08/26/20 00:01 09/28/20 22:57 Acetaminophen 325 Mg Tablet PO 650 mg Q6H PRN Administration HEADACHE/PAIN.MILD (SCALE 1-3) Al Hydroxide/Mg Hydroxide 30 ml 08/26/20 00:01 10/11/20 20:18 Magnesium Hydrox/Alum Hydrox 30 Ml Oral.Susp PO 30 ml Q6H PRN Administration HEARTBURN/NAUSEA Benztropine Mesylate 1 mg 08/26/20 00:01 Benztropine Mesylate 1 Mg Tablet PO Q4H PRN Extrapyramidal Effects Benztropine Mesylate 1 mg 09/22/20 21:00 10/17/20 21:32 Benztropine Mesylate 1 Mg Tablet PO 1 mg BID HERIBERTO Administration Folic Acid 1 mg 08/26/20 09:00 10/17/20 09:23 Folic Acid 1 Mg Tablet PO 1 mg DAILY HERIBERTO Administration Haloperidol 5 mg 08/26/20 00:01 09/18/20 10:11 Haloperidol 5 Mg Tablet PO 5 mg Q4H PRN Administration anxiety/restlessness Haloperidol 15 mg 09/15/20 21:00 10/17/20 21:32 Haloperidol 5 Mg Tablet PO 15 mg BEDTIME HERIBERTO Administration Hydroxyzine HCl 25 mg 08/26/20 21:00 Hydroxyzine Hcl 25 Mg Tablet PO BEDTIME MRX1 PRN NIGHT TIME ANXIETY Ibuprofen 600 mg 09/01/20 16:46 09/03/20 00:59 Ibuprofen 600 Mg Tablet PO 600 mg Q6H PRN Administration Pain, Moderate (Pain Scale 4-6 Loperamide HCl 2 mg 08/26/20 00:01 09/18/20 11:36 Loperamide Hcl 2 Mg Capsule PO 2 mg Q2H PRN Administration Diarrhea Magnesium Hydroxide 30 ml 08/26/20 00:01 Milk Of Magnesia 30 Ml Oral.Susp PO Q24H PRN Constipation Olanzapine 10 mg 09/23/20 09:30 10/17/20 21:32 Olanzapine 10 Mg Tablet PO 10 mg BID HERIBERTO Administration Thiamine HCl 100 mg 08/26/20 09:00 10/17/20 09:22 Thiamine Hcl 100 Mg Tablet PO 100 mg DAILY HERIBERTO Administration Topiramate 100 mg 09/16/20 21:00 10/17/20 21:31 Topiramate 25 Mg Tablet PO 100 mg BEDTIME HERIBERTO Administration Trazodone HCl 25 mg 08/26/20 21:00 Trazodone Hcl 25 Mg Halftab PO BEDTIME MRX1 PRN Insomnia Allergies Allergies Allergy/AdvReac Type Severity Reaction Status Date / Time cariprazine [From VRAYLAR] Allergy Unknown UNK Verified 09/09/20 21:32 divalproex sodium Allergy Unknown UNK Verified 09/09/20 21:32 [From DEPAKOTE] escitalopram [From LEXAPRO] Allergy Unknown UNK Verified 09/09/20 21:32 lithium [LITHIUM] Allergy Unknown UNK Verified 09/09/20 21:32 metformin [METFORMIN] Allergy Unknown UNK Verified 09/09/20 21:32 Assessment & Plan Pt with psychotic disorder and developmental delay Pt is stable, with staff reporting improved behaviors Continue primary teams treatment plan; no changes
[2020-10-18] MEDS: OLANZapine 10 MG TABLET PO ×2 (08:49→21:03)
[2020-10-18] MEDS: Thiamine HCL 100 MG TABLET PO (08:50)
[2020-10-18] MEDS: Benztropine Mesylate 1 MG TABLET PO ×2 (08:50→21:03)
[2020-10-18] MEDS: Folic Acid 1 MG TABLET PO (08:50)
--- NOTE | 2020-10-18 09:23 | HO.PSYCHPN ---
Subjective Subjective Date of Service: 10/18/20 Reason For Visit: Mood Disorder Unspecified Subjective Notes: Conditional Voluntary Interim History: Pt seen, chart reviewed and case discussed with nursing staff Pt says hi to public relations writer on approach. Staff reports she remains stable and is taking her medications; still mildly intrusive and with odd behaviors, but overall improved and without incident. Medication Compliance: Yes Side effects from medications: No Attending Groups: Yes Review of Systems Acute medical concerns: No Medical Review of Systems: unchanged Mental Status Exam Mental Status Exam Patient Appearance: Unkempt Patient Orientation: Person Level of Consciousness: Awake Patient Behavior: Hyperactive, Impulsive and Poor Eye Contact Mood Description: Cheerful Affect Description: Cheerful Ability to Follow Directions: Fair Speech Pattern: Excessive, Loud and Poor Articulation Delusions: Present Thought Process: Goal Oriented Thought Content: positive for Poverty of Content Judgement: Poor Judgement and Insight: impaired Diagnostics Vital Signs (24Hr): Vital Signs - 24 hr 10/17/20 18:00 10/17/20 22:23 Temperature 98 F Pulse Rate 88 Blood Pressure 110/68 Body Mass Index 33.8 Labs Results: 09/04/20 08:01 09/22/20 08:32 Medications Medications Current Medications Generic Name Dose Route Start Last Admin Trade Name Freq PRN Reason Stop Dose Admin Acetaminophen 650 mg 08/26/20 00:01 09/28/20 22:57 Acetaminophen 325 Mg Tablet PO 650 mg Q6H PRN Administration HEADACHE/PAIN.MILD (SCALE 1-3) Al Hydroxide/Mg Hydroxide 30 ml 08/26/20 00:01 10/11/20 20:18 Magnesium Hydrox/Alum Hydrox 30 Ml Oral.Susp PO 30 ml Q6H PRN Administration HEARTBURN/NAUSEA Benztropine Mesylate 1 mg 08/26/20 00:01 Benztropine Mesylate 1 Mg Tablet PO Q4H PRN Extrapyramidal Effects Benztropine Mesylate 1 mg 09/22/20 21:00 10/18/20 08:50 Benztropine Mesylate 1 Mg Tablet PO 1 mg BID HERIBERTO Administration Folic Acid 1 mg 08/26/20 09:00 10/18/20 08:50 Folic Acid 1 Mg Tablet PO 1 mg DAILY HERIBERTO Administration Haloperidol 5 mg 08/26/20 00:01 09/18/20 10:11 Haloperidol 5 Mg Tablet PO 5 mg Q4H PRN Administration anxiety/restlessness Haloperidol 15 mg 10/21/20 21:00 10/17/20 21:32 Haloperidol 5 Mg Tablet PO 15 mg BEDTIME HERIBERTO Administration Hydroxyzine HCl 25 mg 08/26/20 21:00 Hydroxyzine Hcl 25 Mg Tablet PO BEDTIME MRX1 PRN NIGHT TIME ANXIETY Ibuprofen 600 mg 09/01/20 16:46 09/03/20 00:59 Ibuprofen 600 Mg Tablet PO 600 mg Q6H PRN Administration Pain, Moderate (Pain Scale 4-6 Loperamide HCl 2 mg 08/26/20 00:01 09/18/20 11:36 Loperamide Hcl 2 Mg Capsule PO 2 mg Q2H PRN Administration Diarrhea Magnesium Hydroxide 30 ml 08/26/20 00:01 Milk Of Magnesia 30 Ml Oral.Susp PO Q24H PRN Constipation Olanzapine 10 mg 09/23/20 09:30 10/18/20 08:49 Olanzapine 10 Mg Tablet PO 10 mg BID HERIBERTO Administration Thiamine HCl 100 mg 08/26/20 09:00 10/18/20 08:50 Thiamine Hcl 100 Mg Tablet PO 100 mg DAILY HERIBERTO Administration Topiramate 100 mg 09/16/20 21:00 10/17/20 21:31 Topiramate 25 Mg Tablet PO 100 mg BEDTIME HERIBERTO Administration Trazodone HCl 25 mg 08/26/20 21:00 Trazodone Hcl 25 Mg Halftab PO BEDTIME MRX1 PRN Insomnia Allergies Allergies Allergy/AdvReac Type Severity Reaction Status Date / Time cariprazine [From VRAYLAR] Allergy Unknown UNK Verified 09/09/20 21:32 divalproex sodium Allergy Unknown UNK Verified 09/09/20 21:32 [From DEPAKOTE] escitalopram [From LEXAPRO] Allergy Unknown UNK Verified 09/09/20 21:32 lithium [LITHIUM] Allergy Unknown UNK Verified 09/09/20 21:32 metformin [METFORMIN] Allergy Unknown UNK Verified 09/09/20 21:32 Assessment & Plan Assessment & Plan (1) Developmental delay, moderate: Status: Acute Code(s): R62.50 - Unspecified lack of expected normal physiological development in childhood Assessment and Plan: CT current treatment plan Greater than 50% of the session was spent on counseling and/or coordination of care Patient educated on: diagnosis and medication risk/benefits Informed Consent: does not understand Reason for contiued inpatient stay Substantial Risk for: harm to self and rapid decompensation
[2020-10-18 16:35] VITALS: BP 101/57; PULSE 95; TEMP 36.6
[2020-10-18] MEDS: Topiramate 25 MG TABLET 100 MG PO (21:03)
[2020-10-18] MEDS: HaloperidoL 5 MG TABLET 15 MG PO (21:03)
[2020-10-19] MEDS: Folic Acid 1 MG TABLET PO (08:17)
[2020-10-19] MEDS: Thiamine HCL 100 MG TABLET PO (08:17)
[2020-10-19] MEDS: OLANZapine 10 MG TABLET PO ×2 (08:17→20:34)
[2020-10-19] MEDS: Benztropine Mesylate 1 MG TABLET PO ×2 (08:17→20:35)
--- NOTE | 2020-10-19 09:24 | HO.PSYCHPN ---
Subjective Subjective Date of Service: 10/19/20 Reason For Visit: Mood Disorder Unspecified Subjective Notes: Conditional Voluntary Interim History: Pt seen, chart reviewed and case discussed with nursing staff Pt says hi to fiction writer on approach. Staff reports she remains stable and is taking her medications; still mildly intrusive and with odd behaviors, but overall improved and without incident. Medication Compliance: Yes Side effects from medications: No Attending Groups: Yes Review of Systems Acute medical concerns: No Medical Review of Systems: unchanged Mental Status Exam Mental Status Exam Patient Appearance: Unkempt Patient Orientation: Person Level of Consciousness: Awake Patient Behavior: Hyperactive, Impulsive and Poor Eye Contact Mood Description: Cheerful Affect Description: Cheerful Ability to Follow Directions: Fair Speech Pattern: Excessive, Loud and Poor Articulation Delusions: Present Thought Process: Goal Oriented Thought Content: positive for Poverty of Content Judgement: Poor Judgement and Insight: impaired Diagnostics Vital Signs (24Hr): Vital Signs - 24 hr 10/18/20 16:35 Temperature 97.8 F Pulse Rate 95 Blood Pressure 101/57 L Body Mass Index 33.8 Labs Results: 09/04/20 08:01 09/22/20 08:32 Medications Medications Current Medications Generic Name Dose Route Start Last Admin Trade Name Freq PRN Reason Stop Dose Admin Acetaminophen 650 mg 08/26/20 00:01 09/28/20 22:57 Acetaminophen 325 Mg Tablet PO 650 mg Q6H PRN Administration HEADACHE/PAIN.MILD (SCALE 1-3) Al Hydroxide/Mg Hydroxide 30 ml 08/26/20 00:01 10/11/20 20:18 Magnesium Hydrox/Alum Hydrox 30 Ml Oral.Susp PO 30 ml Q6H PRN Administration HEARTBURN/NAUSEA Benztropine Mesylate 1 mg 08/26/20 00:01 Benztropine Mesylate 1 Mg Tablet PO Q4H PRN Extrapyramidal Effects Benztropine Mesylate 1 mg 09/22/20 21:00 10/19/20 08:17 Benztropine Mesylate 1 Mg Tablet PO 1 mg BID HERIBERTO Administration Folic Acid 1 mg 08/26/20 09:00 10/19/20 08:17 Folic Acid 1 Mg Tablet PO 1 mg DAILY HERIBERTO Administration Haloperidol 5 mg 08/26/20 00:01 09/18/20 10:11 Haloperidol 5 Mg Tablet PO 5 mg Q4H PRN Administration anxiety/restlessness Haloperidol 15 mg 09/15/20 21:00 10/18/20 21:03 Haloperidol 5 Mg Tablet PO 15 mg BEDTIME HERIBERTO Administration Hydroxyzine HCl 25 mg 08/26/20 21:00 Hydroxyzine Hcl 25 Mg Tablet PO BEDTIME MRX1 PRN NIGHT TIME ANXIETY Ibuprofen 600 mg 09/01/20 16:46 09/03/20 00:59 Ibuprofen 600 Mg Tablet PO 600 mg Q6H PRN Administration Pain, Moderate (Pain Scale 4-6 Loperamide HCl 2 mg 08/26/20 00:01 09/18/20 11:36 Loperamide Hcl 2 Mg Capsule PO 2 mg Q2H PRN Administration Diarrhea Magnesium Hydroxide 30 ml 08/26/20 00:01 Milk Of Magnesia 30 Ml Oral.Susp PO Q24H PRN Constipation Olanzapine 10 mg 09/23/20 09:30 10/19/20 08:17 Olanzapine 10 Mg Tablet PO 10 mg BID HERIBERTO Administration Thiamine HCl 100 mg 08/26/20 09:00 10/19/20 08:17 Thiamine Hcl 100 Mg Tablet PO 100 mg DAILY HERIBERTO Administration Topiramate 100 mg 09/16/20 21:00 10/18/20 21:03 Topiramate 25 Mg Tablet PO 100 mg BEDTIME HERIBERTO Administration Trazodone HCl 25 mg 08/26/20 21:00 Trazodone Hcl 25 Mg Halftab PO BEDTIME MRX1 PRN Insomnia Allergies Allergies Allergy/AdvReac Type Severity Reaction Status Date / Time cariprazine [From VRAYLAR] Allergy Unknown UNK Verified 09/09/20 21:32 divalproex sodium Allergy Unknown UNK Verified 09/09/20 21:32 [From DEPAKOTE] escitalopram [From LEXAPRO] Allergy Unknown UNK Verified 09/09/20 21:32 lithium [LITHIUM] Allergy Unknown UNK Verified 09/09/20 21:32 metformin [METFORMIN] Allergy Unknown UNK Verified 09/09/20 21:32 Assessment & Plan Assessment & Plan (1) Developmental delay, moderate: Status: Acute Code(s): R62.50 - Unspecified lack of expected normal physiological development in childhood Assessment and Plan: Continue treatment plan Greater than 50% of the session was spent on counseling and/or coordination of care Patient educated on: diagnosis and medication risk/benefits Informed Consent: does not understand Reason for contiued inpatient stay Substantial Risk for: inability to function
[2020-10-19 11:26] VITALS: BP 117/56; PULSE 96; TEMP 36.7; O2SAT 97
[2020-10-19 18:00] VITALS: BP 112/60; PULSE 92; TEMP 36.9
[2020-10-19] MEDS: Topiramate 25 MG TABLET 100 MG PO (20:35)
[2020-10-19] MEDS: HaloperidoL 5 MG TABLET 15 MG PO (20:36)
[2020-10-20 06:00] VITALS: BP 102/57; PULSE 78
[2020-10-20] MEDS: Thiamine HCL 100 MG TABLET PO (08:27)
[2020-10-20] MEDS: Benztropine Mesylate 1 MG TABLET PO ×2 (08:27→20:31)
[2020-10-20] MEDS: OLANZapine 10 MG TABLET PO ×2 (08:27→20:30)
[2020-10-20] MEDS: Folic Acid 1 MG TABLET PO (08:27)
[2020-10-20 08:47] VITALS: BP 102/57; PULSE 78; TEMP 36.2; O2SAT 98
--- NOTE | 2020-10-20 09:26 | HO.PSYCHPN ---
Subjective Subjective Date of Service: 10/20/20 Reason For Visit: Mood Disorder Unspecified Subjective Notes: Conditional Voluntary Interim History: Teresita has been much the same Medication Compliance: Yes Side effects from medications: No Attending Groups: Intermittent Review of Systems Acute medical concerns: No Medical Review of Systems: unchanged Mental Status Exam Mental Status Exam Patient Appearance: Unkempt Patient Orientation: Person Level of Consciousness: Awake Patient Behavior: Hyperactive, Impulsive and Poor Eye Contact Mood Description: Cheerful Affect Description: Cheerful Ability to Follow Directions: Fair Speech Pattern: Excessive, Loud and Poor Articulation Delusions: Present Thought Process: Goal Oriented Thought Content: positive for Poverty of Content Judgement: Poor Judgement and Insight: impaired Diagnostics Vital Signs (24Hr): Vital Signs - 24 hr 10/19/20 11:26 10/19/20 18:00 10/20/20 06:00 Temperature 98.0 F 98.4 F Pulse Rate 96 92 78 Blood Pressure 117/56 L 112/60 102/57 L Pulse Oximetry 97 10/20/20 08:47 Temperature 97.2 F Pulse Rate 78 Blood Pressure 102/57 L Pulse Oximetry 98 Body Mass Index 33.8 Labs Results: 10/20/20 09:39 10/20/20 09:39 Medications Medications Current Medications Generic Name Dose Route Start Last Admin Trade Name Freq PRN Reason Stop Dose Admin Acetaminophen 650 mg 08/26/20 00:01 09/28/20 22:57 Acetaminophen 325 Mg Tablet PO 650 mg Q6H PRN Administration HEADACHE/PAIN.MILD (SCALE 1-3) Al Hydroxide/Mg Hydroxide 30 ml 08/26/20 00:01 10/11/20 20:18 Magnesium Hydrox/Alum Hydrox 30 Ml Oral.Susp PO 30 ml Q6H PRN Administration HEARTBURN/NAUSEA Benztropine Mesylate 1 mg 08/26/20 00:01 Benztropine Mesylate 1 Mg Tablet PO Q4H PRN Extrapyramidal Effects Benztropine Mesylate 1 mg 09/22/20 21:00 10/20/20 08:27 Benztropine Mesylate 1 Mg Tablet PO 1 mg BID HERIBERTO Administration Folic Acid 1 mg 08/26/20 09:00 10/20/20 08:27 Folic Acid 1 Mg Tablet PO 1 mg DAILY HERIBERTO Administration Haloperidol 5 mg 08/26/20 00:01 09/18/20 10:11 Haloperidol 5 Mg Tablet PO 5 mg Q4H PRN Administration anxiety/restlessness Haloperidol 15 mg 09/15/20 21:00 10/19/20 20:36 Haloperidol 5 Mg Tablet PO 15 mg BEDTIME HERIBERTO Administration Hydroxyzine HCl 25 mg 08/26/20 21:00 Hydroxyzine Hcl 25 Mg Tablet PO BEDTIME MRX1 PRN NIGHT TIME ANXIETY Ibuprofen 600 mg 09/01/20 16:46 09/03/20 00:59 Ibuprofen 600 Mg Tablet PO 600 mg Q6H PRN Administration Pain, Moderate (Pain Scale 4-6 Loperamide HCl 2 mg 08/26/20 00:01 09/18/20 11:36 Loperamide Hcl 2 Mg Capsule PO 2 mg Q2H PRN Administration Diarrhea Magnesium Hydroxide 30 ml 08/26/20 00:01 Milk Of Magnesia 30 Ml Oral.Susp PO Q24H PRN Constipation Olanzapine 10 mg 09/23/20 09:30 10/20/20 08:27 Olanzapine 10 Mg Tablet PO 10 mg BID HERIBERTO Administration Thiamine HCl 100 mg 08/26/20 09:00 10/20/20 08:27 Thiamine Hcl 100 Mg Tablet PO 100 mg DAILY HERIEBRTO Administration Topiramate 100 mg 09/16/20 21:00 10/19/20 20:35 Topiramate 25 Mg Tablet PO 100 mg BEDTIME HERIBERTO Administration Trazodone HCl 25 mg 08/26/20 21:00 Trazodone Hcl 25 Mg Halftab PO BEDTIME MRX1 PRN Insomnia Allergies Allergies Allergy/AdvReac Type Severity Reaction Status Date / Time cariprazine [From VRAYLAR] Allergy Unknown UNK Verified 09/09/20 21:32 divalproex sodium Allergy Unknown UNK Verified 09/09/20 21:32 [From DEPAKOTE] escitalopram [From LEXAPRO] Allergy Unknown UNK Verified 09/09/20 21:32 lithium [LITHIUM] Allergy Unknown UNK Verified 09/09/20 21:32 metformin [METFORMIN] Allergy Unknown UNK Verified 09/09/20 21:32 Assessment & Plan Assessment & Plan (1) Developmental delay, moderate: Status: Acute Code(s): R62.50 - Unspecified lack of expected normal physiological development in childhood Assessment and Plan: CT current treatment plan Greater than 50% of the session was spent on counseling and/or coordination of care Patient educated on: diagnosis and medication risk/benefits Informed Consent: does not understand Reason for contiued inpatient stay Substantial Risk for: rapid decompensation
[2020-10-20 09:44] LABS: MANUAL DIFF FLAG NO
[2020-10-20 09:48] LABS: Basophils Absolute Auto 0.1 X10*3/uL (0.0-0.2); Basophils Percent Auto 1.1 % (0-2); Eosinophils Absolute Auto 0.2 X10*3/uL (0.0-0.4); Eosinophils Percent Auto 2.3 % (0-4); Hematocrit 36.6 % (37-47); Hemoglobin 12.1 g/dl (12.0-16.0); Imm Gran Abs Auto 0.01 X10*3/uL (0.00-0.03); Imm Gran Pct Auto 0.1 % (0.0-0.4); Lymphocytes Absolute Auto 3.3 X10*3/uL (1.2-4.9); Lymphocytes Percent Auto 39.9 % (20-40); Mean Corpuscular HGB Conc 33.1 g/dl (31.0-35.0); Mean Corpuscular Hemoglobin 28.5 pg (27.0-33.0); Mean Corpuscular Volume 86.1 fL (80-98); Mean Platelet Volume 9.5 fL (9.4-12.3); Monocytes Absolute Auto 0.3 X10*3/uL (0.1-1.2); Monocytes Percent Auto 4.1 % (2-11); Neutrophils Absolute Auto 4.4 X10*3/uL (2.0-8.3); Neutrophils Percent Auto 52.5 % (45-73); Platelet Count 300 X10*3/uL (160-400); Red Blood Count 4.25 X10*6/uL (4.20-5.50); Red Cell Distribution Width 13.5 % (11.0-16.0); White Blood Count 8.3 X10*3/uL (4.8-10.8)
[2020-10-20 10:16] LABS: Alanine Aminotransferase 11 U/L (0-31); Albumin Level 3.8 g/dL (3.5-5.0); Alkaline Phosphatase 71 U/L (39-117); Anion Gap 11 (12-20); Aspartate Amino Transferase 10 U/L (5-31); Bilirubin Total 0.2 mg/dL (0.0-1.0); Blood Urea Nitrogen 24 mg/dL (9-16); Calcium 8.6 mg/dL (8.4-10.2); Carbon Dioxide 21 mmol/L (22-29); Chloride 109 mmol/L (96-108); Creatinine Clr Calc Pharmacy 99.2; Estimated Glomerular Filt Rate > 60; Glucose Random 96 mg/dL (60-115); Potassium 4.2 mmol/l (3.3-5.1); Sodium 137 mmol/L (135-145); Total Protein 6.6 g/dL (6.5-8.0)
[2020-10-20 18:00] VITALS: BP 125/60; PULSE 88; TEMP 36.6
[2020-10-20] MEDS: HaloperidoL 5 MG TABLET 15 MG PO (20:30)
[2020-10-20] MEDS: Topiramate 25 MG TABLET 100 MG PO (20:31)
[2020-10-20] MEDS: Acetaminophen 325 MG TABLET 650 MG PO (20:32)
[2020-10-21 06:32] VITALS: BP 86/47; PULSE 67; RESP 18; TEMP 36.2; O2SAT 98
[2020-10-21] MEDS: Benztropine Mesylate 1 MG TABLET PO ×2 (09:02→21:25)
[2020-10-21] MEDS: Folic Acid 1 MG TABLET PO (09:02)
[2020-10-21] MEDS: OLANZapine 10 MG TABLET PO ×2 (09:03→21:24)
[2020-10-21] MEDS: Thiamine HCL 100 MG TABLET PO (09:03)
--- NOTE | 2020-10-21 14:48 | P.PNPSI_ITS ---
Subjective Subjective Date of Service: 10/21/20 Reason For Visit: Mood Disorder Unspecified Subjective Notes: Conditional Voluntary Interim History: Teresita is in good behavioral control and she is up and about on the unit Medication Compliance: Yes Side effects from medications: No Attending Groups: Intermittent Review of Systems Acute medical concerns: No Medical Review of Systems: unchanged Mental Status Exam Mental Status Exam Patient Appearance: Unkempt Patient Orientation: Person Level of Consciousness: Awake Patient Behavior: Hyperactive, Impulsive and Poor Eye Contact Mood Description: Cheerful Affect Description: Cheerful Ability to Follow Directions: Fair Speech Pattern: Excessive, Loud and Poor Articulation Delusions: Present Thought Process: Goal Oriented Thought Content: positive for Poverty of Content Judgement: Poor Judgement and Insight: impaired Diagnostics Vital Signs (24Hr): Vital Signs - 24 hr 10/20/20 18:00 10/21/20 06:32 Temperature 98 F 97.1 F Pulse Rate 88 67 Respiratory Rate 18 Blood Pressure 125/60 86/47 L Pulse Oximetry 98 Body Mass Index 33.8 Labs Results: 10/20/20 09:39 10/20/20 09:39 Labs: Laboratory Results - last 48 hr 10/20/20 10/20/20 09:39 09:39 WBC 8.3 RBC 4.25 Hgb 12.1 Hct 36.6 L MCV 86.1 MCH 28.5 MCHC 33.1 RDW 13.5 Plt Count 300 MPV 9.5 Immature Gran % (Auto) 0.1 Neut % (Auto) 52.5 Lymph % (Auto) 39.9 [place] % (Auto) 4.1 Eos % (Auto) 2.3 Baso % (Auto) 1.1 Lymph # (Auto) 3.3 [place] # (Auto) 0.3 Eos # (Auto) 0.2 Baso # (Auto) 0.1 Abs Immat Gran (auto) 0.01 Absolute Neuts (auto) 4.4 Absolute Nucleated RBC 0.000 Nucleated RBC % (auto) 0.0 Sodium 137 Potassium 4.2 Chloride 109 H Carbon Dioxide 21 L Anion Gap 11 L BUN 24 H Creatinine 0.71 Estim Creat Clear Calc 99.2 Estimated GFR > 60 Random Glucose 96 Calcium 8.6 Total Bilirubin 0.2 AST 10 ALT 11 Alkaline Phosphatase 71 D Total Protein 6.6 Albumin 3.8 Medications Medications Current Medications Generic Name Dose Route Start Last Admin Trade Name Freq PRN Reason Stop Dose Admin Acetaminophen 650 mg 08/26/20 00:01 10/20/20 20:32 Acetaminophen 325 Mg Tablet PO 650 mg Q6H PRN Administration HEADACHE/PAIN.MILD (SCALE 1-3) Al Hydroxide/Mg Hydroxide 30 ml 08/26/20 00:01 10/11/20 20:18 Magnesium Hydrox/Alum Hydrox 30 Ml Oral.Susp PO 30 ml Q6H PRN Administration HEARTBURN/NAUSEA Benztropine Mesylate 1 mg 08/26/20 00:01 Benztropine Mesylate 1 Mg Tablet PO Q4H PRN Extrapyramidal Effects Benztropine Mesylate 1 mg 09/22/20 21:00 10/21/20 09:02 Benztropine Mesylate 1 Mg Tablet PO 1 mg BID HERIBERTO Administration Folic Acid 1 mg 08/26/20 09:00 10/21/20 09:02 Folic Acid 1 Mg Tablet PO 1 mg DAILY HERIBERTO Administration Haloperidol 5 mg 08/26/20 00:01 09/18/20 10:11 Haloperidol 5 Mg Tablet PO 5 mg Q4H PRN Administration anxiety/restlessness Haloperidol 15 mg 09/15/20 21:00 10/20/20 20:30 Haloperidol 5 Mg Tablet PO 15 mg BEDTIME HERIBERTO Administration Hydroxyzine HCl 25 mg 08/26/20 21:00 Hydroxyzine Hcl 25 Mg Tablet PO BEDTIME MRX1 PRN NIGHT TIME ANXIETY Ibuprofen 600 mg 09/01/20 16:46 09/03/20 00:59 Ibuprofen 600 Mg Tablet PO 600 mg Q6H PRN Administration Pain, Moderate (Pain Scale 4-6 Loperamide HCl 2 mg 08/26/20 00:01 09/18/20 11:36 Loperamide Hcl 2 Mg Capsule PO 2 mg Q2H PRN Administration Diarrhea Magnesium Hydroxide 30 ml 08/26/20 00:01 Milk Of Magnesia 30 Ml Oral.Susp PO Q24H PRN Constipation Olanzapine 10 mg 09/23/20 09:30 10/21/20 09:03 Olanzapine 10 Mg Tablet PO 10 mg BID HERIBERTO Administration Thiamine HCl 100 mg 08/26/20 09:00 10/21/20 09:03 Thiamine Hcl 100 Mg Tablet PO 100 mg DAILY HERIBERTO Administration Topiramate 100 mg 09/16/20 21:00 10/20/20 20:31 Topiramate 25 Mg Tablet PO 100 mg BEDTIME HERIBERTO Administration Trazodone HCl 25 mg 10/01/20 21:00 Trazodone Hcl 25 Mg Halftab PO BEDTIME MRX1 PRN Insomnia Allergies Allergies Allergy/AdvReac Type Severity Reaction Status Date / Time cariprazine [From VRAYLAR] Allergy Unknown UNK Verified 09/09/20 21:32 divalproex sodium Allergy Unknown UNK Verified 09/09/20 21:32 [From DEPAKOTE] escitalopram [From LEXAPRO] Allergy Unknown UNK Verified 09/09/20 21:32 lithium [LITHIUM] Allergy Unknown UNK Verified 09/09/20 21:32 metformin [METFORMIN] Allergy Unknown UNK Verified 09/09/20 21:32 Assessment & Plan Assessment & Plan (1) Developmental delay, moderate: Status: Acute Code(s): R62.50 - Unspecified lack of expected normal physiological development in childhood Assessment and Plan: CT current treatment plan Greater than 50% of the session was spent on counseling and/or coordination of care Patient educated on: diagnosis and medication risk/benefits Informed Consent: does not understand Reason for contiued inpatient stay Substantial Risk for: rapid decompensation
[2020-10-21 14:50] VITALS: BMI 34.7
[2020-10-21] MEDS: Topiramate 25 MG TABLET 100 MG PO (21:24)
[2020-10-21] MEDS: HaloperidoL 5 MG TABLET 15 MG PO (21:24)
[2020-10-21 21:28] VITALS: BP 108/60; PULSE 90; TEMP 36.7; O2SAT 98
[2020-10-22 07:03] VITALS: BP 82/49; PULSE 79; RESP 16; TEMP 36.3; O2SAT 97
[2020-10-22] MEDS: Folic Acid 1 MG TABLET PO (08:45)
[2020-10-22] MEDS: Thiamine HCL 100 MG TABLET PO (08:45)
[2020-10-22] MEDS: OLANZapine 10 MG TABLET PO ×2 (08:46→20:35)
[2020-10-22] MEDS: Benztropine Mesylate 1 MG TABLET PO ×2 (08:46→20:35)
--- NOTE | 2020-10-22 16:13 | HO.PSYCHPN ---
Subjective Subjective Date of Service: 10/22/20 Reason For Visit: Mood Disorder Unspecified Subjective Notes: Conditional Voluntary Interim History: Teresita has been in good behavioral control. She has no immediate concerns Medication Compliance: Yes Side effects from medications: No Attending Groups: Yes Review of Systems Acute medical concerns: No Medical Review of Systems: unchanged Mental Status Exam Mental Status Exam Patient Appearance: Unkempt Patient Orientation: Person Level of Consciousness: Awake Patient Behavior: Hyperactive, Impulsive and Poor Eye Contact Mood Description: Cheerful Affect Description: Cheerful Ability to Follow Directions: Fair Speech Pattern: Excessive, Loud and Poor Articulation Delusions: Present Thought Process: Goal Oriented Thought Content: positive for Poverty of Content, negative for Suicidal Ideation and negative for Homicidal Ideation Judgement: Poor Judgement and Insight: impaired Diagnostics Vital Signs (24Hr): Vital Signs - 24 hr 10/21/20 21:28 10/22/20 07:03 Temperature 98.1 F 97.3 F Pulse Rate 90 79 Respiratory Rate 16 Blood Pressure 108/60 82/49 L Pulse Oximetry 98 97 Body Mass Index 34.7 Labs Results: 10/20/20 09:39 10/20/20 09:39 Medications Medications Current Medications Generic Name Dose Route Start Last Admin Trade Name Freq PRN Reason Stop Dose Admin Acetaminophen 650 mg 08/26/20 00:01 10/20/20 20:32 Acetaminophen 325 Mg Tablet PO 650 mg Q6H PRN Administration HEADACHE/PAIN.MILD (SCALE 1-3) Al Hydroxide/Mg Hydroxide 30 ml 08/26/20 00:01 10/11/20 20:18 Magnesium Hydrox/Alum Hydrox 30 Ml Oral.Susp PO 30 ml Q6H PRN Administration HEARTBURN/NAUSEA Benztropine Mesylate 1 mg 08/26/20 00:01 Benztropine Mesylate 1 Mg Tablet PO Q4H PRN Extrapyramidal Effects Benztropine Mesylate 1 mg 09/22/20 21:00 10/22/20 08:46 Benztropine Mesylate 1 Mg Tablet PO 1 mg BID HERIBERTO Administration Folic Acid 1 mg 08/26/20 09:00 10/22/20 08:45 Folic Acid 1 Mg Tablet PO 1 mg DAILY HERIBERTO Administration Haloperidol 5 mg 08/26/20 00:01 09/18/20 10:11 Haloperidol 5 Mg Tablet PO 5 mg Q4H PRN Administration anxiety/restlessness Haloperidol 15 mg 09/15/20 21:00 10/21/20 21:24 Haloperidol 5 Mg Tablet PO 15 mg BEDTIME HERIBERTO Administration Hydroxyzine HCl 25 mg 08/26/20 21:00 Hydroxyzine Hcl 25 Mg Tablet PO BEDTIME MRX1 PRN NIGHT TIME ANXIETY Ibuprofen 600 mg 09/01/20 16:46 09/03/20 00:59 Ibuprofen 600 Mg Tablet PO 600 mg Q6H PRN Administration Pain, Moderate (Pain Scale 4-6 Loperamide HCl 2 mg 08/26/20 00:01 09/18/20 11:36 Loperamide Hcl 2 Mg Capsule PO 2 mg Q2H PRN Administration Diarrhea Magnesium Hydroxide 30 ml 08/26/20 00:01 Milk Of Magnesia 30 Ml Oral.Susp PO Q24H PRN Constipation Olanzapine 10 mg 09/23/20 09:30 10/22/20 08:46 Olanzapine 10 Mg Tablet PO 10 mg BID HERIBERTO Administration Thiamine HCl 100 mg 08/26/20 09:00 10/22/20 08:45 Thiamine Hcl 100 Mg Tablet PO 100 mg DAILY HERIBERTO Administration Topiramate 100 mg 09/16/20 21:00 10/21/20 21:24 Topiramate 25 Mg Tablet PO 100 mg BEDTIME HERIBERTO Administration Trazodone HCl 25 mg 08/26/20 21:00 Trazodone Hcl 25 Mg Halftab PO BEDTIME MRX1 PRN Insomnia Allergies Allergies Allergy/AdvReac Type Severity Reaction Status Date / Time cariprazine [From VRAYLAR] Allergy Unknown UNK Verified 09/09/20 21:32 divalproex sodium Allergy Unknown UNK Verified 09/09/20 21:32 [From DEPAKOTE] escitalopram [From LEXAPRO] Allergy Unknown UNK Verified 09/09/20 21:32 lithium [LITHIUM] Allergy Unknown UNK Verified 09/09/20 21:32 metformin [METFORMIN] Allergy Unknown UNK Verified 09/09/20 21:32 Assessment & Plan Assessment & Plan (1) Developmental delay, moderate: Status: Acute Code(s): R62.50 - Unspecified lack of expected normal physiological development in childhood Assessment and Plan: CT current treatment plan Greater than 50% of the session was spent on counseling and/or coordination of care Patient educated on: diagnosis and medication risk/benefits Informed Consent: does not understand Reason for contiued inpatient stay Substantial Risk for: inability to function and rapid decompensation
[2020-10-22 18:00] VITALS: BP 109/65; PULSE 89; TEMP 36.8
[2020-10-22] MEDS: Topiramate 25 MG TABLET 100 MG PO (20:34)
[2020-10-22] MEDS: HaloperidoL 5 MG TABLET 15 MG PO (20:35)
[2020-10-23 06:15] VITALS: BP 104/62; PULSE 63; RESP 18; TEMP 36.7
[2020-10-23] MEDS: Benztropine Mesylate 1 MG TABLET PO ×2 (10:18→21:36)
[2020-10-23] MEDS: Thiamine HCL 100 MG TABLET PO (10:18)
[2020-10-23] MEDS: OLANZapine 10 MG TABLET PO ×2 (10:19→21:36)
[2020-10-23] MEDS: Folic Acid 1 MG TABLET PO (10:19)
--- NOTE | 2020-10-23 13:49 | HO.PSYCHPN ---
Subjective Subjective Date of Service: 10/23/20 Reason For Visit: Mood Disorder Unspecified Subjective Notes: Conditional Voluntary Interim History: Teresita is unchanged. She is waiting for appropriate housing. Medication Compliance: Yes Side effects from medications: No Attending Groups: Intermittent Review of Systems Acute medical concerns: No Medical Review of Systems: unchanged Mental Status Exam Mental Status Exam Patient Appearance: Unkempt Patient Orientation: Person Level of Consciousness: Awake Patient Behavior: Hyperactive, Impulsive and Poor Eye Contact Mood Description: Cheerful Affect Description: Cheerful Ability to Follow Directions: Fair Speech Pattern: Excessive, Loud and Poor Articulation Delusions: Present Thought Process: Goal Oriented Thought Content: positive for Poverty of Content, negative for Suicidal Ideation and negative for Homicidal Ideation Judgement: Poor Judgement and Insight: impaired Diagnostics Vital Signs (24Hr): Vital Signs - 24 hr 10/22/20 18:00 10/23/20 06:15 Temperature 98.2 F 98.1 F Pulse Rate 89 63 Respiratory Rate 18 Blood Pressure 109/65 104/62 Body Mass Index 34.7 Labs Results: 10/20/20 09:39 10/20/20 09:39 Medications Medications Current Medications Generic Name Dose Route Start Last Admin Trade Name Freq PRN Reason Stop Dose Admin Acetaminophen 650 mg 08/26/20 00:01 10/20/20 20:32 Acetaminophen 325 Mg Tablet PO 650 mg Q6H PRN Administration HEADACHE/PAIN.MILD (SCALE 1-3) Al Hydroxide/Mg Hydroxide 30 ml 08/26/20 00:01 10/11/20 20:18 Magnesium Hydrox/Alum Hydrox 30 Ml Oral.Susp PO 30 ml Q6H PRN Administration HEARTBURN/NAUSEA Benztropine Mesylate 1 mg 08/26/20 00:01 Benztropine Mesylate 1 Mg Tablet PO Q4H PRN Extrapyramidal Effects Benztropine Mesylate 1 mg 09/22/20 21:00 10/23/20 10:18 Benztropine Mesylate 1 Mg Tablet PO 1 mg BID HERIBERTO Administration Folic Acid 1 mg 08/26/20 09:00 10/23/20 10:19 Folic Acid 1 Mg Tablet PO 1 mg DAILY HERIBERTO Administration Haloperidol 5 mg 08/26/20 00:01 09/18/20 10:11 Haloperidol 5 Mg Tablet PO 5 mg Q4H PRN Administration anxiety/restlessness Haloperidol 15 mg 09/15/20 21:00 10/22/20 20:35 Haloperidol 5 Mg Tablet PO 15 mg BEDTIME HERIBERTO Administration Hydroxyzine HCl 25 mg 08/26/20 21:00 Hydroxyzine Hcl 25 Mg Tablet PO BEDTIME MRX1 PRN NIGHT TIME ANXIETY Ibuprofen 600 mg 09/01/20 16:46 09/03/20 00:59 Ibuprofen 600 Mg Tablet PO 600 mg Q6H PRN Administration Pain, Moderate (Pain Scale 4-6 Loperamide HCl 2 mg 08/26/20 00:01 09/18/20 11:36 Loperamide Hcl 2 Mg Capsule PO 2 mg Q2H PRN Administration Diarrhea Magnesium Hydroxide 30 ml 08/26/20 00:01 Milk Of Magnesia 30 Ml Oral.Susp PO Q24H PRN Constipation Olanzapine 10 mg 09/23/20 09:30 10/23/20 10:19 Olanzapine 10 Mg Tablet PO 10 mg BID HERIBERTO Administration Thiamine HCl 100 mg 08/26/20 09:00 10/23/20 10:18 Thiamine Hcl 100 Mg Tablet PO 100 mg DAILY HERIBERTO Administration Topiramate 100 mg 09/16/20 21:00 10/22/20 20:34 Topiramate 25 Mg Tablet PO 100 mg BEDTIME HERIBERTO Administration Trazodone HCl 25 mg 08/26/20 21:00 Trazodone Hcl 25 Mg Halftab PO BEDTIME MRX1 PRN Insomnia Allergies Allergies Allergy/AdvReac Type Severity Reaction Status Date / Time cariprazine [From VRAYLAR] Allergy Unknown UNK Verified 09/09/20 21:32 divalproex sodium Allergy Unknown UNK Verified 09/09/20 21:32 [From DEPAKOTE] escitalopram [From LEXAPRO] Allergy Unknown UNK Verified 09/09/20 21:32 lithium [LITHIUM] Allergy Unknown UNK Verified 09/09/20 21:32 metformin [METFORMIN] Allergy Unknown UNK Verified 09/09/20 21:32 Assessment & Plan Greater than 50% of the session was spent on counseling and/or coordination of care
[2020-10-23 18:55] VITALS: BP 107/75; PULSE 104; TEMP 37
[2020-10-23] MEDS: HaloperidoL 5 MG TABLET 15 MG PO (21:35)
[2020-10-23] MEDS: Topiramate 25 MG TABLET 100 MG PO (21:36)
[2020-10-24] MEDS: OLANZapine 10 MG TABLET PO ×2 (08:57→21:08)
[2020-10-24] MEDS: Thiamine HCL 100 MG TABLET PO (08:57)
[2020-10-24] MEDS: Folic Acid 1 MG TABLET PO (08:57)
[2020-10-24] MEDS: Benztropine Mesylate 1 MG TABLET PO ×2 (08:57→21:08)
--- NOTE | 2020-10-24 15:34 | HO.PSYCHPN ---
Subjective Subjective Date of Service: 10/24/20 Reason For Visit: Mood Disorder Unspecified Subjective Notes: Conditional Voluntary Interim History: Teresita is unchanged. She is in need of safe housing Medication Compliance: Yes Side effects from medications: No Attending Groups: Intermittent Review of Systems Acute medical concerns: No Medical Review of Systems: unchanged Mental Status Exam Mental Status Exam Patient Appearance: Unkempt Patient Orientation: Person Level of Consciousness: Awake Patient Behavior: Hyperactive, Impulsive and Poor Eye Contact Mood Description: Cheerful Affect Description: Cheerful Ability to Follow Directions: Fair Speech Pattern: Excessive, Loud and Poor Articulation Delusions: Present Thought Process: Goal Oriented Thought Content: positive for Poverty of Content, negative for Suicidal Ideation and negative for Homicidal Ideation Judgement: Poor Judgement and Insight: impaired Diagnostics Vital Signs (24Hr): Vital Signs - 24 hr 10/23/20 18:55 Temperature 98.6 F Pulse Rate 104 H Blood Pressure 107/75 Body Mass Index 34.7 Labs Results: 10/20/20 09:39 10/20/20 09:39 Medications Medications Current Medications Generic Name Dose Route Start Last Admin Trade Name Freq PRN Reason Stop Dose Admin Acetaminophen 650 mg 08/26/20 00:01 10/20/20 20:32 Acetaminophen 325 Mg Tablet PO 650 mg Q6H PRN Administration HEADACHE/PAIN.MILD (SCALE 1-3) Al Hydroxide/Mg Hydroxide 30 ml 08/26/20 00:01 10/11/20 20:18 Magnesium Hydrox/Alum Hydrox 30 Ml Oral.Susp PO 30 ml Q6H PRN Administration HEARTBURN/NAUSEA Benztropine Mesylate 1 mg 08/26/20 00:01 Benztropine Mesylate 1 Mg Tablet PO Q4H PRN Extrapyramidal Effects Benztropine Mesylate 1 mg 09/22/20 21:00 10/24/20 08:57 Benztropine Mesylate 1 Mg Tablet PO 1 mg BID HERIBERTO Administration Folic Acid 1 mg 08/26/20 09:00 10/24/20 08:57 Folic Acid 1 Mg Tablet PO 1 mg DAILY HERIBERTO Administration Haloperidol 5 mg 08/26/20 00:01 09/18/20 10:11 Haloperidol 5 Mg Tablet PO 5 mg Q4H PRN Administration anxiety/restlessness Haloperidol 15 mg 09/15/20 21:00 10/23/20 21:35 Haloperidol 5 Mg Tablet PO 15 mg BEDTIME HERIBERTO Administration Hydroxyzine HCl 25 mg 08/26/20 21:00 Hydroxyzine Hcl 25 Mg Tablet PO BEDTIME MRX1 PRN NIGHT TIME ANXIETY Ibuprofen 600 mg 09/01/20 16:46 09/03/20 00:59 Ibuprofen 600 Mg Tablet PO 600 mg Q6H PRN Administration Pain, Moderate (Pain Scale 4-6 Loperamide HCl 2 mg 08/26/20 00:01 09/18/20 11:36 Loperamide Hcl 2 Mg Capsule PO 2 mg Q2H PRN Administration Diarrhea Magnesium Hydroxide 30 ml 08/26/20 00:01 Milk Of Magnesia 30 Ml Oral.Susp PO Q24H PRN Constipation Olanzapine 10 mg 09/23/20 09:30 10/24/20 08:57 Olanzapine 10 Mg Tablet PO 10 mg BID HERIBERTO Administration Thiamine HCl 100 mg 08/26/20 09:00 10/24/20 08:57 Thiamine Hcl 100 Mg Tablet PO 100 mg DAILY HERBIERTO Administration Topiramate 100 mg 09/16/20 21:00 10/23/20 21:36 Topiramate 25 Mg Tablet PO 100 mg BEDTIME HERIBERTO Administration Trazodone HCl 25 mg 08/26/20 21:00 Trazodone Hcl 25 Mg Halftab PO BEDTIME MRX1 PRN Insomnia Allergies Allergies Allergy/AdvReac Type Severity Reaction Status Date / Time cariprazine [From VRAYLAR] Allergy Unknown UNK Verified 09/09/20 21:32 divalproex sodium Allergy Unknown UNK Verified 09/09/20 21:32 [From DEPAKOTE] escitalopram [From LEXAPRO] Allergy Unknown UNK Verified 09/09/20 21:32 lithium [LITHIUM] Allergy Unknown UNK Verified 09/09/20 21:32 metformin [METFORMIN] Allergy Unknown UNK Verified 09/09/20 21:32 Assessment & Plan Assessment & Plan (1) Developmental delay, moderate: Status: Acute Code(s): R62.50 - Unspecified lack of expected normal physiological development in childhood Assessment and Plan: CT current treatment plan Greater than 50% of the session was spent on counseling and/or coordination of care Patient educated on: diagnosis and medication risk/benefits Informed Consent: does not understand Reason for contiued inpatient stay Substantial Risk for: rapid decompensation
[2020-10-24 19:40] VITALS: BP 115/69; PULSE 95; TEMP 36.4
[2020-10-24] MEDS: Topiramate 25 MG TABLET 100 MG PO (21:08)
[2020-10-24] MEDS: HaloperidoL 5 MG TABLET 15 MG PO (21:08)
[2020-10-25 06:20] VITALS: BP 102/52; PULSE 59; RESP 16; TEMP 35.8
[2020-10-25] MEDS: OLANZapine 10 MG TABLET PO ×2 (08:54→22:13)
[2020-10-25] MEDS: Thiamine HCL 100 MG TABLET PO (08:54)
[2020-10-25] MEDS: Benztropine Mesylate 1 MG TABLET PO ×2 (08:54→22:13)
[2020-10-25] MEDS: Folic Acid 1 MG TABLET PO (08:56)
--- NOTE | 2020-10-25 09:33 | HO.PSYCHPN ---
Subjective Subjective Date of Service: 10/25/20 Reason For Visit: Mood Disorder Unspecified Subjective Notes: 3 Day Interim History: Teresita signed a 3 day notice. She has been in good behavioral control, taking care of herself and she wants to leave the hospital. Medication Compliance: Yes Side effects from medications: No Attending Groups: Intermittent Review of Systems Acute medical concerns: No Medical Review of Systems: unchanged Mental Status Exam Mental Status Exam Patient Appearance: Disheveled Patient Orientation: Person Level of Consciousness: Awake Patient Behavior: Hyperactive, Impulsive and Poor Eye Contact Mood Description: Cheerful Affect Description: Cheerful Ability to Follow Directions: Fair Speech Pattern: Excessive, Loud and Poor Articulation Delusions: Present Thought Process: Goal Oriented Thought Content: positive for Poverty of Content, negative for Suicidal Ideation and negative for Homicidal Ideation Judgement: Poor Judgement and Insight: impaired Diagnostics Vital Signs (24Hr): Vital Signs - 24 hr 10/24/20 19:40 10/25/20 06:20 Temperature 97.5 F 96.5 F L Pulse Rate 95 59 Respiratory Rate 16 Blood Pressure 115/69 102/52 L Body Mass Index 34.7 Labs Results: 10/20/20 09:39 10/20/20 09:39 Medications Medications Current Medications Generic Name Dose Route Start Last Admin Trade Name Freq PRN Reason Stop Dose Admin Acetaminophen 650 mg 08/26/20 00:01 10/20/20 20:32 Acetaminophen 325 Mg Tablet PO 650 mg Q6H PRN Administration HEADACHE/PAIN.MILD (SCALE 1-3) Al Hydroxide/Mg Hydroxide 30 ml 08/26/20 00:01 10/11/20 20:18 Magnesium Hydrox/Alum Hydrox 30 Ml Oral.Susp PO 30 ml Q6H PRN Administration HEARTBURN/NAUSEA Benztropine Mesylate 1 mg 08/26/20 00:01 Benztropine Mesylate 1 Mg Tablet PO Q4H PRN Extrapyramidal Effects Benztropine Mesylate 1 mg 09/22/20 21:00 10/25/20 08:54 Benztropine Mesylate 1 Mg Tablet PO 1 mg BID HERIBERTO Administration Folic Acid 1 mg 08/26/20 09:00 10/25/20 08:56 Folic Acid 1 Mg Tablet PO 1 mg DAILY HERIBERTO Administration Haloperidol 5 mg 08/26/20 00:01 09/18/20 10:11 Haloperidol 5 Mg Tablet PO 5 mg Q4H PRN Administration anxiety/restlessness Haloperidol 15 mg 09/15/20 21:00 10/24/20 21:08 Haloperidol 5 Mg Tablet PO 15 mg BEDTIME HERIBERTO Administration Hydroxyzine HCl 25 mg 08/26/20 21:00 Hydroxyzine Hcl 25 Mg Tablet PO BEDTIME MRX1 PRN NIGHT TIME ANXIETY Ibuprofen 600 mg 09/01/20 16:46 09/03/20 00:59 Ibuprofen 600 Mg Tablet PO 600 mg Q6H PRN Administration Pain, Moderate (Pain Scale 4-6 Loperamide HCl 2 mg 08/26/20 00:01 09/18/20 11:36 Loperamide Hcl 2 Mg Capsule PO 2 mg Q2H PRN Administration Diarrhea Magnesium Hydroxide 30 ml 08/26/20 00:01 Milk Of Magnesia 30 Ml Oral.Susp PO Q24H PRN Constipation Olanzapine 10 mg 09/23/20 09:30 10/25/20 08:54 Olanzapine 10 Mg Tablet PO 10 mg BID HERIBERTO Administration Thiamine HCl 100 mg 08/26/20 09:00 10/25/20 08:54 Thiamine Hcl 100 Mg Tablet PO 100 mg DAILY HERIBERTO Administration Topiramate 100 mg 09/16/20 21:00 10/24/20 21:08 Topiramate 25 Mg Tablet PO 100 mg BEDTIME HERIBERTO Administration Trazodone HCl 25 mg 08/26/20 21:00 Trazodone Hcl 25 Mg Halftab PO BEDTIME MRX1 PRN Insomnia Allergies Allergies Allergy/AdvReac Type Severity Reaction Status Date / Time cariprazine [From VRAYLAR] Allergy Unknown UNK Verified 09/09/20 21:32 divalproex sodium Allergy Unknown UNK Verified 09/09/20 21:32 [From DEPAKOTE] escitalopram [From LEXAPRO] Allergy Unknown UNK Verified 09/09/20 21:32 lithium [LITHIUM] Allergy Unknown UNK Verified 09/09/20 21:32 metformin [METFORMIN] Allergy Unknown UNK Verified 09/09/20 21:32 Assessment & Plan Assessment & Plan (1) Developmental delay, moderate: Status: Acute Code(s): R62.50 - Unspecified lack of expected normal physiological development in childhood Assessment and Plan: CT current plan Greater than 50% of the session was spent on counseling and/or coordination of care Patient educated on: diagnosis and medication risk/benefits Informed Consent: further education needed Reason for contiued inpatient stay Substantial Risk for: rapid decompensation
--- NOTE | 2020-10-25 14:06 | PC.NURSE ---
SUBMITTED 3 DAY NOTICE WHICH IS UP ON 10/28/20; DR VASQUEZ, [employer] DRILLER, VICTOR HUGO AGUIAR, FLEET DIRECTOR AND HEATHER GIBSON NOTIFIED.
[2020-10-25 18:00] VITALS: RESP 16
[2020-10-25] MEDS: HaloperidoL 5 MG TABLET 15 MG PO (22:13)
[2020-10-25] MEDS: Topiramate 25 MG TABLET 100 MG PO (22:13)
[2020-10-26] MEDS: Benztropine Mesylate 1 MG TABLET PO ×2 (08:57→20:21)
[2020-10-26] MEDS: OLANZapine 10 MG TABLET PO ×2 (08:58→20:20)
[2020-10-26] MEDS: Thiamine HCL 100 MG TABLET PO (08:58)
[2020-10-26] MEDS: Folic Acid 1 MG TABLET PO (08:58)
--- NOTE | 2020-10-26 09:32 | P.PNPSI_ITS ---
Subjective Subjective Date of Service: 10/26/20 Reason For Visit: Mood Disorder Unspecified Subjective Notes: 3 Day Interim History: Teresita has continued to be in good behavioral control. She takes care of her day to day needs and she is not forwarding any psychotic t hought. She has a 3 day notice in and SW is working with DDS regarding plans. Medication Compliance: Yes Side effects from medications: No Attending Groups: Intermittent Review of Systems Acute medical concerns: No Medical Review of Systems: unchanged Mental Status Exam Mental Status Exam Patient Appearance: Disheveled Patient Orientation: Person Level of Consciousness: Awake Patient Behavior: Hyperactive, Impulsive and Poor Eye Contact Mood Description: Cheerful Affect Description: Cheerful Ability to Follow Directions: Fair Speech Pattern: Excessive, Loud and Poor Articulation Delusions: Present Thought Process: Goal Oriented Thought Content: positive for Poverty of Content, negative for Suicidal Ideation and negative for Homicidal Ideation Judgement: Poor Judgement and Insight: impaired Diagnostics Vital Signs (24Hr): Vital Signs - 24 hr 10/25/20 18:00 Respiratory Rate 16 Body Mass Index 34.7 Labs Results: 10/20/20 09:39 10/20/20 09:39 Medications Medications Current Medications Generic Name Dose Route Start Last Admin Trade Name Freq PRN Reason Stop Dose Admin Acetaminophen 650 mg 08/26/20 00:01 10/20/20 20:32 Acetaminophen 325 Mg Tablet PO 650 mg Q6H PRN Administration HEADACHE/PAIN.MILD (SCALE 1-3) Al Hydroxide/Mg Hydroxide 30 ml 08/26/20 00:01 10/11/20 20:18 Magnesium Hydrox/Alum Hydrox 30 Ml Oral.Susp PO 30 ml Q6H PRN Administration HEARTBURN/NAUSEA Benztropine Mesylate 1 mg 08/26/20 00:01 Benztropine Mesylate 1 Mg Tablet PO Q4H PRN Extrapyramidal Effects Benztropine Mesylate 1 mg 09/22/20 21:00 10/26/20 08:57 Benztropine Mesylate 1 Mg Tablet PO 1 mg BID HERIBERTO Administration Folic Acid 1 mg 08/26/20 09:00 10/26/20 08:58 Folic Acid 1 Mg Tablet PO 1 mg DAILY HERIBERTO Administration Haloperidol 5 mg 08/26/20 00:01 09/18/20 10:11 Haloperidol 5 Mg Tablet PO 5 mg Q4H PRN Administration anxiety/restlessness Haloperidol 15 mg 09/15/20 21:00 10/25/20 22:13 Haloperidol 5 Mg Tablet PO 15 mg BEDTIME HERIBERTO Administration Hydroxyzine HCl 25 mg 08/26/20 21:00 Hydroxyzine Hcl 25 Mg Tablet PO BEDTIME MRX1 PRN NIGHT TIME ANXIETY Ibuprofen 600 mg 09/01/20 16:46 09/03/20 00:59 Ibuprofen 600 Mg Tablet PO 600 mg Q6H PRN Administration Pain, Moderate (Pain Scale 4-6 Loperamide HCl 2 mg 08/26/20 00:01 09/18/20 11:36 Loperamide Hcl 2 Mg Capsule PO 2 mg Q2H PRN Administration Diarrhea Magnesium Hydroxide 30 ml 08/26/20 00:01 Milk Of Magnesia 30 Ml Oral.Susp PO Q24H PRN Constipation Olanzapine 10 mg 09/23/20 09:30 10/26/20 08:58 Olanzapine 10 Mg Tablet PO 10 mg BID HERIBERTO Administration Thiamine HCl 100 mg 08/26/20 09:00 10/26/20 08:58 Thiamine Hcl 100 Mg Tablet PO 100 mg DAILY HERIBERTO Administration Topiramate 100 mg 09/16/20 21:00 10/25/20 22:13 Topiramate 25 Mg Tablet PO 100 mg BEDTIME HERIBERTO Administration Trazodone HCl 25 mg 08/26/20 21:00 Trazodone Hcl 25 Mg Halftab PO BEDTIME MRX1 PRN Insomnia Allergies Allergies Allergy/AdvReac Type Severity Reaction Status Date / Time cariprazine [From VRAYLAR] Allergy Unknown UNK Verified 09/09/20 21:32 divalproex sodium Allergy Unknown UNK Verified 09/09/20 21:32 [From DEPAKOTE] escitalopram [From LEXAPRO] Allergy Unknown UNK Verified 09/09/20 21:32 lithium [LITHIUM] Allergy Unknown UNK Verified 09/09/20 21:32 metformin [METFORMIN] Allergy Unknown UNK Verified 09/09/20 21:32 Assessment & Plan Assessment & Plan (1) Developmental delay, moderate: Status: Acute Code(s): R62.50 - Unspecified lack of expected normal physiological development in childhood Assessment and Plan: CT current treatment plan Greater than 50% of the session was spent on counseling and/or coordination of care Patient educated on: diagnosis and medication risk/benefits Informed Consent: further education needed Reason for contiued inpatient stay Substantial Risk for: rapid decompensation
[2020-10-26 10:00] VITALS: BP 116/55; PULSE 88; TEMP 36.8; O2SAT 97
[2020-10-26 18:00] VITALS: BP 125/85; PULSE 91; TEMP 36.8
[2020-10-26] MEDS: HaloperidoL 5 MG TABLET 15 MG PO (20:21)
[2020-10-26] MEDS: Topiramate 25 MG TABLET 100 MG PO (20:21)
[2020-10-27 06:00] VITALS: BP 113/59; PULSE 65; RESP 18; TEMP 36.4; O2SAT 97
[2020-10-27] MEDS: OLANZapine 10 MG TABLET PO ×2 (08:37→21:52)
[2020-10-27] MEDS: Folic Acid 1 MG TABLET PO (08:37)
[2020-10-27] MEDS: Benztropine Mesylate 1 MG TABLET PO ×2 (08:38→21:53)
[2020-10-27] MEDS: Thiamine HCL 100 MG TABLET PO (08:38)
--- NOTE | 2020-10-27 09:34 | HO.PSYCHPN ---
Subjective Subjective Date of Service: 10/27/20 Reason For Visit: Mood Disorder Unspecified Subjective Notes: Conditional Voluntary Interim History: Teresita was aware that she is going home tomorrow and she is looking forward to it Medication Compliance: Yes Side effects from medications: No Attending Groups: Intermittent Review of Systems Acute medical concerns: No Medical Review of Systems: unchanged Mental Status Exam Mental Status Exam Patient Appearance: Disheveled Patient Orientation: Person Level of Consciousness: Awake Patient Behavior: Hyperactive, Impulsive and Poor Eye Contact Mood Description: Cheerful Affect Description: Cheerful Ability to Follow Directions: Fair Speech Pattern: Excessive, Loud and Poor Articulation Delusions: Present Thought Process: Goal Oriented Thought Content: positive for Poverty of Content, negative for Suicidal Ideation and negative for Homicidal Ideation Judgement: Poor Judgement and Insight: impaired Diagnostics Vital Signs (24Hr): Vital Signs - 24 hr 10/26/20 10:00 10/26/20 18:00 10/27/20 06:00 Temperature 98.3 F 98.2 F 97.5 F Pulse Rate 88 91 65 Respiratory Rate 18 Blood Pressure 116/55 L 125/85 113/59 L Pulse Oximetry 97 97 Body Mass Index 34.7 Labs Results: 10/20/20 09:39 10/20/20 09:39 Medications Medications Current Medications Generic Name Dose Route Start Last Admin Trade Name Freq PRN Reason Stop Dose Admin Acetaminophen 650 mg 08/26/20 00:01 10/20/20 20:32 Acetaminophen 325 Mg Tablet PO 650 mg Q6H PRN Administration HEADACHE/PAIN.MILD (SCALE 1-3) Al Hydroxide/Mg Hydroxide 30 ml 08/26/20 00:01 10/11/20 20:18 Magnesium Hydrox/Alum Hydrox 30 Ml Oral.Susp PO 30 ml Q6H PRN Administration HEARTBURN/NAUSEA Benztropine Mesylate 1 mg 08/26/20 00:01 Benztropine Mesylate 1 Mg Tablet PO Q4H PRN Extrapyramidal Effects Benztropine Mesylate 1 mg 09/22/20 21:00 10/27/20 08:38 Benztropine Mesylate 1 Mg Tablet PO 1 mg BID HERIBERTO Administration Folic Acid 1 mg 08/26/20 09:00 10/27/20 08:37 Folic Acid 1 Mg Tablet PO 1 mg DAILY HERIBERTO Administration Haloperidol 5 mg 08/26/20 00:01 09/18/20 10:11 Haloperidol 5 Mg Tablet PO 5 mg Q4H PRN Administration anxiety/restlessness Haloperidol 15 mg 09/15/20 21:00 10/26/20 20:21 Haloperidol 5 Mg Tablet PO 15 mg BEDTIME HERIBERTO Administration Hydroxyzine HCl 25 mg 08/26/20 21:00 Hydroxyzine Hcl 25 Mg Tablet PO BEDTIME MRX1 PRN NIGHT TIME ANXIETY Ibuprofen 600 mg 09/01/20 16:46 09/03/20 00:59 Ibuprofen 600 Mg Tablet PO 600 mg Q6H PRN Administration Pain, Moderate (Pain Scale 4-6 Loperamide HCl 2 mg 08/26/20 00:01 09/18/20 11:36 Loperamide Hcl 2 Mg Capsule PO 2 mg Q2H PRN Administration Diarrhea Magnesium Hydroxide 30 ml 08/26/20 00:01 Milk Of Magnesia 30 Ml Oral.Susp PO Q24H PRN Constipation Olanzapine 10 mg 09/23/20 09:30 10/27/20 08:37 Olanzapine 10 Mg Tablet PO 10 mg BID HERIBERTO Administration Thiamine HCl 100 mg 08/26/20 09:00 10/27/20 08:38 Thiamine Hcl 100 Mg Tablet PO 100 mg DAILY HERIBERTO Administration Topiramate 100 mg 09/16/20 21:00 10/26/20 20:21 Topiramate 25 Mg Tablet PO 100 mg BEDTIME HERIBERTO Administration Trazodone HCl 25 mg 08/26/20 21:00 Trazodone Hcl 25 Mg Halftab PO BEDTIME MRX1 PRN Insomnia Allergies Allergies Allergy/AdvReac Type Severity Reaction Status Date / Time cariprazine [From VRAYLAR] Allergy Unknown UNK Verified 09/09/20 21:32 divalproex sodium Allergy Unknown UNK Verified 09/09/20 21:32 [From DEPAKOTE] escitalopram [From LEXAPRO] Allergy Unknown UNK Verified 09/09/20 21:32 lithium [LITHIUM] Allergy Unknown UNK Verified 09/09/20 21:32 metformin [METFORMIN] Allergy Unknown UNK Verified 09/09/20 21:32 Assessment & Plan Assessment & Plan (1) Developmental delay, moderate: Status: Acute Code(s): R62.50 - Unspecified lack of expected normal physiological development in childhood Assessment and Plan: CT current treatment plan DC in am Greater than 50% of the session was spent on counseling and/or coordination of care
[2020-10-27 18:00] VITALS: BP 110/70; PULSE 89; TEMP 36.8
[2020-10-27] MEDS: HaloperidoL 5 MG TABLET 15 MG PO (21:52)
[2020-10-27] MEDS: Topiramate 25 MG TABLET 100 MG PO (21:53)
[2020-10-28 06:35] VITALS: BP 96/50; PULSE 84; RESP 16; TEMP 36.6; O2SAT 98
--- NOTE | 2020-10-28 09:29 | P.DS_ITS ---
DS: Providers Provider Date of admission: 08/05/20 14:07 Date of discharge: 10/28/20 Primary care physician: Unknown Physician Attending physician on admission: Lourdes Chaney Consults: 08/25/20 05:25 Consult to Neurology Routine Consulting Provider: Lourdes Chaney Reason for consultation: Sudden bursts of aggression that are new. Eval for ?new onset neuro condt 09/22/20 11:31 Consult to Neurology Routine Consulting Provider: [facility] Reason for consultation: Developmental disabilty, odd gait and movements. Samara nge to premorbid status Attending physician on discharge: Lourdes Chaney DS: Diagnosis Discharge Diagnosis (1) Developmental delay, moderate: Status: Acute DS: Medications Discharge Medications Home Medications: Previous Rx's Medication Instructions Recorded benztropine 1 mg PO BID #60 tab 10/27/20 folic acid 1 mg PO DAILY #30 tab 10/27/20 haloperidol 5 mg PO BEDTIME #30 tab 10/27/20 haloperidol 10 mg PO BEDTIME #30 tab 10/27/20 olanzapine 10 mg PO BID #60 tab 10/27/20 thiamine HCl (vitamin B1) 100 mg PO DAILY #30 tab 10/27/20 topiramate 100 mg PO BEDTIME #30 tab 10/27/20 Discharge Plan Discharge Patient Disposition: Home, Self-Care Referrals: Caroline Chen (psychiatrist) [Other] - 11/02/20 4:00 pm (Telehealth appointment) Bre Salamanca (therapist) [Other] - 11/06/20 9:00 am (Telehealth appointment) Shahnaz Ward ([facility]) [Other] (personnel arbitrator to coordinate admission to supported apartment. Please email or fax copy of certificate, social security card, and insurance card. Goal for apartment to be available by 11/25/20, but [facility] and [facility] will be in touch regarding timeline) Physician,Unknown [Primary Care Provider] - Discharge Medications: New benztropine 1 mg Tablet 1 mg PO BID Qty: 60 RF: 0 haloperidol 5 mg tablet 5 mg PO BEDTIME Qty: 30 RF: 0 olanzapine 10 mg Tablet 10 mg PO BID Qty: 60 RF: 0 topiramate 100 mg tablet 100 mg PO BEDTIME Qty: 30 RF: 0 thiamine HCl (vitamin B1) 100 mg Tablet 100 mg PO DAILY Qty: 30 RF: 0 folic acid 1 mg Tablet 1 mg PO DAILY Qty: 30 RF: 0 haloperidol 10 mg tablet 10 mg PO BEDTIME Qty: 30 RF: 0 Discontinued trazodone 50 mg Tablet 25 - 50 mg PO BEDTIME RF: 0 clonazepam 0.5 mg Tablet 0.5 mg PO BID PRN (Reason: ANXIETY/RESTLESSNESS) RF: 0 propranolol 10 mg Tablet 10 mg PO BID RF: 0 gabapentin 300 mg Capsule 300 mg PO BEDTIME RF: 0 folic acid 1 mg Tablet 1 mg PO DAILY RF: 0 norethindrone (contraceptive) [Ortho Micronor] 0.35 mg Tablet 0.35 mg PO DAILY RF: 0 aripiprazole 30 mg Tablet 30 mg PO DAILY RF: 0 thiamine mononitrate (vit B1) 100 mg Tablet 100 mg PO DAILY RF: 0 topiramate 25 mg Tablet 75 mg PO BEDTIME RF: 0 Discharge Orders: Discharge Order (Routine); Ordered 10/28/20 Ordered By: Lourdes Chaney Diet: advance to usual diet Activity on Discharge: As tolerated Stand Alone Forms: Community Support Discharge Date/Time: 10/28/20 13:33 Visit Report Forms: Patient Portal Discharge page Care Plan Goals: Maintain behavioral control Health Concerns: Agitation and psychosis Plan of Treatment: Stay on your medications Mental Status Exam Mental Status Exam Patient Appearance: Disheveled Patient Orientation: Person Level of Consciousness: Awake Patient Behavior: Hyperactive, Impulsive and Poor Eye Contact Mood Description: Cheerful Affect Description: Cheerful Ability to Follow Directions: Fair Speech Pattern: Excessive, Loud and Poor Articulation Delusions: Present Thought Process: Goal Oriented Thought Content: positive for Poverty of Content, negative for Suicidal Ideation and negative for Homicidal Ideation Judgement: Poor Judgement and Insight: impaired DS: Summary Hospital Course Hospital Course: 35 year old woman who was referred for admission due to an increase in agitation. She had been at [facility] since she was not able to manage at home. She had been having increasing difficulty over the last several months and her mother was not able to manage her in the home. There are reports that her mother had been inconsistent with her medication. 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 When Teresita was first on the unit she was very agitated and combative. She needed restraints on one occasion due to her behaviors. Neurology was consulted but did not feel that there was any acute neurological change She had a history of having done well on trilpetal and so this was re- instituted. Initially it seemed helpful, but over time Teresita became more and more agitated. She was delusional about getting and was waiting for her fiance to come and get her. She spent almost all of her time in her room m asturbating. Trileptal was stopped and she was started on zyprexa and haloperidol. Over time she improved. Her delusional thinking diminsihed, and she became more able to take care of herself. She was in good behavioral control and she was able to interact with her peers. There was much concern about her housing. Her mother had said she could not manage her at home. RAFAEL worked with D[facility] who are making efforts to get a care home established for Teresita. Teresita did put in a 3 day notice. She was at her baseline and did not meet standard for involuntary stay. She was DC temporarily with her mother, who would continue to work with DDS toward a more [facility] housing solution. Status at Discharge Functional status at discharge: independent ambulation Overall status at discharge: patient is back to baseline Time Spent with Patient Time attestation: Total time spent providing and/or coordinating discharge services:
[2020-10-28] MEDS: Folic Acid 1 MG TABLET PO (09:33)
[2020-10-28] MEDS: OLANZapine 10 MG TABLET PO (09:34)
[2020-10-28] MEDS: Thiamine HCL 100 MG TABLET PO (09:34)
[2020-10-28] MEDS: Benztropine Mesylate 1 MG TABLET PO (09:34)
== END 2020-10-28 13:33 | disposition home or self-care (01) | DRG 886 ==
PROVIDERS: Psychiatry & Neurology Psychiatry; Admitting Provider Psychiatry & Neurology Psychiatry; Emergency Provider Physician Assistant; Visit Provider Psychiatry & Neurology Psychiatry
DX: F63.9 Impulse disorder, unspecified (principal); R44.3 Hallucinations, unspecified; R45.86 Emotional lability; R62.50 Unspecified lack of expected normal physiological development in childhood; G09 Sequelae of inflammatory diseases of central nervous system; Z20.828 Contact with and (suspected) exposure to other viral communicable diseases; Z59.0 Homelessness; Z79.84 Long term (current) use of oral hypoglycemic drugs; Z79.899 Other long term (current) drug therapy
CPT/HCPCS: 36415; 70450; 73610; 73630; 80048; 80051; 80053; 80061; 80076; 80307; 80320; 81001; 81025; 82040; 82140; 82247; 82465; 82550; 82565; 82607; 82746; 82947; 82977; 83036; 83615; 83735; 84075; 84100; 84155; 84450; 84460; 84478; 84520; 84550; 85025; 85027; 85652; 86780; 87635; 96360; 99231; 99232; 99233; 99285; J0515; J2060; U0003

== ENCOUNTER 2022-10-11 15:04 | Emergency (ER) | payer OTHER, SELFPAY ==
[2022-10-11] VITALS (9 sets, daily range): RESP 16–24; BMI 29.0
--- NOTE | 2022-10-11 15:19 | ED_ITS ---
HPI - General Adult General Chief complaint: Psychiatric Symptoms <GEN Pate - Last Filed: 10/11/22 18:00> Stated complaint: SEC 12, SI/HI, UNCOOPERATIVE PER EMS <GEN Pate - Last Filed: 10/11/22 18:00> Time Seen by Provider: 10/11/22 15:15 <GEN Pate - Last Filed: 10/11/22 18:00> Source: patient <GNE Pate - Last Filed: 10/11/22 18:00> Mode of arrival: ambulatory <GEN Pate - Last Filed: 10/11/22 18:00> Limitations: no limitations <GEN Pate - Last Filed: 10/11/22 18:00> History of Present Illness HPI narrative: Patient is a 37 year old assigned female at with a history of developmental delay and a mood disorder presenting to the emergency department today with aggression and being sexually explicit. [facility] staff states that the patient is being aggressive towards them and masturbating publicly in multiple areas of the house. EMS states that the patient attempted to jump out of the ambulance multiple times and had to be restrained. <GEN Pate - Last Filed: 10/11/22 18:00> Onset (ago): hour(s) <GEN Pate - Last Filed: 10/11/22 18:00> Severity: severe <GEN Pate - Last Filed: 10/11/22 18:00> Severity scale (1-10): 10 <GEN Pate - Last Filed: 10/11/22 18:00> Relieving factors: none <GEN Pate - Last Filed: 10/11/22 18:00> Exacerbating factors: none <GEN Pate - Last Filed: 10/11/22 18:00> Treatments prior to arrival: none <GEN Pate - Last Filed: 10/11/22 18:00> Related Data Home medications: Previous Rx's Medication Instructions Recorded folic acid 1 mg tablet 1 mg PO DAILY #30 tabs 10/27/20 olanzapine 10 mg tablet 10 mg PO BID #60 tabs 10/27/20 thiamine HCl (vitamin B1) 100 mg 100 mg PO DAILY #30 tabs 10/27/20 tablet benztropine 0.5 mg tablet 1 mg PO BID #60 tabs 10/12/22 olanzapine 10 mg tablet 10 mg PO BID #60 tabs 10/12/22 olanzapine 5 mg tablet 5 mg PO TID PRN agitation #90 tabs 10/12/22 trazodone 100 mg tablet 100 mg PO BEDTIME #30 tabs 10/12/22 <GEN Pate Last Filed: 10/11/22 18:00> Allergies/adverse reactions: Allergies Allergy/AdvReac Type Severity Reaction Status Date / Time cariprazine [From VRAYLAR] Allergy Unknown UNK Verified 09/09/20 21:32 divalproex sodium Allergy Unknown UNK Verified 09/09/20 21:32 [From DEPAKOTE] escitalopram [From LEXAPRO] Allergy Unknown UNK Verified 09/09/20 21:32 lithium [LITHIUM] Allergy Unknown UNK Verified 09/09/20 21:32 metformin [METFORMIN] Allergy Unknown UNK Verified 09/09/20 21:32 <GEN Pate - Last Filed: 10/11/22 18:00> Review of Systems Review of Systems: Yes Other (patient is having an acute psychotic episode, cannot answer ROS) <GEN Pate Last Filed: 10/11/22 18:00> Constitutional: Constitutional: Reports no additional constitutional complaints, Denies chills, Denies fever(s) and Denies night sweats <GEN Pate Last Filed: 10/11/22 18:00> Eyes: Eyes: Reports no additional eye complaints, Denies blurry vision, Denies change in vision, Denies diplopia, Denies eye discharge, Denies loss of vision and Denies eye pain <GEN Pate Last Filed: 10/11/22 18:00> ENT: Denies dizziness <GEN Pate Last Filed: 10/11/22 18:00> Cardiovascular: Cardiovascular: Reports no additional cardiovascular complaints, Denies chest pain, Denies lightheadedness, Denies Loss of Consciousness and Denies dyspnea <GEN Pate Last Filed: 10/11 18:00> Respiratory: Respiratory: Reports no additional respiratory complaints and Denies dyspnea <GEN Pate - Last Filed: 10/11/22 18:00> Gastrointestinal: Gastrointestinal: Reports no additional gastrointestinal complaints, Denies abdominal pain, Denies melena, Denies hematochezia, Denies change in bowel habits and Denies change in stool character <GEN Pate - Last Filed: 10/11/22 18:00> Genitourinary: Genitourinary: Denies hematuria, Denies urinary frequency, Denies dysuria, Denies urinary incontinence, Denies urinary hesitancy and Denies urinary urgency <GEN Pate - Last Filed: 10/11/22 18:00> Musculoskeletal: Musculoskeletal: Reports no additional musculoskeletal complaints, Denies numbness and Denies tingling <GEN Pate - Last Filed: 10/11/22 18:00> Neurologic: Denies dizziness, Denies loss of vision, Denies numbness and Denies tingling <GEN Pate - Last Filed: 10/11/22 18:00> Psychiatric: Psychiatric: Reports no additional psychiatric complaints <GEN Pate - Last Filed: 10/11/22 18:00> Endocrine: Endocrine: Reports no additional endocrine complaints <GEN Pate - Last Filed: 10/11/22 18:00> Hematologic/Lymphatic: Hematologic/Lymphatic: Reports no additional hematologic/lymphatic complaints <GEN Pate Last Filed: 10/11/22 18:00> Allergic/Immunologic: Allergic/Immunologic: Reports no additional allergic/immunologic complaints <GEN Pate - Last Filed: 10/11/22 18:00> [facility] Past Medical History Attestation statement: The following information was validated with the patient. <GEN Pate - Last Filed: 10/11/22 18:00> Source: old records reviewed <GEN Pate - Last Filed: 10/11/22 18:00> Social History Social History: Social History Alcohol intake: unknown Smoked in Last 30 Days: No Use of substances other than those prescribed or required for medical reasons: Unknown Advance Directives: Yes Advance Directives on File: Yes Advance Directives Date on File: 11/01/20 <GEN Pate - Last Filed: 10/11/22 18:00> Physical Exam ED Vital Signs: Vital Signs - 24 hr 10/11/22 16:00 10/11/22 15:45 10/11/22 16:15 Temperature Pulse Rate Respiratory Rate 18 18 18 Blood Pressure Pulse Oximetry Oxygen Delivery Method 10/11/22 16:30 10/11/22 16:45 10/11/22 17:00 Temperature Pulse Rate Respiratory Rate 18 18 16 Blood Pressure Pulse Oximetry Oxygen Delivery Method 10/12/22 01:20 Temperature 98.1 F Pulse Rate 74 Respiratory Rate 16 Blood Pressure 104/60 Pulse Oximetry 94 Oxygen Delivery Method Room Air BMI result Body Mass Index 29.0 <GEN Pate - Last Filed: 10/11/22 18:00> Vital Signs - 24 hr 10/11/22 16:00 10/11/22 15:45 10/11/22 16:15 Temperature Pulse Rate Respiratory Rate 18 18 18 Blood Pressure Pulse Oximetry Oxygen Delivery Method 10/11/22 16:30 10/11/22 16:45 10/11/22 17:00 Temperature Pulse Rate Respiratory Rate 18 18 16 Blood Pressure Pulse Oximetry Oxygen Delivery Method 10/12/22 01:20 Temperature 98.1 F Pulse Rate 74 Respiratory Rate 16 Blood Pressure 104/60 Pulse Oximetry 94 Oxygen Delivery Method Room Air BMI result Body Mass Index 29.0 <GEN Sexton - Last Filed: 10/11/22 19:04> Vital Signs - 24 hr 10/11/22 16:00 10/11/22 15:45 10/11/22 16:15 Temperature Pulse Rate Respiratory Rate 18 18 18 Blood Pressure Pulse Oximetry Oxygen Delivery Method 10/11/22 16:30 10/11/22 16:45 10/11/22 17:00 Temperature Pulse Rate Respiratory Rate 18 18 16 Blood Pressure Pulse Oximetry Oxygen Delivery Method 10/12/22 01:20 Temperature 98.1 F Pulse Rate 74 Respiratory Rate 16 Blood Pressure 104/60 Pulse Oximetry 94 Oxygen Delivery Method Room Air BMI result Body Mass Index 29.0 <Germán Pettit MD - Last Filed: 10/12/22 15:36> Const General: alert, awake and combative <GEN Pate - Last Filed: 10/11/22 18:00> Nutritional Appearance: well nourished <GEN Pate - Last Filed: 10/11/22 18:00> Orientation/consciousness: oriented to person and oriented to place <Marilyn David FL - Last Filed: 10/11/22 18:00> Limitations: no limitations <Marilyn Hsiehadia FL - Last Filed: 10/11/22 18:00> HENMT Head: Yes normal to inspection and Yes atraumatic <Marilyn Hsiehadia FL - Last Filed: 10/11/22 18:00> Ears: hearing grossly normal bilaterally and external ears normal <Marilyn Hsiehadia FL - Last Filed: 10/11/22 18:00> General nose exam: Normal external nose present, no nasal discharge noted and no epistaxis <Marilyn David FL - Last Filed: 10/11/22 18:00> Face and sinus: Yes normal facial exam, No abrasion and No laceration <Marilyn Hsiehadia FL - Last Filed: 10/11/22 18:00> Mouth: Normal oral and palatal mucosa present, no drooling and no muffled voice <Marilyn David FL - Last Filed: 10/11/22 18:00> Eyes General: appearance normal, both eyes and all related structures <Marilyn Hsiehadia FL - Last Filed: 10/11/22 18:00> Periorbital: periorbital findings normal <Marilyn Hsiehadia FL - Last Filed: 10/11/22 18:00> Eyelids: Yes eyelids normal <Marilyn Hsiehadia FL - Last Filed: 10/11/22 18:00> Conjunctivae: conjunctivae normal <Marilyn David FL - Last Filed: 10/11/22 18:00> Pupils: Equal, round and reactive pupils present <Marilyn David FL - Last Filed: 10/11/22 18:00> EOM: EOMs intact bilaterally <Marilyn David FL - Last Filed: 10/11/22 18:00> Neck Neck: Yes normal visual inspection, Yes full ROM and Yes no lymphadenopathy <Marilyn David FL - Last Filed: 10/11/22 18:00> Chest Chest palpation & inspection: normal inspection of the chest <Marilyn Hernandez FL - Last Filed: 10/11/22 18:00> Resp Effort & Inspection: normal respiratory effort and able to speak in complete sentences <Marilynfifi HsiehGEN cheek - Last Filed: 10/11/22 18:00> Auscultation: clear to auscultation bilaterally <Marilyn HsiehGEN cheek - Last Filed: 10/11/22 18:00> Cardio Rate: regular rate <Marilyn HsiehGEN cheek - Last Filed: 10/11/22 18:00> Rhythm: regular rhythm <Marilyn HsiehGEN cheek - Last Filed: 10/11/22 18:00> GI Inspection: Yes normal to inspection <Marilyn Hsiehadia PA - Last Filed: 10/11/22 18:00> Neuro General: oriented to person, oriented to place and moves all extremities <Marilyn HsiehGEN cheek - Last Filed: 10/11/22 18:00> Cranial nerves: Yes Equal, round and reactive pupils present <Marilyn HsiehGEN cheek - Last Filed: 10/11/22 18:00> Cognition (Neuro): normal cognition <Marilyn GEN Hernandez - Last Filed: 10/11/22 18:00> Motor exam (neuro): 5/5 motor strength present throughout <Marilyn HsiehGEN cheek - Last Filed: 10/11/22 18:00> Sensory Exam: Normal double simultaneous stimulation for sensation <Marilyn GEN Hernandez - Last Filed: 10/11/22 18:00> Coordination: [id number] test normal <Marilyn HsiehGEN cheek - Last Filed: 10/11/22 18:00> Extrem General: Yes normal to inspection, Yes full ROM and Yes capillary refill normal <Marilyn GEN Hernandez - Last Filed: 10/11/22 18:00> Psych Appearance: disheveled <GEN Pate - Last Filed: 10/11/22 18:00> Affect: Hostile affect present <GEN Pate - Last Filed: 10/11/22 18:00> Attitude: Belligerent attititude/behavior present <GEN Pate - Last Filed: 10/11/22 18:00> Thought process: Confabulating thought process present <GEN Pate - Last Filed: 10/11/22 18:00> Thought content: Derealization present <GEN Pate - Last Filed: 10/11/22 18:00> Insight: Poor insight present (Psych) <GEN Pate - Last Filed: 10/11/22 18:00> Judgement: Poor judgement present (Psych) <GEN Pate - Last Filed: 10/11/22 18:00> Course Course Course Narrative: 1535: End physician observation: The patient was evaluated by our crisis team as well as by the psychiatric nurse practitioner Kaylah Randolph. The patient's medications will be adjusted and the patient can be transferred back to her custodial. <Germán Pettit MD - Last Filed: 10/12/22 15:36> Reevaluation(s) Reevaluation #1: CBC appears to be around patient's baseline. Chemistry with no acute fin dings requiring intervention. Salicylates, acetaminophen, ethanol negative. COVID negative. At this time patient will be placed in physician observation to allow more time to be evaluated by the behavioral health team. At time observation was started patient out of four-point restraints, cooperative no acute distress. <GEN Sexton - Last Filed: 10/11/22 19:04> Time: 19:04 <GEN Sexton - Last Filed: 10/11/22 19:04> Medications Administered Generic Name Dose Route Start Last Admin Trade Name Freq PRN Reason Stop Dose Admin Benztropine Mesylate 0.5 mg 10/12/22 09:00 10/12/22 09:03 Benztropine Mesylate 0.5 Mg Tablet PO 0.5 mg BID HERIBERTO Administration Discontinued Medications Generic Name Dose Route Start Last Admin Trade Name Freq PRN Reason Stop Dose Admin Diphenhydramine HCl 50 mg 10/11/22 15:15 10/11/22 15:43 Diphenhydramine Hcl 50 Mg/Ml Vial IM 10/11/22 15:16 50 mg ONCE ONE Administration Haloperidol Lactate 5 mg 10/11/22 15:15 10/11/22 15:43 Haloperidol Lactate 5 Mg/Ml Vial IM 10/11/22 15:16 5 mg ONCE ONE Administration <GEN Pate - Last Filed: 10/11/22 18:00> Medications Administered Generic Name Dose Route Start Last Admin Trade Name Freq PRN Reason Stop Dose Admin Benztropine Mesylate 0.5 mg 10/12/22 09:00 10/12/22 09:03 Benztropine Mesylate 0.5 Mg Tablet PO 0.5 mg BID HERIBERTO Administration Discontinued Medications Generic Name Dose Route Start Last Admin Trade Name Freq PRN Reason Stop Dose Admin Diphenhydramine HCl 50 mg 10/11/22 15:15 10/11/22 15:43 Diphenhydramine Hcl 50 Mg/Ml Vial IM 10/11/22 15:16 50 mg ONCE ONE Administration Haloperidol Lactate 5 mg 10/11/22 15:15 10/11/22 15:43 Haloperidol Lactate 5 Mg/Ml Vial IM 10/11/22 15:16 5 mg ONCE ONE Administration <GEN Sexton - Last Filed: 10/11/22 19:04> Medications Administered Generic Name Dose Route Start Last Admin Trade Name Freq PRN Reason Stop Dose Admin Benztropine Mesylate 0.5 mg 10/12/22 09:00 10/12/22 09:03 Benztropine Mesylate 0.5 Mg Tablet PO 0.5 mg BID HERIBERTO Administration Discontinued Medications Generic Name Dose Route Start Last Admin Trade Name Freq PRN Reason Stop Dose Admin Diphenhydramine HCl 50 mg 10/11/22 15:15 10/11/22 15:43 Diphenhydramine Hcl 50 Mg/Ml Vial IM 10/11/22 15:16 50 mg ONCE ONE Administration Haloperidol Lactate 5 mg 10/11/22 15:15 10/11/22 15:43 Haloperidol Lactate 5 Mg/Ml Vial IM 10/11/22 15:16 5 mg ONCE ONE Administration <Germán Pettit MD - Last Filed: 10/12/22 15:36> Medical Decision Making [facility] Narrative Medical decision making narrative: Patient is a 37 year old assigned female at with a history of developmental delay and a mood disorder presenting to the emergency department today with aggression. Patient's physical exam showed an individual in an acute psychotic episode. Patient was placed in physical restraints and medically restrained. Lab work is pending. Patient to be evaluated by Samantha. Patient signed out to Chyna CABALLERO. <GEN Pate - Last Filed: 10/11/22 18:00> Medical Records Medical records reviewed: Yes I reviewed the patient's medical records. <GEN Pate - Last Filed: 10/11/22 18:00> Lab Data Result diagrams: : 10/11/22 17:56 10/11/22 17:56 <GEN Pate - Last Filed: 10/11/22 18:00> Labs: Lab Results 10/11/22 10/11/22 10/11/22 Range/Units 17:46 17:56 17:56 WBC 8.0 (4.8-10.8) X10*3/uL RBC 4.05 L (4.20-5.50) X10*6/uL Hgb 11.5 L (12.0-16.0) g/dl Hct 34.7 L (37.0-47.0) % MCV 85.7 (80.0-98.0) fL MCH 28.4 (27.0-33.0) pg MCHC 33.1 (31.0-35.0) g/dl RDW 13.3 (11.0-16.0) % Plt Count 300 (160-400) X10*3/uL MPV 10.2 (9.4-12.3) fL Immature Gran % (Auto) 0.1 (0.0-0.4) % Neut % (Auto) 53.0 (45-73) % Lymph % (Auto) 39.4 (20-40) % Wilkin % (Auto) 5.6 (2-11) % Eos % (Auto) 0.9 (0-4) % Baso % (Auto) 1.0 (0-2) % Lymph # (Auto) 3.2 (1.2-4.9) X10*3/uL Wilkin # (Auto) 0.5 (0.1-1.2) X10*3/uL Eos # (Auto) 0.1 (0.0-0.4) X10*3/uL Baso # (Auto) 0.1 (0.0-0.2) X10*3/uL Abs Immat Gran (auto) 0.01 (0.00-0.03) X10*3/uL Absolute Neuts (auto) 4.3 (2.0-8.3) x10*3/uL Absolute Nucleated RBC 0.000 (0.0-0.012) X10*3/uL Nucleated RBC % (auto) 0.0 (0.0-0.2) /100WBC Sodium 138 (135-145) mmol/L Potassium 4.2 (3.3-5.1) mmol/L Chloride 105 (96-108) mmol/L Carbon Dioxide 26 (22-29) mmol/L Anion Gap 11 L (12-20) BUN 13 (9-16) mg/dL Creatinine 0.74 (0.5-1.4) mg/dL Estim Creat Clear Calc 113.1 Estimated GFR > 60 Random Glucose 85 (60-115) mg/dL Calcium 9.0 (8.4-10.2) mg/dL Total Bilirubin 0.2 (0.0-1.0) mg/dL AST 20 D (5-31) U/L ALT 11 (0-31) U/L Alkaline Phosphatase 84 (39-117) U/L Total Protein 6.7 (6.5-8.0) g/dL Albumin 3.8 (3.5-5.0) g/dL Urine Color Urine Appearance Urine pH (5.0-9.0) Ur Specific [place] (1.005-1.025) Urine Protein (Neg-Trace) mg/dL Urine Glucose (UA) (Negative) mg/dL Urine Ketones (Negative) mg/dL Urine Blood (Negative) Urine Nitrite (Negative) Ur Leukocyte Esterase (Negative) Urine Test (NEGATIVE) Salicylates < 5.0 L (15-30) mg/dL Urine Opiates Screen (Not Detect) Urine Fentanyl Screen (Not Detect) Acetaminophen < 1 (<30) mcg/mL Ur Barbiturates Screen (Not Detect) Ur Phencyclidine Scrn (Not Detect) Ur Amphetamines Screen (Not Detect) U Benzodiazepines Scrn (Not Detect) Urine Cocaine Screen (Not Detect) U Marijuana (THC) Screen (Not Detect) Ethyl Alcohol < 10 mg/dL COVID-19 (DANIEL) Negative (Negative) COVID-19 Clin Com See Note 10/12/22 10/12/22 10/12/22 Range/Units 06:26 06:26 06:26 WBC (4.8-10.8) X10*3/uL RBC (4.20-5.50) X10*6/uL Hgb (12.0-16.0) g/dl Hct (37.0-47.0) % MCV (80.0-98.0) fL MCH (27.0-33.0) pg MCHC (31.0-35.0) g/dl RDW (11.0-16.0) % Plt Count (160-400) X10*3/uL MPV (9.4-12.3) fL Immature Gran % (Auto) (0.0-0.4) % Neut % (Auto) (45-73) % Lymph % (Auto) (20-40) % Wilkin % (Auto) (2-11) % Eos % (Auto) (0-4) % Baso % (Auto) (0-2) % Lymph # (Auto) (1.2-4.9) X10*3/uL [place]kin # (Auto) (0.1-1.2) X10*3/uL Eos # (Auto) (0.0-0.4) X10*3/uL Baso # (Auto) (0.0-0.2) X10*3/uL Abs Immat Gran (auto) (0.00-0.03) X10*3/uL Absolute Neuts (auto) (2.0-8.3) x10*3/uL Absolute Nucleated RBC (0.0-0.012) X10*3/uL Nucleated RBC % (auto) (0.0-0.2) /100WBC Sodium (135-145) mmol/L Potassium (3.3-5.1) mmol/L Chloride (96-108) mmol/L Carbon Dioxide (22-29) mmol/L Anion Gap (12-20) BUN (9-16) mg/dL Creatinine (0.5-1.4) mg/dL Estim Creat Clear Calc Estimated GFR Random Glucose (60-115) mg/dL Calcium (8.4-10.2) mg/dL Total Bilirubin (0.0-1.0) mg/dL AST (5-31) U/L ALT (0-31) U/L Alkaline Phosphatase (39-117) U/L Total Protein (6.5-8.0) g/dL Albumin (3.5-5.0) g/dL Urine Color Yellow Urine Appearance Clear Urine pH 6.5 (5.0-9.0) Ur Specific [place] 1.020 (1.005-1.025) Urine Protein Negative (Neg-Trace) mg/dL Urine Glucose (UA) Negative (Negative) mg/dL Urine Ketones Negative (Negative) mg/dL Urine Blood Negative (Negative) Urine Nitrite Negative (Negative) Ur Leukocyte Esterase Negative (Negative) Urine Test NEGATIVE (NEGATIVE) Salicylates (15-30) mg/dL Urine Opiates Screen Not Detected (Not Detect) Urine Fentanyl Screen Not Detected (Not Detect) Acetaminophen (<30) mcg/mL Ur Barbiturates Screen Not Detected (Not Detect) Ur Phencyclidine Scrn Not Detected (Not Detect) Ur Amphetamines Screen Not Detected (Not Detect) U Benzodiazepines Scrn Not Detected (Not Detect) Urine Cocaine Screen Not Detected (Not Detect) U Marijuana (THC) Screen Not Detected (Not Detect) Ethyl Alcohol mg/dL COVID-19 (DANIEL) (Negative) COVID-19 Clin Com <GEN Pate - Last Filed: 10/11/22 18:00> Lab Results 10/11/22 10/11/22 10/11/22 Range/Units 17:46 17:56 17:56 WBC 8.0 (4.8-10.8) X10*3/uL RBC 4.05 L (4.20-5.50) X10*6/uL Hgb 11.5 L (12.0-16.0) g/dl Hct 34.7 L (37.0-47.0) % MCV 85.7 (80.0-98.0) fL MCH 28.4 (27.0-33.0) pg MCHC 33.1 (31.0-35.0) g/dl RDW 13.3 (11.0-16.0) % Plt Count 300 (160-400) X10*3/uL MPV 10.2 (9.4-12.3) fL Immature Gran % (Auto) 0.1 (0.0-0.4) % Neut % (Auto) 53.0 (45-73) % Lymph % (Auto) 39.4 (20-40) % Wilkin % (Auto) 5.6 (2-11) % Eos % (Auto) 0.9 (0-4) % Baso % (Auto) 1.0 (0-2) % Lymph # (Auto) 3.2 (1.2-4.9) X10*3/uL [place] # (Auto) 0.5 (0.1-1.2) X10*3/uL Eos # (Auto) 0.1 (0.0-0.4) X10*3/uL Baso # (Auto) 0.1 (0.0-0.2) X10*3/uL Abs Immat Gran (auto) 0.01 (0.00-0.03) X10*3/uL Absolute Neuts (auto) 4.3 (2.0-8.3) x10*3/uL Absolute Nucleated RBC 0.000 (0.0-0.012) X10*3/uL Nucleated RBC % (auto) 0.0 (0.0-0.2) /100WBC Sodium 138 (135-145) mmol/L Potassium 4.2 (3.3-5.1) mmol/L Chloride 105 (96-108) mmol/L Carbon Dioxide 26 (22-29) mmol/L Anion Gap 11 L (12-20) BUN 13 (9-16) mg/dL Creatinine 0.74 (0.5-1.4) mg/dL Estim Creat Clear Calc 113.1 Estimated GFR > 60 Random Glucose 85 (60-115) mg/dL Calcium 9.0 (8.4-10.2) mg/dL Total Bilirubin 0.2 (0.0-1.0) mg/dL AST 20 D (5-31) U/L ALT 11 (0-31) U/L Alkaline Phosphatase 84 (39-117) U/L Total Protein 6.7 (6.5-8.0) g/dL Albumin 3.8 (3.5-5.0) g/dL Urine Color Urine Appearance Urine pH (5.0-9.0) Ur Specific [place] (1.005-1.025) Urine Protein (Neg-Trace) mg/dL Urine Glucose (UA) (Negative) mg/dL Urine Ketones (Negative) mg/dL Urine Blood (Negative) Urine Nitrite (Negative) Ur Leukocyte Esterase (Negative) Urine Test (NEGATIVE) Salicylates < 5.0 L (15-30) mg/dL Urine Opiates Screen (Not Detect) Urine Fentanyl Screen (Not Detect) Acetaminophen < 1 (<30) mcg/mL Ur Barbiturates Screen (Not Detect) Ur Phencyclidine Scrn (Not Detect) Ur Amphetamines Screen (Not Detect) U Benzodiazepines Scrn (Not Detect) Urine Cocaine Screen (Not Detect) U Marijuana (THC) Screen (Not Detect) Ethyl Alcohol < 10 mg/dL COVID-19 (DANIEL) Negative (Negative) COVID-19 Clin Com See Note 10/12/22 10/12/22 10/12/22 Range/Units 06:26 06:26 06:26 WBC (4.8-10.8) X10*3/uL RBC (4.20-5.50) X10*6/uL Hgb (12.0-16.0) g/dl Hct (37.0-47.0) % MCV (80.0-98.0) fL MCH (27.0-33.0) pg MCHC (31.0-35.0) g/dl RDW (11.0-16.0) % Plt Count (160-400) X10*3/uL MPV (9.4-12.3) fL Immature Gran % (Auto) (0.0-0.4) % Neut % (Auto) (45-73) % Lymph % (Auto) (20-40) % [place] % (Auto) (2-11) % Eos % (Auto) (0-4) % Baso % (Auto) (0-2) % Lymph # (Auto) (1.2-4.9) X10*3/uL [place] # (Auto) (0.1-1.2) X10*3/uL Eos # (Auto) (0.0-0.4) X10*3/uL Baso # (Auto) (0.0-0.2) X10*3/uL Abs Immat Gran (auto) (0.00-0.03) X10*3/uL Absolute Neuts (auto) (2.0-8.3) x10*3/uL Absolute Nucleated RBC (0.0-0.012) X10*3/uL Nucleated RBC % (auto) (0.0-0.2) /100WBC Sodium (135-145) mmol/L Potassium (3.3-5.1) mmol/L Chloride (96-108) mmol/L Carbon Dioxide (22-29) mmol/L Anion Gap (12-20) BUN (9-16) mg/dL Creatinine (0.5-1.4) mg/dL Estim Creat Clear Calc Estimated GFR Random Glucose (60-115) mg/dL Calcium (8.4-10.2) mg/dL Total Bilirubin (0.0-1.0) mg/dL AST (5-31) U/L ALT (0-31) U/L Alkaline Phosphatase (39-117) U/L Total Protein (6.5-8.0) g/dL Albumin (3.5-5.0) g/dL Urine Color Yellow Urine Appearance Clear Urine pH 6.5 (5.0-9.0) Ur Specific [place] 1.020 (1.005-1.025) Urine Protein Negative (Neg-Trace) mg/dL Urine Glucose (UA) Negative (Negative) mg/dL Urine Ketones Negative (Negative) mg/dL Urine Blood Negative (Negative) Urine Nitrite Negative (Negative) Ur Leukocyte Esterase Negative (Negative) Urine Test NEGATIVE (NEGATIVE) Salicylates (15-30) mg/dL Urine Opiates Screen Not Detected (Not Detect) Urine Fentanyl Screen Not Detected (Not Detect) Acetaminophen (<30) mcg/mL Ur Barbiturates Screen Not Detected (Not Detect) Ur Phencyclidine Scrn Not Detected (Not Detect) Ur Amphetamines Screen Not Detected (Not Detect) U Benzodiazepines Scrn Not Detected (Not Detect) Urine Cocaine Screen Not Detected (Not Detect) U Marijuana (THC) Screen Not Detected (Not Detect) Ethyl Alcohol mg/dL COVID-19 (DANIEL) (Negative) COVID-19 Clin Com <GEN Sexton - Last Filed: 10/11/22 19:04> Lab Results 10/11/22 10/11/22 10/11/22 Range/Units 17:46 17:56 17:56 WBC 8.0 (4.8-10.8) X10*3/uL RBC 4.05 L (4.20-5.50) X10*6/uL Hgb 11.5 L (12.0-16.0) g/dl Hct 34.7 L (37.0-47.0) % MCV 85.7 (80.0-98.0) fL MCH 28.4 (27.0-33.0) pg MCHC 33.1 (31.0-35.0) g/dl RDW 13.3 (11.0-16.0) % Plt Count 300 (160-400) X10*3/uL MPV 10.2 (9.4-12.3) fL Immature Gran % (Auto) 0.1 (0.0-0.4) % Neut % (Auto) 53.0 (45-73) % Lymph % (Auto) 39.4 (20-40) % [place] % (Auto) 5.6 (2-11) % Eos % (Auto) 0.9 (0-4) % Baso % (Auto) 1.0 (0-2) % Lymph # (Auto) 3.2 (1.2-4.9) X10*3/uL [place] # (Auto) 0.5 (0.1-1.2) X10*3/uL Eos # (Auto) 0.1 (0.0-0.4) X10*3/uL Baso # (Auto) 0.1 (0.0-0.2) X10*3/uL Abs Immat Gran (auto) 0.01 (0.00-0.03) X10*3/uL Absolute Neuts (auto) 4.3 (2.0-8.3) x10*3/uL Absolute Nucleated RBC 0.000 (0.0-0.012) X10*3/uL Nucleated RBC % (auto) 0.0 (0.0-0.2) /100WBC Sodium 138 (135-145) mmol/L Potassium 4.2 (3.3-5.1) mmol/L Chloride 105 (96-108) mmol/L Carbon Dioxide 26 (22-29) mmol/L Anion Gap 11 L (12-20) BUN 13 (9-16) mg/dL Creatinine 0.74 (0.5-1.4) mg/dL Estim Creat Clear Calc 113.1 Estimated GFR > 60 Random Glucose 85 (60-115) mg/dL Calcium 9.0 (8.4-10.2) mg/dL Total Bilirubin 0.2 (0.0-1.0) mg/dL AST 20 D (5-31) U/L ALT 11 (0-31) U/L Alkaline Phosphatase 84 (39-117) U/L Total Protein 6.7 (6.5-8.0) g/dL Albumin 3.8 (3.5-5.0) g/dL Urine Color Urine Appearance Urine pH (5.0-9.0) Ur Specific [place] (1.005-1.025) Urine Protein (Neg-Trace) mg/dL Urine Glucose (UA) (Negative) mg/dL Urine Ketones (Negative) mg/dL Urine Blood (Negative) Urine Nitrite (Negative) Ur Leukocyte Esterase (Negative) Urine Test (NEGATIVE) Salicylates < 5.0 L (15-30) mg/dL Urine Opiates Screen (Not Detect) Urine Fentanyl Screen (Not Detect) Acetaminophen < 1 (<30) mcg/mL Ur Barbiturates Screen (Not Detect) Ur Phencyclidine Scrn (Not Detect) Ur Amphetamines Screen (Not Detect) U Benzodiazepines Scrn (Not Detect) Urine Cocaine Screen (Not Detect) U Marijuana (THC) Screen (Not Detect) Ethyl Alcohol < 10 mg/dL COVID-19 (DANIEL) Negative (Negative) COVID-19 Clin Com See Note 10/12/22 10/12/22 10/12/22 Range/Units 06:26 06:26 06:26 WBC (4.8-10.8) X10*3/uL RBC (4.20-5.50) X10*6/uL Hgb (12.0-16.0) g/dl Hct (37.0-47.0) % MCV (80.0-98.0) fL MCH (27.0-33.0) pg MCHC (31.0-35.0) g/dl RDW (11.0-16.0) % Plt Count (160-400) X10*3/uL MPV (9.4-12.3) fL Immature Gran % (Auto) (0.0-0.4) % Neut % (Auto) (45-73) % Lymph % (Auto) (20-40) % [place] % (Auto) (2-11) % Eos % (Auto) (0-4) % Baso % (Auto) (0-2) % Lymph # (Auto) (1.2-4.9) X10*3/uL [place] # (Auto) (0.1-1.2) X10*3/uL Eos # (Auto) (0.0-0.4) X10*3/uL Baso # (Auto) (0.0-0.2) X10*3/uL Abs Immat Gran (auto) (0.00-0.03) X10*3/uL Absolute Neuts (auto) (2.0-8.3) x10*3/uL Absolute Nucleated RBC (0.0-0.012) X10*3/uL Nucleated RBC % (auto) (0.0-0.2) /100WBC Sodium (135-145) mmol/L Potassium (3.3-5.1) mmol/L Chloride (96-108) mmol/L Carbon Dioxide (22-29) mmol/L Anion Gap (12-20) BUN (9-16) mg/dL Creatinine (0.5-1.4) mg/dL Estim Creat Clear Calc Estimated GFR Random Glucose (60-115) mg/dL Calcium (8.4-10.2) mg/dL Total Bilirubin (0.0-1.0) mg/dL AST (5-31) U/L ALT (0-31) U/L Alkaline Phosphatase (39-117) U/L Total Protein (6.5-8.0) g/dL Albumin (3.5-5.0) g/dL Urine Color Yellow Urine Appearance Clear Urine pH 6.5 (5.0-9.0) Ur Specific [place] 1.020 (1.005-1.025) Urine Protein Negative (Neg-Trace) mg/dL Urine Glucose (UA) Negative (Negative) mg/dL Urine Ketones Negative (Negative) mg/dL Urine Blood Negative (Negative) Urine Nitrite Negative (Negative) Ur Leukocyte Esterase Negative (Negative) Urine Test NEGATIVE (NEGATIVE) Salicylates (15-30) mg/dL Urine Opiates Screen Not Detected (Not Detect) Urine Fentanyl Screen Not Detected (Not Detect) Acetaminophen (<30) mcg/mL Ur Barbiturates Screen Not Detected (Not Detect) Ur Phencyclidine Scrn Not Detected (Not Detect) Ur Amphetamines Screen Not Detected (Not Detect) U Benzodiazepines Scrn Not Detected (Not Detect) Urine Cocaine Screen Not Detected (Not Detect) U Marijuana (THC) Screen Not Detected (Not Detect) Ethyl Alcohol mg/dL COVID-19 (DANIEL) (Negative) COVID-19 Clin Com <Germán Pettit MD - Last Filed: 10/12/22 15:36> Critical Care Time Critical Care Time Critical Care Time: No <GEN Sexton - Last Filed: 10/11/22 19:04> Discharge Plan Discharge Clinical Impression: Developmental delay, moderate, Acute psychosis <GEN Pate - Last Filed: 10/11/22 18:00> Patient Disposition: Still a Patient <GEN Pate - Last Filed: 10/11/22 18:00> Prescriptions: New benztropine 0.5 mg Tablet 1 mg PO BID Qty: 60 0RF olanzapine 5 mg Tablet 5 mg PO TID PRN (Reason: agitation) Qty: 90 0RF olanzapine 10 mg Tablet 10 mg PO BID Qty: 60 0RF trazodone 100 mg Tablet 100 mg PO BEDTIME Qty: 30 0RF Continued olanzapine 10 mg Tablet 10 mg PO BID Qty: 60 0RF thiamine HCl (vitamin B1) 100 mg Tablet 100 mg PO DAILY Qty: 30 0RF folic acid 1 mg Tablet 1 mg PO DAILY Qty: 30 0RF Discontinued haloperidol 5 mg tablet 5 mg PO BEDTIME Qty: 30 0RF Rx Instructions: Total dose of 15mg po qhs topiramate 100 mg tablet 100 mg PO BEDTIME Qty: 30 0RF haloperidol 10 mg tablet 10 mg PO BEDTIME Qty: 30 0RF Rx Instructions: Total dose is 15 mg po qhs benztropine 0.5 mg Tablet 0.5 mg PO BID <GEN Pate - Last Filed: 10/11/22 18:00> Referrals: Physician,Unknown J [Primary Care Provider] - <GEN Pate - Last Filed: 10/11/22 18:00>
[2022-10-11] MEDS: diphenhydrAMINE HCL 50 MG/ML VIAL IM (15:43)
[2022-10-11] MEDS: Haloperidol Lactate 5 MG/ML VIAL IM (15:43)
[2022-10-11 18:02] LABS: MANUAL DIFF FLAG NO
[2022-10-11 18:06] LABS: Basophils Absolute Auto 0.1 X10*3/uL (0.0-0.2); Eosinophils Absolute Auto 0.1 X10*3/uL (0.0-0.4); Eosinophils Percent Auto 0.9 % (0-4); Hematocrit 34.7 % (37.0-47.0); Hemoglobin 11.5 g/dl (12.0-16.0); Imm Gran Abs Auto 0.01 X10*3/uL (0.00-0.03); Imm Gran Pct Auto 0.1 % (0.0-0.4); Lymphocytes Absolute Auto 3.2 X10*3/uL (1.2-4.9); Lymphocytes Percent Auto 39.4 % (20-40); Mean Corpuscular HGB Conc 33.1 g/dl (31.0-35.0); Mean Corpuscular Hemoglobin 28.4 pg (27.0-33.0); Mean Corpuscular Volume 85.7 fL (80.0-98.0); Mean Platelet Volume 10.2 fL (9.4-12.3); Monocytes Absolute Auto 0.5 X10*3/uL (0.1-1.2); Monocytes Percent Auto 5.6 % (2-11); Neutrophils Absolute Auto 4.3 x10*3/uL (2.0-8.3); Platelet Count 300 X10*3/uL (160-400); Red Blood Count 4.05 X10*6/uL (4.20-5.50); Red Cell Distribution Width 13.3 % (11.0-16.0)
[2022-10-11 18:18] LABS: COVID-19 Test Negative (Negative); IDNOW Serial# 16C4AD1C
[2022-10-11 18:24] LABS: Acetaminophen LAB < 1 mcg/mL (<30); Alanine Aminotransferase 11 U/L (0-31); Albumin Level 3.8 g/dL (3.5-5.0); Alkaline Phosphatase 84 U/L (39-117); Anion Gap 11 (12-20); Aspartate Amino Transferase 20 U/L (5-31); Bilirubin Total 0.2 mg/dL (0.0-1.0); Blood Urea Nitrogen 13 mg/dL (9-16); Carbon Dioxide 26 mmol/L (22-29); Chloride 105 mmol/L (96-108); Creatinine Clr Calc Pharmacy 113.1; Estimated Glomerular Filt Rate > 60; Ethanol < 10 mg/dL; Glucose Random 85 mg/dL (60-115); Potassium 4.2 mmol/L (3.3-5.1); Salicylate < 5.0 mg/dL (15-30); Sodium 138 mmol/L (135-145); Total Protein 6.7 g/dL (6.5-8.0)
--- NOTE | 2022-10-11 19:36 | PC.NURSE ---
Smart sheet submitted.
[2022-10-12 01:20] VITALS: BP 104/60; PULSE 74; RESP 16; TEMP 36.7; O2SAT 94
--- NOTE | 2022-10-12 02:20 | PC.NURSE ---
Pt alert and oriented to self. Sitting at the side of the bed in no apparent distress. Breaths are even and unlabored. Has not slept yet. Answering questions calm and cooperative. Will continue to monitor.
--- NOTE | 2022-10-12 04:38 | PC.NURSE ---
Med req completed.
--- NOTE | 2022-10-12 06:14 | PC.NURSE ---
Pt alert and oriented to self. Able to ambulate to the bathroom with assistance. Reports no pain at this time. Pt awake and sitting at the bedside throughout the night. Will continue to monitor.
[2022-10-12 06:34] LABS: Appearance Urine Clear; Color Urine Yellow; Glucose Urine UA Negative (Negative); Leukocyte Esterase Urine Negative (Negative); Nitrite Urine Negative (Negative); PH 6.5 (5.0-9.0); Urine Blood Negative (Negative); Urine Ketones Negative (Negative); Urine Protein Negative (Neg-Trace)
[2022-10-12 06:35] LABS: UPreg QC Valid YES; Urine Pregnancy NEGATIVE (NEGATIVE)
[2022-10-12 06:48] LABS: Amphetamine Screen Urine Not Detected (Not Detect); Barbiturates, Urine Not Detected (Not Detect); Benzodiazepines Screen Urine Not Detected (Not Detect); Cannabinoid Screen Urine Not Detected (Not Detect); Cocaine Screen Urine Not Detected (Not Detect); Fentanyl, urine Not Detected (Not Detect); Opiate Screen Urine Not Detected (Not Detect); Phencyclidine Screen Urine Not Detected (Not Detect)
[2022-10-12] MEDS: Benztropine Mesylate 0.5 MG TABLET PO (09:03)
--- NOTE | 2022-10-12 12:21 | P.CNPS_ITS ---
History of Present Illness Date of Service: 10/12/2022 Chief Complaint: SEC 12, SI/HI, UNCOOPERATIVE PER EMS Reason for Consult: increase aggression Discussed with referring provider: Yes Sources of Information: patient interviewed, chart reviewed and crisis/core team assessment reviewed Additional Sources of Information: mother Fernando [phone] Nereida (law office manager ) [phone] Bean Garcia- [phone] [facility] Narrative: Ms. Pope is a 37 year-old woman with hx of developmental/intellectual delay, Bipolar Disorder who was sent via EMS after she was assessed by N crisis at [facility] where she resides due to pt showing sexualized behaviors, increase aggression, reports of suicidal ideation and paranoid delusions towards staff at . In the ED, pt presented as combative initially. Pt received IM haldol. In the ED, utox is negative. Today, pt presents as calmer. Pt reports staff at trying to harm her. Pt reports she does not have nay plan or intent to harm herself or others. She reports she wants to go back to the . Today pt has presented as calm, no behavioral outbursts. Collateral information gathered from Nereida- law office manager at , who reports overall pt has adjusted well to . Pt moved to back in May. Nereida reports that she has had some episodes of increase delusions- usually paranoid towards staff and sexualized behaviors- masturbating in public, reporting she was raped at night. Most recently in the past 3 days, pt has been presenting as increasingly more paranoid towards staff, reporting they are trying to hurt her, which led to increase agitation, again masturbating in public and making threats to harm others. Collateral information also gathered from mother- who reports significant decline in ability to function in the past 2 years and increase paranoia, sexualized behaviors. [facility] Family History: unknown Social History: Pt adopted from [place] at age of 14 months. 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 Currently lives at . Adoptive parents . Substance History: none Diagnostics Vital Signs (24Hr): Vital Signs - 24 hr 10/11/22 15:20 10/11/22 15:15 10/11/22 15:30 Temperature Pulse Rate Respiratory Rate 18 24 H 20 Blood Pressure Pulse Oximetry Oxygen Delivery Method 10/11/22 16:00 10/11/22 15:45 10/11/22 16:15 Temperature Pulse Rate Respiratory Rate 18 18 18 Blood Pressure Pulse Oximetry Oxygen Delivery Method 10/11/22 16:30 10/11/22 16:45 10/11/22 17:00 Temperature Pulse Rate Respiratory Rate 18 18 16 Blood Pressure Pulse Oximetry Oxygen Delivery Method 10/12/22 01:20 Temperature 98.1 F Pulse Rate 74 Respiratory Rate 16 Blood Pressure 104/60 Pulse Oximetry 94 Oxygen Delivery Method Room Air BMI result Body Mass Index 29.0 Labs Results: 10/11/22 17:56 10/11/22 17:56 Labs: Laboratory Results - last 48 hr 10/11/22 10/11/22 10/11/22 17:46 17:56 17:56 WBC 8.0 RBC 4.05 L Hgb 11.5 L Hct 34.7 L MCV 85.7 MCH 28.4 MCHC 33.1 RDW 13.3 Plt Count 300 MPV 10.2 Immature Gran % (Auto) 0.1 Neut % (Auto) 53.0 Lymph % (Auto) 39.4 [place] % (Auto) 5.6 Eos % (Auto) 0.9 Baso % (Auto) 1.0 Lymph # (Auto) 3.2 [place] # (Auto) 0.5 Eos # (Auto) 0.1 Baso # (Auto) 0.1 Abs Immat Gran (auto) 0.01 Absolute Neuts (auto) 4.3 Absolute Nucleated RBC 0.000 Nucleated RBC % (auto) 0.0 Sodium 138 Potassium 4.2 Chloride 105 Carbon Dioxide 26 Anion Gap 11 L BUN 13 Creatinine 0.74 Estim Creat Clear Calc 113.1 Estimated GFR > 60 Random Glucose 85 Calcium 9.0 Total Bilirubin 0.2 AST 20 D ALT 11 Alkaline Phosphatase 84 Total Protein 6.7 Albumin 3.8 Urine Color Urine Appearance Urine pH Ur Specific [place] Urine Protein Urine Glucose (UA) Urine Ketones Urine Blood Urine Nitrite Ur Leukocyte Esterase Urine Test Salicylates < 5.0 L Urine Opiates Screen Urine Fentanyl Screen Acetaminophen < 1 Ur Barbiturates Screen Ur Phencyclidine Scrn Ur Amphetamines Screen U Benzodiazepines Scrn Urine Cocaine Screen U Marijuana (THC) Screen Ethyl Alcohol < 10 COVID-19 (DANIEL) Negative COVID-19 Clin Com See Note 10/12/22 10/12/22 10/12/22 06:26 06:26 06:26 WBC RBC Hgb Hct MCV MCH MCHC RDW Plt Count MPV Immature Gran % (Auto) Neut % (Auto) Lymph % (Auto) [place] % (Auto) Eos % (Auto) Baso % (Auto) Lymph # (Auto) [place] # (Auto) Eos # (Auto) Baso # (Auto) Abs Immat Gran (auto) Absolute Neuts (auto) Absolute Nucleated RBC Nucleated RBC % (auto) Sodium Potassium Chloride Carbon Dioxide Anion Gap BUN Creatinine Estim Creat Clear Calc Estimated GFR Random Glucose Calcium Total Bilirubin AST ALT Alkaline Phosphatase Total Protein Albumin Urine Color Yellow Urine Appearance Clear Urine pH 6.5 Ur Specific [place] 1.020 Urine Protein Negative Urine Glucose (UA) Negative Urine Ketones Negative Urine Blood Negative Urine Nitrite Negative Ur Leukocyte Esterase Negative Urine Test NEGATIVE Salicylates Urine Opiates Screen Not Detected Urine Fentanyl Screen Not Detected Acetaminophen Ur Barbiturates Screen Not Detected Ur Phencyclidine Scrn Not Detected Ur Amphetamines Screen Not Detected U Benzodiazepines Scrn Not Detected Urine Cocaine Screen Not Detected U Marijuana (THC) Screen Not Detected Ethyl Alcohol COVID-19 (DANIEL) COVID-19 Clin Com Mental Status Exam Mental Status Exam Narrative: Appearance: wearing hospital gown, fair hygiene, in NAD Behavior: overly friendly, poor boundaries. Speech: mumbles at times, regular rate, spontaneous TP: focused on going back home TC: paranoia towards staff, wanting to go back home Mood: good Affect: bright, non labile SI: none HI: none AH/VH: does not appear Delusions: paranoid delusions Insight/judgment: impaired x 3. Memory/cog: alert, oriented to place, no situation. underlying intellectual disability. Medications Medications Current Medications Benztropine Mesylate (Benztropine Mesylate 0.5 Mg Tablet) 0.5 mg PO BID HERIBERTO Last Admin: 10/12/22 09:03 Dose: 0.5 mg Haloperidol (Haloperidol 5 Mg Tablet) 5 mg PO BEDTIME HERIBERTO Allergies Allergies Allergy/AdvReac Type Severity Reaction Status Date / Time cariprazine [From VRAYLAR] Allergy Unknown UNK Verified 09/09/20 21:32 divalproex sodium Allergy Unknown UNK Verified 09/09/20 21:32 [From DEPAKOTE] escitalopram [From LEXAPRO] Allergy Unknown UNK Verified 09/09/20 21:32 lithium [LITHIUM] Allergy Unknown UNK Verified 09/09/20 21:32 metformin [METFORMIN] Allergy Unknown UNK Verified 09/09/20 21:32 Assessment & Plan Assessment & Plan (1) Developmental delay, moderate: Status: Acute Code(s): R62.50 - Unspecified lack of expected normal physiological development in [facility] (2) Bipolar disorder with psychotic features: Status: Acute Code(s): F31.9 - Bipolar disorder, unspecified (3) Intellectual disability: Status: Acute Code(s): F79 - Unspecified intellectual disabilities Plan Ms. Pope is a 37 year-old woman with hx of intellectual disability, Bipolar disorder who resides at [facility]. Pt brought via EMS after pt assessed in community by N due to pt presenting with increase agitation, paranoid delusons and sexualized behaviors. Pt received haldol IM yesterday. She was continued on medications prescribed in the community. Pt today as much calmer, overly friendly but able to be redirected. She reports some paranoia towards staff at [facility] but wants to return there. She denies SI/HI. No aggression towards self or others today. I spoke with her mother and with law office manager at [facility] Nereida, both agree to increase olanzapine from 10mg po qhs to BID and additional PRN doses of olanzapine 5mg TID PRN for agitation. Called pt's OP psychiatrist, Dr. Bean Garcia, awaiting call back. However, pt will return to , if increase agitation or combativeness happens staff agrees to bring her back. Nereida states she will coordinate sooner appointment with her OP psychiatrist to follow up on medications changes made today. PLAN 1. Pt to return to , increase olanzapine to 10mg po BID, continues cogentin 1mg po BID, d/c prozac as it may increase hypersexual behaviors, agitation and delusions. It would be recommended to start her on mood stabilizar but unclear if she has had true side effects to some of them. I spent minutes with the patient and/or on the patient floor today, greater than?50% of which was spent counseling/coordinating care.
== END 2022-10-12 15:45 | disposition home or self-care (01) ==
PROVIDERS: Physician Assistant; Physician Assistant Medical; Emergency Provider Emergency Medicine Emergency Medical Services
DX: F23 Brief psychotic disorder (principal); F31.9 Bipolar disorder, unspecified; R45.851 Suicidal ideations; R45.850 Homicidal ideations; R45.5 Hostility; Z20.822 Contact with and (suspected) exposure to COVID-19; R62.50 Unspecified lack of expected normal physiological development in childhood; F79 Unspecified intellectual disabilities; R47.9 Unspecified speech disturbances; Z78.1 Physical restraint status; Z79.899 Other long term (current) drug therapy
CPT/HCPCS: 80053; 80143; 80179; 80307; 81003; 81025; 82077; 85025; 87635; 96372; 99285; J1200